=== PATIENT | male | born 1960 | race Asian ===

== ENCOUNTER 2018-08-30 20:07 | Inpatient (IN) | payer MEDICARE, OTHER ==
[~2018-08-30] VITALS: Ht 182.9 cm; Wt 49.0 kg
[2018-08-30 20:20] VITALS: BP 140/90
--- NOTE | 2018-08-30 20:20 | NUR ---
ED Nurse Note: John zion from [facility] c/o fever however at time of arrival patient does have a rectal temp of 98.9, Patient is disoriented and confused at time of arrival, patient is a polish speaking male whjo is accompanied by his , his states that he does have a history of hypertension and has had 2 strokes. states that the patient's last known well time was on 08/17/18 to which she states that the patient was able to ambulate himself to the bathroom and make speech. at time of arrival patient is incoherent and is constantly making noises. 18 gauge IV started on patients right AC, blood drawn and sent to lab.
[2018-08-30] MEDS ORDERED: PLAVIX75 MG ORAL (20:22)
[2018-08-30] MEDS ORDERED: DIVALPROEX SOD125 M1 PO (20:22)
[2018-08-30] MEDS ORDERED: LIPITOR80 MG ORAL (20:22)
[2018-08-30] MEDS ORDERED: POLYETHYLENE GL17 GM ORAL (20:22)
[2018-08-30] MEDS ORDERED: GERITUSSIN (20:22)
--- NOTE | 2018-08-30 20:41 | Emergency Room Report ---
History of Present Illness General Chief Complaint: Fever Source: Family Member, EMS Present Illness HPI This is a 58-year-old male with a history of a CVA and was admitted to a long-term on August 15. The patient offers no meaningful history and the family member at bedside is somewhat of a poor historian. According to her, the patient was admitted for a CVA. The patient got progressively worse over the last several weeks. And is having episodes of agitation with her speech. The patient is not eating or drinking. The patient does not ambulate any more. According to the family member, the patient was able to talk and walk prior to August 17. The patient is coming from a nursing facility. Allergies: Coded Allergies: No Known Allergies (Unverified , 08/30/18) Patient History Past Medical History: [place], CVA/TIA Past Surgical History: unable to obtain Pertinent Family History: unable to obtain Nursing Documentation-PMH Hx Hypertension: Yes Hx Gastrointestinal Problems: Yes - acid reflux, dyslipidemia, hemorrhoids Hx Neurological Problems: Yes - AMS Hx Cerebrovascular Accident: Yes - encephalopathy Hx Seizures: Yes Review of Systems All Other Systems: limited Physical Exam Vital Signs Date Time Temp Pulse Resp B/P (MAP) Pulse Ox O2 Delivery O2 Flow Rate FiO2 08/30/18 20:14 98.1 88 16 140/90 98 General Appearance: normal inspection ENT: normal ENT inspection, normal pharynx Neck: supple Respiratory: normal inspection, lungs clear Cardiovascular #1: normal inspection, regular rate, rhythm Musculoskeletal: normal inspection Neurologic: other - unable to exam Medical Decision Making Diagnostic Impression: Primary Impression: Altered mental state Additional Impression: Dehydration ER Course Patient presents enemy complexity or wrists. Patient was extremely agitated was given Ativan. He had a brief episode of hypotension medicine resolves on IV hydration. The patient has been afebrile. Chest x-ray was reviewed which showed no acute disease process. CT showed a subacute CVA on the right temporal lobe. Repeat neurological examination is unchanged and limited. The patient be admitted to the telemetry unit. Lactic acid level was slightly elevated. Unknown cause. The patient is afebrile. No leukocytosis. No significant or obvious source of infection. Laboratory Tests Test 08/30/18 20:45 08/30/18 21:30 08/30/18 22:15 White Blood Count 10.0 K/UL (4.8-10.8) Red Blood Count 4.72 M/UL (4.70-6.10) Hemoglobin 14.6 G/DL (14.2-18.0) Hematocrit 43.0 % (42.0-52.0) Mean Corpuscular Volume 91 FL (80-99) Mean Corpuscular Hemoglobin 30.8 PG (27.0-31.0) Mean Corpuscular Hemoglobin Concent 33.9 G/DL (32.0-36.0) Red Cell Distribution Width 12.1 % (11.6-14.8) Platelet Count 285 K/UL (150-450) Mean Platelet Volume 5.7 FL (6.5-10.1) L Neutrophils (%) (Auto) 71.3 % (45.0-75.0) Lymphocytes (%) (Auto) 17.9 % (20.0-45.0) L Monocytes (%) (Auto) 8.3 % (1.0-10.0) Eosinophils (%) (Auto) 0.8 % (0.0-3.0) Basophils (%) (Auto) 1.6 % (0.0-2.0) Sodium Level 144 MMOL/L (136-145) Potassium Level 4.4 MMOL/L (3.5-5.1) Chloride Level 106 MMOL/L (98-107) Carbon Dioxide Level 29 MMOL/L (21-32) Anion Gap 9 mmol/L (5-15) Blood Urea Nitrogen 23 mg/dL (7-18) H Creatinine 1.1 MG/DL (0.55-1.30) Estimate Glomerular Filtration Rate > 60 mL/min (>60) Glucose Level 110 MG/DL (74-106) H Lactic Acid Level 3.10 mmol/L (0.4-2.0) H Pending Calcium Level 9.8 MG/DL (8.5-10.1) Total Bilirubin 0.6 MG/DL (0.2-1.0) Aspartate Amino Transferase (AST) 40 U/L (15-37) H Alanine Aminotransferase (ALT) 44 U/L (12-78) Alkaline Phosphatase 79 U/L (46-116) Ammonia 19 umol/L (11-32) Troponin I 0.012 ng/mL (0.000-0.056) Total Protein 8.3 G/DL (6.4-8.2) H Albumin 3.8 G/DL (3.4-5.0) Globulin 4.5 g/dL Albumin/Globulin Ratio 0.8 (1.0-2.7) L Urine Color Yellow Urine Appearance Clear Urine pH 7 (4.5-8.0) Urine Specific [place] 1.015 (1.005-1.035) Urine Protein 3+ (NEGATIVE) H Urine Glucose (UA) Negative (NEGATIVE) Urine Ketones Negative (NEGATIVE) Urine Blood 2+ (NEGATIVE) H Urine Nitrite Negative (NEGATIVE) Urine Bilirubin Negative (NEGATIVE) Urine Urobilinogen 1 MG/DL (0.0-1.0) H Urine Leukocyte Esterase 1+ (NEGATIVE) H Urine RBC 5-10 /HPF (0 - 0) H Urine WBC 2-4 /HPF (0 - 0) Urine Squamous Epithelial Cells None /LPF (NONE/OCC) Urine Amorphous Sediment Few /LPF (NONE) H Urine Bacteria Moderate /HPF (NONE) H Urine Yeast Few /HPF (NONE) H EKG Diagnostic Results EKG Time: 21:20 Rate: normal Rhythm: NSR ST Segments: other - RBBB Last Vital Signs Date Time Temp Pulse Resp B/P (MAP) Pulse Ox O2 Delivery O2 Flow Rate FiO2 08/30/18 20:14 98.1 88 16 140/90 98 UNA REED Aug 30, 2018 20:41
[2018-08-30] MEDS ORDERED: LORazepam Inj 2mg/ml 1ml IM ONE (20:45)
[2018-08-30 21:02] LABS: BASOPHILS % (AUTO) 1.6 % (0.0-2.0); EOSINOPHILS % (AUTO) 0.8 % (0.0-3.0); HEMOGLOBIN 14.6 G/DL (14.2-18.0); LYMPHOCYTES % (AUTO) 17.9 % (20.0-45.0); MEAN CORPUSCULAR VOLUME 91 FL (80-99); MONOCYTES % (AUTO) 8.3 % (1.0-10.0); NEUTROPHILS % (AUTO) 71.3 % (45.0-75.0); PLATELET COUNT 285 K/UL (150-450); RED BLOOD COUNT 4.72 M/UL (4.70-6.10); RED CELL DISTRIBUTION WIDTH 12.1 % (11.6-14.8)
[2018-08-30] MEDS ORDERED: LORazepam Inj 2mg/ml 1ml IV ONE (21:15)
[2018-08-30 21:23] LABS: ANION GAP 9 mmol/L (5-15); BLOOD UREA NITROGEN 23 mg/dL (7-18); CALCIUM 9.8 MG/DL (8.5-10.1); CARBON DIOXIDE 29 MMOL/L (21-32); CHLORIDE 106 MMOL/L (98-107); CREATININE 1.1 MG/DL (0.55-1.30); POTASSIUM 4.4 MMOL/L (3.5-5.1); SODIUM 144 MMOL/L (136-145)
[2018-08-30 21:24] LABS: AMMONIA 19 umol/L (11-32)
[2018-08-30 21:28] LABS: ALANINE AMINOTRANSFERASE 44 U/L (12-78); ALBUMIN 3.8 G/DL (3.4-5.0); ALBUMIN/GLOBULIN RATIO 0.8 (1.0-2.7); ALKALINE PHOSPHATASE 79 U/L (46-116); ASPARTATE AMINO TRANSFERASE 40 U/L (15-37); BILIRUBIN,TOTAL 0.6 MG/DL (0.2-1.0)
[2018-08-30 21:46] LABS: APPEARANCE,URINE CLEAR; BILIRUBIN, URINE NEGATIVE (NEGATIVE); GLUCOSE, URINE (UA) NEGATIVE (NEGATIVE); KETONES,URINE NEGATIVE (NEGATIVE); LEUKOCYTE ESTERASE ,URINE 1+ (NEGATIVE); NITRITE,URINE NEGATIVE (NEGATIVE); PH,URINE 7 (4.5-8.0); PROTEIN,URINE 3+ (NEGATIVE); UROBILINOGEN,URINE 1 MG/DL (0.0-1.0)
[2018-08-30 21:50] LABS: COLOR,URINE YELLOW
[2018-08-30 22:00] VITALS: BP 74/46
--- NOTE | 2018-08-30 22:00 | NUR ---
ED Nurse Note: Patient's blood pressure went down to 74/62, Dr. Sahu notified and aware, started second line on pateints left forearm 18 gauge.
--- NOTE | 2018-08-30 22:15 | NUR ---
ED Nurse Note: after receiving IV bolus fluids, patient's blood pressure currently table in the 110s
[2018-08-30] MEDS ORDERED: Acetaminophen 650 MG SUPP RECTAL PRN (22:45)
--- NOTE | 2018-08-30 23:07 | General Progress Note ---
Assessment/Plan Assessment/Plan: [facility] An independent Hospitalist group, where every patient is our [facility] Internal Medicine and Hospitalist Overnight Note Please contact us at Please text me on Voalte from 8a-6p regarding any patient questions From 6p-8a please call [phone] Case discussed with ED Physician. Chart, labs, imaging, vitals and other flowsheets reviewed. Patient presents with ams, found to have waylon and uti and subacute stroke Plan overnight will be admit to med surg with IV abx and IVF consults to be called in AM Full admission orders completed. Full and complete H+P to follow Time of note may not reflect time of encounter. Signed: Ingris Pool DO [facility] Pager: [phone] 08/30/2018 Subjective Allergies: Coded Allergies: No Known Allergies (Unverified , 08/30/18) Objective Last 24 Hour Vital Signs Date Time Temp Pulse Resp B/P (MAP) Pulse Ox O2 Delivery O2 Flow Rate FiO2 08/30/18 20:20 98.1 85 16 140/90 98 08/30/18 20:20 88 16 08/30/18 20:14 98.1 88 16 140/90 98 Laboratory Tests 08/30/18 20:45: White Blood Count 10.0, Red Blood Count 4.72, Hemoglobin 14.6, Hematocrit 43.0, Mean Corpuscular Volume 91, Mean Corpuscular Hemoglobin 30.8, Mean Corpuscular Hemoglobin Concent 33.9, Red Cell Distribution Width 12.1, Platelet Count 285, Mean Platelet Volume 5.7L, Neutrophils (%) (Auto) 71.3, Lymphocytes (%) (Auto) 17.9L, Monocytes (%) (Auto) 8.3, Eosinophils (%) (Auto) 0.8, Basophils (%) (Auto ) 1.6, Sodium Level 144, Potassium Level 4.4, Chloride Level 106, Carbon Dioxide Level 29, Anion Gap 9, Blood Urea Nitrogen 23H, Creatinine 1.1, Estimat Glomerular Filtration Rate > 60, Glucose Level 110H, Lactic Acid Level 3.10H, Calcium Level 9.8, Total Bilirubin 0.6, Aspartate Amino Transf (AST/SGOT) 40H, Alanine Aminotransferase (ALT/SGPT) 44, Alkaline Phosphatase 79, Ammonia 19, Troponin I 0.012, Total Protein 8.3H, Albumin 3.8, Globulin 4.5, Albumin/ Globulin Ratio 0.8L 08/30/18 21:30: Urine Color Yellow, Urine Appearance Clear, Urine pH 7, Urine Specific [place] 1.015, Urine Protein 3+H, Urine Glucose (UA) Negative, Urine Ketones Negative, Urine Blood 2+H, Urine Nitrite Negative, Urine Bilirubin Negative, Urine Urobilinogen 1H, Urine Leukocyte Esterase 1+H, Urine RBC 5-10H, Urine WBC 2-4, Urine Squamous Epithelial Cells None, Urine Amorphous Sediment FewH, Urine Bacteria ModerateH, Urine Yeast FewH 08/30/18 22:15: Lactic Acid Level 1.40 Height (Feet): 6 Weight (Pounds): 130 Ingris Pool DO Aug 30, 2018 23:07
[2018-08-30] MEDS ORDERED: Miralax 17gm pkt ORAL PRN (23:15)
--- NOTE | 2018-08-30 23:58 | NUR ---
ED Nurse Note: Mendel [phone] (speak no Angolan), brother Hugh [phone] (Speak Angolan)
[2018-08-31 00:03] VITALS: BP 104/67
[2018-08-31] MEDS ORDERED: POLYETHYLENE GL17 GM ORAL (00:22)
[2018-08-31] MEDS ORDERED: BISACODYL5 MG ORAL (00:22)
[2018-08-31] MEDS ORDERED: PLAVIX75 MG ORAL (00:22)
[2018-08-31] MEDS ORDERED: DEPAKOTE250 MG PO (00:22)
--- NOTE | 2018-08-31 00:30 | NUR ---
TRANSFER TO FLOOR: Patient transferred to Telemetry as ordered Report given to DEANNE Yan
[2018-08-31 01:00] VITALS: BP 108/63
--- NOTE | 2018-08-31 01:00 | NUR ---
NURSE NOTES: Received report from Raine Carlson, ED RN. Pt came via [facility] w/o incident. Pt is sedated in ED by having ativan for agitation while taking CT. Francisco cath is applied, patent and draining. Urine bag is off the floor. Belonging list checked and telemetry monitor was applied. SR w/ BBB, 60 bpm. in the monitor. There is transfer to Tele order in the paper of [facility] order form by ED Dr, done in pt's chart. Will follow plans of care. Addendum: 08/31/18 at 0457 by NEHA DAMIAN RN Admitted to tele first d/t [facility] order paper by ED Doctor indicated tele admin. Transferred to med-surg according to PCP. CN made aware from the first admission process.
--- NOTE | 2018-08-31 04:50 | NUR ---
NURSE NOTES: Report taken from Fredi Yan. Patient came to the floor via hospital bed. Patient is asleep, non-responsive to RN touch or voice. VS stable: T) 97.6 HR) 51 BP) 97/63 O2) 100%. No skin issues present with patient. patient has a burleson in c/d/i and patent draining yellow urine, emptied 1300cc upon arrival to floor. Belongings list signed by family. Bilateral IV sites c/d/i and patent. Patient will be going for carotid duplex in the am due to history of CVA. Gave 2L bolus in the ER due to low BP. Continue to monitor, call light within reach, bed in lowest position.
--- NOTE | 2018-08-31 04:51 | NUR ---
TRANSFER TO FLOOR: Patient transferred to 3E, Rm 314-1, per Dr. Pool. Tele monitor #24 was off and returned to 2E station. Report given to Kristen Euceda RN. Belongings given to Pt. and RN checked the list. Family and or S/O informed of transfer.
--- NOTE | 2018-08-31 07:49 | NUR ---
HAND-OFF: Report given to DEANNE Porter. Yaw called MD office to get further orders for the day, awaiting call back, endorsed to day nurse. Patient is awake and agitated during rounds. VS stable.
[2018-08-31 08:00] VITALS: BP 154/97
--- NOTE | 2018-08-31 08:16 | NUR ---
NURSE NOTES: AWAKE/ NOISY AND RESTLESS. TRYING TO FULL OUT F/C AND GETTING OUT OF BED. TRANSFERRED TO RM 310.2 CLOSED TO NURSES STATION. CONTINUE TO MONITOR PT. DR HAYS CALLED . LEFT MESSAGE TO RETURN CALL.
[2018-08-31] MEDS ORDERED: LORazepam Inj 2mg/ml 1ml IV PRN ×3 (08:30→10:00)
[2018-08-31] MEDS ORDERED: LORazepam 1mg tab ORAL PRN (08:30)
[2018-08-31] MEDS: cefTRIAXone 1 GM in NS 55 ML IVPB SCH (09:00)
[2018-08-31] MEDS ORDERED: Aspirin EC 81mg tab ORAL SCH (09:00)
[2018-08-31] MEDS ORDERED: cefTRIAXone 1 GM in NS 55 ML IVPB SCH (09:00)
[2018-08-31] MEDS: Aspirin EC 81mg tab ORAL SCH (09:30)
--- NOTE | 2018-08-31 10:58 | Diagnostic Imaging Report ---
Indications: Altered mental status, history of seizures Technique: Spiral acquisitions obtained through the brain. Angled axial and coronal 5 x 5 mm slices were reconstructed. Total dose length product 3765 mGycm. CTDI vol(s) 70 x 4 mGy. Dose reduction achieved using automated exposure control Comparison: None. Findings: There is marked image degradation due to motion artifact There is age-related enlargement of the ventricles and extra-axial CSF spaces. There is periventricular deep white matter low-attenuation, consistent with chronic ischemic change. Prominent cisterna magna noted. There is low-attenuation within the right temporal tip, consistent with a subacute or old infarct. No acute intercranial hemorrhage nor edema otherwise. No mass effect nor midline shift. Intact calvarium. Visualized orbits and sinuses are unremarkable. Impression: Limited exam due to image degradation from motion artifact Subacute or old right temporal tip infarct. No acute associated hemorrhage Other chronic and age-related changes, as described This agrees with the preliminary interpretation provided overnight by Dr. Ace The CT scanner at [facility] is accredited by the [employer] and the scans are performed using protocols designed to limit radiation exposure to as low as reasonably achievable to attain images of sufficient resolution adequate for diagnostic evaluation.
--- NOTE | 2018-08-31 11:03 | History and Physical ---
History of Present Illness General Date patient seen: Aug 31, 2018 Time patient seen: 07:25 Reason for Hospitalization: Fever Present Illness HPI 58 year old man with history of recent CVA with subsequent aphasia who [facility] with increasing confusion, agitation and poor oral intake. is at the beside but does not speak Filipino. I spoke with the patient's brother Hugh by telephone who confirmed the above information, patient has had worsening mentation over the past 2-3 weeks since being admitted to the nursing facility. Patient did have an episode of slurred speech around that time. In ED he was found to be hypotensive, dehydration and possible UTI. Patient continues to be agitated and required wrist restraints to prevent interruption of therapy. Social History: No current alcohol or tobacco Family History: Unable to obtain due to patient's encephalopathy Allergies: Coded Allergies: No Known Allergies (Unverified , 08/30/18) Medication History Scheduled Atorvastatin (Lipitor), 80 MG ORAL BEDTIME, (Reported) Bisacodyl* (Dulcolax*), 20 MG ORAL ONCE, (Reported) Clopidogrel Bisulfate* (Plavix*), 75 MG ORAL DAILY, (Reported) Clopidogrel Bisulfate* (Plavix*), 75 MG ORAL DAILY, (Reported) Divalproex Sodium* (Depakote*), 250 MG PO Q12HR, (Reported) Scheduled PRN Polyethylene Glycol 3350* (Polyethylene Glycol 3350*), 17 GM ORAL BEDTIME PRN for Constipation, (Reported) Polyethylene Glycol 3350* (Polyethylene Glycol 3350*), 17 GM ORAL BEDTIME PRN for Constipation, (Reported) Miscellaneous Medications Divalproex Sodium (Divalproex Sodium), 125 MG PO, (Reported) [geritussin], (Reported) Patient History Healthcare decision maker Resuscitation status Full Code Advanced Directive on File Review of Systems ROS Narrative Unable to obtain ROS due to encephalopathy Physical Exam General Appearance: alert, combative HEENT: normocephalic Neck: supple, normal inspection Respiratory/Chest: lungs clear, normal breath sounds, no respiratory distress Cardiovascular/Chest: normal rate, regular rhythm, no JVD Abdomen: non tender, soft Extremities: normal inspection, no calf tenderness Neurologic: other - Uncooperative Last 24 Hour Vital Signs Date Time Temp Pulse Resp B/P (MAP) Pulse Ox O2 Delivery O2 Flow Rate FiO2 08/31/18 09:53 Room Air 08/31/18 05:21 Room Air 08/31/18 01:46 Room Air 08/31/18 01:00 96.8 60 18 108/63 (78) 98 08/31/18 01:00 60 08/31/18 00:46 98.1 76 18 104/67 100 Room Air 08/31/18 00:03 64 18 104/67 100 Room Air 08/30/18 22:00 67 18 74/46 99 Room Air 08/30/18 20:20 98.1 85 16 140/90 98 08/30/18 20:20 88 16 08/30/18 20:14 98.1 88 16 140/90 98 Intake and Output 08/30/18 08/31/18 19:00 07:00 Intake Total 0 ml Output Total 1500 ml Balance -1500 ml Intake Oral 0 ml Output Urine Total 1500 ml Laboratory Tests Test 08/30/18 20:45 08/30/18 21:30 08/30/18 22:15 White Blood Count 10.0 K/UL (4.8-10.8) Red Blood Count 4.72 M/UL (4.70-6.10) Hemoglobin 14.6 G/DL (14.2-18.0) Hematocrit 43.0 % (42.0-52.0) Mean Corpuscular Volume 91 FL (80-99) Mean Corpuscular Hemoglobin 30.8 PG (27.0-31.0) Mean Corpuscular Hemoglobin Concent 33.9 G/DL (32.0-36.0) Red Cell Distribution Width 12.1 % (11.6-14.8) Platelet Count 285 K/UL (150-450) Mean Platelet Volume 5.7 FL (6.5-10.1) L Neutrophils (%) (Auto) 71.3 % (45.0-75.0) Lymphocytes (%) (Auto) 17.9 % (20.0-45.0) L Monocytes (%) (Auto) 8.3 % (1.0-10.0) Eosinophils (%) (Auto) 0.8 % (0.0-3.0) Basophils (%) (Auto) 1.6 % (0.0-2.0) Sodium Level 144 MMOL/L (136-145) Potassium Level 4.4 MMOL/L (3.5-5.1) Chloride Level 106 MMOL/L (98-107) Carbon Dioxide Level 29 MMOL/L (21-32) Anion Gap 9 mmol/L (5-15) Blood Urea Nitrogen 23 mg/dL (7-18) H Creatinine 1.1 MG/DL (0.55-1.30) Estimat Glomerular Filtration Rate > 60 mL/min (>60) Glucose Level 110 MG/DL (74-106) H Lactic Acid Level 3.10 mmol/L (0.4-2.0) H 1.40 mmol/L (0.66-2.22) Calcium Level 9.8 MG/DL (8.5-10.1) Total Bilirubin 0.6 MG/DL (0.2-1.0) Aspartate Amino Transf (AST/SGOT) 40 U/L (15-37) H Alanine Aminotransferase (ALT/SGPT) 44 U/L (12-78) Alkaline Phosphatase 79 U/L (46-116) Ammonia 19 umol/L (11-32) Troponin I 0.012 ng/mL (0.000-0.056) Total Protein 8.3 G/DL (6.4-8.2) H Albumin 3.8 G/DL (3.4-5.0) Globulin 4.5 g/dL Albumin/Globulin Ratio 0.8 (1.0-2.7) L Urine Color Yellow Urine Appearance Clear Urine pH 7 (4.5-8.0) Urine Specific [place] 1.015 (1.005-1.035) Urine Protein 3+ (NEGATIVE) H Urine Glucose (UA) Negative (NEGATIVE) Urine Ketones Negative (NEGATIVE) Urine Blood 2+ (NEGATIVE) H Urine Nitrite Negative (NEGATIVE) Urine Bilirubin Negative (NEGATIVE) Urine Urobilinogen 1 MG/DL (0.0-1.0) H Urine Leukocyte Esterase 1+ (NEGATIVE) H Urine RBC 5-10 /HPF (0 - 0) H Urine WBC 2-4 /HPF (0 - 0) Urine Squamous Epithelial Cells None /LPF (NONE/OCC) Urine Amorphous Sediment Few /LPF (NONE) H Urine Bacteria Moderate /HPF (NONE) H Urine Yeast Few /HPF (NONE) H Height (Feet): 6 Height (Inches): 0.00 Weight (Pounds): 130 Medications Current Medications Medications (Trade) Dose Ordered Sig/Jaxon Route PRN Reason Start Time Stop Time Status Last Admin Dose Admin Aspirin (Ecotrin) 81 mg DAILY ORAL 08/31/18 09:00 09/30/18 08:59 08/31/18 09:30 Atorvastatin Calcium (Lipitor) 80 mg BEDTIME ORAL 08/31/18 21:00 09/30/18 20:59 Ceftriaxone Sodium 1 gm/ Sodium Chloride 55 ml @ 110 mls/hr DAILY IVPB 08/31/18 09:00 09/07/18 08:59 08/31/18 09:00 Clopidogrel Bisulfate (Plavix) 75 mg DAILY ORAL 09/01/18 09:00 10/01/18 08:59 Divalproex Sodium (Depakote) 250 mg Q12HR ORAL 08/31/18 21:00 09/30/18 20:59 Lorazepam (Ativan 2mg/ml 1ml) 0.5 mg Q4H PRN IV For Anxiety 08/31/18 10:00 09/07/18 08:44 Polyethylene Glycol (Miralax) 17 gm BEDTIME PRN ORAL Constipation 08/31/18 21:00 09/29/18 23:14 Sodium Chloride 1,000 ml @ 100 mls/hr Q10H IV 08/31/18 08:30 09/30/18 08:29 08/31/18 08:52 Assessment/Plan Assessment/Plan: #Acute metabolic encephalopathy, possibly from UTI, dehydration or recurrent CVA #History of recent CVA, CT done in ED shows subacute to chronic right thalamic stroke -admit to medical service -supportive care -Fall,Aspiration,Seizure precautions -Neurochecks -continue Plavix and Lipitor -IV hydration -Ceftriaxone -Follow up cultures -Neurology and Psychiatry consulted Full Code VTE PPx Heparin SC I spent 70 minutes on this patient's case, and 35 minutes was dedicated to counseling and/or care coordination. Bright Her MD Aug 31, 2018 11:03
--- NOTE | 2018-08-31 11:24 | Diagnostic Imaging Report ---
Indication: Shortness of breath Technique: One view of the chest Comparison: none Findings: Lungs and pleural spaces are clear. Heart size is normal Impression: No acute process
--- NOTE | 2018-08-31 11:26 | NUR ---
RD ASSESSMENT & RECOMMENDATIONS SEE CARE ACTIVITY FOR COMPLETE ASSESSMENT DAILY ESTIMATED NEEDS: Needs based on cardiac, wasting, underweight 52kg 30-35 kcals/kg 7925-6009 total kcals 1-1.5 g protein/kg 52-78 g total protein 25-30 mL/kg 6075-3230 total fluid mLs NUTRITION DIAGNOSIS: Increased kcal and protein needs r/t underweight status and wasting as evidenced by pt is est 74% of [place] Body Weight, w/ generalized mild to moderate wasting. CURRENT DIET: NPO PO DIET RECOMMENDATIONS: REGULAR DIET (texture per GEM TECHNICIAN) ADDITIONAL RECOMMENDATIONS: 1) GEM TECHNICIAN eval for appropriate texture (h/o CVA) 2) Obtain calibrated bed scale wts 3) Add Ensure 1 bottle BID in b/w meals w/ diet order 4) Weekly weights
--- NOTE | 2018-08-31 11:44 | Initial Psychiatric Evaluation ---
Psychiatry Consultation Psychiatry Consultation Chief Complaint: Fever History of Present Illness: 58 year old man with history of CVA with aphasia who comes from the intermediate with increasing confusion, agitation and poor oral intake. the pts was in room and we called the brother. the pt hx was gathered. the pt was severely agitated and yelling. the pt was in restraints and was trying to come out of the bed. the pt has severe cognitive impairment. Allergies: Coded Allergies: No Known Allergies (Unverified , 08/30/18) Past Psychiatric History: none Medication History Scheduled Atorvastatin (Lipitor), 80 MG ORAL BEDTIME, (Reported) Bisacodyl* (Dulcolax*), 20 MG ORAL ONCE, (Reported) Clopidogrel Bisulfate* (Plavix*), 75 MG ORAL DAILY, (Reported) Clopidogrel Bisulfate* (Plavix*), 75 MG ORAL DAILY, (Reported) Divalproex Sodium* (Depakote*), 250 MG PO Q12HR, (Reported) Scheduled PRN Polyethylene Glycol 3350* (Polyethylene Glycol 3350*), 17 GM ORAL BEDTIME PRN for Constipation, (Reported) Polyethylene Glycol 3350* (Polyethylene Glycol 3350*), 17 GM ORAL BEDTIME PRN for Constipation, (Reported) Miscellaneous Medications Divalproex Sodium (Divalproex Sodium), 125 MG PO, (Reported) [geritussin], (Reported) Patient History Limited by: medical condition History Provided By: Family Member, PMD Objective Data Height (Feet): 6 Height (Inches): 0.00 Weight (Pounds): 130 Appearance: disheveled Behavior Mannerisms: poor eye contact Affect: labile Mood: irritable, anxious, agitated Speech: aphasic Thought Process: illogical, confusion Assessment/Plan Problem List: (1) Acute encephalopathy ICD Codes: G93.40 - Encephalopathy, unspecified SNOMED: 36269413, [id number] (2) Cognitive impairment ICD Codes: R41.89 - Other symptoms and signs involving cognitive functions and awareness SNOMED: 482357202 Status: unchanged Assessment/Plan: cont restraints increase depakote seroquel standing seroquel prn Damian Graham MD Aug 31, 2018 11:44
[2018-08-31 12:00] VITALS: BP 131/95
--- NOTE | 2018-08-31 13:53 | Consultation ---
History of Present Illness General Chief Complaint: Fever Present Illness Allergies: Coded Allergies: No Known Allergies (Unverified , 08/30/18) Medication History Scheduled Atorvastatin (Lipitor), 80 MG ORAL BEDTIME, (Reported) Bisacodyl* (Dulcolax*), 20 MG ORAL ONCE, (Reported) Clopidogrel Bisulfate* (Plavix*), 75 MG ORAL DAILY, (Reported) Clopidogrel Bisulfate* (Plavix*), 75 MG ORAL DAILY, (Reported) Divalproex Sodium* (Depakote*), 250 MG PO Q12HR, (Reported) Scheduled PRN Polyethylene Glycol 3350* (Polyethylene Glycol 3350*), 17 GM ORAL BEDTIME PRN for Constipation, (Reported) Polyethylene Glycol 3350* (Polyethylene Glycol 3350*), 17 GM ORAL BEDTIME PRN for Constipation, (Reported) Miscellaneous Medications Divalproex Sodium (Divalproex Sodium), 125 MG PO, (Reported) [geritussin], (Reported) Patient History Healthcare decision maker Resuscitation status Full Code Advanced Directive on File Physical Exam Last 24 Hour Vital Signs Date Time Temp Pulse Resp B/P (MAP) Pulse Ox O2 Delivery O2 Flow Rate FiO2 08/31/18 12:00 97.0 98 17 131/95 (107) 91 08/31/18 09:53 Room Air 08/31/18 05:21 Room Air 08/31/18 01:46 Room Air 08/31/18 01:00 96.8 60 18 108/63 (78) 98 08/31/18 01:00 60 08/31/18 00:46 98.1 76 18 104/67 100 Room Air 08/31/18 00:03 64 18 104/67 100 Room Air 08/30/18 22:00 67 18 74/46 99 Room Air 08/30/18 20:20 98.1 85 16 140/90 98 08/30/18 20:20 88 16 08/30/18 20:14 98.1 88 16 140/90 98 Intake and Output 08/30/18 08/31/18 19:00 07:00 Intake Total 0 ml Output Total 1500 ml Balance -1500 ml Intake Oral 0 ml Output Urine Total 1500 ml Laboratory Tests Test 08/30/18 20:45 08/30/18 21:30 08/30/18 22:15 White Blood Count 10.0 K/UL (4.8-10.8) Red Blood Count 4.72 M/UL (4.70-6.10) Hemoglobin 14.6 G/DL (14.2-18.0) Hematocrit 43.0 % (42.0-52.0) Mean Corpuscular Volume 91 FL (80-99) Mean Corpuscular Hemoglobin 30.8 PG (27.0-31.0) Mean Corpuscular Hemoglobin Concent 33.9 G/DL (32.0-36.0) Red Cell Distribution Width 12.1 % (11.6-14.8) Platelet Count 285 K/UL (150-450) Mean Platelet Volume 5.7 FL (6.5-10.1) L Neutrophils (%) (Auto) 71.3 % (45.0-75.0) Lymphocytes (%) (Auto) 17.9 % (20.0-45.0) L Monocytes (%) (Auto) 8.3 % (1.0-10.0) Eosinophils (%) (Auto) 0.8 % (0.0-3.0) Basophils (%) (Auto) 1.6 % (0.0-2.0) Sodium Level 144 MMOL/L (136-145) Potassium Level 4.4 MMOL/L (3.5-5.1) Chloride Level 106 MMOL/L (98-107) Carbon Dioxide Level 29 MMOL/L (21-32) Anion Gap 9 mmol/L (5-15) Blood Urea Nitrogen 23 mg/dL (7-18) H Creatinine 1.1 MG/DL (0.55-1.30) Estimat Glomerular Filtration Rate > 60 mL/min (>60) Glucose Level 110 MG/DL (74-106) H Lactic Acid Level 3.10 mmol/L (0.4-2.0) H 1.40 mmol/L (0.66-2.22) Calcium Level 9.8 MG/DL (8.5-10.1) Total Bilirubin 0.6 MG/DL (0.2-1.0) Aspartate Amino Transf (AST/SGOT) 40 U/L (15-37) H Alanine Aminotransferase (ALT/SGPT) 44 U/L (12-78) Alkaline Phosphatase 79 U/L (46-116) Ammonia 19 umol/L (11-32) Troponin I 0.012 ng/mL (0.000-0.056) Total Protein 8.3 G/DL (6.4-8.2) H Albumin 3.8 G/DL (3.4-5.0) Globulin 4.5 g/dL Albumin/Globulin Ratio 0.8 (1.0-2.7) L Urine Color Yellow Urine Appearance Clear Urine pH 7 (4.5-8.0) Urine Specific [place] 1.015 (1.005-1.035) Urine Protein 3+ (NEGATIVE) H Urine Glucose (UA) Negative (NEGATIVE) Urine Ketones Negative (NEGATIVE) Urine Blood 2+ (NEGATIVE) H Urine Nitrite Negative (NEGATIVE) Urine Bilirubin Negative (NEGATIVE) Urine Urobilinogen 1 MG/DL (0.0-1.0) H Urine Leukocyte Esterase 1+ (NEGATIVE) H Urine RBC 5-10 /HPF (0 - 0) H Urine WBC 2-4 /HPF (0 - 0) Urine Squamous Epithelial Cells None /LPF (NONE/OCC) Urine Amorphous Sediment Few /LPF (NONE) H Urine Bacteria Moderate /HPF (NONE) H Urine Yeast Few /HPF (NONE) H Height (Feet): 6 Height (Inches): 0.00 Weight (Pounds): 130 Medications Current Medications Medications (Trade) Dose Ordered Sig/Jaxon Route PRN Reason Start Time Stop Time Status Last Admin Dose Admin Aspirin (Ecotrin) 81 mg DAILY ORAL 08/31/18 09:00 09/30/18 08:59 08/31/18 09:30 Atorvastatin Calcium (Lipitor) 80 mg BEDTIME ORAL 08/31/18 21:00 09/30/18 20:59 Ceftriaxone Sodium 1 gm/ Sodium Chloride 55 ml @ 110 mls/hr DAILY IVPB 08/31/18 09:00 09/07/18 08:59 08/31/18 09:00 Clopidogrel Bisulfate (Plavix) 75 mg DAILY ORAL 09/01/18 09:00 10/01/18 08:59 Divalproex Sodium (Depakote) 750 mg BEDTIME ORAL 08/31/18 21:00 09/30/18 20:59 Polyethylene Glycol (Miralax) 17 gm BEDTIME PRN ORAL Constipation 08/31/18 21:00 09/29/18 23:14 Quetiapine Fumarate (SEROquel) 25 mg TID ORAL 08/31/18 13:00 09/30/18 12:59 08/31/18 12:42 Quetiapine Fumarate (SEROquel) 50 mg QIDPRN PRN ORAL agitation 08/31/18 12:00 09/30/18 11:59 Sodium Chloride 1,000 ml @ 100 mls/hr Q10H IV 08/31/18 08:30 09/30/18 08:29 08/31/18 08:52 Assessment/Plan Assessment/Plan: Hematology Consultation Date patient seen: Aug 31, 2018 Time patient seen: 07:25 Reason for Hospitalization: Fever RFC: Failure to thrive and hyperproteinemia REQ MD: Bright Her ID 58 year old man with history of recent CVA with subsequent aphasia who comes from the long term with increasing confusion, agitation and poor oral intake. is at the beside but does not speak Welsh. I spoke with the patient's brother Hugh by telephone who confirmed the above information, patient has had worsening mentation over the past 2-3 weeks since being admitted to the nursing facility. Patient did have an episode of slurred speech around that time. In ED he was found to be hypotensive, dehydration and possible UTI. Patient continues to be agitated and required wrist restraints to prevent interruption of therapy. Started on abx and heme was consulted, psych Social History: No current alcohol or tobacco Family History: Unable to obtain due to patient's encephalopathy Allergies: No Known Allergies (Unverified , 08/30/18) Meds Atorvastatin (Lipitor), 80 MG ORAL BEDTIME, (Reported) Bisacodyl* (Dulcolax*), 20 MG ORAL ONCE, (Reported) Clopidogrel Bisulfate* (Plavix*), 75 MG ORAL DAILY, (Reported) Clopidogrel Bisulfate* (Plavix*), 75 MG ORAL DAILY, (Reported) Divalproex Sodium* (Depakote*), 250 MG PO Q12HR, (Reported) Scheduled PRN Polyethylene Glycol 3350* (Polyethylene Glycol 3350*), 17 GM ORAL BEDTIME PRN for Constipation, (Reported) Polyethylene Glycol 3350* (Polyethylene Glycol 3350*), 17 GM ORAL BEDTIME PRN for Constipation, (Reported) Miscellaneous Medications Divalproex Sodium (Divalproex Sodium), 125 MG PO, (Reported) [geritussin], (Reported) Healthcare decision maker Resuscitation status Full Code Advanced Directive on File ROS ROS Narrative Unable to obtain ROS due to encephalopathy PE General Appearance: alert, combative HEENT: normocephalic Neck: supple, normal inspection Respiratory/Chest: lungs clear, normal breath sounds Cardiovascular/Chest: normal rate, regular rhythm, no JVD Abdomen: non tender, soft Extremities: normal inspection, no calf tenderness Neurologic: other - Uncooperative Last 24 Hour Vital Signs Date Time Temp Pulse Resp B/P (MAP) Pulse Ox O2 Delivery O2 Flow Rate FiO2 08/31/18 09:53 Room Air 08/31/18 05:21 Room Air 08/31/18 01:46 Room Air 08/31/18 01:00 96.8 60 18 108/63 (78) 98 08/31/18 01:00 60 08/31/18 00:46 98.1 76 18 104/67 100 Room Air 08/31/18 00:03 64 18 104/67 100 Room Air 08/30/18 22:00 67 18 74/46 99 Room Air 08/30/18 20:20 98.1 85 16 140/90 98 08/30/18 20:20 88 16 08/30/18 20:14 98.1 88 16 140/90 98 Intake and Output 08/30/18 08/31/18 19:00 07:00 Intake Total 0 ml Output Total 1500 ml Balance -1500 ml Intake Oral 0 ml Output Urine Total 1500 ml Laboratory Tests Test 08/30/18 20:45 08/30/18 21:30 08/30/18 22:15 White Blood Count 10.0 K/UL (4.8-10.8) Red Blood Count 4.72 M/UL (4.70-6.10) Hemoglobin 14.6 G/DL (14.2-18.0) Hematocrit 43.0 % (42.0-52.0) Mean Corpuscular Volume 91 FL (80-99) Mean Corpuscular Hemoglobin 30.8 PG (27.0-31.0) Mean Corpuscular Hemoglobin Concent 33.9 G/DL (32.0-36.0) Red Cell Distribution Width 12.1 % (11.6-14.8) Platelet Count 285 K/UL (150-450) Mean Platelet Volume 5.7 FL (6.5-10.1) L Neutrophils (%) (Auto) 71.3 % (45.0-75.0) Lymphocytes (%) (Auto) 17.9 % (20.0-45.0) L Monocytes (%) (Auto) 8.3 % (1.0-10.0) Eosinophils (%) (Auto) 0.8 % (0.0-3.0) Basophils (%) (Auto) 1.6 % (0.0-2.0) Sodium Level 144 MMOL/L (136-145) Potassium Level 4.4 MMOL/L (3.5-5.1) Chloride Level 106 MMOL/L (98-107) Carbon Dioxide Level 29 MMOL/L (21-32) Anion Gap 9 mmol/L (5-15) Blood Urea Nitrogen 23 mg/dL (7-18) H Creatinine 1.1 MG/DL (0.55-1.30) Estimat Glomerular Filtration Rate > 60 mL/min (>60) Glucose Level 110 MG/DL (74-106) H Lactic Acid Level 3.10 mmol/L (0.4-2.0) H 1.40 mmol/L (0.66-2.22) Calcium Level 9.8 MG/DL (8.5-10.1) Total Bilirubin 0.6 MG/DL (0.2-1.0) Aspartate Amino Transf (AST/SGOT) 40 U/L (15-37) H Alanine Aminotransferase (ALT/SGPT) 44 U/L (12-78) Alkaline Phosphatase 79 U/L (46-116) Ammonia 19 umol/L (11-32) Troponin I 0.012 ng/mL (0.000-0.056) Total Protein 8.3 G/DL (6.4-8.2) H Albumin 3.8 G/DL (3.4-5.0) Globulin 4.5 g/dL Albumin/Globulin Ratio 0.8 (1.0-2.7) L Urine Color Yellow Urine Appearance Clear Urine pH 7 (4.5-8.0) Urine Specific [place] 1.015 (1.005-1.035) Urine Protein 3+ (NEGATIVE) H Urine Glucose (UA) Negative (NEGATIVE) Urine Ketones Negative (NEGATIVE) Urine Blood 2+ (NEGATIVE) H Urine Nitrite Negative (NEGATIVE) Urine Bilirubin Negative (NEGATIVE) Urine Urobilinogen 1 MG/DL (0.0-1.0) H Urine Leukocyte Esterase 1+ (NEGATIVE) H Urine RBC 5-10 /HPF (0 - 0) H Urine WBC 2-4 /HPF (0 - 0) Urine Squamous Epithelial Cells None /LPF (NONE/OCC) Urine Amorphous Sediment Few /LPF (NONE) H Urine Bacteria Moderate /HPF (NONE) H Urine Yeast Few /HPF (NONE) H Height (Feet): 6 Height (Inches): 0.00 Weight (Pounds): 130 Medications Current Medications Medications (Trade) Dose Ordered Sig/Jaxon Route PRN Reason Start Time Stop Time Status Last Admin Dose Admin Aspirin (Ecotrin) 81 mg DAILY ORAL 08/31/18 09:00 09/30/18 08:59 08/31/18 09:30 Atorvastatin Calcium (Lipitor) 80 mg BEDTIME ORAL 08/31/18 21:00 09/30/18 20:59 Ceftriaxone Sodium 1 gm/ Sodium Chloride 55 ml @ 110 mls/hr DAILY IVPB 08/31/18 09:00 09/07/18 08:59 08/31/18 09:00 Clopidogrel Bisulfate (Plavix) 75 mg DAILY ORAL 09/01/18 09:00 10/01/18 08:59 Divalproex Sodium (Depakote) 250 mg Q12HR ORAL 08/31/18 21:00 09/30/18 20:59 Lorazepam (Ativan 2mg/ml 1ml) 0.5 mg Q4H PRN IV For Anxiety 08/31/18 10:00 09/07/18 08:44 Polyethylene Glycol (Miralax) 17 gm BEDTIME PRN ORAL Constipation 08/31/18 21:00 09/29/18 23:14 Sodium Chloride 1,000 ml @ 100 mls/hr Q10H IV 08/31/18 08:30 09/30/18 08:29 08/31/18 08:52 Assessment/Plan: # Failure to thrive - decreased bmi and low protein --> have ordered for cea level --> will also obtain q3d caloric counts --> have ordered for cea --> may consider mirtazapine as appetite stimulant Gi consult on a prn basis, as needed for endosc # Hyperproteinemia with decreased albumin -- this is a dissociation that is abnormal --> obtain SPEP (serum protein electrophoresis) and UPEP (urine protein electrophoresis) --> if above results in a m-spike or abnormally enhanced protein, will need to send off immunofixation serum/urine --> in the case of a m-spike or abnormally enhanced protein, will obtain a bone marrow biopsy # Acute metabolic encephalopathy, possibly from UTI, dehydration or recurrent CVA --> neuro and psych prn eval # History of recent CVA, CT done in ED shows subacute to chronic right thalamic stroke --> upportive care --> per neuro --> Fall,Aspiration,Seizure precautions --> is on abx for what appears to be uti The timing of this note does not necessarily reflect the time of the patient was seen. Greatly appreciate consultation! Aman Collier MD Aug 31, 2018 13:53
--- NOTE | 2018-08-31 14:25 | Consultation ---
History of Present Illness General Chief Complaint: AMS Referring physician: Dr. Concepcion Reason for Consultation: AMS Present Illness HPI Contreras Mensah is a 58 year old man with history of recent CVA and subsequent aphasia who comes from the intermediate with increasing confusion, agitation and poor oral intake. As per report, patient has had worsening mentation over the past 2-3 weeks since being admitted to the nursing facility. Patient did have an episode of slurred speech around that time. In ED he was found to be hypotensive, dehydration and possible UTI. He continues to be agitated and required wrist restraints to prevent interruption of therapy. Allergies: Coded Allergies: No Known Allergies (Unverified , 08/30/18) Medication History Scheduled Atorvastatin (Lipitor), 80 MG ORAL BEDTIME, (Reported) Bisacodyl* (Dulcolax*), 20 MG ORAL ONCE, (Reported) Clopidogrel Bisulfate* (Plavix*), 75 MG ORAL DAILY, (Reported) Clopidogrel Bisulfate* (Plavix*), 75 MG ORAL DAILY, (Reported) Divalproex Sodium* (Depakote*), 250 MG PO Q12HR, (Reported) Scheduled PRN Polyethylene Glycol 3350* (Polyethylene Glycol 3350*), 17 GM ORAL BEDTIME PRN for Constipation, (Reported) Polyethylene Glycol 3350* (Polyethylene Glycol 3350*), 17 GM ORAL BEDTIME PRN for Constipation, (Reported) Miscellaneous Medications Divalproex Sodium (Divalproex Sodium), 125 MG PO, (Reported) [geritussin], (Reported) Patient History Limited by: medical condition History Provided By: Medical Record Healthcare decision maker Resuscitation status Full Code Advanced Directive on File Past Medical/Surgical History Past Medical/Surgical History: (1) Stroke (2) Cognitive impairment Review of Systems All Other Systems: negative except mentioned in HPI ROS Narrative Unable to obtain from patient. Physical Exam General Appearance: WD/WN, alert, moderate distress, agitated, thin Lines, tubes and drains: peripheral HEENT: normocephalic, atraumatic, anicteric, mucous membranes moist, PERRL, EOMI, pharynx normal, supple, no JVD Neck: non-tender, normal alignment, supple, normal inspection Extremities: normal inspection, no calf tenderness, normal capillary refill, non-pitting, no edema, no cyanosis Skin Exam: normal pigmentation, warm/dry Neurologic: advertising coordinator II-XII grossly normal, alert, aphasia - Patient has no intelligible speech and is unable to follow commands. He appears agitated and is currently restrained x 4. Last 24 Hour Vital Signs Date Time Temp Pulse Resp B/P (MAP) Pulse Ox O2 Delivery O2 Flow Rate FiO2 08/31/18 12:00 97.0 98 17 131/95 (107) 91 08/31/18 09:53 Room Air 08/31/18 05:21 Room Air 08/31/18 01:46 Room Air 08/31/18 01:00 96.8 60 18 108/63 (78) 98 08/31/18 01:00 60 08/31/18 00:46 98.1 76 18 104/67 100 Room Air 08/31/18 00:03 64 18 104/67 100 Room Air 08/30/18 22:00 67 18 74/46 99 Room Air 08/30/18 20:20 98.1 85 16 140/90 98 08/30/18 20:20 88 16 08/30/18 20:14 98.1 88 16 140/90 98 Intake and Output 08/30/18 08/31/18 19:00 07:00 Intake Total 0 ml Output Total 1500 ml Balance -1500 ml Intake Oral 0 ml Output Urine Total 1500 ml Laboratory Tests Test 08/30/18 20:45 08/30/18 21:30 08/30/18 22:15 White Blood Count 10.0 K/UL (4.8-10.8) Red Blood Count 4.72 M/UL (4.70-6.10) Hemoglobin 14.6 G/DL (14.2-18.0) Hematocrit 43.0 % (42.0-52.0) Mean Corpuscular Volume 91 FL (80-99) Mean Corpuscular Hemoglobin 30.8 PG (27.0-31.0) Mean Corpuscular Hemoglobin Concent 33.9 G/DL (32.0-36.0) Red Cell Distribution Width 12.1 % (11.6-14.8) Platelet Count 285 K/UL (150-450) Mean Platelet Volume 5.7 FL (6.5-10.1) L Neutrophils (%) (Auto) 71.3 % (45.0-75.0) Lymphocytes (%) (Auto) 17.9 % (20.0-45.0) L Monocytes (%) (Auto) 8.3 % (1.0-10.0) Eosinophils (%) (Auto) 0.8 % (0.0-3.0) Basophils (%) (Auto) 1.6 % (0.0-2.0) Sodium Level 144 MMOL/L (136-145) Potassium Level 4.4 MMOL/L (3.5-5.1) Chloride Level 106 MMOL/L (98-107) Carbon Dioxide Level 29 MMOL/L (21-32) Anion Gap 9 mmol/L (5-15) Blood Urea Nitrogen 23 mg/dL (7-18) H Creatinine 1.1 MG/DL (0.55-1.30) Estimat Glomerular Filtration Rate > 60 mL/min (>60) Glucose Level 110 MG/DL (74-106) H Lactic Acid Level 3.10 mmol/L (0.4-2.0) H 1.40 mmol/L (0.66-2.22) Calcium Level 9.8 MG/DL (8.5-10.1) Total Bilirubin 0.6 MG/DL (0.2-1.0) Aspartate Amino Transf (AST/SGOT) 40 U/L (15-37) H Alanine Aminotransferase (ALT/SGPT) 44 U/L (12-78) Alkaline Phosphatase 79 U/L (46-116) Ammonia 19 umol/L (11-32) Troponin I 0.012 ng/mL (0.000-0.056) Total Protein 8.3 G/DL (6.4-8.2) H Albumin 3.8 G/DL (3.4-5.0) Globulin 4.5 g/dL Albumin/Globulin Ratio 0.8 (1.0-2.7) L Urine Color Yellow Urine Appearance Clear Urine pH 7 (4.5-8.0) Urine Specific [place] 1.015 (1.005-1.035) Urine Protein 3+ (NEGATIVE) H Urine Glucose (UA) Negative (NEGATIVE) Urine Ketones Negative (NEGATIVE) Urine Blood 2+ (NEGATIVE) H Urine Nitrite Negative (NEGATIVE) Urine Bilirubin Negative (NEGATIVE) Urine Urobilinogen 1 MG/DL (0.0-1.0) H Urine Leukocyte Esterase 1+ (NEGATIVE) H Urine RBC 5-10 /HPF (0 - 0) H Urine WBC 2-4 /HPF (0 - 0) Urine Squamous Epithelial Cells None /LPF (NONE/OCC) Urine Amorphous Sediment Few /LPF (NONE) H Urine Bacteria Moderate /HPF (NONE) H Urine Yeast Few /HPF (NONE) H Height (Feet): 6 Height (Inches): 0.00 Weight (Pounds): 130 Medications Current Medications Medications (Trade) Dose Ordered Sig/Jaxon Route PRN Reason Start Time Stop Time Status Last Admin Dose Admin Aspirin (Ecotrin) 81 mg DAILY ORAL 08/31/18 09:00 09/30/18 08:59 08/31/18 09:30 Atorvastatin Calcium (Lipitor) 80 mg BEDTIME ORAL 08/31/18 21:00 09/30/18 20:59 Ceftriaxone Sodium 1 gm/ Sodium Chloride 55 ml @ 110 mls/hr DAILY IVPB 08/31/18 09:00 09/07/18 08:59 08/31/18 09:00 Clopidogrel Bisulfate (Plavix) 75 mg DAILY ORAL 09/01/18 09:00 10/01/18 08:59 Divalproex Sodium (Depakote) 750 mg BEDTIME ORAL 08/31/18 21:00 09/30/18 20:59 Polyethylene Glycol (Miralax) 17 gm BEDTIME PRN ORAL Constipation 08/31/18 21:00 09/29/18 23:14 Quetiapine Fumarate (SEROquel) 25 mg TID ORAL 08/31/18 13:00 09/30/18 12:59 08/31/18 12:42 Quetiapine Fumarate (SEROquel) 50 mg QIDPRN PRN ORAL agitation 08/31/18 12:00 09/30/18 11:59 Sodium Chloride 1,000 ml @ 100 mls/hr Q10H IV 08/31/18 08:30 09/30/18 08:29 08/31/18 08:52 Assessment/Plan Problem List: (1) Altered mental state ICD Codes: R41.82 - Altered mental status, unspecified SNOMED: 735997222 Qualifiers: Qualified Codes: R41.82 - Altered mental status, unspecified (2) UTI (urinary tract infection) ICD Codes: N39.0 - Urinary tract infection, site not specified SNOMED: 51283241 (3) Cognitive impairment ICD Codes: R41.89 - Other symptoms and signs involving cognitive functions and awareness SNOMED: 183802576 (4) Acute encephalopathy ICD Codes: G93.40 - Encephalopathy, unspecified SNOMED: 62061917, 209233559 (5) Stroke ICD Codes: I63.9 - Cerebral infarction, unspecified SNOMED: 301898795 Status: stable Assessment/Plan: Q4 Hour Neuro Obs EEG Routine MRI Brain w/ sedation Abx as per ID Maintain sleep hygiene for patient to prevent delirium Na 135-145 Maintain normothermia IVH ASA 81mg Continue Atorvastatin 80mg September trial Seroquel 25mg QD for AMS/ agitation. Jennifer Gama N.P. Aug 31, 2018 14:25
--- NOTE | 2018-08-31 14:36 | NUR ---
SWALLOW/SPEECH THERAPY NOTE: REFERRED BY DR TRINH (PRIMARY DR HAYS) FOR A SWALLOW EVALUATION, SEE FULL REPORT IN ST CARE ACTIVITY SECTION. BROTHER INTERPRETED OVER THE TELEPHONE. DYSPHAGIA RISK FACTORS FOR THIS 58 Y.O. CANTONESE-SPEAKING MALE: ACUTE FEVER, AMS (INCREASED AGITATION WITH PACING AND YELLING OUT), DEHYDRATION, POOR INTAKE (LAST 2-3 WEEKS) AND SLURRED SPEECH IN ER PER HIS BROTHER, DELIA AND (WHO DOES NOT SPEAK NAMIBIAN). LUNGS ARE CLEAR NOW. PER RECENT CT HEAD SCAN 08/30/18: SUBACUTE OR OLD RIGHT TEMPORAL TIP INFARCT AND OTHER CHRONIC AND AGE-RELATED CHANGES. PER DR. TRINH, THE PATIENT HAS A SUBACUTE TO CHRONIC RIGHT THALAMIC STROKE. H/O DYSPHAGIA (REPORTEDLY RESOLVED POST R MCA CVA TWO TIMES IN 2011 STROKE AND MOST RECENT L MCA CVA AND DELIRIUM WITH ? APHASIA 05/29/[address] [facility]). 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 LEASING REPRESENTATIVE AT [facility] ON A REGULAR TEXTURE DIET AND THIN LIQUIDS W/O OVERT ASPIRATION. FAMILY IS NOT RECEPTIVE TO TUBE FEEDINGS SINCE THEY FEEL PATIENT WILL GET MORE AGITATED AND PULL IT OUT (PT APPARENTLY PULLED OUT HIS SMALL BORE NGT AT ANOTHER FACILITY AFTER HE HAD THE FIRST AND SUBSEQUENT STROKE). PATIENT IS NOW NPO EXCEPT MEDS AND ICE CHIPS. PER HIS , THE PATIENT LAST ATE YESTERDAY AT 5 PM. HE COUGHED ON MILK AND HE APPEARED TO TOLERATE A FEW BITES OF HIS SANDWICH. AT THIS TIME, THE PATIENT IS NOT ALERT ENOUGH FOR PO TRIALS NOR MOD BARIUM SWALLOW STUDY. ALTHOUGH HE WAS YELLING OUT CONSISTENTLY 1/2 HOUR AGO, HE IS NOT ALERT. PER RN, HE HAD ATIVAN IN THE MORNING SINCE HE WAS VERY AGITATED. HE HAS 4 POINT WRIST RESTRAINTS SO HE WILL NOT PULL OUT HIS IV LINES. INITIAL IMPRESSIONS: RISK FOR DYSPHAGIA (PERSISTENT OR WORSENED) WITH S/S OF ASPIRATION WITH AT LEAST THIN LIQUIDS REPORTED YESTERDAY WITH MILK. HIGH RISK FOR SILENT ASPIRATION GIVEN RECENT SUBACUTE CVA AND H/O CVAS NOT ALERT ENOUGH FOR PO INTAKE AT THIS TIME. RECOMMENDATIONS COMPLETED MODIFIED BARIUM SWALLOW STUDY WHEN ALERT (PLEASE TRY NOT TO SEDATE PATIENT SO HE CAN BE ALERT FOR STUDY). NO PO FOR NOW, CONTINUE WITH ORAL CARE. EDUCATED/TRAINED STAFF IN POSTED ORAL CARE. DYSPHAGIA MANAGEMENT/TX AND COG-COM EVAL/TX WHEN ABLE. D/W DR TRINH (AGREED WITH PLAN) AND RN ([place]) ABOVE INFORMATION
--- NOTE | 2018-08-31 15:38 | NUR ---
CASE MANAGEMENT:REVIEW 58 YR OLD MALE BIBA FROM [facility] CC; FEVER SI: AMS. DEHYDRATION 98.0 88 16 140/90 98% ON RA bun+23 lactic acid+3.10 IS: 1L NS BOLUS IV ATIVAN ATIVAN IM CT HEAD BLOOD CX : TO MED/SURG 3 EAST INTERQUAL CRITERIA MET
[2018-08-31 16:00] VITALS: BP 99/64
[2018-08-31] MEDS ORDERED: LORazepam Inj 2mg/ml 1ml IV SCH (19:00)
--- NOTE | 2018-08-31 19:38 | NUR ---
HAND-OFF: Report given to Elena RON RN.
--- NOTE | 2018-08-31 19:39 | NUR ---
NURSE NOTES: PT ASLEEP. IN NO DISTRESS.
--- NOTE | 2018-08-31 19:45 | NUR ---
NURSE NOTES: Received report from DEANNE Porter and rounds made. Received pt lying in bed, asleep, arousable by tactile stimuli, awake, confused, trying to get out of bed, moaning, restless in bed. Bilateral soft wrist restraints in-place for safety, pt pulling on burleson catheter. Skin intact, cool to touch, no redness noted. No distress noted. Bed in lowest position and locked, side rails up x 2 and padded, bed alarm on, call light within reach. Will continue to monitor.
[2018-08-31 20:00] VITALS: BP 114/71
[2018-08-31] MEDS ORDERED: Miralax 17gm pkt ORAL PRN (21:00)
[2018-08-31] MEDS ORDERED: Atorvastatin 80mg tab ORAL SCH ×2 (21:00)
[2018-08-31] MEDS ORDERED: Acetaminophen 650 MG SUPP RECTAL PRN ×2 (22:45)
[2018-09-01] VITALS (7 sets, daily range): BP systolic 80–150; BP diastolic 60–98
--- NOTE | 2018-09-01 07:00 | NUR ---
NURSE NOTES: Pt pulled on burleson catheter, bloody output, re-position bilateral wrist restraints so pt can not reach burleson and IV. Will endorse to next nurse.
--- NOTE | 2018-09-01 07:37 | NUR ---
NURSE NOTES: Received report from Ryder ALICEA. Patient is awake, moaning, not oriented, unable to verbalize needs. In bilateral soft wrist restraints, CMS assessed intact. Burleson catheter draining bright red blood, per reports patient pulled on burleson over night resulting in bleeding. Called the office of Dr. Concepcion and left message with MD informing that patient pulled on burleson catheter and there is now bright red blood in tubing and drainage bag, also left message for restraint renewal. Per report, patient still trying to pull out burleson. Side rails upx3 and padded, fall and seizure precautions maintained, patient in room by nursing stations for frequent rounding and evaluation. Charge nurse aware of current disposition and aware patient tried to pull burleson. Will continue to monitor and wait callback from .
--- NOTE | 2018-09-01 07:51 | NUR ---
HAND-OFF: Report given to DEANNE Patel. Pt in stable condition.
--- NOTE | 2018-09-01 08:05 | NUR ---
NURSE NOTES: Received callback from Dr. Concepcion. ordered to remove burleson and gave renewal order for bilateral soft wrist restraints. Orders entered, will carry out.
--- NOTE | 2018-09-01 08:15 | NUR ---
NURSE NOTES: Francisco catheter removed per MD order. Noted blood and clots coming from urethra. Patient cleaned and elizabeth care provided. Will continue to monitor.
--- NOTE | 2018-09-01 08:40 | NUR ---
NURSE NOTES: Called Dr. Concepcion and informed MD patient is bleeding out from urethra and that BP was low. Blood pressure reassessed at 133/92, patient is very agitated. Awaiting bed for transfer.
[2018-09-01] MEDS: Aspirin EC 81mg tab ORAL SCH ×2 (09:00→10:00)
[2018-09-01 09:19] LABS: BASOPHILS % (AUTO) 1.1 % (0.0-2.0); EOSINOPHILS % (AUTO) 0.3 % (0.0-3.0); HEMATOCRIT 37.4 % (42.0-52.0); HEMOGLOBIN 12.5 G/DL (14.2-18.0); LYMPHOCYTES % (AUTO) 15.2 % (20.0-45.0); MEAN CORPUSCULAR VOLUME 94 FL (80-99); NEUTROPHILS % (AUTO) 75.4 % (45.0-75.0); PLATELET COUNT 279 K/UL (150-450); RED CELL DISTRIBUTION WIDTH 12.3 % (11.6-14.8); WHITE BLOOD COUNT 9.9 K/UL (4.8-10.8)
--- NOTE | 2018-09-01 09:20 | NUR ---
NURSE NOTES: Patient transferred to telemetry bed 211 bed 2 per MD order. Report given to Vance ALICEA. Family informed of transfer by Vance ALICEA.
--- NOTE | 2018-09-01 09:30 | NUR ---
NURSE NOTES: Pt brought down from 3E due to having tried to pull out his burleson catheter and gross hematuria. Pt is now in bilateral wrist restraints. Pt is awake/alert and oriented x 0 with incoherent mumbling, constantly fighting against the restraints. Pt also dislodged is IV access. Penis appears atraumatic with slight oozing of blood but covered in blood clots. Pt cleaned and new gown/sheets/chux provided. Vital signs stable with SR @ 96 on monitor. IV access re-established 20 ga in left upper arm, wrapped to prevent dislodgement. Pt given Haldol per eMAR to quiet agitation. Bed left in low position, side rails up x 3, exit alarm set and call light left near pt's hand.
--- NOTE | 2018-09-01 10:43 | NUR ---
SWALLOW/SPEECH THERAPY NOTE: SWALLOW STATUS: SUBJECTIVE: MORE ALERT AND MOANING AND RESTLESS. OBJECTIVE/ASSESSMENT: ASSESS TO SEE IF PATIENT READY FOR MODIFIED BARIUM SWALLOW STUDY. PATIENT IS ALERT BUT DEMONSTRATING BRUXISM (BITING MOVEMENTS) AND MOANING CONTINUOUSLY. NOT VERBALIZING NOR FOLLOWING ORAL COMMANDS TO MOVE TONGUE OR LIPS EVEN WITH VISUAL CUES. PT ALSO RESTLESS AND MAY HAVE PAIN SINCE HE PULLED OUT HIS KENYON CATHETER AND HAS SOME BLEEDING. REQUIRED OROPHARYNGEAL SUCTIONING OF MODERATE AMOUNTS OF SALIVA AND PHLEGM (YELLOWISH) FROM THE BACK OF HIS THROAT AND BOTH SIDES OF HIS MOUTH. INITIALLY, PATIENT WOULD NOT ALLOW ORAL SUCTION AND WOULD KEEP HIS MOUTH CLOSED (HAS FULL DENTITION). EVENTUALLY, OUTSOLE CUTTER MACHINE ABLE TO REMOVE SECRETIONS. IMPRESSIONS: SEVERE DYSPHAGIA FOR OROPHARYNGEAL (OP) SECRETIONS. HIGH RISK FOR SILENT ASPIRATION EVEN ON OP SECRETIONS. PER BROTHER, THE PATIENT HAD NEW ONSET SLURRED SPEECH AND DROOLING AT SNF PRIOR TO ADMIT. PATIENT ALSO HAD COUGHING ON THIN LIQUIDS IN ER BUT APPEARED TO TOLERATE BITES OF SANDWICH. OVER THE TELEPHONE, EDUCATED BROTHER, DELIA, ON HIGH RISK FOR SILENT ASPIRATION ON ORAL SECRETIONS AND LIKELY FOOD/LIQUIDS AT THIS TIME. HE WILL SPEAK TO TODAY ABOUT PLACING NGT AND NO PO INTAKE. RECOMMENDATIONS: KEEP NPO INCLUDES NO ICE CHIPS NOR CRUSHED MEDS INITIATE NONORAL FEEDINGS (SMALL BORE NGT) AND CONTINUE WITH ORAL SUCTION AND CARE IF PATIENT IS RECEPTIVE. TRY TO HAVE ASSIST AND SPEAK TO HIM IN CANTONESE. SPOKE WITH BROTHER, DELIA, WHO SPEAKS LITHUANIAN ( ONLY SPEAKS CANTONESE) ABOUT THE NEED FOR NGT (AND NO PO INTAKE) FOR NOW UNTIL HE IS READY FOR A MODIFIED BARIUM SWALLOW STUDY NEXT WEEK. HE SAID THAT HE WOULD TRY TO CONVINCE MR GROSS'S OF THE NEED FOR THE NGT. PLAN: F/UP WITH MOD BARIUM SWALLOW STUDY WHEN READY ON TUESDAY OR LATER. SPOKE WITH DIETITIAN, LOLA, TO RECOMMEND TUBE FEEDINGS AND SHE WILL COMPLETE TODAY. DISCUSSED ABOVE WITH DR TRINH WHO AGREES WITH RECOMMENDATIONS. DISCUSSED ABOVE WITH PATIENT'S BROTHER AND RN (STEVO) Addendum: 09/01/18 at 1050 by MIRACLE CANNON MAY NEED DEEP NASAL SUCTIONING HE IS BITING DOWN OR REFUSING ORAL SUCTION.
--- NOTE | 2018-09-01 11:09 | General Progress Note ---
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 Subjective Date patient seen: Sep 01, 2018 Time patient seen: 11:00 ROS Limited/Unobtainable: Yes Allergies: Coded Allergies: No Known Allergies (Unverified , 08/30/18) Subjective Medicine follow up for acute encephalopathy, agitation. Patient was pulling at Francisco catheter this morning with subsequent hematuria. Francisco cath removed with per persistent penile bleeding which has been controlled. No just passing clots intermittently. Objective Last 24 Hour Vital Signs Date Time Temp Pulse Resp B/P (MAP) Pulse Ox O2 Delivery O2 Flow Rate FiO2 09/01/18 09:00 Room Air 09/01/18 08:39 133/92 (106) 09/01/18 08:00 98.4 96 20 80/60 (67) 99 09/01/18 04:00 97.8 89 20 150/91 (110) 98 09/01/18 00:00 97.5 59 20 97/62 (74) 98 08/31/18 21:00 Room Air 08/31/18 20:00 97.5 59 20 114/71 (85) 98 08/31/18 16:00 97.0 64 17 99/64 (76) 98 08/31/18 12:00 97.0 98 17 131/95 (107) 91 Intake and Output 08/31/18 09/01/18 19:00 07:00 Intake Total 955 ml 1250 ml Output Total 250 ml 750 ml Balance 705 ml 500 ml Intake Oral 50 ml IV Total 955 ml 1200 ml Output Urine Total 250 ml 750 ml Laboratory Tests 08/31/18 14:15: Reticulocyte Count 1.3, Total Protein (PEP) [Pending], Albumin (PEP) [Pending], Globulin (PEP) [Pending], Albumin/Globulin Ratio [Pending], Ceczy-[id number] [ Pending], Uyimv-8-Kqdyrtxho [Pending], Beta Globulins [Pending], Beta Gamma Globulin [Pending], PEP Abnormal Protein Bands [Pending], Protein Electrophoresis Interpret [Pending], Carcinoembryonic Antigen 8.5H 09/01/18 09:00: White Blood Count 9.9, Red Blood Count 4.00L, Hemoglobin 12.5L, Hematocrit 37.4L , Mean Corpuscular Volume 94, Mean Corpuscular Hemoglobin 31.3H, Mean Corpuscular Hemoglobin Concent 33.4, Red Cell Distribution Width 12.3, Platelet Count 279, Mean Platelet Volume 5.9L, Neutrophils (%) (Auto) 75.4H, Lymphocytes (%) (Auto) 15.2L, Monocytes (%) (Auto) 8.0, Eosinophils (%) (Auto) 0.3, Basophils (%) (Auto) 1.1 Height (Feet): 6 Height (Inches): 0.00 Weight (Pounds): 130 General Appearance: confused, agitated Neck: normal alignment, normal inspection Cardiovascular: normal peripheral pulses, normal rate Respiratory/Chest: lungs clear, no accessory muscle use Abdomen: normal bowel sounds, soft Bright Her MD Sep 01, 2018 11:09
[2018-09-01] MEDS: cefTRIAXone 1 GM in NS 55 ML IVPB SCH (11:34)
[2018-09-01] MEDS: Haloperidol 5mg/ml Inj IM PRN (12:15)
--- NOTE | 2018-09-01 13:12 | NUR ---
CASE MANAGEMENT:REVIEW 09/01/18 SI: ACUTE METABOLIC ENCEPHALOPATHY. DYSPHAGIA PASSING CLOTS AND HYPOTENSIVE 98.4 96 20 80/60 99% ON RA H/H-12.5/37.4 IS: 1L NS BOLUS X1 IV ROCEPHIN Q24 DEPAKOTE PO QHS ASA PO QD PLAVIX PO QD IVF@100/HR : TRANSFER FROM MED/SURG TO TELEMETRY DCP: FROM [facility] BUT DOES NOT WANT TO RETURN PLAN: EEG
--- NOTE | 2018-09-01 14:51 | General Progress Note ---
Assessment/Plan Status: unchanged Assessment/Plan: Assessment/Plan: # Failure to thrive - decreased bmi and low protein --> will also obtain q3d caloric counts --> cea is elevated and workup as per below --> may consider mirtazapine as appetite stimulant --> Gi consult on a prn basis, as needed for endosc # Hyperproteinemia with decreased albumin -- this is a dissociation that is abnormal --> obtain SPEP (serum protein electrophoresis) and UPEP (urine protein electrophoresis) --> if above results in a m-spike or abnormally enhanced protein, will need to send off immunofixation serum/urine --> in the case of a m-spike or abnormally enhanced protein, will obtain a bone marrow biopsy # Elevated tumor markers as cea is elelvated --> may consider gi evaluation in this setting --> will order for ca 19.9 --> at some point may need CT c/a/p okay as outpatient # Acute metabolic encephalopathy, possibly from UTI, dehydration or recurrent CVA --> neuro and psych prn eval # History of recent CVA, CT done in ED shows subacute to chronic right thalamic stroke --> upportive care --> per neuro --> Fall,Aspiration,Seizure precautions --> is on abx for what appears to be uti The timing of this note does not necessarily reflect the time of the patient was seen. Greatly appreciate consultation! Subjective Constitutional: Denies: no symptoms, chills, diaphoresis, fever, malaise, weakness, other HEENT: Denies: no symptoms, eye pain, blurred vision, tearing, double vision, ear pain, ear discharge, nose pain, nose congestion, throat pain, throat swelling, mouth pain, mouth swelling, other Cardiovascular: Denies: no symptoms, chest pain, edema, irregular heart rate, lightheadedness, palpitations, syncope, other Respiratory: Denies: no symptoms, cough, orthopnea, shortness of breath, SOB with excertion, SOB at rest, sputum, stridor, wheezing, other Gastrointestinal/Abdominal: Denies: no symptoms, abdomen distended, abdominal pain, black stools, tarry stools, blood in stool, constipated, diarrhea, difficulty swallowing, nausea, poor appetite, poor fluid intake, rectal bleeding , vomiting, other Genitourinary: Denies: no symptoms, burning, discharge, frequency, flank pain, hematuria, incontinence, pain, urgency, other Neurologic/Psychiatric: Denies: no symptoms, anxiety, depressed, emotional problems, headache, numbness, paresthesia, pre-existing deficit, seizure, tingling, tremors, weakness, other Endocrine: Denies: no symptoms, excessive sweating, flushing, intolerance to cold, intolerance to heat, increased hunger, increased thirst, increased urine, unexplained weight gain, unexplained weight loss, other Allergies: Coded Allergies: No Known Allergies (Unverified , 08/30/18) Subjective 09/01: close followup with psych, remains agitated, some hematuria with burleson noted Objective Last 24 Hour Vital Signs Date Time Temp Pulse Resp B/P (MAP) Pulse Ox O2 Delivery O2 Flow Rate FiO2 09/01/18 09:00 Room Air 09/01/18 08:39 133/92 (106) 09/01/18 08:00 98.4 96 20 80/60 (67) 99 09/01/18 04:00 97.8 89 20 150/91 (110) 98 09/01/18 00:00 97.5 59 20 97/62 (74) 98 08/31/18 21:00 Room Air 08/31/18 20:00 97.5 59 20 114/71 (85) 98 08/31/18 16:00 97.0 64 17 99/64 (76) 98 Intake and Output 08/31/18 09/01/18 19:00 07:00 Intake Total 955 ml 1250 ml Output Total 250 ml 750 ml Balance 705 ml 500 ml Intake Oral 50 ml IV Total 955 ml 1200 ml Output Urine Total 250 ml 750 ml Laboratory Tests 09/01/18 09:00: White Blood Count 9.9, Red Blood Count 4.00L, Hemoglobin 12.5L, Hematocrit 37.4L , Mean Corpuscular Volume 94, Mean Corpuscular Hemoglobin 31.3H, Mean Corpuscular Hemoglobin Concent 33.4, Red Cell Distribution Width 12.3, Platelet Count 279, Mean Platelet Volume 5.9L, Neutrophils (%) (Auto) 75.4H, Lymphocytes (%) (Auto) 15.2L, Monocytes (%) (Auto) 8.0, Eosinophils (%) (Auto) 0.3, Basophils (%) (Auto) 1.1 Height (Feet): 6 Height (Inches): 0.00 Weight (Pounds): 130 Objective General Appearance: alert, combative HEENT: normocephalic Neck: supple, normal inspection Respiratory/Chest: lungs clear, normal breath sounds Cardiovascular/Chest: normal rate, regular rhythm, no JVD Abdomen: non tender, soft Extremities: normal inspection, no calf tenderness, + restraints Neurologic: other - Uncooperative : Nolan+ Aman Collier MD Sep 01, 2018 14:51
--- NOTE | 2018-09-01 15:10 | NUR ---
RD ASSESSMENT & RECOMMENDATIONS SEE CARE ACTIVITY FOR COMPLETE ASSESSMENT DAILY ESTIMATED NEEDS: Needs based on cardiac, wasting, underweight 52kg 30-35 kcals/kg 6772-6335 total kcals 1-1.5 g protein/kg 52-78 g total protein 25-30 mL/kg 5007-5654 total fluid mLs NUTRITION DIAGNOSIS: * Increased kcal and protein needs r/t underweight status and wasting as evidenced by pt is est 74% of [place] Body Weight, w/ generalized mild to moderate wasting. * Swallowing difficulty R/T dysphagia, CVA as eivdenced by INSOLE AND OUTSOLE SPLITTER recommends NPO, NGT feeding at this time. CURRENT DIET: NPO PO DIET RECOMMENDATIONS: When safe for PO -> REGULAR DIET (texture per INSOLE AND OUTSOLE SPLITTER) ENTERAL NUTRITION RECOMMENDATIONS: Jevity 1.2 @ 60ml/hr x 24 hrs to provide 1440ml, 1728kcal, 80g prot, 1162ml free water * W/ GI access, initiate Jevity 1.2 SLOWLY @ 20ml/hr x 6 hrs * Advance 10ml q 4-6 hrs as tolerated to goal rate. 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
--- NOTE | 2018-09-01 15:30 | NUR ---
NURSE NOTES: Dr Stone at bedside to reinsert a burleson catheter. Dr Stone also reduced the apparently phimotic foreskin. Burleson was irrigated with sterile saline showing clear return. There no longer seems to be the mag hematuria. Burleson anchor applied to left thigh.
--- NOTE | 2018-09-01 19:25 | NUR ---
NURSE NOTES: Received patient from DEANNE Kline. Will continue plan of care.
[2018-09-01] MEDS: Atorvastatin 80mg tab ORAL SCH (20:00)
--- NOTE | 2018-09-01 20:00 | NUR ---
NURSE NOTES: Spoke to patient's . Refused NGT until another swallow eval is done (possibly Tuesday) stating that it would agitate patient more and patient will continuously try to pull NGT out.
[2018-09-01] MEDS ORDERED: Miralax 17gm pkt ORAL PRN (21:00)
--- NOTE | 2018-09-01 21:48 | Psych Consult Progress Note ---
Psychiatry Progress Note Psychiatry Progress Note Medications Current Medications Medications (Trade) Dose Ordered Sig/Jaxon Route PRN Reason Start Time Stop Time Status Last Admin Dose Admin Aspirin (Ecotrin) 81 mg DAILY ORAL 09/01/18 10:00 10/01/18 09:59 Atorvastatin Calcium (Lipitor) 80 mg BEDTIME ORAL 09/01/18 21:00 09/30/18 20:59 Ceftriaxone Sodium 1 gm/ Sodium Chloride 55 ml @ 110 mls/hr DAILY IVPB 09/01/18 10:00 09/08/18 09:59 09/01/18 11:34 Clopidogrel Bisulfate (Plavix) 75 mg DAILY ORAL 09/01/18 10:00 10/01/18 09:59 Divalproex Sodium (Depakote) 750 mg BEDTIME ORAL 09/01/18 21:00 09/30/18 20:59 Haloperidol Lactate (Haldol) 5 mg Q6H PRN IM Agitation 09/01/18 11:15 10/01/18 11:14 09/01/18 12:15 Polyethylene Glycol (Miralax) 17 gm BEDTIME PRN ORAL Constipation 09/01/18 21:00 09/29/18 23:14 Quetiapine Fumarate (SEROquel) 25 mg TID ORAL 09/01/18 10:00 10/01/18 09:59 Quetiapine Fumarate (SEROquel) 50 mg QIDPRN PRN ORAL agitation 09/01/18 12:00 09/30/18 11:59 Sodium Chloride 1,000 ml @ 100 mls/hr Q10H IV 09/01/18 09:48 10/01/18 09:47 09/01/18 19:50 Neurological/Psychiatric: Reports: anxiety, depressed, emotional problems Allergies: Coded Allergies: No Known Allergies (Unverified , 08/30/18) Objective Data Height (Feet): 6 Height (Inches): 0.00 Weight (Pounds): 130 Appearance: disheveled Behavior Mannerisms: poor eye contact Mental Status Exam - Affect: constricted Mental Status Exam - Mood: anxious, agitated Speech: dysarthric Mental Status Exam - Thought P: tangential, confusion Mental Status Exam - Suicidal: not present Assessment/Plan Problem List: (1) Acute encephalopathy ICD Codes: G93.40 - Encephalopathy, unspecified SNOMED: [id number], [id number] (2) Cognitive impairment ICD Codes: R41.89 - Other symptoms and signs involving cognitive functions and awareness SNOMED: 020998219 Status: unchanged Assessment/Plan: cont restraints increase depakote seroquel standing seroquel prn Damian Kim MD Sep 01, 2018 21:48
--- NOTE | 2018-09-01 22:01 | Cardiology Report ---
APPROVED REPORT EKG Measurement Heart [id number] Sinus rhythm with occasional premature ventricular complexes Right bundle branch block Abnormal ECG
[2018-09-02] VITALS: BP 130/72
--- NOTE | 2018-09-02 01:45 | Consultation ---
DATE OF CONSULTATION: 09/01/2018 UROLOGY CONSULTATION ATTENDING/CONSULTING PHYSICIAN: . CHIEF COMPLAINT/HISTORY OF PRESENT ILLNESS: I was asked by to evaluate this 58-year-old gentleman regarding history of gross hematuria, urethral trauma, and urinary retention in the setting of traumatic catheter pulled out. Briefly, the patient has a history of previous stroke. Afterwards, he has been aphasic. He is transferred here from his nursing facility with increasing confusion, agitation, and altered mental status. A Francisco catheter was in place, but apparently the patient was able to reach and rip it out. Afterwards, he developed gross hematuria/urethral bleeding and urinary retention. As such, I was asked to evaluate the patient. The patient does not appear to have a history of urologic issues or problems. At baseline, he cannot provide much information. His spouse is at bedside, but speaks only Cantonese. PAST MEDICAL HISTORY: 1. CVA. 2. Altered mental status during this hospitalization. 3. Encephalopathy/altered mental status. PAST SURGICAL HISTORY: Unknown. MEDICATIONS: Please see the chart for current medications and administration details. ALLERGIES: No known drug allergies. SOCIAL HISTORY: Unobtainable. FAMILY HISTORY: Unobtainable. REVIEW OF SYSTEMS: A 14-system review of systems cannot be done as the patient cannot cooperate with questioning. PHYSICAL EXAM: GENERAL: The patient is an older gentleman, awake, and somewhat alert, not oriented, no obvious distress. HEENT: NC/AT. NECK: Supple. Oropharynx clear. CHEST: Within normal limits. ABDOMEN: Soft, flat, nontender, and nondistended. EXTREMITIES: Warm and well perfused. No cyanosis, clubbing, or edema. BACK: No CVA tenderness to percussion. NEUROLOGIC: Notable for altered mental status and aphasia. The patient cannot really cooperate with the remainder of the exam. GENITOURINARY: Reveals an uncircumcised male phallus with paraphimosis. There is a bloody output from the urethral meatus consistent with urethral trauma. There is no evidence of penile fracture or hematoma. There are bilateral descended testes and cord structures. No masses or tenderness to palpation. LABORATORY DATA: White blood cell count 9.9, hematocrit 37.4, and platelets 279,000. Sodium 144, potassium 4.4, chloride 106, bicarbonate 29, BUN 23, creatinine 1.1, and glucose 110. Calcium 9.8. LFTs within normal limits except AST of 40. Urinalysis specific gravity 1.015, pH 7.0, dip test notable for 3+ protein, 2+ blood, 1+ leukocyte esterase. Microanalysis with 5 to 10 reds and 2 to 4 white blood cells per high-power field and moderate bacteria seen. Urine and blood cultures negative and final. DIAGNOSTIC IMAGING: Head CT scan with subacute or old right temporal tip artifact, no acute associated hemorrhage, and other chronic and age related changes. ASSESSMENT AND PLAN: In summary, the patient is a 58-year-old gentleman with a history of a stroke resulting in aphasia. He presents to the hospital work with worsening encephalopathy/altered mental status. His confusion has led him to rip out his Francisco catheter. Physical exam reveals paraphimosis and blood from the urethral meatus. Laboratory data is essentially unremarkable. There is no relevant diagnostic imaging. Today at the bedside, with some difficulty, I was able to replace the patient's catheter. It was placed into the bladder and hand irrigated. It irrigated easily indicating good position within the bladder. There was no significant back bleeding or clots from the urethra. The catheter was inflated and left to gravity drainage. The patient's paraphimosis was also reduced with manual traction. The catheter should be secured in a way that it does not allow the patient to grab it or pull it any more. Additionally, his restraint should be adequate given his altered mental status. The paraphimosis has been reduced and requires no further treatment. Thank you for allowing me to participate in the care of this unfortunate gentleman. Please do not hesitate to contact me with any questions that you may further have regarding his care. I will see him with you as needed. Frederick Stone M.D. DR: WADE JOB#: [id number] CC:
[2018-09-02 04:00] VITALS: BP 144/65
--- NOTE | 2018-09-02 07:57 | NUR ---
NURSE NOTES: Received report from Meli/RN, Patient is awake, No distress/SOB noted at this time. Bed in low position, Call light within reach. Will continue plan of care.
--- NOTE | 2018-09-02 07:57 | NUR ---
HAND-OFF: Report given to DEANNE Ledesma.
[2018-09-02 08:00] VITALS: BP 140/60
[2018-09-02 08:14] LABS: EOSINOPHILS % (AUTO) 0.3 % (0.0-3.0); HEMATOCRIT 29.6 % (42.0-52.0); LYMPHOCYTES % (AUTO) 16.1 % (20.0-45.0); MEAN CORPUSCULAR VOLUME 92 FL (80-99); MONOCYTES % (AUTO) 7.3 % (1.0-10.0); NEUTROPHILS % (AUTO) 75.2 % (45.0-75.0); PLATELET COUNT 245 K/UL (150-450); RED BLOOD COUNT 3.23 M/UL (4.70-6.10); WHITE BLOOD COUNT 7.9 K/UL (4.8-10.8)
[2018-09-02 08:35] LABS: ANION GAP 10 mmol/L (5-15); BLOOD UREA NITROGEN 22 mg/dL (7-18); CALCIUM 8.2 MG/DL (8.5-10.1); CARBON DIOXIDE 26 MMOL/L (21-32); CHLORIDE 110 MMOL/L (98-107); CREATININE 0.9 MG/DL (0.55-1.30); POTASSIUM 3.7 MMOL/L (3.5-5.1); SODIUM 146 MMOL/L (136-145)
[2018-09-02] MEDS ORDERED: D5NS 1000ml IV ONE (08:48)
[2018-09-02] MEDS: cefTRIAXone 1 GM in NS 55 ML IVPB SCH (08:57)
[2018-09-02] MEDS: Aspirin EC 81mg tab ORAL SCH (09:00)
[2018-09-02 12:00] VITALS: BP 123/74
--- NOTE | 2018-09-02 15:04 | NUR ---
NURSE NOTES: Medications was not given because the speech therapist recommended restrict NPO including ice chips and meds. Dr. Concepcion is aware of it.
--- NOTE | 2018-09-02 15:40 | NUR ---
NURSE NOTES: Report given to Remy/RN, is at bed side. Endorsed plan of care.
[2018-09-02 16:00] VITALS: BP 151/80
--- NOTE | 2018-09-02 17:05 | General Progress Note ---
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 Subjective Date patient seen: Sep 02, 2018 Time patient seen: 07:35 ROS Limited/Unobtainable: Yes Allergies: Coded Allergies: No Known Allergies (Unverified , 08/30/18) Subjective Medicine follow up for acute encephalopathy, agitation.Remains confused and agitated and in wrist restraints. Muse with clear urine Objective Last 24 Hour Vital Signs Date Time Temp Pulse Resp B/P (MAP) Pulse Ox O2 Delivery O2 Flow Rate FiO2 09/02/18 16:00 102 09/02/18 12:00 99.7 110 17 123/74 (90) 98 09/02/18 12:00 101 09/02/18 09:00 Room Air 09/02/18 08:00 98.3 101 20 140/60 (86) 93 09/02/18 08:00 103 09/02/18 04:15 91 09/02/18 04:00 97.7 96 18 144/65 (91) 98 09/02/18 00:00 97.9 115 20 130/72 (91) 98 09/01/18 23:45 113 09/01/18 21:00 Room Air 09/01/18 20:00 97.4 112 19 141/98 (112) 98 09/01/18 20:00 104 09/01/18 19:35 104 Intake and Output 09/01/18 09/02/18 19:00 07:00 Intake Total 300 ml 993.52 ml Output Total 300 ml 750 ml Balance 0 ml 243.52 ml IV Total 300 ml 993.52 ml Output Urine Total 300 ml 750 ml Laboratory Tests 09/02/18 07:35: White Blood Count 7.9, Red Blood Count 3.23L, Hemoglobin 10.0L, Hematocrit 29.6L , Mean Corpuscular Volume 92, Mean Corpuscular Hemoglobin 30.9, Mean Corpuscular Hemoglobin Concent 33.7, Red Cell Distribution Width 12.0, Platelet Count 245, Mean Platelet Volume 5.9L, Neutrophils (%) (Auto) 75.2H, Lymphocytes (%) (Auto) 16.1L, Monocytes (%) (Auto) 7.3, Eosinophils (%) (Auto) 0.3, Basophils (%) (Auto) 1.0, Sodium Level 146H, Potassium Level 3.7, Chloride Level 110H, Carbon Dioxide Level 26, Anion Gap 10, Blood Urea Nitrogen 22H, Creatinine 0.9, Estimat Glomerular Filtration Rate > 60, Glucose Level 113H, Calcium Level 8.2L Height (Feet): 6 Height (Inches): 0.00 Weight (Pounds): 130 General Appearance: alert, agitated Cardiovascular: normal rate, regular rhythm Respiratory/Chest: lungs clear, normal breath sounds, no accessory muscle use Abdomen: non tender, soft Neurologic: disoriented rBight Her MD Sep 02, 2018 17:05
--- NOTE | 2018-09-02 18:32 | NUR ---
NURSE NOTES: Pt received tylenol for temp of 100.5, Md August was made aware of decreasing Hgb and Hct levels
--- NOTE | 2018-09-02 19:31 | NUR ---
NURSE NOTES: Received report from DEANNE Alberto. Patient is awake lying semi-samano's; restless. No signs of acute distress noted at this time. Daughter at bedside. AOx1; unable to verbalize needs. Checked IV site, lines, and IV rate; patent and running. No erythema, bleeding, or infiltration noted. Francisco catheter draining well to gravity. Bed at lowest position, brakes on, siderails up x3. Siderails padded following seizure precautions. Suction at bedside. Call light within reach. Will continue to monitor.
--- NOTE | 2018-09-02 19:44 | NUR ---
NURSE NOTES: Called Dr. Neumann regarding patient being NPO, but only has Depakote 750 mg PO enteric coated tablets for seizures. Awaiting callback for a possible IV antiseizure medication order.
[2018-09-02 20:00] VITALS: BP 135/77
--- NOTE | 2018-09-02 20:39 | NUR ---
NURSE NOTES: Received new order from Dr. Neumann, covering MD for Dr. Mancini, for Valproate 250 mg IV q8hr. Noted and carried out.
[2018-09-02] MEDS: Atorvastatin 80mg tab ORAL SCH (20:40)
--- NOTE | 2018-09-02 21:01 | Electroencephalogram ---
ELECTROENCEPHALOGRAM REPORT REQUESTING PHYSICIAN: Dr. Andry Mancini. HISTORY: This EEG was performed on a 58-year-old gentleman with a history of an alteration in mental state. The purpose of this EEG was to evaluate the patient for the degree and type of cerebral dysfunction. TECHNICAL NOTE: This EEG was performed on [employer] Unit with electrodes placed on the scalp according to the International 10-20 system. [id number] and [id number] montages were used. The EEG was technically satisfactory and was performed in the awake and drowsy states. OBSERVATIONS: In the best awake state, background activity consisted of 5-6 Hz theta activity with some intermixed 8- 8.5 Hz alpha frequencies. Drowsiness was characterized by slowing of the background in the 4-5 Hz theta range and in addition anteriorly predominant polymorphic delta activity. No definite epileptiform discharges were seen. IMPRESSION: This is an abnormal EEG characterized by: 1. Slowing of the background predominantly in the 5-6 Hz theta range with some intermixed alpha frequencies in the awake state. 2. The presence of anteriorly predominant polymorphic delta activity seen during drowsiness. COMMENT: This study is consistent with an encephalopathy of a moderate degree. Clinical correlation is recommended. Delfin Norman M.D., M.S.P.H. DR: JEB JOB#: [id number] [email or web address]
--- NOTE | 2018-09-02 22:13 | Psych Consult Progress Note ---
Psychiatry Progress Note Psychiatry Progress Note Medications Current Medications Medications (Trade) Dose Ordered Sig/Jaxon Route PRN Reason Start Time Stop Time Status Last Admin Dose Admin Acetaminophen (Tylenol) 650 mg Q4H PRN ORAL Mild Pain/Temp > 100.5 09/02/18 17:15 10/02/18 17:14 09/02/18 17:46 Aspirin (Ecotrin) 81 mg DAILY ORAL 09/01/18 10:00 10/01/18 09:59 Atorvastatin Calcium (Lipitor) 80 mg BEDTIME ORAL 09/01/18 21:00 09/30/18 20:59 Ceftriaxone Sodium 1 gm/ Sodium Chloride 55 ml @ 110 mls/hr DAILY IVPB 09/01/18 10:00 09/08/18 09:59 09/02/18 08:57 Clopidogrel Bisulfate (Plavix) 75 mg DAILY ORAL 09/01/18 10:00 10/01/18 09:59 Haloperidol Lactate (Haldol) 5 mg Q6H PRN IM Agitation 09/01/18 11:15 10/01/18 11:14 09/01/18 12:15 Polyethylene Glycol (Miralax) 17 gm BEDTIME PRN ORAL Constipation 09/01/18 21:00 09/29/18 23:14 Quetiapine Fumarate (SEROquel) 25 mg TID ORAL 09/01/18 10:00 10/01/18 09:59 09/02/18 17:46 Quetiapine Fumarate (SEROquel) 50 mg QIDPRN PRN ORAL agitation 09/01/18 12:00 09/30/18 11:59 Sodium Chloride 1,000 ml @ 100 mls/hr Q10H IV 09/01/18 09:48 10/01/18 09:47 09/02/18 16:23 Valproate Sodium 250 mg/Dextrose 57.5 ml @ 57.5 mls/hr Q8HR IVPB 09/02/18 22:00 10/02/18 21:59 Neurological/Psychiatric: Reports: anxiety, depressed, emotional problems Allergies: Coded Allergies: No Known Allergies (Unverified , 08/30/18) Objective Data Height (Feet): 6 Height (Inches): 0.00 Weight (Pounds): 130 General Appearance: alert, confused, agitated Appearance: disheveled Behavior Mannerisms: poor eye contact Mental Status Exam - Affect: constricted Mental Status Exam - Mood: agitated Speech: dysarthric Mental Status Exam - Thought P: tangential, confusion Mental Status Exam - Suicidal: not present Assessment/Plan Problem List: (1) Acute encephalopathy ICD Codes: G93.40 - Encephalopathy, unspecified SNOMED: 61495574, [id number] (2) Cognitive impairment ICD Codes: R41.89 - Other symptoms and signs involving cognitive functions and awareness SNOMED: 079655008 Status: unchanged Assessment/Plan: cont restraints increase depakote seroquel standing seroquel prn Damian Kim MD Sep 02, 2018 22:13
[2018-09-02] MEDS: Valproate Sodium INJ 250 MG in D5W 55 ML IVPB SCH (22:21)
--- NOTE | 2018-09-02 22:50 | Neurology Progress Note ---
Interim History Interim History ROS Limited/Unobtainable: Yes Complaints: AMS Events: THIS VISIT WAS PERFORMED ON SEPTEMBER 01, 2018 Review of Systems All Systems: reviewed and negative except above Objective Physical Exam Last Vital Signs Date Time Temp Pulse Resp B/P (MAP) Pulse Ox O2 Delivery O2 Flow Rate FiO2 09/02/18 18:16 98.1 09/02/18 16:00 107 18 151/80 (103) 99 09/02/18 09:00 Room Air Laboratory Tests Test 09/02/18 07:35 White Blood Count 7.9 K/UL (4.8-10.8) Red Blood Count 3.23 M/UL (4.70-6.10) L Hemoglobin 10.0 G/DL (14.2-18.0) L Hematocrit 29.6 % (42.0-52.0) L Mean Corpuscular Volume 92 FL (80-99) Mean Corpuscular Hemoglobin 30.9 PG (27.0-31.0) Mean Corpuscular Hemoglobin Concent 33.7 G/DL (32.0-36.0) Red Cell Distribution Width 12.0 % (11.6-14.8) Platelet Count 245 K/UL (150-450) Mean Platelet Volume 5.9 FL (6.5-10.1) L Neutrophils (%) (Auto) 75.2 % (45.0-75.0) H Lymphocytes (%) (Auto) 16.1 % (20.0-45.0) L Monocytes (%) (Auto) 7.3 % (1.0-10.0) Eosinophils (%) (Auto) 0.3 % (0.0-3.0) Basophils (%) (Auto) 1.0 % (0.0-2.0) Sodium Level 146 MMOL/L (136-145) H Potassium Level 3.7 MMOL/L (3.5-5.1) Chloride Level 110 MMOL/L (98-107) H Carbon Dioxide Level 26 MMOL/L (21-32) Anion Gap 10 mmol/L (5-15) Blood Urea Nitrogen 22 mg/dL (7-18) H Creatinine 0.9 MG/DL (0.55-1.30) Estimat Glomerular Filtration Rate > 60 mL/min (>60) Glucose Level 113 MG/DL (74-106) H Calcium Level 8.2 MG/DL (8.5-10.1) L Head: normocophalic Neck: no rigidity EENT: benign Neurologic Exam Mental Status: awake, other - Patient remains agitated upon waking. His primary language is Cantonese but as per his daughter he is not speaking any intelligible words at this time. Cranial Nerve II: fundus normal Cranial Nerves III, IV, : PERRLA, EOMI Cranial Nerve VII: no facial asymmetry Cranial Nerve XI: SCM symmetric Cranial Nerve XII: tongue midline Motor System: other - No apparent focal weakness on exam but unable to formally test as patient is not following commands. Impression/Recommendations Problems: (1) Altered mental state Assessment & Plan: Acute Encephalopathy, unclear cause at this time. (2) Cognitive impairment (3) Acute encephalopathy Assessment & Plan: EEG ordered - MRI Brain w/o contrast ordered WITH SEDATION Awaiting completion Q4 Neuro obs May trial Seroquel 25mg QD for agitation,. Na 135-145 Maintain normothermia Track / trend LFTs,BUN/Cr, Ammonia (4) Stroke Assessment & Plan: MRI Brain w/o contrast pending - Written with sedation and AWAITING COMPLETION Status: stable, not improved, unchanged Recommendations Continue Q4 hr neuro obs IV Hydration recommended Na 135-145 Follow LFTs/ Cr/BUN/ CBC Check TSH Obtain inpatient EEG Jennifer Gama N.P. Sep 02, 2018 22:50
--- NOTE | 2018-09-02 22:51 | Neurology Progress Note ---
Interim History Interim History ROS Limited/Unobtainable: Yes Complaints: EEG completed Events: Patient has become febrile Review of Systems All Systems: reviewed and negative except above Objective Physical Exam Last Vital Signs Date Time Temp Pulse Resp B/P (MAP) Pulse Ox O2 Delivery O2 Flow Rate FiO2 09/02/18 18:16 98.1 09/02/18 16:00 107 18 151/80 (103) 99 09/02/18 09:00 Room Air Laboratory Tests Test 09/02/18 07:35 White Blood Count 7.9 K/UL (4.8-10.8) Red Blood Count 3.23 M/UL (4.70-6.10) L Hemoglobin 10.0 G/DL (14.2-18.0) L Hematocrit 29.6 % (42.0-52.0) L Mean Corpuscular Volume 92 FL (80-99) Mean Corpuscular Hemoglobin 30.9 PG (27.0-31.0) Mean Corpuscular Hemoglobin Concent 33.7 G/DL (32.0-36.0) Red Cell Distribution Width 12.0 % (11.6-14.8) Platelet Count 245 K/UL (150-450) Mean Platelet Volume 5.9 FL (6.5-10.1) L Neutrophils (%) (Auto) 75.2 % (45.0-75.0) H Lymphocytes (%) (Auto) 16.1 % (20.0-45.0) L Monocytes (%) (Auto) 7.3 % (1.0-10.0) Eosinophils (%) (Auto) 0.3 % (0.0-3.0) Basophils (%) (Auto) 1.0 % (0.0-2.0) Sodium Level 146 MMOL/L (136-145) H Potassium Level 3.7 MMOL/L (3.5-5.1) Chloride Level 110 MMOL/L (98-107) H Carbon Dioxide Level 26 MMOL/L (21-32) Anion Gap 10 mmol/L (5-15) Blood Urea Nitrogen 22 mg/dL (7-18) H Creatinine 0.9 MG/DL (0.55-1.30) Estimat Glomerular Filtration Rate > 60 mL/min (>60) Glucose Level 113 MG/DL (74-106) H Calcium Level 8.2 MG/DL (8.5-10.1) L Neurologic Exam Objective Patient continues to remain non focal on exam. He is agitated when awoken, LUNA x 4 but not following commands. His primary language is Cantonese and as per his daughter's report - He is not saying any intelligible words- denies paraphrasic errors - patient is just making sounds. He intermittently tracks with his eyes. No observed / mag seizure activity noted. Impression/Recommendations Problems: (1) Altered mental state Assessment & Plan: MRI Brain written with SEDATION- STILL PENDING COMPLETION (2) Cognitive impairment (3) Acute encephalopathy Assessment & Plan: Unclear cause at this time. Febrile with leukocytosis today. EEG was abnormal but without mag epileptiform activity. LP RECOMMENDED Continue Q 4 hour Neuro obs Na 135-145 IV Hydration Consider NG tube feeding Trial Seroquel 25mg QD for agitation Empiric Abx and then as per ID Maintain normothermia at all times with Tylenol or cooling blanket. Try to maintain sleep hygiene for patient with dark quiet room at night. SBP<140 Status: not improved, unchanged Jennifer Gama N.P. Sep 02, 2018 22:51
[2018-09-03] VITALS: BP 132/67
--- NOTE | 2018-09-03 03:29 | NUR ---
NURSE NOTES: Patient is asleep lying semi-samano's; resting comfortably. No signs of acute distress or pain noted at this time. Francisco catheter draining yellow urine to gravity.
[2018-09-03 04:00] VITALS: BP 120/60
[2018-09-03] MEDS: Valproate Sodium INJ 250 MG in D5W 55 ML IVPB SCH ×3 (06:18→21:21)
[2018-09-03 07:14] LABS: BASOPHILS % (AUTO) 0.8 % (0.0-2.0); EOSINOPHILS % (AUTO) 0.4 % (0.0-3.0); HEMATOCRIT 25.8 % (42.0-52.0); HEMOGLOBIN 8.9 G/DL (14.2-18.0); LYMPHOCYTES % (AUTO) 11.8 % (20.0-45.0); MEAN CORPUSCULAR VOLUME 92 FL (80-99); PLATELET COUNT 212 K/UL (150-450); RED CELL DISTRIBUTION WIDTH 12.3 % (11.6-14.8); WHITE BLOOD COUNT 11.9 K/UL (4.8-10.8)
--- NOTE | 2018-09-03 07:24 | NUR ---
HAND-OFF: Report given to DEANNE Alberto. Patient is awake restless and attempting to remove device. Restraints in place as ordered. Francisco catheter draining yellow urine to gravity. In stable condition otherwise.
[2018-09-03 07:27] LABS: ANION GAP 9 mmol/L (5-15); BLOOD UREA NITROGEN 21 mg/dL (7-18); CALCIUM 8.1 MG/DL (8.5-10.1); CARBON DIOXIDE 27 MMOL/L (21-32); CHLORIDE 112 MMOL/L (98-107); CREATININE 0.9 MG/DL (0.55-1.30); POTASSIUM 3.6 MMOL/L (3.5-5.1); SODIUM 147 MMOL/L (136-145)
[2018-09-03] MEDS: cefTRIAXone 1 GM in NS 55 ML IVPB SCH ×2 (07:27→09:18)
--- NOTE | 2018-09-03 07:46 | NUR ---
NURSE NOTES: Pt in bed in restraints, bed alarm on, bed in low position, call light at bedside, pt close to nursing station, pt very confused Ox1 only to name but doesnt respond in either his language of cantonese or Italian, IV patent and running fluids, pt is having difficulties swallowing, will ask family/ if NG tube placement is possible to nutritional value, Md notified regarding trending down HGB and HCT. no s/s of distress or sob noted.
[2018-09-03 08:00] VITALS: BP 123/61
[2018-09-03] MEDS: Aspirin EC 81mg tab ORAL SCH (09:00)
--- NOTE | 2018-09-03 09:51 | Diagnostic Imaging Report ---
EXAM: XR Chest, 1 View CLINICAL HISTORY: INFECT TECHNIQUE: Frontal view of the chest. COMPARISON: Chest x-ray dated 08/30/18 FINDINGS: Lungs: Unremarkable. The lungs appear clear. No focal consolidation. Pleural space: Unremarkable. The costophrenic angles are sharp. No visible pneumothorax. Heart: Unremarkable. No cardiomegaly. Mediastinum: Unremarkable. Bones/joints: Unremarkable. Tubes, lines and devices: Telemetry leads overlie the thorax. IMPRESSION: No acute findings.
--- NOTE | 2018-09-03 10:11 | General Progress Note ---
Assessment/Plan Status: stable Assessment/Plan: Assessment/Plan: # Failure to thrive - decreased bmi and low protein --> will also obtain q3d caloric counts --> cea is elevated and workup as per below, consider gi eval --> mirtazapine as appetite stimulant has been ordered --> Gi consult on a prn basis, as needed for endosc # Hyperproteinemia with decreased albumin -- this is a dissociation that is abnormal --> obtain SPEP (serum protein electrophoresis) and UPEP (urine protein electrophoresis) --> if above results in a m-spike or abnormally enhanced protein, will need to send off immunofixation serum/urine --> in the case of a m-spike or abnormally enhanced protein, will obtain a bone marrow biopsy # Elevated tumor markers as cea is elelvated --> may consider gi evaluation in this setting --> ca 19.9 is 1, ca 15.3 is 12.3 --> at some point may need CT c/a/p okay as outpatient # Acute metabolic encephalopathy, possibly from UTI, dehydration or recurrent CVA --> neuro and psych prn eval # History of recent CVA, CT done in ED shows subacute to chronic right thalamic stroke --> supportive care --> per neuro --> Fall,Aspiration,Seizure precautions --> is on abx for what appears to be uti The timing of this note does not necessarily reflect the time of the patient was seen. Greatly appreciate consultation! Subjective Constitutional: Denies: no symptoms, chills, diaphoresis, fever, malaise, weakness, other HEENT: Denies: no symptoms, eye pain, blurred vision, tearing, double vision, ear pain, ear discharge, nose pain, nose congestion, throat pain, throat swelling, mouth pain, mouth swelling, other Respiratory: Denies: no symptoms, cough, orthopnea, shortness of breath, SOB with excertion, SOB at rest, sputum, stridor, wheezing, other Neurologic/Psychiatric: Denies: no symptoms, anxiety, depressed, emotional problems, headache, numbness, paresthesia, pre-existing deficit, seizure, tingling, tremors, weakness, other Endocrine: Denies: no symptoms, excessive sweating, flushing, intolerance to cold, intolerance to heat, increased hunger, increased thirst, increased urine, unexplained weight gain, unexplained weight loss, other Allergies: Coded Allergies: No Known Allergies (Unverified , 08/30/18) Subjective 09/01: close followup with psych, remains agitated, some hematuria with burleson noted 09/03: with restraints, hgb remains low, no bleeding reported, in semi-fowlers position Objective Last 24 Hour Vital Signs Date Time Temp Pulse Resp B/P (MAP) Pulse Ox O2 Delivery O2 Flow Rate FiO2 09/03/18 08:08 Room Air 09/03/18 08:00 98.2 67 22 123/61 (81) 98 09/03/18 04:00 97.7 60 18 120/60 (80) 98 09/03/18 04:00 55 09/03/18 00:00 96.6 102 18 132/67 (88) 95 09/03/18 00:00 65 09/02/18 21:00 Room Air 09/02/18 20:00 106 09/02/18 20:00 97.5 104 26 135/77 (96) 96 09/02/18 18:16 98.1 09/02/18 16:00 100.5 107 18 151/80 (103) 99 09/02/18 16:00 102 09/02/18 12:00 99.7 110 17 123/74 (90) 98 09/02/18 12:00 101 Intake and Output 09/02/18 09/03/18 19:00 07:00 Intake Total 100 ml 1020.5 ml Output Total 575 ml Balance 100 ml 445.5 ml IV Total 100 ml 1020.5 ml Output Urine Total 575 ml Laboratory Tests 09/03/18 06:21: White Blood Count 11.9#H, Red Blood Count 2.80L, Hemoglobin 8.9L, Hematocrit 25.8L, Mean Corpuscular Volume 92, Mean Corpuscular Hemoglobin 31.9H, Mean Corpuscular Hemoglobin Concent 34.6, Red Cell Distribution Width 12.3, Platelet Count 212, Mean Platelet Volume 5.8L, Neutrophils (%) (Auto) 81.0H, Lymphocytes (%) (Auto) 11.8L, Monocytes (%) (Auto) 6.0, Eosinophils (%) (Auto) 0.4, Basophils (%) (Auto) 0.8, Sodium Level 147H, Potassium Level 3.6, Chloride Level 112H, Carbon Dioxide Level 27, Anion Gap 9, Blood Urea Nitrogen 21H, Creatinine 0.9, Estimat Glomerular Filtration Rate > 60, Glucose Level 103, Calcium Level 8.1L Height (Feet): 6 Height (Inches): 0.00 Weight (Pounds): 130 Objective General Appearance: alert, combative HEENT: normocephalic Neck: supple, normal inspection Respiratory/Chest: lungs clear, normal breath sounds Cardiovascular/Chest: normal rate, regular rhythm, no JVD Abdomen: non tender, soft Extremities: normal inspection, no calf tenderness, + restraints Neurologic: other - Uncooperative : Nolan+ Aman Collier MD Sep 03, 2018 10:11
--- NOTE | 2018-09-03 11:52 | General Progress Note ---
Assessment/Plan Status: stable Assessment/Plan: #Acute metabolic encephalopathy, persistent #History of recent CVA, CT done in ED shows subacute to chronic right thalamic stroke #Dysphagia, unable to take anything by mouth -supportive care -Fall,Aspiration,Seizure precautions -IM Haldol prn for agitation -Neurochecks -continue Lipitor -IV hydration -Ceftriaxone -Urine culture no growth -Neurology and Psychiatry following -MEDICAL OFFICE ASSISTANT INSTRUCTOR eval appreciated, continue NPO and oral care -NGT placement for nutrition and PO meds -Dietary consult for tube feeds #Acute blood loss anemia #Hematuria due to Francisco catheter induced urethral trauma, improved -monitor CBC -hold heparin -Continue Francisco -Urology eval appreciated -transfuse PRBC if Hb < 8 Full Code VTE PPx SCD I spent 70 minutes on this patient's case, and 35 minutes was dedicated to counseling and/or care coordination. Subjective Date patient seen: Sep 03, 2018 Time patient seen: 07:15 ROS Limited/Unobtainable: Yes Allergies: Coded Allergies: No Known Allergies (Unverified , 08/30/18) Subjective Medicine follow up for acute encephalopathy, agitation.Remains confused and agitated and in wrist restraints. Objective Last 24 Hour Vital Signs Date Time Temp Pulse Resp B/P (MAP) Pulse Ox O2 Delivery O2 Flow Rate FiO2 09/03/18 08:08 Room Air 09/03/18 08:00 98.2 67 22 123/61 (81) 98 09/03/18 07:50 52 09/03/18 04:00 97.7 60 18 120/60 (80) 98 09/03/18 04:00 55 09/03/18 00:00 96.6 102 18 132/67 (88) 95 09/03/18 00:00 65 09/02/18 21:00 Room Air 09/02/18 20:00 106 09/02/18 20:00 97.5 104 26 135/77 (96) 96 09/02/18 18:16 98.1 09/02/18 16:00 100.5 107 18 151/80 (103) 99 09/02/18 16:00 102 09/02/18 12:00 99.7 110 17 123/74 (90) 98 09/02/18 12:00 101 Intake and Output 09/02/18 09/03/18 19:00 07:00 Intake Total 100 ml 1020.5 ml Output Total 575 ml Balance 100 ml 445.5 ml IV Total 100 ml 1020.5 ml Output Urine Total 575 ml Laboratory Tests 09/03/18 06:21: White Blood Count 11.9#H, Red Blood Count 2.80L, Hemoglobin 8.9L, Hematocrit 25.8L, Mean Corpuscular Volume 92, Mean Corpuscular Hemoglobin 31.9H, Mean Corpuscular Hemoglobin Concent 34.6, Red Cell Distribution Width 12.3, Platelet Count 212, Mean Platelet Volume 5.8L, Neutrophils (%) (Auto) 81.0H, Lymphocytes (%) (Auto) 11.8L, Monocytes (%) (Auto) 6.0, Eosinophils (%) (Auto) 0.4, Basophils (%) (Auto) 0.8, Neutrophils % (Manual) [Pending], Lymphocytes % ( Manual) [Pending], Platelet Estimate [Pending], Platelet Morphology [Pending], Sodium Level 147H, Potassium Level 3.6, Chloride Level 112H, Carbon Dioxide Level 27, Anion Gap 9, Blood Urea Nitrogen 21H, Creatinine 0.9, Estimat Glomerular Filtration Rate > 60, Glucose Level 103, Calcium Level 8.1L 09/03/18 10:45: Reticulocyte Count [Pending], Sickle Cell Screen [Pending], Fibrinogen [Pending] , Iron Level [Pending], Unsaturated Iron Binding [Pending], Ferritin [Pending], Lactate Dehydrogenase [Pending], Total Protein (PEP) [Pending], Albumin (PEP) [ Pending], Globulin (PEP) [Pending], Albumin/Globulin Ratio [Pending], Alpha-1- Globulins [Pending], [id number] [Pending], Beta Globulins [Pending], Beta Gamma Globulin [Pending], PEP Abnormal Protein Bands [Pending], Protein Electrophoresis Interpret [Pending], Vitamin B12 Level [Pending], Folate [ Pending], Homocystine [Pending], Thyroid Stimulating Hormone (TSH) [Pending] Height (Feet): 6 Height (Inches): 0.00 Weight (Pounds): 130 General Appearance: alert, agitated Cardiovascular: normal peripheral pulses, normal rate Respiratory/Chest: lungs clear, normal breath sounds, no accessory muscle use Abdomen: non tender, soft Bright Her MD Sep 03, 2018 11:52
[2018-09-03 12:00] VITALS: BP 122/57
[2018-09-03 12:31] LABS: FERRITIN 201 NG/ML (8-388); LACTATE DEHYDROGENASE 273 U/L (81-234)
[2018-09-03 12:49] LABS: % IRON SATURATION 20 % (15-50); IRON 34 ug/dL (50-175); TOTAL IRON BINDING CAPACITY 167 ug/dL (250-450)
[2018-09-03] MEDS: Haloperidol 5mg/ml Inj IM PRN (15:47)
[2018-09-03 16:00] VITALS: BP 121/77
[2018-09-03] MEDS ORDERED: Tubing IV Secondary IV ONE (17:29)
--- NOTE | 2018-09-03 19:11 | NUR ---
NURSE NOTES: Spoke to Md Sotomayor about the penis bleed related to pt pulling burleson cath, Md aware and stated that the injury will stop to give it time. Md August made aware that no NG was placed due to pt was able to tolerate small teaspons of apple sauce at a time without aspirating. Chest Xray negative for today.
--- NOTE | 2018-09-03 19:14 | NUR ---
HAND-OFF: Report given to Kiersten Cummings.
--- NOTE | 2018-09-03 19:26 | NUR ---
NURSE NOTES: Received report from DEANNE Alberto. Patient is awake lying semi-samano's; restless and still attempting to get out of bed. No signs of acute distress noted at this time. Family at bedside. AOx1; unable to verbalize needs. Checked IV site, lines, and IV rate; patent and running. No erythema, bleeding, or infiltration noted. Francisco catheter draining well to gravity with penile tip noted to have some bleeding and clots. Dr. German already made aware. No new orders received. Bed at lowest position, brakes on, siderails up x3. Siderails padded following seizure precautions. Suction at bedside. Call light within reach. Will continue to monitor.
[2018-09-03 20:00] VITALS: BP 129/80
[2018-09-03] MEDS: Atorvastatin 80mg tab ORAL SCH (21:00)
[2018-09-03] MEDS ORDERED: Acyclovir 700 MG in NS 110 ML IV SCH ×2 (21:45→22:00)
[2018-09-03] MEDS ORDERED: Acyclovir 750 MG in NS 110 ML IV SCH (22:30)
--- NOTE | 2018-09-03 22:59 | NUR ---
HAND-OFF: Report given to DEANNE Olivier. Patient is awake lying semi-samano's; resting comfortably. Francisco catheter draining yellow urine to gravity. In stable condition.
--- NOTE | 2018-09-03 23:00 | NUR ---
NURSE NOTES: Received report from DEANNE Burch. Patient in bed awake showing no signs of acute distress. Respiration even and non labored on room air. No SOB noted. IV line patent and intact. Francisco cath. patent, intact and draining with no presence of hematuria. Seizure precaution observed. No episode of seizure noted. Safety precaution observed. Bed rails padded, Oxygen and suction at bedside. Call light within reach. Bed in lowest position. Bed alarm on and wheels locked. All needs attended and met will continue plan of care.
[2018-09-03] MEDS: Acyclovir 700 MG in NS 110 ML IV SCH (23:28)
--- NOTE | 2018-09-03 23:56 | Neurology Progress Note ---
Interim History Interim History ROS Limited/Unobtainable: Yes Complaints: AMS Events: Febrile, no improvement in MS Review of Systems All Systems: reviewed and negative except above Objective Physical Exam Last Vital Signs Date Time Temp Pulse Resp B/P (MAP) Pulse Ox O2 Delivery O2 Flow Rate FiO2 09/03/18 21:00 Room Air 09/03/18 20:00 98.5 89 20 129/80 (96) 99 Laboratory Tests Test 09/03/18 06:21 09/03/18 10:45 White Blood Count 11.9 K/UL (4.8-10.8) #H Red Blood Count 2.80 M/UL (4.70-6.10) L Hemoglobin 8.9 G/DL (14.2-18.0) L Hematocrit 25.8 % (42.0-52.0) L Mean Corpuscular Volume 92 FL (80-99) Mean Corpuscular Hemoglobin 31.9 PG (27.0-31.0) H Mean Corpuscular Hemoglobin Concent 34.6 G/DL (32.0-36.0) Red Cell Distribution Width 12.3 % (11.6-14.8) Platelet Count 212 K/UL (150-450) Mean Platelet Volume 5.8 FL (6.5-10.1) L Neutrophils (%) (Auto) 81.0 % (45.0-75.0) H Lymphocytes (%) (Auto) 11.8 % (20.0-45.0) L Monocytes (%) (Auto) 6.0 % (1.0-10.0) Eosinophils (%) (Auto) 0.4 % (0.0-3.0) Basophils (%) (Auto) 0.8 % (0.0-2.0) Differential Total Cells Counted 100 Neutrophils % (Manual) 83 % (45-75) H Lymphocytes % (Manual) 11 % (20-45) L Monocytes % (Manual) 5 % (1-10) Eosinophils % (Manual) 1 % (0-3) Basophils % (Manual) 0 % (0-2) Band Neutrophils 0 % (0-8) Platelet Estimate Adequate Platelet Morphology Normal Hypochromasia 1+ Sodium Level 147 MMOL/L (136-145) H Potassium Level 3.6 MMOL/L (3.5-5.1) Chloride Level 112 MMOL/L (98-107) H Carbon Dioxide Level 27 MMOL/L (21-32) Anion Gap 9 mmol/L (5-15) Blood Urea Nitrogen 21 mg/dL (7-18) H Creatinine 0.9 MG/DL (0.55-1.30) Estimat Glomerular Filtration Rate > 60 mL/min (>60) Glucose Level 103 MG/DL (74-106) Calcium Level 8.1 MG/DL (8.5-10.1) L Reticulocyte Count 1.3 % (0.0-2.0) Sickle Cell Screen Pending Fibrinogen 304 mg/dL (200-400) Iron Level 34 ug/dL (50-175) L Total Iron Binding Capacity 167 ug/dL (250-450) L Percent Iron Saturation 20 % (15-50) Unsaturated Iron Binding 133 ug/dL (112-346) Ferritin 201 NG/ML (8-388) Lactate Dehydrogenase 273 U/L (81-234) H Total Protein (PEP) Pending Albumin (PEP) Pending Globulin (PEP) Pending Albumin/Globulin Ratio Pending [id number] Pending Gsivh-7-[id number] Pending Beta Globulins Pending Beta Gamma Globulin Pending PEP Abnormal Protein Bands Pending Protein Electrophoresis Interpret Pending Vitamin B12 Level 1293 PG/ML (193-986) H Folate 19.5 NG/ML (8.6-58.9) Homocystine Pending Thyroid Stimulating Hormone (TSH) 0.653 uiU/mL (0.358-3.740) Head: normocophalic Neck: no rigidity EENT: benign Neurologic Exam Mental Status: awake, other - Patient remains agitated upon waking. His primary language is Cantonese but as per his daughter he is not speaking any intelligible words at this time. Cranial Nerve II: fundus normal Cranial Nerves III, IV, : PERRLA, EOMI Cranial Nerve VII: no facial asymmetry Cranial Nerve XI: SCM symmetric Cranial Nerve XII: tongue midline Motor System: other - No apparent focal weakness on exam but unable to formally test as patient is not following commands. Objective Patient continues to remain non focal on exam. He is agitated when awoken, LUNA x 4 but not following commands. His primary language is Cantonese and as per his daughter's report - He is not saying any intelligible words- denies paraphrasic errors - patient is just making sounds. He intermittently tracks with his eyes. No observed / mag seizure activity noted. Impression/Recommendations Problems: (1) Altered mental state Assessment & Plan: MRI Brain written with SEDATION- STILL PENDING COMPLETION (2) Cognitive impairment (3) Acute encephalopathy Assessment & Plan: Unclear cause at this time. Febrile with leukocytosis today. EEG was abnormal but without mag epileptiform activity. LP RECOMMENDED - Meningitis ddx Consider starting ppx Acyclovir 500mg Q8 as HSV Encephalitis ppx Continue Q 4 hour Neuro obs Na 135-145 IV Hydration Consider NG tube feeding Trial Seroquel 25mg QD for agitation Empiric Abx and then as per ID Maintain normothermia at all times with Tylenol or cooling blanket. Try to maintain sleep hygiene for patient with dark quiet room at night. SBP<140 Status: not improved, unchanged Recommendations Continue Q4 hr neuro obs IV Hydration recommended Na 135-145 Follow LFTs/ Cr/BUN/ CBC Check TSH Obtain inpatient EEG Jennifer Gama N.P. Sep 03, 2018 23:56
[2018-09-04] VITALS: BP 131/70
[2018-09-04 04:00] VITALS: BP 109/66
--- NOTE | 2018-09-04 04:42 | NUR ---
HAND-OFF: Report given to DEANNE Garrison.
--- NOTE | 2018-09-04 04:45 | NUR ---
NURSE NOTES: Pt report received from Soy ALICEA. Pt is alert and oriented times 1. Pt appears to be resting in bed comfortably in no distress. Pt cardiac monitor technician on, active and working, no cardiac distress noted. Pt is on Nasal canula running 2L saturating at 99%, no distress noted. Pt has a R upper arm 20G, able to flush no distress noted. All safety precautions are active such as bed is in lowest position, side rails are up times 3, call light is within easy reach, bed alarm is active, side rails are padded. Will continue plan of care.
[2018-09-04] MEDS: Valproate Sodium INJ 250 MG in D5W 55 ML IVPB SCH ×3 (05:39→21:56)
[2018-09-04] MEDS: Acyclovir 700 MG in NS 110 ML IV SCH ×2 (06:51→17:22)
--- NOTE | 2018-09-04 07:30 | NUR ---
HAND-OFF: Report given to Alexandria ALICEA, no distress noted.
[2018-09-04 08:00] VITALS: BP 132/91
--- NOTE | 2018-09-04 08:19 | NUR ---
NURSE NOTES received pt report from Bladimir ALICEA. Pt is on restrains and have been renewed. Pt awake but agitated. Pt on awake overnight monitor no signs of distress at this time. Bed locked and in lowest position. Call light within reach. Will continue plan of care.
[2018-09-04] MEDS: Aspirin EC 81mg tab ORAL SCH (09:00)
[2018-09-04] MEDS: cefTRIAXone 1 GM in NS 55 ML IVPB SCH (10:09)
--- NOTE | 2018-09-04 11:21 | NUR ---
RD ASSESSMENT & RECOMMENDATIONS SEE CARE ACTIVITY FOR COMPLETE ASSESSMENT DAILY ESTIMATED NEEDS: Needs based on cardiac, wasting, underweight 52kg 30-35 kcals/kg 9542-6920 total kcals 1-1.5 g protein/kg 52-78 g total protein 25-30 mL/kg 8904-3594 total fluid mLs NUTRITION DIAGNOSIS: * Increased kcal and protein needs r/t underweight status and wasting as evidenced by pt is est 74% of [place] Body Weight, w/ generalized mild to moderate wasting. * Swallowing difficulty R/T dysphagia, CVA as evidenced by MEDICAL WRITER recommends strict NPO at this time, pt w/ an order for NGT insertion. CURRENT DIET: NPO PO DIET RECOMMENDATIONS: When safe for PO -> REGULAR DIET (texture per MEDICAL WRITER) ENTERAL NUTRITION RECOMMENDATIONS: Jevity 1.2 @ 58ml/hr x 24 hrs to provide 1392ml, 1670kcal, 77g prot, 1123ml free water * W/ GI access, initiate Jevity 1.2 SLOWLY @ 18ml/hr x 6 hrs * Advance 10ml q 4-6 hrs as tolerated to goal rate. * HOB over 30 degrees/ water flush per MD ADDITIONAL RECOMMENDATIONS: * Obtain calibrated bed scale wts, weekly weights * Monitor lytes daily w/ TF, replete as needed -> PT IS AT HIGH RISK FOR REFEEDING SYNDROME * Monitor for ability for oral diet, need to adjust TF -VSS when pt ready per MEDICAL WRITER * Rec to change NS to D5 IVF -> hypernatremia
[2018-09-04 12:00] VITALS: BP 151/95
--- NOTE | 2018-09-04 12:10 | General Progress Note ---
Assessment/Plan Status: not improved, unchanged Assessment/Plan: #Acute metabolic encephalopathy, slight improvement #History of recent CVA, CT done in ED shows subacute to chronic right thalamic stroke #Dysphagia, was able to take apple sauce yesterday -supportive care -Fall,Aspiration,Seizure precautions -IM Haldol prn for agitation -Neurochecks -continue Lipitor -IV acyclovir per Neurology recs, will discuss obtaining LP -Urine culture no growth, can stop ceftriaxone -Neurology and Psychiatry following -COURT ADMINISTRATOR following #Acute blood loss anemia #Hematuria due to Francisco catheter induced urethral trauma, improved -CBC pending -hold heparin -Continue Francisco -Urology eval appreciated -transfuse PRBC if Hb < 8 Full Code VTE PPx SCD I spent 70 minutes on this patient's case, and 35 minutes was dedicated to counseling and/or care coordination. Subjective Date patient seen: Sep 04, 2018 Time patient seen: 07:15 ROS Limited/Unobtainable: Yes Allergies: Coded Allergies: No Known Allergies (Unverified , 08/30/18) Subjective Medicine follow up for acute encephalopathy, agitation.Mentation slightly better yesterday, was able to take apple sauce. NGT placement deferred. Objective Last 24 Hour Vital Signs Date Time Temp Pulse Resp B/P (MAP) Pulse Ox O2 Delivery O2 Flow Rate FiO2 09/04/18 08:00 105 09/04/18 08:00 97.9 112 20 132/91 (105) 99 09/04/18 04:00 98.0 59 20 109/66 (80) 100 09/04/18 04:00 51 09/04/18 00:00 94 09/04/18 00:00 97.5 85 20 131/70 (90) 100 09/03/18 21:00 Room Air 09/03/18 20:00 98.5 89 20 129/80 (96) 99 09/03/18 20:00 97 09/03/18 16:00 98.2 93 24 121/77 (92) 90 09/03/18 15:58 97 Intake and Output 09/03/18 09/04/18 19:00 07:00 Intake Total 100 ml 380.0 ml Output Total 500 ml Balance -400 ml 380.0 ml IV Total 100 ml 380.0 ml Output Urine Total 500 ml # Voids 2 Height (Feet): 6 Height (Inches): 0.00 Weight (Pounds): 130 General Appearance: alert, agitated, combative Cardiovascular: normal peripheral pulses, normal rate Respiratory/Chest: lungs clear, no respiratory distress Abdomen: non tender, soft Bright Her MD Sep 04, 2018 12:10
--- NOTE | 2018-09-04 12:13 | NUR ---
SWALLOW/SPEECH THERAPY NOTE: SWALLOW STATUS: SUBJECTIVE: PATIENT ALERT BUT NOT SPEAKING. OBJECTIVE/ASSESSMENT: REFUSING THE NGT AND WANTS PATIENT TO EAT/DRINK BY MOUTH FOR QUALITY OF LIFE EVEN THOUGH SOAKER SODA WORKER TOLD HER THE PATIENT WAS AT HIGH RISK FOR SILENT ASPIRATION AND INADEQUATE INTAKE. PER HIS , SHE GAVE HIM JELLO 4-5 TIMES AND PIECES OF APPLE YESTERDAY. PT IS MOSTLY NPO FOR MRI OF BRAIN NOW. SHE GAVE HIM PO TRIAL OF TSP APPLESAUCE WHICH TOOK HIM 7 SECONDS TO TRIGGER A SWALLOW AND HE HAD MILD RESIDUE FRONT OF MOUTH THAT WAS SUCTIONED OUT. AT BEDSIDE, HE HAS A LOT OF THICK YELLOW PHLEGM IN THE SUCTION CANNISTER. HE SOUNDED SLIGHTLY WET BUT REFUSES ORAL SUCTION (BITES DOWN). D/W RN DEEP NASAL SUCTION SHOULD BE COMPLETED IF TOLERATED AND INDICATED. EDUCATED/TRAINED AND NEW RN REGARDING ORAL CARE AND ASP PREC WITH ORAL SECRETIONS. PLAN: CONTINUE NPO FOR NOW AND CHECK TOMORROW. NOT READY FOR MOD BARIUM SWALLOW STUDY (AND SCHEDULE CONFLICT DUE TO MRI TODAY). CONT WITH ORAL CARE IF HE ALLOWS IT (CONFUSED AND KEEPS MOUTH CLOSED). D/W HIS BROTHER,DELIA, WHO AGREES WITH NO PO AND TO INSERT NGT; HOWEVER, HIS IS MAKING HIS DECISION AT THIS TIME. D/W RN KRISTEN AND LEFT MESSAGE WITH .
[2018-09-04 12:35] LABS: BASOPHILS % (AUTO) 0.3 % (0.0-2.0); EOSINOPHILS % (AUTO) 0.4 % (0.0-3.0); HEMATOCRIT 29.4 % (42.0-52.0); HEMOGLOBIN 9.9 G/DL (14.2-18.0); LYMPHOCYTES % (AUTO) 10.5 % (20.0-45.0); MEAN CORPUSCULAR VOLUME 92 FL (80-99); MONOCYTES % (AUTO) 6.1 % (1.0-10.0); NEUTROPHILS % (AUTO) 82.7 % (45.0-75.0); PLATELET COUNT 270 K/UL (150-450); RED CELL DISTRIBUTION WIDTH 11.8 % (11.6-14.8); WHITE BLOOD COUNT 11.8 K/UL (4.8-10.8)
[2018-09-04 12:42] LABS: ANION GAP 9 mmol/L (5-15); BLOOD UREA NITROGEN 13 mg/dL (7-18); CALCIUM 8.6 MG/DL (8.5-10.1); CARBON DIOXIDE 31 MMOL/L (21-32); CHLORIDE 114 MMOL/L (98-107); CREATININE 1.1 MG/DL (0.55-1.30); POTASSIUM 3.5 MMOL/L (3.5-5.1); SODIUM 153 MMOL/L (136-145)
--- NOTE | 2018-09-04 13:35 | General Progress Note ---
Assessment/Plan Status: not improved, unchanged Assessment/Plan: Assessment/Plan: # Failure to thrive - decreased bmi and low protein --> will also obtain q3d caloric counts --> cea is elevated and workup as per below, consider gi eval --> mirtazapine as appetite stimulant has been ordered --> Gi consult on a prn basis, as needed for endosc # Hyperproteinemia with decreased albumin -- this is a dissociation that is abnormal --> upep and spep are negative for a m-spike, it does not exist --> if above results in a m-spike or abnormally enhanced protein, will need to send off immunofixation serum/urine --> in the case of a m-spike or abnormally enhanced protein, will obtain a bone marrow biopsy # Elevated tumor markers as cea is elelvated --> may consider gi evaluation in this setting --> ca 19.9 is 1, ca 15.3 is 12.3 --> at some point may need CT c/a/p okay as outpatient # Acute metabolic encephalopathy, possibly from UTI, dehydration or recurrent CVA --> neuro and psych prn eval --> abx prn # History of recent CVA, CT done in ED shows subacute to chronic right thalamic stroke --> supportive care --> per neuro --> Fall,Aspiration,Seizure precautions --> is on abx for what appears to be uti The timing of this note does not necessarily reflect the time of the patient was seen. Greatly appreciate consultation! Subjective Constitutional: Denies: no symptoms, chills, diaphoresis, fever, malaise, weakness, other HEENT: Denies: no symptoms, eye pain, blurred vision, tearing, double vision, ear pain, ear discharge, nose pain, nose congestion, throat pain, throat swelling, mouth pain, mouth swelling, other Cardiovascular: Denies: no symptoms, chest pain, edema, irregular heart rate, lightheadedness, palpitations, syncope, other Respiratory: Denies: no symptoms, cough, orthopnea, shortness of breath, SOB with excertion, SOB at rest, sputum, stridor, wheezing, other Neurologic/Psychiatric: Denies: no symptoms, anxiety, depressed, emotional problems, headache, numbness, paresthesia, pre-existing deficit, seizure, tingling, tremors, weakness, other Endocrine: Denies: no symptoms, excessive sweating, flushing, intolerance to cold, intolerance to heat, increased hunger, increased thirst, increased urine, unexplained weight gain, unexplained weight loss, other Hematologic/Lymphatic: Denies: no symptoms, anemia, easy bleeding, easy bruising, other Allergies: Coded Allergies: No Known Allergies (Unverified , 08/30/18) Subjective 09/01: close followup with psych, remains agitated, some hematuria with burleson noted 09/03: with restraints, hgb remains low, no bleeding reported, in semi-fowlers position 09/04: has been refusing ng tube placement, concern remains for silent aspiration, seen by speech Objective Last 24 Hour Vital Signs Date Time Temp Pulse Resp B/P (MAP) Pulse Ox O2 Delivery O2 Flow Rate FiO2 09/04/18 08:00 105 09/04/18 08:00 97.9 112 20 132/91 (105) 99 09/04/18 04:00 98.0 59 20 109/66 (80) 100 09/04/18 04:00 51 09/04/18 00:00 94 09/04/18 00:00 97.5 85 20 131/70 (90) 100 09/03/18 21:00 Room Air 09/03/18 20:00 98.5 89 20 129/80 (96) 99 09/03/18 20:00 97 09/03/18 16:00 98.2 93 24 121/77 (92) 90 09/03/18 15:58 97 Intake and Output 09/03/18 09/04/18 19:00 07:00 Intake Total 100 ml 380.0 ml Output Total 500 ml Balance -400 ml 380.0 ml IV Total 100 ml 380.0 ml Output Urine Total 500 ml # Voids 2 Laboratory Tests 09/04/18 12:25: White Blood Count 11.8H, Red Blood Count 3.20L, Hemoglobin 9.9L, Hematocrit 29.4L, Mean Corpuscular Volume 92, Mean Corpuscular Hemoglobin 31.1H, Mean Corpuscular Hemoglobin Concent 33.8, Red Cell Distribution Width 11.8, Platelet Count 270, Mean Platelet Volume 4.9L, Neutrophils (%) (Auto) 82.7H, Lymphocytes (%) (Auto) 10.5L, Monocytes (%) (Auto) 6.1, Eosinophils (%) (Auto) 0.4, Basophils (%) (Auto) 0.3, Sodium Level 153H, Potassium Level 3.5, Chloride Level 114H, Carbon Dioxide Level 31, Anion Gap 9, Blood Urea Nitrogen 13, Creatinine 1.1, Estimat Glomerular Filtration Rate > 60, Glucose Level 122H, Calcium Level 8.6 09/04/18 13:00: Prothrombin Time 10.5, Prothromb Time International Ratio 1.0, Activated Partial Thromboplast Time 23, CSF Herpes Simplex II DNA (PCR) [Pending], Herpes Simplex Virus I DNA (PCR) [Pending] Height (Feet): 6 Height (Inches): 0.00 Weight (Pounds): 130 Objective General Appearance: alert, combative HEENT: normocephalic Neck: supple, normal inspection Respiratory/Chest: lungs clear, normal breath sounds Cardiovascular/Chest: normal rate, regular rhythm, no JVD Abdomen: non tender, soft Extremities: normal inspection, no calf tenderness, + restraints Neurologic: other - Uncooperative : Nolan+ Aman Collier MD Sep 04, 2018 13:35
--- NOTE | 2018-09-04 13:51 | NUR ---
NURSE NOTES: pt 1400 medication Valproate PB being prepared at pharmacy at this time.
--- NOTE | 2018-09-04 15:22 | NUR ---
MRI BRAIN COMPLETED.
[2018-09-04 16:00] VITALS: BP 89/54
--- NOTE | 2018-09-04 16:26 | Diagnostic Imaging Report ---
Indication: Reason For Exam: CVA Technique: sagittal T1 FLAIR PROPELLER, axial T1 FLAIR PROPELLER, axial and coronal T2 FLAIR PROPELLER, axial T2 FS PROPELLER, axial T2* GRE, axial diffusion weighted images. ADC and exponential ADC maps generated Comparison: Reference made to head CT dated 08/30/2018 Findings: There is low T1 and high T2 signal within the right anterior superior frontal lobe, corresponding to findings reported on recent CT scan. Similar findings are also noted in the left temporal lobe, with only questionable corresponding CT abnormality. However, there is no diffusion abnormality demonstrated. No diffusion abnormality noted elsewhere.. No acute hemorrhage or edema. No mass effect nor midline shift. There is age-related enlargement of the ventricles and extra axial CSF spaces and a prominent cisterna magna. There is a small right maxillary sinus polyp versus mucous retention cyst noted. The visualized orbits are unremarkable. The vascular flow voids are preserved. There is minimal periventricular high T2 signal consistent with chronic microvascular ischemic changes Impression: Decreased T1 and increased T2 signal in the right anterior superior temporal lobe, corresponding to abnormality described on prior CT scan. Most likely an old infarct. No diffusion restriction to suggest acute Note similar less extensive findings in the left temporal lobe, much less apparent on recent CT scan probably due to motion artifact. This could also represent an old infarct. Alternatively, bilaterality of findings could indicate these represent encephalomalacia due to prior trauma. Absence of evidence of old blood products makes this less likely, however. Other chronic and age-related changes, as described Negative for acute intracranial bleed, mass effect, or infarct
--- NOTE | 2018-09-04 16:29 | NUR ---
NURSE NOTES: pt is back from MRI. Pt is sleeping in bed and was very congested. prototype technician was called and they did nasal suctioning. Pt is not coughing and congestion is gone. Will monitor pt. is at bedside. Blood pressure is also low 89/54. Reassed B/P diastolic now 104.
--- NOTE | 2018-09-04 16:44 | NUR ---
pt. is developing skin bruising on left arm from pulling on wrist restrains. is aware of that and was massaging pt. arm.
--- NOTE | 2018-09-04 18:52 | Physician Query ---
--------- THIS DOCUMENT IS A PERMANENT PART OF THE MEDICAL RECORD --------- PLEASE COMPLETE DOCUMENT BEFORE SIGNING Dear Dr. Mccarthy Date: Gauge And Weigh Machine Adjuster/CDS Name: _Darlene Gauge And Weigh Machine Adjuster/CDS Phone No.: Exercise your independent professional judgment when responding to the query. Questions asked do not imply a particular answer is desired or expected. We greatly appreciate your clarification on this issue. CLINICAL DOCUMENTATION STATES: 58 year old man with history of recent CVA with subsequent aphasia who comes from the group home with increasing confusion, agitation and poor oral intake. #Acute metabolic encephalopathy, possibly from UTI, dehydration or recurrent CVA(H&P) CLINICAL FINDINGS SHOW: Na() 144,147,151 Please respond to the following question: Is there a diagnosis specific to these symptoms or values? If so please state below. [ ]Hypernatremia [ ] clinically insignificant labs [ ] unable to determine [ ] other PHYSICIAN RESPONSE: Condition Present on Admission: [] Yes [] No []Clinically Undeterminable Please also document in your Progress Notes and/or Discharge Summary and indicate if the condition was present on admission.
--- NOTE | 2018-09-04 18:59 | Psych Consult Progress Note ---
Psychiatry Progress Note Psychiatry Progress Note Subjective the pt cont to be agitated and confused now npo the pts in the room Medications Current Medications Medications (Trade) Dose Ordered Sig/Jaxon Route PRN Reason Start Time Stop Time Status Last Admin Dose Admin Acetaminophen (Tylenol) 650 mg Q4H PRN ORAL Mild Pain/Temp > 100.5 09/02/18 17:15 10/02/18 17:14 09/02/18 17:46 Acyclovir 700 mg/ Sodium Chloride 110 ml @ 110 mls/hr Q8H IV 09/03/18 23:00 10/03/18 22:59 09/04/18 17:22 Aspirin (Ecotrin) 81 mg DAILY ORAL 09/01/18 10:00 10/01/18 09:59 Atorvastatin Calcium (Lipitor) 80 mg BEDTIME ORAL 09/01/18 21:00 09/30/18 20:59 Clopidogrel Bisulfate (Plavix) 75 mg DAILY ORAL 09/01/18 10:00 10/01/18 09:59 Haloperidol Lactate (Haldol) 5 mg Q6H PRN IM Agitation 09/01/18 11:15 10/01/18 11:14 09/03/18 15:47 Mirtazapine (Remeron) 7.5 mg BEDTIME ORAL 09/03/18 21:00 10/03/18 20:59 Polyethylene Glycol (Miralax) 17 gm BEDTIME PRN ORAL Constipation 09/01/18 21:00 09/29/18 23:14 Quetiapine Fumarate (SEROquel) 25 mg TID ORAL 09/01/18 10:00 10/01/18 09:59 09/03/18 09:18 Quetiapine Fumarate (SEROquel) 50 mg QIDPRN PRN ORAL agitation 09/01/18 12:00 09/30/18 11:59 Sodium Chloride 1,000 ml @ 100 mls/hr Q10H IV 09/01/18 09:48 10/01/18 09:47 09/04/18 07:48 Valproate Sodium 250 mg/Dextrose 57.5 ml @ 57.5 mls/hr Q8HR IVPB 09/02/18 22:00 10/02/18 21:59 09/04/18 15:56 Neurological/Psychiatric: Reports: anxiety, depressed, emotional problems, weakness Allergies: Coded Allergies: No Known Allergies (Unverified , 08/30/18) Objective Data Height (Feet): 6 Height (Inches): 0.00 Weight (Pounds): 130 General Appearance: alert, confused, moderate distress, agitated Appearance: disheveled Behavior Mannerisms: good eye contact Mental Status Exam - Affect: constricted Mental Status Exam - Mood: anxious, agitated Mental Status Exam - Thought P: illogical Mental Status Exam - Suicidal: not present Assessment/Plan Problem List: (1) Acute encephalopathy ICD Codes: G93.40 - Encephalopathy, unspecified SNOMED: 87705377, 989956055 (2) Cognitive impairment ICD Codes: R41.89 - Other symptoms and signs involving cognitive functions and awareness SNOMED: 553912206 Status: not improved, unchanged Assessment/Plan: cont restraints increase depakote seroquel standing seroquel prn Damian Kim MD Sep 04, 2018 18:59
--- NOTE | 2018-09-04 19:09 | Psych Consult Progress Note ---
Psychiatry Progress Note Psychiatry Progress Note Subjective 03/05/19 the pt is the same agitated Medications Current Medications Medications (Trade) Dose Ordered Sig/Jaxon Route PRN Reason Start Time Stop Time Status Last Admin Dose Admin Acetaminophen (Tylenol) 650 mg Q4H PRN ORAL Mild Pain/Temp > 100.5 09/02/18 17:15 10/02/18 17:14 09/02/18 17:46 Acyclovir 700 mg/ Sodium Chloride 110 ml @ 110 mls/hr Q8H IV 09/03/18 23:00 10/03/18 22:59 09/04/18 17:22 Aspirin (Ecotrin) 81 mg DAILY ORAL 09/01/18 10:00 10/01/18 09:59 Atorvastatin Calcium (Lipitor) 80 mg BEDTIME ORAL 09/01/18 21:00 09/30/18 20:59 Clopidogrel Bisulfate (Plavix) 75 mg DAILY ORAL 09/01/18 10:00 10/01/18 09:59 Haloperidol Lactate (Haldol) 5 mg Q6H PRN IM Agitation 09/01/18 11:15 10/01/18 11:14 09/03/18 15:47 Mirtazapine (Remeron) 7.5 mg BEDTIME ORAL 09/03/18 21:00 10/03/18 20:59 Polyethylene Glycol (Miralax) 17 gm BEDTIME PRN ORAL Constipation 09/01/18 21:00 09/29/18 23:14 Quetiapine Fumarate (SEROquel) 25 mg TID ORAL 09/01/18 10:00 10/01/18 09:59 09/03/18 09:18 Quetiapine Fumarate (SEROquel) 50 mg QIDPRN PRN ORAL agitation 09/01/18 12:00 09/30/18 11:59 Sodium Chloride 1,000 ml @ 100 mls/hr Q10H IV 09/01/18 09:48 10/01/18 09:47 09/04/18 07:48 Valproate Sodium 250 mg/Dextrose 57.5 ml @ 57.5 mls/hr Q8HR IVPB 09/02/18 22:00 10/02/18 21:59 09/04/18 15:56 Neurological/Psychiatric: Reports: anxiety, emotional problems, weakness Allergies: Coded Allergies: No Known Allergies (Unverified , 08/30/18) Objective Data Height (Feet): 6 Height (Inches): 0.00 Weight (Pounds): 130 General Appearance: alert, confused, agitated Appearance: disheveled Behavior Mannerisms: good eye contact Mental Status Exam - Affect: constricted Mental Status Exam - Mood: agitated Mental Status Exam - Thought P: illogical, tangential, confusion Mental Status Exam - Suicidal: not present Assessment/Plan Problem List: (1) Acute encephalopathy ICD Codes: G93.40 - Encephalopathy, unspecified SNOMED: 96543857, 471204308 (2) Cognitive impairment ICD Codes: R41.89 - Other symptoms and signs involving cognitive functions and awareness SNOMED: 287155909 Status: not improved, unchanged Assessment/Plan: cont restraints increase depakote seroquel standing seroquel prn Damian Kim MD Sep 04, 2018 19:09
--- NOTE | 2018-09-04 19:20 | NUR ---
NURSE NOTES: Received report from Supriya Dalton RN. Pt is resting in the bed w/o distress in 2L NC. is at the bedside. Skin redness and bruise noted on LFA and L. Wrist d/t pt's pulling of soft wrist restrain,Family was informed. Endorsed that kept feeding pt soft food often although the is aware of NPO order, and despite it redirection of staff. HOB elevated 30 degree, side rails are padded, and suction is ready. Pt's awaiting to be transferred to NC but d/t low SBP 80's, and PCP is aware of it. Francisco is applied, draining and patent. Call light and side table are w/in reach. Bed in the lowest, bed alarm on, and breaks are engaged. Will follow plans of care.
[2018-09-04 20:00] VITALS: BP 131/80
[2018-09-04] MEDS: Atorvastatin 80mg tab ORAL SCH (21:00)
--- NOTE | 2018-09-04 21:02 | NUR ---
HAND-OFF: Report given to Farrah ALICEA, pt has brucing on left FA due to the continuous pulling and rubbing from restrains.
--- NOTE | 2018-09-04 21:23 | Neurology Progress Note ---
Interim History Interim History ROS Limited/Unobtainable: Yes Complaints: AMS Events: Febrile, no improvement in MS Interim History Acyclovir started, Ceftrixone started and D/C'ed today. Objective Physical Exam Last Vital Signs Date Time Temp Pulse Resp B/P (MAP) Pulse Ox O2 Delivery O2 Flow Rate FiO2 09/04/18 16:00 97.1 104 20 89/54 (66) 96 09/04/18 09:00 Nasal Cannula 2.0 Laboratory Tests Test 09/04/18 12:25 09/04/18 13:00 White Blood Count 11.8 K/UL (4.8-10.8) H Red Blood Count 3.20 M/UL (4.70-6.10) L Hemoglobin 9.9 G/DL (14.2-18.0) L Hematocrit 29.4 % (42.0-52.0) L Mean Corpuscular Volume 92 FL (80-99) Mean Corpuscular Hemoglobin 31.1 PG (27.0-31.0) H Mean Corpuscular Hemoglobin Concent 33.8 G/DL (32.0-36.0) Red Cell Distribution Width 11.8 % (11.6-14.8) Platelet Count 270 K/UL (150-450) Mean Platelet Volume 4.9 FL (6.5-10.1) L Neutrophils (%) (Auto) 82.7 % (45.0-75.0) H Lymphocytes (%) (Auto) 10.5 % (20.0-45.0) L Monocytes (%) (Auto) 6.1 % (1.0-10.0) Eosinophils (%) (Auto) 0.4 % (0.0-3.0) Basophils (%) (Auto) 0.3 % (0.0-2.0) Sodium Level 153 MMOL/L (136-145) H Potassium Level 3.5 MMOL/L (3.5-5.1) Chloride Level 114 MMOL/L (98-107) H Carbon Dioxide Level 31 MMOL/L (21-32) Anion Gap 9 mmol/L (5-15) Blood Urea Nitrogen 13 mg/dL (7-18) Creatinine 1.1 MG/DL (0.55-1.30) Estimat Glomerular Filtration Rate > 60 mL/min (>60) Glucose Level 122 MG/DL (74-106) H Calcium Level 8.6 MG/DL (8.5-10.1) Prothrombin Time 10.5 SEC (9.30-11.50) Prothromb Time International Ratio 1.0 (0.9-1.1) Activated Partial Thromboplast Time 23 SEC (23-33) CSF Herpes Simplex II DNA (PCR) Pending Herpes Simplex Virus I DNA (PCR) Pending Head: normocophalic Neck: no rigidity EENT: benign Neurologic Exam Mental Status: awake, other - Patient remains agitated upon waking. His primary language is Cantonese but as per his daughter he is not speaking any intelligible words at this time. Cranial Nerve II: fundus normal Cranial Nerves III, IV, : PERRLA, EOMI Cranial Nerve VII: no facial asymmetry Cranial Nerve XI: SCM symmetric Cranial Nerve XII: tongue midline Motor System: other - No apparent focal weakness on exam but unable to formally test as patient is not following commands. Objective Patient continues to remain non focal on exam. He is agitated when awoken, LUNA x 4 but not following commands. His primary language is Cantonese and as per his daughter's report - He is not saying any intelligible words- denies paraphrasic errors - patient is just making sounds. He intermittently tracks with his eyes. No observed / mag seizure activity noted. Impression/Recommendations Problems: (1) Altered mental state (2) Cognitive impairment (3) Acute encephalopathy Assessment & Plan: Unclear cause at this time. Febrile with leukocytosis today. EEG was abnormal but without mag epileptiform activity. LP RECOMMENDED - Meningitis ddx Consider starting ppx Acyclovir 500mg Q8 as HSV Encephalitis ppx Continue Q 4 hour Neuro obs Na 135-145 IV Hydration Consider NG tube feeding Trial Seroquel 25mg QD for agitation Empiric Abx and then as per ID Maintain normothermia at all times with Tylenol or cooling blanket. Try to maintain sleep hygiene for patient with dark quiet room at night. SBP<140 Status: not improved, unchanged Recommendations Continue Q4 hr neuro obs IV Hydration recommended Free water recommend NG or NS IV for hypernatremia Na 135-145 Follow LFTs/ Cr/BUN/ CBC LP ordered and awaiting completion Continue broad spectrum antibiotic coverage for possible meningitis / and acyclovir for HSV encephalitis Maintain normothermia Maintain normoglycemia Ensure patient is fed enterally Jennifer Gama N.P. Sep 04, 2018 21:23
--- NOTE | 2018-09-04 21:40 | NUR ---
NURSE NOTES: Called and left message to Dr. Mancini's answering ser. at to changed PO med order to another route d/t NPO status. Awaiting call back. Addendum: 09/04/18 at 2239 by NEHA DAMIAN RN Dr. Angeles called back and ordered to hold PO med of Lipitor, Remeron, ASA, Plavix, Seroquel, and Miralax for now. Will carry out the orders.
[2018-09-05] VITALS: BP 117/64
--- NOTE | 2018-09-05 00:25 | NUR ---
NURSE NOTES: Pt was cleaned and repositioned. SR in the monitor. Will continue to monitor.
[2018-09-05] MEDS: Acyclovir 700 MG in NS 110 ML IV SCH ×3 (01:09→16:23)
[2018-09-05 04:00] VITALS: BP 156/94
[2018-09-05] MEDS: Valproate Sodium INJ 250 MG in D5W 55 ML IVPB SCH ×4 (06:12→22:24)
[2018-09-05 07:19] LABS: BASOPHILS % (AUTO) 0.7 % (0.0-2.0); EOSINOPHILS % (AUTO) 1.3 % (0.0-3.0); HEMATOCRIT 29.1 % (42.0-52.0); HEMOGLOBIN 9.9 G/DL (14.2-18.0); LYMPHOCYTES % (AUTO) 14.3 % (20.0-45.0); MEAN CORPUSCULAR VOLUME 93 FL (80-99); MONOCYTES % (AUTO) 5.3 % (1.0-10.0); NEUTROPHILS % (AUTO) 78.5 % (45.0-75.0); PLATELET COUNT 286 K/UL (150-450); RED BLOOD COUNT 3.13 M/UL (4.70-6.10); RED CELL DISTRIBUTION WIDTH 12.3 % (11.6-14.8); WHITE BLOOD COUNT 9.1 K/UL (4.8-10.8)
[2018-09-05 07:22] LABS: ANION GAP 9 mmol/L (5-15); BLOOD UREA NITROGEN 18 mg/dL (7-18); CALCIUM 8.9 MG/DL (8.5-10.1); CARBON DIOXIDE 29 MMOL/L (21-32); CHLORIDE 115 MMOL/L (98-107); CREATININE 1.1 MG/DL (0.55-1.30); POTASSIUM 3.3 MMOL/L (3.5-5.1); SODIUM 153 MMOL/L (136-145)
--- NOTE | 2018-09-05 07:30 | NUR ---
HAND-OFF: Report given to Supriya Stahl RN.
--- NOTE | 2018-09-05 07:40 | NUR ---
NURSE NOTES: Received report from Farrah ALICEA. Pt in bed awake and confused. Bed in lowest position and locked. Noted bilateral wrist soft restraint. Pt confused and tried to remove IV line form his arm. IV line leaking but no infiltration noted in Left upper arm 20G. Will change the line. Noted F/C also leaking Will contact the doctor to change. On 2LPM via NC and o2 sat with 98%. IV ORDERED WITH NS 100ML/HR. Noted. Pyiggy bag of IV Acyclovir 700mg found at the patients' bedside. Informed Farrah ALICEA to administer the med. No c/o pian. No signs of distress noted.
[2018-09-05 08:00] VITALS: BP 142/77
[2018-09-05] MEDS: Aspirin EC 81mg tab ORAL SCH (09:00)
--- NOTE | 2018-09-05 09:30 | NUR ---
NURSE NOTES: nba Reese called to get the consent for Spinal tap. He refused to give a verbal consent. Will follow up with pt's for consent.
--- NOTE | 2018-09-05 10:20 | NUR ---
NURSE NOTES: Obtained consent for spinal tap form pt's from Dr. Jung. Dr. jung came and explained the procedure to pt's and pt's brother on the phone.
--- NOTE | 2018-09-05 11:34 | NUR ---
NURSE NOTES: Dr. Stone notified about burleson catheter leakage. He will come and check the pt today.
[2018-09-05 12:00] VITALS: BP 158/90
--- NOTE | 2018-09-05 12:00 | NUR ---
NURSE NOTES: Dr. Jain came and checked pt's catheter and docter states that there is nothing wrong in the catheter. If It's leaking and there is urine in the drainage line that means burleson cath working properly but it's leaking because bladder has spasm. Oxybutynin ordered and informed doctor pt is on NPO and he is not tolerated with any meds by mouth. May d/c the oxybutynin if pt is not toerated with PO med but there is no any other forms of IV med available.
--- NOTE | 2018-09-05 12:12 | NUR ---
CASE MANAGEMENT:REVIEW 09/05/18 SI: ACUTE ENCEPHALOPATHY COGNITIVE IMPAIRMENT 98.0 108 16 156/94 100% ON RA H/H-9.9/29.1 NA+153 K-3.3 IS: IVF@50/HR IV ACYCLOVIR Q8HRS IV VALPROATE Q8HRS : TELEMETRY STATUS DCP: FROM [facility] PLAN: LP TO R/O MENINGITIS/HSV ENCEPHALITIS
--- NOTE | 2018-09-05 12:20 | General Progress Note ---
Progress Note Progress Note No events. Some urge leak from bladder spasm. AFVSS Urine- clear, Francisco draining well PE- abd soft, NT, ND - Francisco in place, no bleeding/ hematoma/ fracture Ext WWP A/P- Urethral trauma/ bleeding after Fracnisco pull Appears to have resolved Some urge leak 2/2 bladder spasm, Francisco draining well. Oxybutynin for same if can take oral meds. Frederick Stone M.D. Sep 05, 2018 12:20
[2018-09-05] MEDS: Haloperidol 5mg/ml Inj IM PRN (13:12)
[2018-09-05] MEDS ORDERED: Lidocaine 1% Plain 30 ml INJ SCH (13:15)
[2018-09-05] MEDS ORDERED: LORazepam Inj 2mg/ml 1ml IV SCH (13:15)
[2018-09-05] MEDS: Oxybutynin 5mg tab ORAL SCH ×2 (14:00→22:00)
--- NOTE | 2018-09-05 14:05 | Neurology Progress Note ---
Interim History Interim History ROS Limited/Unobtainable: Yes Complaints: AMS Events: Unchanged exam, LP completed today Review of Systems All Systems: reviewed and negative except above Objective Physical Exam Last Vital Signs Date Time Temp Pulse Resp B/P (MAP) Pulse Ox O2 Delivery O2 Flow Rate FiO2 09/05/18 12:00 98.9 108 20 158/90 (112) 98 09/05/18 09:00 Nasal Cannula 2.0 Laboratory Tests Test 09/05/18 06:27 White Blood Count 9.1 K/UL (4.8-10.8) Red Blood Count 3.13 M/UL (4.70-6.10) L Hemoglobin 9.9 G/DL (14.2-18.0) L Hematocrit 29.1 % (42.0-52.0) L Mean Corpuscular Volume 93 FL (80-99) Mean Corpuscular Hemoglobin 31.5 PG (27.0-31.0) H Mean Corpuscular Hemoglobin Concent 33.9 G/DL (32.0-36.0) Red Cell Distribution Width 12.3 % (11.6-14.8) Platelet Count 286 K/UL (150-450) Mean Platelet Volume 6.1 FL (6.5-10.1) L Neutrophils (%) (Auto) 78.5 % (45.0-75.0) H Lymphocytes (%) (Auto) 14.3 % (20.0-45.0) L Monocytes (%) (Auto) 5.3 % (1.0-10.0) Eosinophils (%) (Auto) 1.3 % (0.0-3.0) Basophils (%) (Auto) 0.7 % (0.0-2.0) Sodium Level 153 MMOL/L (136-145) H Potassium Level 3.3 MMOL/L (3.5-5.1) L Chloride Level 115 MMOL/L (98-107) H Carbon Dioxide Level 29 MMOL/L (21-32) Anion Gap 9 mmol/L (5-15) Blood Urea Nitrogen 18 mg/dL (7-18) Creatinine 1.1 MG/DL (0.55-1.30) Estimat Glomerular Filtration Rate > 60 mL/min (>60) Glucose Level 119 MG/DL (74-106) H Calcium Level 8.9 MG/DL (8.5-10.1) Head: normocophalic Neck: no rigidity EENT: benign Neurologic Exam Mental Status: awake, other - Patient remains agitated upon waking. His primary language is Cantonese but as per his daughter he is not speaking any intelligible words at this time. Cranial Nerve II: fundus normal Cranial Nerves III, IV, : PERRLA, EOMI Cranial Nerve VII: no facial asymmetry Cranial Nerve XI: SCM symmetric Cranial Nerve XII: tongue midline Motor System: other - No apparent focal weakness on exam but unable to formally test as patient is not following commands. Objective Patient continues to remain non focal on exam. He is agitated when awoken, LUNA x 4 but not following commands. His primary language is Cantonese and as per his / brother's report - He is not saying any intelligible words- denies paraphrasic errors - patient is just making sounds. He intermittently tracks with his eyes. No observed / mag seizure activity noted. Impression/Recommendations Problems: (1) Altered mental state Assessment & Plan: MRI Brain written with SEDATION- STILL PENDING COMPLETION (2) Cognitive impairment (3) Acute encephalopathy Assessment & Plan: Unclear cause at this time. Febrile with leukocytosis today. EEG was abnormal but without mag epileptiform activity. LP RECOMMENDED - Meningitis ddx Consider starting ppx Acyclovir 500mg Q8 as HSV Encephalitis ppx Continue Q 4 hour Neuro obs Na 135-145 IV Hydration Consider NG tube feeding Trial Seroquel 25mg QD for agitation Empiric Abx and then as per ID Maintain normothermia at all times with Tylenol or cooling blanket. Try to maintain sleep hygiene for patient with dark quiet room at night. SBP<140 Status: not improved, unchanged Recommendations Follow LP results closely Continue Q4 hour neuro obs Enteral feeding recommended Free water for hypernatremia Prophylaxis with Acyclovir Maintain normothermia Maintain normoglycemia with ISS Jennifer Gama N.P. Sep 05, 2018 14:04
--- NOTE | 2018-09-05 14:08 | General Progress Note ---
Assessment/Plan Status: not improved, unchanged Assessment/Plan: #Acute metabolic encephalopathy, slight improvement #History of recent CVA, CT done in ED shows subacute to chronic right thalamic stroke #Dysphagia, was able to take apple sauce yesterday -supportive care -Fall,Aspiration,Seizure precautions -IM Haldol prn for agitation -Neurochecks -continue Lipitor -IV acyclovir per Neurology recs -LP today -Urine culture no growth, can stop ceftriaxone -Neurology and Psychiatry following -[employer] following #Acute blood loss anemia #Hematuria due to Francisco catheter induced urethral trauma, improved -H&H stable -hold heparin -Continue Francisco -Urology eval appreciated -transfuse PRBC if Hb < 8 Full Code VTE PPx SCD I spent 70 minutes on this patient's case, and 35 minutes was dedicated to counseling and/or care coordination. Subjective Date patient seen: Sep 05, 2018 Time patient seen: 12:25 ROS Limited/Unobtainable: Yes Allergies: Coded Allergies: No Known Allergies (Unverified , 08/30/18) Subjective Medicine follow up for acute encephalopathy, agitation.Mentation slightly better yesterday. Spoke with and brother. Plan for LP today. Objective Last 24 Hour Vital Signs Date Time Temp Pulse Resp B/P (MAP) Pulse Ox O2 Delivery O2 Flow Rate FiO2 09/05/18 12:00 98.9 108 20 158/90 (112) 98 09/05/18 09:00 Nasal Cannula 2.0 09/05/18 08:00 98.0 101 16 142/77 (98) 100 09/05/18 04:18 108 09/05/18 04:00 98.5 107 16 156/94 (114) 100 09/05/18 00:00 97.8 55 16 117/64 (81) 100 09/04/18 23:59 54 09/04/18 21:00 Nasal Cannula 2.0 09/04/18 20:00 98.3 101 18 131/80 (97) 93 09/04/18 20:00 111 09/04/18 19:29 111 09/04/18 16:00 97.1 104 20 89/54 (66) 96 09/04/18 16:00 60 Intake and Output 09/04/18 09/05/18 19:00 07:00 Output Total 1400 ml Balance -1400 ml Output Urine Total 1400 ml # Voids 2 Laboratory Tests 09/05/18 06:27: White Blood Count 9.1, Red Blood Count 3.13L, Hemoglobin 9.9L, Hematocrit 29.1L , Mean Corpuscular Volume 93, Mean Corpuscular Hemoglobin 31.5H, Mean Corpuscular Hemoglobin Concent 33.9, Red Cell Distribution Width 12.3, Platelet Count 286, Mean Platelet Volume 6.1L, Neutrophils (%) (Auto) 78.5H, Lymphocytes (%) (Auto) 14.3L, Monocytes (%) (Auto) 5.3, Eosinophils (%) (Auto) 1.3, Basophils (%) (Auto) 0.7, Sodium Level 153H, Potassium Level 3.3L, Chloride Level 115H, Carbon Dioxide Level 29, Anion Gap 9, Blood Urea Nitrogen 18, Creatinine 1.1, Estimat Glomerular Filtration Rate > 60, Glucose Level 119H, Calcium Level 8.9 Height (Feet): 6 Height (Inches): 0.00 Weight (Pounds): 130 General Appearance: alert, confused Neck: normal alignment, supple Cardiovascular: normal rate, regular rhythm Respiratory/Chest: lungs clear, normal breath sounds, no respiratory distress Abdomen: non tender, soft Neurologic: alert, disoriented Bright Her MD Sep 05, 2018 14:08
[2018-09-05] MEDS ORDERED: NS 275ml ONE (14:48)
--- NOTE | 2018-09-05 15:07 | NUR ---
NURSE NOTES: Pt returned from radiology department after spinal tap done.
--- NOTE | 2018-09-05 15:18 | Diagnostic Imaging Report ---
Indication: altered mental status Findings: After the indications, procedure, risks, complications, and alternatives of the procedure were explained, written informed consent was obtained. The lower back was prepped and draped in standard sterile fashion.1% lidocaine was used to anesthetize the skin. Using fluoroscopic guidance, 22-gauge spinal needle was advanced into the spinal canal at the level of L4. 11 cc of clear CSF was removed. Opening pressure was normal, somewhat low at about 9 cm water. There were no complications. Patient tolerated the procedure well. [] Impression: Successful lumbar puncture.
[2018-09-05 16:00] VITALS: BP 95/52
--- NOTE | 2018-09-05 17:27 | General Progress Note ---
Assessment/Plan Status: not improved, unchanged Assessment/Plan: Assessment/Plan: # Failure to thrive - decreased bmi and low protein, does have evidence of prior infarct, poor PS --> will also obtain q3d caloric counts --> cea is elevated and workup as per below, consider gi eval --> mirtazapine as appetite stimulant has been ordered --> Gi consult on a prn basis, as needed for endosc # Hyperproteinemia with decreased albumin -- this is a dissociation that is abnormal --> upep and spep are negative for a m-spike, it does not exist --> if above results in a m-spike or abnormally enhanced protein, will need to send off immunofixation serum/urine --> in the case of a m-spike or abnormally enhanced protein, will obtain a bone marrow biopsy # Elevated tumor markers as cea is elevated --> may consider gi evaluation in this setting --> ca 19.9 is 1, ca 15.3 is 12.3 --> at some point may need CT c/a/p okay as outpatient # Acute metabolic encephalopathy, possibly from UTI, dehydration or recurrent CVA --> neuro and psych prn eval --> MRI brain reviewed, lp 09/05 --> abx prn # History of recent CVA, CT done in ED shows subacute to chronic right thalamic stroke --> supportive care --> per neuro --> is on abx for what appears to be uti The timing of this note does not necessarily reflect the time of the patient was seen. Greatly appreciate consultation! Subjective Constitutional: Denies: no symptoms, chills, diaphoresis, fever, malaise, weakness, other Respiratory: Denies: no symptoms, cough, orthopnea, shortness of breath, SOB with excertion, SOB at rest, sputum, stridor, wheezing, other Neurologic/Psychiatric: Denies: no symptoms, anxiety, depressed, emotional problems, headache, numbness, paresthesia, pre-existing deficit, seizure, tingling, tremors, weakness, other Endocrine: Denies: no symptoms, excessive sweating, flushing, intolerance to cold, intolerance to heat, increased hunger, increased thirst, increased urine, unexplained weight gain, unexplained weight loss, other Hematologic/Lymphatic: Denies: no symptoms, anemia, easy bleeding, easy bruising, other Allergies: Coded Allergies: No Known Allergies (Unverified , 08/30/18) Subjective 09/01: close followup with psych, remains agitated, some hematuria with burleson noted 09/03: with restraints, hgb remains low, no bleeding reported, in semi-fowlers position 09/04: has been refusing ng tube placement, concern remains for silent aspiration, seen by speech 430: urethreal bleeding noted after burleson was pulled, lp pending Objective Last 24 Hour Vital Signs Date Time Temp Pulse Resp B/P (MAP) Pulse Ox O2 Delivery O2 Flow Rate FiO2 09/05/18 16:00 99.0 62 20 95/52 (66) 100 09/05/18 12:00 98.9 108 20 158/90 (112) 98 09/05/18 09:00 Nasal Cannula 2.0 09/05/18 08:00 98.0 101 16 142/77 (98) 100 09/05/18 04:18 108 09/05/18 04:00 98.5 107 16 156/94 (114) 100 09/05/18 00:00 97.8 55 16 117/64 (81) 100 09/04/18 23:59 54 09/04/18 21:00 Nasal Cannula 2.0 09/04/18 20:00 98.3 101 18 131/80 (97) 93 09/04/18 20:00 111 09/04/18 19:29 111 Intake and Output 09/04/18 09/05/18 19:00 07:00 Output Total 1400 ml Balance -1400 ml Output Urine Total 1400 ml # Voids 2 Laboratory Tests 09/05/18 06:27: White Blood Count 9.1, Red Blood Count 3.13L, Hemoglobin 9.9L, Hematocrit 29.1L , Mean Corpuscular Volume 93, Mean Corpuscular Hemoglobin 31.5H, Mean Corpuscular Hemoglobin Concent 33.9, Red Cell Distribution Width 12.3, Platelet Count 286, Mean Platelet Volume 6.1L, Neutrophils (%) (Auto) 78.5H, Lymphocytes (%) (Auto) 14.3L, Monocytes (%) (Auto) 5.3, Eosinophils (%) (Auto) 1.3, Basophils (%) (Auto) 0.7, Sodium Level 153H, Potassium Level 3.3L, Chloride Level 115H, Carbon Dioxide Level 29, Anion Gap 9, Blood Urea Nitrogen 18, Creatinine 1.1, Estimat Glomerular Filtration Rate > 60, Glucose Level 119H, Calcium Level 8.9 Height (Feet): 6 Height (Inches): 0.00 Weight (Pounds): 130 Objective General Appearance: alert, combative HEENT: normocephalic Neck: supple, normal inspection Respiratory/Chest: lungs clear, normal breath sounds Cardiovascular/Chest: normal rate, regular rhythm, no JVD Abdomen: non tender, soft Extremities: normal inspection, no calf tenderness, + restraints Neurologic: other - Uncooperative : Nolan+ Aman Collier MD Sep 05, 2018 17:27
--- NOTE | 2018-09-05 18:40 | NUR ---
NURSE NOTES: Dr. August paged to notify about no BM since 08/30/2018 but no reply. will endorse to night nurse
[2018-09-05 20:00] VITALS: BP 97/57
--- NOTE | 2018-09-05 20:11 | NUR ---
HAND-OFF: Report given to Tacos rn.Pt remains stable.
--- NOTE | 2018-09-05 20:15 | NUR ---
NURSE NOTES: Received report from Supriya Stahl RN. Patient in bed awake and is responsive to tactile stimuli. No tracing observed. No S/S of acute pain or discomfort at this time. Kept clean, dry, and comfortable in bed. IV line intact and patent with prescribed fluids running as ordered. Placed on continuous cardiac monitoring per protocol. FC present, intact and patent. Patient with bilateral soft wrist restraints for observed episodes of pulling out tubes. Safety precaution in place; siderails X3 up, call light within reach, bed in lowest position, brakes and alarm on at all times. Needs and wants anticipated and attended. Will continue plan of care and monitor for any changes noted -Placed on NPO status per MD Carlene.
[2018-09-05] MEDS: Atorvastatin 80mg tab ORAL SCH (21:00)
--- NOTE | 2018-09-05 21:00 | NUR ---
NURSE NOTES: PO 2100 meds held d/t pt's inability to swallow pills (whole or crushed).
--- NOTE | 2018-09-05 22:17 | Psych Consult Progress Note ---
Psychiatry Progress Note Psychiatry Progress Note Medications Current Medications Medications (Trade) Dose Ordered Sig/Jaxon Route PRN Reason Start Time Stop Time Status Last Admin Dose Admin Acetaminophen (Tylenol) 650 mg Q4H PRN ORAL Mild Pain/Temp > 100.5 09/02/18 17:15 10/02/18 17:14 09/02/18 17:46 Acyclovir 700 mg/ Sodium Chloride 110 ml @ 110 mls/hr Q8H IV 09/03/18 23:00 10/03/18 22:59 09/05/18 16:23 Aspirin (Ecotrin) 81 mg DAILY ORAL 09/01/18 10:00 10/01/18 09:59 Atorvastatin Calcium (Lipitor) 80 mg BEDTIME ORAL 09/01/18 21:00 09/30/18 20:59 Clopidogrel Bisulfate (Plavix) 75 mg DAILY ORAL 09/01/18 10:00 10/01/18 09:59 Dextrose 1,000 ml @ 50 mls/hr Q20H IV 09/05/18 11:00 10/05/18 10:59 09/05/18 10:52 Haloperidol Lactate (Haldol) 5 mg Q6H PRN IM Agitation 09/01/18 11:15 10/01/18 11:14 09/05/18 13:12 Mirtazapine (Remeron) 7.5 mg BEDTIME ORAL 09/03/18 21:00 10/03/18 20:59 Oxybutynin Chloride (Ditropan) 5 mg Q8HR ORAL 09/05/18 14:00 10/05/18 13:59 Polyethylene Glycol (Miralax) 17 gm BEDTIME PRN ORAL Constipation 09/01/18 21:00 09/29/18 23:14 Quetiapine Fumarate (SEROquel) 25 mg TID ORAL 09/01/18 10:00 10/01/18 09:59 09/03/18 09:18 Quetiapine Fumarate (SEROquel) 50 mg QIDPRN PRN ORAL agitation 09/01/18 12:00 09/30/18 11:59 Valproate Sodium 250 mg/Dextrose 57.5 ml @ 57.5 mls/hr Q8HR IVPB 09/02/18 22:00 10/02/18 21:59 09/05/18 16:25 Neurological/Psychiatric: Reports: anxiety, emotional problems Allergies: Coded Allergies: No Known Allergies (Unverified , 08/30/18) Objective Data Height (Feet): 6 Height (Inches): 0.00 Weight (Pounds): 130 General Appearance: alert, confused, agitated, thin Appearance: disheveled Behavior Mannerisms: good eye contact Mental Status Exam - Affect: blunted Mental Status Exam - Mood: anxious, agitated Speech: dysarthric Mental Status Exam - Thought P: tangential, confusion, disorganized Mental Status Exam - Thought C: delusions (specify) Perceptual Disturbances: hallucinations Mental Status Exam - Suicidal: not present Assessment/Plan Problem List: (1) Acute encephalopathy ICD Codes: G93.40 - Encephalopathy, unspecified SNOMED: 93111762, [id number] (2) Cognitive impairment ICD Codes: R41.89 - Other symptoms and signs involving cognitive functions and awareness SNOMED: 108292526 Status: not improved, unchanged Assessment/Plan: cont restraints increase depakote seroquel standing seroquel prn Damian Kim MD Sep 05, 2018 22:17
[2018-09-06] VITALS: BP 138/83
[2018-09-06] MEDS: Acyclovir 700 MG in NS 110 ML IV SCH ×4 (00:10→23:07)
--- NOTE | 2018-09-06 03:23 | NUR ---
NURSE NOTES: Patient in bed asleep with no S/S of distress at this time. Will continue to monitor
[2018-09-06 04:00] VITALS: BP 113/76
[2018-09-06] MEDS: Valproate Sodium INJ 250 MG in D5W 55 ML IVPB SCH ×3 (05:31→21:23)
[2018-09-06] MEDS: Oxybutynin 5mg tab ORAL SCH ×2 (05:31→14:00)
--- NOTE | 2018-09-06 05:34 | NUR ---
NURSE NOTES: PO 0600 meds held d/t pt's inability to swallow pills (whole or crushed).
--- NOTE | 2018-09-06 06:21 | NUR ---
NURSE NOTES: Called and left message to MD coconut jelly roller regarding patients inability to swallow PO meds (fabian Pain mgt). and patients K levels (3.3). Awaiting Call back.
--- NOTE | 2018-09-06 07:29 | NUR ---
HAND-OFF: Report given to Bebe iJménez RN. Patient in stable condition. Endorsed plan of care.
--- NOTE | 2018-09-06 07:36 | NUR ---
NURSE NOTES: received patient report from darryn michel. patient is on bed awake. not in acute distress. no reports of arrythmias from last night. bed is low and locked for safety, seizure px. will follow plan of care.
[2018-09-06 08:00] VITALS: BP 112/83
[2018-09-06] MEDS: Aspirin EC 81mg tab ORAL SCH (08:58)
--- NOTE | 2018-09-06 11:33 | NUR ---
SWALLOW/SPEECH THERAPY NOTE: SWALLOW STATUS: PATIENT STILL NOT CONSISTENTLY ALERT FOR ADEQUATE/SAFE/EFFICIENT PO INTAKE. HAS A HIGH SILENT ASPIRATION RISK. NOW AGREEABLE TO SMALL BORE NGT UNTIL PT CONSISTENTLY ALERT FOR PO INTAKE MEALS 3 X PER DAY AND MOD BARIUM SWALLOW STUDY TO FURTHER ASSESS SWALLOW, DETERMINE SILENT ASP RISK, AND ATTEMPT TRIAL TX TECHNIQUES. PLAN: NGT AND ORAL CARE FOR NOW AND ORDERED BY DR TRINH WILL FOLLOW UP WITH MOD BARIUM SWALLOW STUDY (MBSS) IP OR OP IF DC MAY NEED TO CONSIDER GI CONSULT IF STILL NOT CONSISTENTLY ALERT FOR PO AND MBSS. D/W RN WHO CALLED DR Rajan
[2018-09-06 12:00] VITALS: BP 148/86
--- NOTE | 2018-09-06 12:47 | General Progress Note ---
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 OPERATOR recommends NGT -supportive care -Fall,Aspiration,Seizure precautions -IM Haldol prn for agitation -Neurochecks -continue Lipitor -IV acyclovir per Neurology recs -LP done, await CSF HSV PCR -Urine culture no growth, ceftriaxone stopped -Neurology and Psychiatry following -PLASMA PROCESSING CENTRIFUGE OPERATOR following, NGT recommended #Acute blood loss anemia #Hematuria due to Francisco catheter induced urethral trauma, improved -H&H stable -resume -Continue Francisco, possible voiding trial if ok with Urology -transfuse PRBC if Hb < 8 Full Code VTE PPx SCD I spent 70 minutes on this patient's case, and 35 minutes was dedicated to counseling and/or care coordination. Subjective Date patient seen: September 06, 2018 Time patient seen: 12:35 ROS Limited/Unobtainable: Yes Allergies: Coded Allergies: No Known Allergies (Unverified , 08/30/18) Subjective Medicine follow up for acute encephalopathy, agitation. Underwent LP yesterday. Having trouble taking pills today. Objective Last 24 Hour Vital Signs Date Time Temp Pulse Resp B/P (MAP) Pulse Ox O2 Delivery O2 Flow Rate FiO2 09/06/18 09:00 Nasal Cannula 2.0 09/06/18 08:00 114 09/06/18 08:00 98.3 67 20 112/83 (93) 100 09/06/18 04:00 98.8 120 20 113/76 (88) 97 09/06/18 04:00 121 09/06/18 00:00 68 09/06/18 00:00 97.9 110 20 138/83 (101) 98 09/05/18 21:00 Nasal Cannula 2.0 09/05/18 20:00 66 09/05/18 20:00 98.0 68 16 97/57 (70) 100 09/05/18 16:00 59 09/05/18 16:00 99.0 62 20 95/52 (66) 100 Intake and Output 09/05/18 09/06/18 18:59 06:59 Intake Total 1037.5 ml Output Total 450 ml Balance 587.5 ml IV Total 1037.5 ml Output Urine Total 450 ml # Voids 10 Height (Feet): 6 Height (Inches): 0.00 Weight (Pounds): 103 General Appearance: alert, confused Neck: normal alignment, supple, normal inspection Cardiovascular: normal rate Respiratory/Chest: lungs clear, no respiratory distress Abdomen: non tender, soft Bright Her MD September 06, 2018 12:47
--- NOTE | 2018-09-06 13:12 | NUR ---
RADIOLOGY DEPT., ABDOMEN X-RAY FOR NGT PLMT COMPLETED.-P.DYE
--- NOTE | 2018-09-06 13:12 | Diagnostic Imaging Report ---
Indication: Post nasogastric tube placement Technique: Supine view of the abdomen Comparison: none Findings: There is a nasogastric tube, tip which projects at the level of the gastric fundus, proximal port at or above the gastroesophageal junction. Gas-filled bowel loops are noted. Impression: Proximal port of nasogastric tube above the gastroesophageal junction, so advancement is recommended. Findings discussed by phone with patient's nurse at the time of interpretation
--- NOTE | 2018-09-06 13:56 | NUR ---
RADIOLOGY DEPT., SECOND NGT PLMT. COMPLETED.-P.DYE
--- NOTE | 2018-09-06 14:49 | Diagnostic Imaging Report ---
Indication: Post nasogastric tube repositioning Technique: Supine view of the upper abdomen Comparison: One hour earlier Findings: . Advancement of nasogastric tube, tip now projected level gastric fundus body junction, proximal sidehole just beyond the expected level of the gastroesophageal junction prominent gas-filled transverse colon again noted Impression: Improved and now satisfactory position of nasogastric tube
--- NOTE | 2018-09-06 14:56 | General Progress Note ---
Assessment/Plan Status: not improved, unchanged Assessment/Plan: Assessment/Plan: # Failure to thrive - decreased bmi and low protein, does have evidence of prior infarct, poor PS --> will also obtain q3d caloric counts --> cea is elevated and workup as per below, consider gi eval --> mirtazapine as appetite stimulant has been ordered --> Gi consult on a prn basis, as needed for endosc # Hyperproteinemia with decreased albumin -- this is a dissociation that is abnormal --> upep and spep are negative for a m-spike, it does not exist --> if above results in a m-spike or abnormally enhanced protein, will need to send off immunofixation serum/urine --> in the case of a m-spike or abnormally enhanced protein, will obtain a bone marrow biopsy # Elevated tumor markers as cea is elevated --> may consider gi evaluation in this setting --> ca 19.9 is 1, ca 15.3 is 12.3 --> at some point may need CT c/a/p okay as outpatient # Acute metabolic encephalopathy, possibly from UTI, dehydration or recurrent CVA --> neuro and psych prn eval --> MRI brain reviewed, lp 09/05 --> abx prn # History of recent CVA, CT done in ED shows subacute to chronic right thalamic stroke --> supportive care --> per neuro --> is on abx for what appears to be uti The timing of this note does not necessarily reflect the time of the patient was seen. Greatly appreciate consultation! Subjective HEENT: Denies: no symptoms, eye pain, blurred vision, tearing, double vision, ear pain, ear discharge, nose pain, nose congestion, throat pain, throat swelling, mouth pain, mouth swelling, other Cardiovascular: Denies: no symptoms, chest pain, edema, irregular heart rate, lightheadedness, palpitations, syncope, other Respiratory: Denies: no symptoms, cough, orthopnea, shortness of breath, SOB with excertion, SOB at rest, sputum, stridor, wheezing, other Genitourinary: Denies: no symptoms, burning, discharge, frequency, flank pain, hematuria, incontinence, pain, urgency, other Neurologic/Psychiatric: Denies: no symptoms, anxiety, depressed, emotional problems, headache, numbness, paresthesia, pre-existing deficit, seizure, tingling, tremors, weakness, other Endocrine: Denies: no symptoms, excessive sweating, flushing, intolerance to cold, intolerance to heat, increased hunger, increased thirst, increased urine, unexplained weight gain, unexplained weight loss, other Hematologic/Lymphatic: Denies: no symptoms, anemia, easy bleeding, easy bruising, other Allergies: Coded Allergies: No Known Allergies (Unverified , 08/30/18) Subjective 09/01: close followup with psych, remains agitated, some hematuria with burleson noted 09/03: with restraints, hgb remains low, no bleeding reported, in semi-fowlers position 09/04: has been refusing ng tube placement, concern remains for silent aspiration, seen by speech 09/05: urethreal bleeding noted after burleson was pulled, lp pending 09/06: no events to report, no f/c. mental status improved Objective Last 24 Hour Vital Signs Date Time Temp Pulse Resp B/P (MAP) Pulse Ox O2 Delivery O2 Flow Rate FiO2 09/06/18 12:00 99.1 108 20 148/86 (106) 97 09/06/18 09:00 Nasal Cannula 2.0 09/06/18 08:00 114 09/06/18 08:00 98.3 67 20 112/83 (93) 100 09/06/18 04:00 98.8 120 20 113/76 (88) 97 09/06/18 04:00 121 09/06/18 00:00 68 09/06/18 00:00 97.9 110 20 138/83 (101) 98 09/05/18 21:00 Nasal Cannula 2.0 09/05/18 20:00 66 09/05/18 20:00 98.0 68 16 97/57 (70) 100 09/05/18 16:00 59 09/05/18 16:00 99.0 62 20 95/52 (66) 100 Intake and Output 09/05/18 09/06/18 18:59 06:59 Intake Total 1037.5 ml Output Total 450 ml Balance 587.5 ml IV Total 1037.5 ml Output Urine Total 450 ml # Voids 10 Height (Feet): 6 Height (Inches): 0.00 Weight (Pounds): 103 Objective General Appearance: alert, combative HEENT: normocephalic Neck: supple, normal inspection Respiratory/Chest: lungs clear, normal breath sounds Cardiovascular/Chest: normal rate, regular rhythm, no JVD Abdomen: non tender, soft Extremities: normal inspection, no calf tenderness, + restraints Neurologic: other - Uncooperative : Nolan+ Aman Collier MD September 06, 2018 14:56
[2018-09-06 16:00] VITALS: BP 98/67
--- NOTE | 2018-09-06 19:18 | NUR ---
HAND-OFF: Report given to darryn rn.
--- NOTE | 2018-09-06 19:20 | NUR ---
NURSE NOTES: Received report from Bebe Jiménez RN. Patient in bed awake and is responsive to tactile stimuli. No tracing observed. No S/S of acute pain or discomfort at this time. Kept clean, dry, and comfortable in bed. IV line intact and patent with prescribed fluids running as ordered. Placed on continuous cardiac monitoring per protocol. FC DCd and is monitoring output for S/S of retention. NGT placement confirmed, NGT intact and patent. Patient with bilateral soft wrist restraints for observed episodes of pulling out tubes. Safety precaution in place; siderails X3 up, call light within reach, bed in lowest position, brakes and alarm on at all times. Needs and wants anticipated and attended. Will continue plan of care and monitor for any changes noted
[2018-09-06] MEDS ORDERED: Miralax 17gm pkt NG PRN (19:45)
[2018-09-06 20:00] VITALS: BP 95/56
[2018-09-06] MEDS: Atorvastatin 80mg tab NG SCH (21:22)
[2018-09-06] MEDS: Oxybutynin 5mg tab NG SCH (21:23)
[2018-09-06] MEDS: Acetaminophen 650mg/20.3ml NG PRN (21:24)
--- NOTE | 2018-09-06 21:52 | Neurology Progress Note ---
Interim History Interim History ROS Limited/Unobtainable: Yes Complaints: AMS Events: Unchanged exam, LP UNREMARKABLE Objective Physical Exam Last Vital Signs Date Time Temp Pulse Resp B/P (MAP) Pulse Ox O2 Delivery O2 Flow Rate FiO2 09/06/18 16:00 111 09/06/18 16:00 97.6 20 98/67 (77) 97 09/06/18 11:30 Nasal Cannula 2.0 Head: normocophalic Neck: no rigidity EENT: benign Neurologic Exam Mental Status: awake, other - Patient remains agitated upon waking. His primary language is Cantonese but as per his daughter he is not speaking any intelligible words at this time. Cranial Nerve II: fundus normal Cranial Nerves III, IV, : PERRLA, EOMI Cranial Nerve VII: no facial asymmetry Cranial Nerve XI: SCM symmetric Cranial Nerve XII: tongue midline Motor System: other - No apparent focal weakness on exam but unable to formally test as patient is not following commands. Objective Patient continues to remain non focal on exam. He is agitated when awoken, LUNA x 4 but not following commands. His primary language is Cantonese and as per his / brother's report - He is not saying any intelligible words- denies paraphrasic errors - patient is just making sounds. He intermittently tracks with his eyes. No observed / mag seizure activity noted. Impression/Recommendations Problems: (1) Altered mental state (2) Cognitive impairment (3) Acute encephalopathy Assessment & Plan: Unclear cause at this time. Febrile with leukocytosis today. EEG was abnormal but without mag epileptiform activity. LP RECOMMENDED - Meningitis ddx Consider starting ppx Acyclovir 500mg Q8 as HSV Encephalitis ppx Continue Q 4 hour Neuro obs Na 135-145 IV Hydration Consider NG tube feeding Trial Seroquel 25mg QD for agitation Empiric Abx and then as per ID Maintain normothermia at all times with Tylenol or cooling blanket. Try to maintain sleep hygiene for patient with dark quiet room at night. SBP<140 Status: not improved, unchanged Recommendations LP unremarkable HSV negative Continue broad spectrum Abs but can D/C Acyclovir Continue Q4 hour neuro obs Enteral feeding recommended Maintain normoglycemia with ISS REPEAT EEG Jennifer Gama N.P. September 06, 2018 21:52
--- NOTE | 2018-09-06 22:10 | Psych Consult Progress Note ---
Psychiatry Progress Note Psychiatry Progress Note Subjective the pt is staring not agitated Medications Current Medications Medications (Trade) Dose Ordered Sig/Jaxon Route PRN Reason Start Time Stop Time Status Last Admin Dose Admin Acetaminophen (Tylenol) 650 mg Q4H PRN NG Mild Pain/Temp > 100.5 09/06/18 20:00 10/06/18 19:59 09/06/18 21:24 Acyclovir 700 mg/ Sodium Chloride 110 ml @ 110 mls/hr Q8H IV 09/03/18 23:00 10/03/18 22:59 09/06/18 16:09 Aspirin (ASA) 81 mg DAILY NG 09/07/18 09:00 10/07/18 08:59 Atorvastatin Calcium (Lipitor) 80 mg BEDTIME NG 09/06/18 21:00 09/30/18 20:59 09/06/18 21:22 Clopidogrel Bisulfate (Plavix) 75 mg DAILY NG 09/07/18 09:00 10/01/18 09:59 Dextrose 1,000 ml @ 50 mls/hr Q20H IV 09/05/18 11:00 10/05/18 10:59 09/06/18 09:22 Haloperidol Lactate (Haldol) 5 mg Q6H PRN IM Agitation 09/01/18 11:15 10/01/18 11:14 09/05/18 13:12 Mirtazapine (Remeron) 7.5 mg BEDTIME NG 09/06/18 21:00 10/03/18 20:59 09/06/18 21:22 Oxybutynin Chloride (Ditropan) 5 mg Q8HR NG 09/06/18 22:00 10/05/18 13:59 09/06/18 21:23 Polyethylene Glycol (Miralax) 17 gm HSPRN PRN NG Constipation 09/06/18 19:45 10/06/18 19:44 Quetiapine Fumarate (SEROquel) 25 mg TID NG 09/07/18 09:00 10/01/18 09:59 Quetiapine Fumarate (SEROquel) 50 mg QIDPRN PRN NG agitation 09/06/18 19:45 09/30/18 11:59 Valproate Sodium 250 mg/Dextrose 57.5 ml @ 57.5 mls/hr Q8HR IVPB 09/02/18 22:00 10/02/18 21:59 09/06/18 21:23 Allergies: Coded Allergies: No Known Allergies (Unverified , 08/30/18) Objective Data Height (Feet): 6 Height (Inches): 0.00 Weight (Pounds): 103 General Appearance: no apparent distress, alert, confused, thin Appearance: disheveled Behavior Mannerisms: poor eye contact Mental Status Exam - Affect: blunted Speech: aphasic Mental Status Exam - Suicidal: not present Assessment/Plan Problem List: (1) Acute encephalopathy ICD Codes: G93.40 - Encephalopathy, unspecified SNOMED: 31253691, [id number] (2) Cognitive impairment ICD Codes: R41.89 - Other symptoms and signs involving cognitive functions and awareness SNOMED: 912831004 Status: not improved, unchanged Assessment/Plan: cont restraints increase depakote seroquel standing seroquel prn Damian Kim MD September 06, 2018 22:10
[2018-09-07] VITALS: BP 99/54
--- NOTE | 2018-09-07 02:00 | NUR ---
NURSE NOTES: NGTF increased to 30/hr. Goal of 58 not met at this time. Tolerating well with no A/R. Will continue to monitor
--- NOTE | 2018-09-07 03:00 | NUR ---
NURSE NOTES: Patient in bed with no S/S of distress at this time. Will continue monitor for any changes noted.
[2018-09-07 04:00] VITALS: BP 109/64
[2018-09-07] MEDS: Oxybutynin 5mg tab NG SCH ×3 (05:51→22:28)
[2018-09-07] MEDS: Valproate Sodium INJ 250 MG in D5W 55 ML IVPB SCH ×3 (05:51→22:27)
[2018-09-07] MEDS: Acetaminophen 650mg/20.3ml NG PRN (05:52)
[2018-09-07] MEDS: Acyclovir 700 MG in NS 110 ML IV SCH (06:48)
[2018-09-07 07:01] LABS: BASOPHILS % (AUTO) 0.6 % (0.0-2.0); EOSINOPHILS % (AUTO) 3.6 % (0.0-3.0); HEMOGLOBIN 9.3 G/DL (14.2-18.0); MEAN CORPUSCULAR VOLUME 94 FL (80-99); MONOCYTES % (AUTO) 6.8 % (1.0-10.0); PLATELET COUNT 269 K/UL (150-450); RED BLOOD COUNT 2.98 M/UL (4.70-6.10); WHITE BLOOD COUNT 10.2 K/UL (4.8-10.8)
--- NOTE | 2018-09-07 07:15 | NUR ---
NURSE NOTES:RECEIVED PT WITH HOB ELEVATED 45 DEGREE ,SEEMS CONFUSED AND AGITATED.PT WITH BILAT SOFT WRIST RESTRAINTS FOR PT SAFETY AND TO PREVENT FROM PULLING MEDICAL DEVICES.PT WITH NGT PATENT INTACT,NO RESIDUAL TOLERATING WELL JEVITY 1.2 @ 40cc/hrs.FULL BODY ASSESSMENT DONE AND REPOSITIONED THE PT Q 2HRS TO PREVENT SKIN BREAK DOWN.WILL CONT TO MONITOR.
[2018-09-07 07:42] LABS: ANION GAP 10 mmol/L (5-15); BLOOD UREA NITROGEN 33 mg/dL (7-18); CALCIUM 8.9 MG/DL (8.5-10.1); CARBON DIOXIDE 28 MMOL/L (21-32); CHLORIDE 115 MMOL/L (98-107); CREATININE 3.6 MG/DL (0.55-1.30); POTASSIUM 2.9 MMOL/L (3.5-5.1); SODIUM 153 MMOL/L (136-145)
--- NOTE | 2018-09-07 07:54 | NUR ---
HAND-OFF: Report given to Obed Deluca RN. patient in stable condition, endorsed plan of care.
[2018-09-07 08:00] VITALS: BP 126/89
--- NOTE | 2018-09-07 09:40 | NUR ---
WEEKLY SWALLOW/SPEECH THERAPY SUMMARY: PATIENT SEEN FOR DYSPHAGIA PRIMARILY. SUBJECTIVE: ALERT BUT STARING OFF TO THE LEFT AND LEANS TO THE RIGHT. MAKING MOANING SOUNDS BUT NOT ABLE TO IMITATE NOR PRODUCE WORDS. PER RN, NEEDS MEDS TO REDUCED AGITATION AND THEN HE GETS SLEEPY. OBJECTIVE/ASSESSMENT REASSESS SWALLOW SKILLS - STILL NOT ABLE TO TOLERATE NOR SPIT OUT ORAL SECRETIONS (SALIVA/THICK PHLEGM) WHICH ORDER FILLER REMOVED FROM BOTH SULCI AND BACK OF THROAT (MILD AMOUNTS). PER HIS , SHE WAS WITH RN AND THEY WERE ABLE TO SUCTION MODERATE AMOUNTS OF ORAL SECRETIONS PRIOR TO TODAY. DEEP NASAL SUCTION REQUIRED IN LEFT NOSTRIL (NGT 12 FR IN RIGHT NOSTRIL) AND THERE IS SOME BLEEDING. THIS IS REQUIRED SINCE PT SOMETIMES BITES DOWN ON THE [place] ORAL SUCTION TUBE. REINSTRUCTED IN ORAL SUCTION AND CARE (BRUSHING TEETH AND USING ANTIBACTERIAL SOLUTION 4 TIMES A DAY). WORKED WITH BROTHER TO TRANSLATE AND ORDER FILLER UPDATED BROTHER AND ALLOWING GI TO DISCUSS RISKS AND BENEFITS OF PEG SINCE MIN COGNITIVE AND SWALLOWING PROGRESS TO DATE. NOT READY FOR PO TRIALS NOR MOD BARIUM SWALLOW STUDY. GOALS MET FOR NEW STAFF (YOVANA ALICEA) AND FAMILY EDUCATED/TRAINED IN ORAL CARE AND SUCTION. GOALS NOT MET FOR INTAKE (STILL NPO, NEED NGT AND POSSIBLY PEG FEEDINGS) PLAN: CONTINUE WITH NGT FEEDINGS AND ORAL CARE/SUCTION. MONITOR FOR MOD BARIUM SWALLOW STUDY READINESS INPATIENT OR OUTPT WHEN HE IS READY (DO NOT HOLD UP D/C FOR THIS STUDY) CONTINUE WITH STGS IN SWALLOW EVAL. REPORT AT THIS TIME. GI CONSULT TO D/W DELIA (BROTHER) AND (IN [place]) BENEFITS AND RISKS OF THIS ALTERNATIVE. D/W DR TRINH WHO AGREES. DISCUSSED ABOVE WITH DEANNE YEN AND FAMILY
[2018-09-07] MEDS: Aspirin Baby 81mg NG SCH (10:18)
--- NOTE | 2018-09-07 11:15 | GI Initial Consult Note ---
History of Present Illness General Date patient seen: September 07, 2018 Time patient seen: 11:11 Reason for Hospitalization: Fever Referring physician: Dr. Concepcion Reason for Consultation: PEG evaluation Present Illness HPI This is a 58-year-old male with a history of a CVA and was admitted to a skilled nursing on August 15. The patient offers no meaningful history and the family member at bedside is somewhat of a poor historian. According to her, the patient was admitted for a CVA. The patient got progressively worse over the last several weeks. And is having episodes of agitation with her speech. The patient is not eating or drinking. The patient does not ambulate any more. According to the family member, the patient was able to talk and walk prior to August 17. The patient is coming from a nursing facility. GI consulted for PEG evaluation. ROS limited, patient seen with severe agitation, nonverbal at baseline. ST evaluation noted, unable to perform video swallow study due to the patient's inability to cooperate. The patient currently has NG tube feedings at this time. I spoke with the family and they have agreed to having a G-tube placed. Home Meds Reported Medications Bisacodyl* (DULCOLAX*) 5 Mg Tablet.dr, 20 MG ORAL ONCE, #4 TAB 0 Refills 08/31/18 Polyethylene Glycol 3350* (POLYETHYLENE GLYCOL 3350*) 17 Gm Powd.pack, 17 GM ORAL BEDTIME PRN for Constipation, PACKET 08/31/18 Divalproex Sodium* (DEPAKOTE*) 250 Mg Tablet.dr, 250 MG PO Q12HR, TAB 08/31/18 Clopidogrel Bisulfate* (PLAVIX*) 75 Mg Tablet, 75 MG ORAL DAILY, TAB 08/31/18 Atorvastatin (Lipitor) 80 Mg Tablet, 80 MG ORAL BEDTIME, #30 TAB 0 Refills 08/30/18 Polyethylene Glycol 3350* (POLYETHYLENE GLYCOL 3350*) 17 Gm Powd.pack, 17 GM ORAL BEDTIME PRN for Constipation, PACKET 08/30/18 [geritussin] No Conflict Check 08/30/18 Divalproex Sodium (DIVALPROEX SODIUM) 125 Mg Tablet.dr, 125 MG PO, TAB 08/30/18 Clopidogrel Bisulfate* (PLAVIX*) 75 Mg Tablet, 75 MG ORAL DAILY, TAB 08/30/18 Med list reviewed/reconciled: Yes Allergies: Coded Allergies: No Known Allergies (Unverified , 08/30/18) Patient History PMH Narrative Past Medical History: NM, CVA/TIA Past Surgical History: unable to obtain Pertinent Family History: unable to obtain Nursing Documentation-PMH Hx Hypertension: Yes Hx Gastrointestinal Problems: Yes - acid reflux, dyslipidemia, hemorrhoids Hx Neurological Problems: Yes - AMS Hx Cerebrovascular Accident: Yes - encephalopathy Hx Seizures: Yes Social History: Denies: smoking, alcohol use, drug use, other Review of Systems All Other Systems: limited Physical Exam Vital Signs Date Time Temp Pulse Resp B/P (MAP) Pulse Ox O2 Delivery O2 Flow Rate FiO2 09/03/18 07:50 52 09/03/18 08:00 98.2 22 123/61 (81) 98 09/03/18 08:08 Room Air 09/04/18 09:00 2.0 Sp02 EP Interpretation: reviewed, normal Labs Laboratory Tests Test 09/07/18 06:04 White Blood Count 10.2 K/UL (4.8-10.8) Red Blood Count 2.98 M/UL (4.70-6.10) L Hemoglobin 9.3 G/DL (14.2-18.0) L Hematocrit 28.0 % (42.0-52.0) L Mean Corpuscular Volume 94 FL (80-99) Mean Corpuscular Hemoglobin 31.2 PG (27.0-31.0) H Mean Corpuscular Hemoglobin Concent 33.3 G/DL (32.0-36.0) Red Cell Distribution Width 13.0 % (11.6-14.8) Platelet Count 269 K/UL (150-450) Mean Platelet Volume 6.0 FL (6.5-10.1) L Neutrophils (%) (Auto) 74.0 % (45.0-75.0) Lymphocytes (%) (Auto) 15.0 % (20.0-45.0) L Monocytes (%) (Auto) 6.8 % (1.0-10.0) Eosinophils (%) (Auto) 3.6 % (0.0-3.0) H Basophils (%) (Auto) 0.6 % (0.0-2.0) Sodium Level 153 MMOL/L (136-145) H Potassium Level 2.9 MMOL/L (3.5-5.1) L Chloride Level 115 MMOL/L (98-107) H Carbon Dioxide Level 28 MMOL/L (21-32) Anion Gap 10 mmol/L (5-15) Blood Urea Nitrogen 33 mg/dL (7-18) H Creatinine 3.6 MG/DL (0.55-1.30) H Estimat Glomerular Filtration Rate 17.4 mL/min (>60) Glucose Level 147 MG/DL (74-106) H Calcium Level 8.9 MG/DL (8.5-10.1) General Appearance: well appearing, no apparent distress, alert Head: normocephalic EENT: PERRL/EOMI, normal ENT inspection Neck: supple Respiratory: normal breath sounds, no respiratory distress Cardiovascular: normal rate Gastrointestinal: normal inspection, non tender, soft, normal bowel sounds, non -distended Rectal: deferred Genitourinary: deferred Musculoskeletal: normal inspection, back normal Neurologic: normal inspection, alert, oriented x3, responsive Psychiatric: normal inspection, judgement/insight normal, memory normal Skin: normal inspection, normal color, no rash, warm/dry, palpation normal, well hydrated Lymphatic: normal inspection, no adenopathy Current Medications Current Medications Medications (Trade) Dose Ordered Sig/Jaxon Route PRN Reason Start Time Stop Time Status Last Admin Dose Admin Acetaminophen (Tylenol) 650 mg Q4H PRN NG Mild Pain/Temp > 100.5 09/06/18 20:00 10/06/18 19:59 09/07/18 05:52 Acyclovir 700 mg/ Sodium Chloride 110 ml @ 110 mls/hr Q8H IV 09/03/18 23:00 10/03/18 22:59 09/07/18 06:48 Aspirin (ASA) 81 mg DAILY NG 09/07/18 09:00 10/07/18 08:59 09/07/18 10:18 Atorvastatin Calcium (Lipitor) 80 mg BEDTIME NG 09/06/18 21:00 09/30/18 20:59 09/06/18 21:22 Clopidogrel Bisulfate (Plavix) 75 mg DAILY NG 09/07/18 09:00 10/01/18 09:59 09/07/18 10:18 Dextrose 1,000 ml @ 50 mls/hr Q20H IV 09/05/18 11:00 10/05/18 10:59 09/07/18 04:24 Haloperidol Lactate (Haldol) 5 mg Q6H PRN IM Agitation 09/01/18 11:15 10/01/18 11:14 09/05/18 13:12 Mirtazapine (Remeron) 7.5 mg BEDTIME NG 09/06/18 21:00 10/03/18 20:59 09/06/18 21:22 Oxybutynin Chloride (Ditropan) 5 mg Q8HR NG 09/06/18 22:00 10/05/18 13:59 09/07/18 05:51 Polyethylene Glycol (Miralax) 17 gm HSPRN PRN NG Constipation 09/06/18 19:45 10/06/18 19:44 Quetiapine Fumarate (SEROquel) 25 mg TID NG 09/07/18 09:00 10/01/18 09:59 09/07/18 10:18 Quetiapine Fumarate (SEROquel) 50 mg QIDPRN PRN NG agitation 09/06/18 19:45 09/30/18 11:59 Valproate Sodium 250 mg/Dextrose 57.5 ml @ 57.5 mls/hr Q8HR IVPB 09/02/18 22:00 10/02/18 21:59 09/07/18 05:51 GI: Plan Problems: (1) Encounter for PEG (percutaneous endoscopic gastrostomy) (2) Severe malnutrition (3) Dehydration (4) Stroke (5) Altered mental state Plan PEG for tomorrow NG tube feedings, n.p.o. at midnight Discontinue Plavix Monitor H&H, as needed transfusions PPI We will follow with additional recommendations postprocedure Discussed with Dr. Olivarez. Thank you for this patient referral, we will follow. The patient was seen and examined at bedside and all new and available data was reviewed in the patients chart. I agree with the above findings, impression and plan. (Patient seen earlier today. Signature stamp does not reflect patient encounter time.). - MD Aleah Leroy,[facility] September 07, 2018 11:14
--- NOTE | 2018-09-07 11:32 | NUR ---
RD ASSESSMENT & RECOMMENDATIONS SEE CARE ACTIVITY FOR COMPLETE ASSESSMENT DAILY ESTIMATED NEEDS: Needs based on cardiac, wasting, underweight 52kg 30-35 kcals/kg 4214-8051 total kcals 1-1.5 g protein/kg 52-78 g total protein 25-30 mL/kg 2139-2846 total fluid mLs NUTRITION DIAGNOSIS: * Increased kcal and protein needs r/t underweight status and wasting as evidenced by pt is est 74% of [place] Body Weight, w/ generalized mild to moderate wasting. * Swallowing difficulty R/T dysphagia, CVA as evidenced by DONOR FLOOR TECHNICIAN recommends strict NPO, now s/p NGT insertion, on NGT feeding, pending PEG placement. CURRENT TF:Jevity 1.2 @ 58ml/hr x 24 hrs ENTERAL NUTRITION RECOMMENDATIONS: Jevity 1.2 @ 58ml/hr x 24 hrs to provide 1392ml, 1670kcal, 77g prot, 1123ml free water * Advance 10ml q 4-6 hrs as tolerated to goal rate. * HOB over 30 degrees/ water flush per MD S/p PEG placement, initiate TF slowly @ 18ml/hr x 6 hrs, advance 10ml q 4-6 hrs as tolerated to goal rate. ADDITIONAL RECOMMENDATIONS: * Obtain calibrated bed scale wts, weekly weights * Monitor lytes daily w/ TF, replete as needed (K low) -> PT IS AT HIGH RISK FOR REFEEDING SYNDROME -> check phos and mag levels * Monitor renal fxn- increased from wnl to 3.6 * Monitor BGs closely, need for carb controlled TF formula * Rec increased water flushes vs D5 IVF for BG control
[2018-09-07 12:00] VITALS: BP 92/52
--- NOTE | 2018-09-07 12:41 | General Progress Note ---
Assessment/Plan Status: not improved, unchanged Assessment/Plan: #Acute metabolic encephalopathy #History of recent CVA, CT done in ED shows subacute to chronic right thalamic stroke #Dysphagia, s/p NGT -supportive care -Fall,Aspiration,Seizure precautions -IM Haldol prn for agitation -Neurochecks -continue Lipitor -Stop acyclovir -LP done, CSF HSV PCR negative -Urine culture no growth, ceftriaxone stopped -Neurology and Psychiatry following -TALENT SOURCER following, GI consutled for PEG #Acute blood loss anemia #Hematuria due to Francisco catheter induced urethral trauma, improved -H&H stable -resume -Continue Francisco, possible voiding trial if ok with Urology -transfuse PRBC if Hb < 8 #Hypernatremia due to lack of water intake #Hypokalemia -continue free water through NGT -replace IV and oral KCl -repeat BMP Full Code VTE PPx SCD Subjective Date patient seen: September 07, 2018 Time patient seen: 12:20 ROS Limited/Unobtainable: Yes Allergies: Coded Allergies: No Known Allergies (Unverified , 08/30/18) Subjective Medicine follow up for acute encephalopathy, agitation. Underwent LP yesterday. Having trouble taking pills today. Objective Last 24 Hour Vital Signs Date Time Temp Pulse Resp B/P (MAP) Pulse Ox O2 Delivery O2 Flow Rate FiO2 09/07/18 12:00 98.5 81 17 92/52 (65) 99 09/07/18 09:00 Nasal Cannula 2.0 09/07/18 08:00 94 09/07/18 08:00 98.0 105 17 126/89 (101) 99 09/07/18 04:00 98.6 103 18 109/64 (79) 98 09/07/18 04:00 76 09/07/18 00:00 110 09/07/18 00:00 98.9 76 18 99/54 (69) 97 09/06/18 21:00 Nasal Cannula 2.0 09/06/18 20:00 76 09/06/18 20:00 97.0 74 18 95/56 (69) 99 09/06/18 16:00 111 09/06/18 16:00 97.6 91 20 98/67 (77) 97 Intake and Output 09/06/18 09/07/18 18:59 06:59 Intake Total 927.5 ml 100 ml Output Total 1700 ml 1000 ml Balance -772.5 ml -900 ml Intake Oral 50 ml Free Water 40 ml 10 ml IV Total 827.5 ml Tube Feeding 60 ml 40 ml Output Urine Total 1700 ml 1000 ml # Voids 10 Laboratory Tests 09/07/18 06:04: White Blood Count 10.2, Red Blood Count 2.98L, Hemoglobin 9.3L, Hematocrit 28.0L , Mean Corpuscular Volume 94, Mean Corpuscular Hemoglobin 31.2H, Mean Corpuscular Hemoglobin Concent 33.3, Red Cell Distribution Width 13.0, Platelet Count 269, Mean Platelet Volume 6.0L, Neutrophils (%) (Auto) 74.0, Lymphocytes ( %) (Auto) 15.0L, Monocytes (%) (Auto) 6.8, Eosinophils (%) (Auto) 3.6H, Basophils (%) (Auto) 0.6, Sodium Level 153H, Potassium Level 2.9L, Chloride Level 115H, Carbon Dioxide Level 28, Anion Gap 10, Blood Urea Nitrogen 33H, Creatinine 3.6H, Estimat Glomerular Filtration Rate 17.4, Glucose Level 147H, Calcium Level 8.9 Height (Feet): 6 Height (Inches): 0.00 Weight (Pounds): 103 Bright Her MD September 07, 2018 12:41
--- NOTE | 2018-09-07 13:00 | NUR ---
NURSE NOTES:DR TRINH CAME TO SEE THE PT AND MADE AWARE AND NOTIFIED REGARDING K+ 2.9.M.D ORDER TO GIVE KCL 40MEQ VIA NGT AND KCL 20MEQ IVPB .ALL NEW ORDERS NOTED AND CARRIED OUT.WILL CONT TO MONITOR.
--- NOTE | 2018-09-07 13:32 | General Progress Note ---
Assessment/Plan Status: not improved, unchanged Assessment/Plan: Assessment/Plan: # Failure to thrive - decreased bmi and low protein, does have evidence of prior infarct, poor PS --> will also obtain q3d caloric counts --> cea is elevated and workup as per below, consider gi eval --> mirtazapine as appetite stimulant has been ordered --> Gi consult on a prn basis, as needed for endoscopy # Hyperproteinemia with decreased albumin -- this is a dissociation that is abnormal --> upep and spep are negative for a m-spike, it does not exist --> if above results in a m-spike or abnormally enhanced protein, will need to send off immunofixation serum/urine --> in the case of a m-spike or abnormally enhanced protein, will obtain a bone marrow biopsy # Elevated tumor markers as cea is elevated --> may consider gi evaluation in this setting --> ca 19.9 is 1, ca 15.3 is 12.3 --> at some point may need CT c/a/p okay as outpatient # Acute metabolic encephalopathy, possibly from UTI, dehydration or recurrent CVA --> neuro and psych prn eval --> MRI brain reviewed, lp 09/05 --> abx prn # History of recent CVA, CT done in ED shows subacute to chronic right thalamic stroke --> supportive care --> per neuro --> is on abx for what appears to be uti # Dysphagia is now ngt+ --> continue ngt ++ per gi The timing of this note does not necessarily reflect the time of the patient was seen. Greatly appreciate consultation! Subjective HEENT: Denies: no symptoms, eye pain, blurred vision, tearing, double vision, ear pain, ear discharge, nose pain, nose congestion, throat pain, throat swelling, mouth pain, mouth swelling, other Cardiovascular: Denies: no symptoms, chest pain, edema, irregular heart rate, lightheadedness, palpitations, syncope, other Respiratory: Denies: no symptoms, cough, orthopnea, shortness of breath, SOB with excertion, SOB at rest, sputum, stridor, wheezing, other Gastrointestinal/Abdominal: Denies: no symptoms, abdomen distended, abdominal pain, black stools, tarry stools, blood in stool, constipated, diarrhea, difficulty swallowing, nausea, poor appetite, poor fluid intake, rectal bleeding , vomiting, other Genitourinary: Denies: no symptoms, burning, discharge, frequency, flank pain, hematuria, incontinence, pain, urgency, other Neurologic/Psychiatric: Denies: no symptoms, anxiety, depressed, emotional problems, headache, numbness, paresthesia, pre-existing deficit, seizure, tingling, tremors, weakness, other Endocrine: Denies: no symptoms, excessive sweating, flushing, intolerance to cold, intolerance to heat, increased hunger, increased thirst, increased urine, unexplained weight gain, unexplained weight loss, other Hematologic/Lymphatic: Denies: no symptoms, anemia, easy bleeding, easy bruising, other Allergies: Coded Allergies: No Known Allergies (Unverified , 08/30/18) Subjective 09/01: close followup with psych, remains agitated, some hematuria with ubrleson noted 09/03: with restraints, hgb remains low, no bleeding reported, in semi-fowlers position 09/04: has been refusing ng tube placement, concern remains for silent aspiration, seen by speech 09/05: urethreal bleeding noted after burleson was pulled, lp pending 09/06: no events to report, no f/c. mental status improved 09/07: no fevers or chills, anemia panel reviewed, cr is higher this am Objective Last 24 Hour Vital Signs Date Time Temp Pulse Resp B/P (MAP) Pulse Ox O2 Delivery O2 Flow Rate FiO2 09/07/18 12:00 98.5 81 17 92/52 (65) 99 09/07/18 09:00 Nasal Cannula 2.0 09/07/18 08:00 94 09/07/18 08:00 98.0 105 17 126/89 (101) 99 09/07/18 04:00 98.6 103 18 109/64 (79) 98 09/07/18 04:00 76 09/07/18 00:00 110 09/07/18 00:00 98.9 76 18 99/54 (69) 97 09/06/18 21:00 Nasal Cannula 2.0 09/06/18 20:00 76 09/06/18 20:00 97.0 74 18 95/56 (69) 99 09/06/18 16:00 111 09/06/18 16:00 97.6 91 20 98/67 (77) 97 Intake and Output 09/06/18 09/07/18 19:00 07:00 Intake Total 947.5 ml 80 ml Output Total 1700 ml 1000 ml Balance -752.5 ml -920 ml Intake Oral 50 ml Free Water 40 ml 10 ml IV Total 827.5 ml Tube Feeding 80 ml 20 ml Output Urine Total 1700 ml 1000 ml # Voids 10 Laboratory Tests 09/07/18 06:04: White Blood Count 10.2, Red Blood Count 2.98L, Hemoglobin 9.3L, Hematocrit 28.0L , Mean Corpuscular Volume 94, Mean Corpuscular Hemoglobin 31.2H, Mean Corpuscular Hemoglobin Concent 33.3, Red Cell Distribution Width 13.0, Platelet Count 269, Mean Platelet Volume 6.0L, Neutrophils (%) (Auto) 74.0, Lymphocytes ( %) (Auto) 15.0L, Monocytes (%) (Auto) 6.8, Eosinophils (%) (Auto) 3.6H, Basophils (%) (Auto) 0.6, Sodium Level 153H, Potassium Level 2.9L, Chloride Level 115H, Carbon Dioxide Level 28, Anion Gap 10, Blood Urea Nitrogen 33H, Creatinine 3.6H, Estimat Glomerular Filtration Rate 17.4, Glucose Level 147H, Calcium Level 8.9 Height (Feet): 6 Height (Inches): 0.00 Weight (Pounds): 103 Objective General Appearance: alert, combative HEENT: normocephalic ++ ngt Neck: supple, normal inspection Respiratory/Chest: lungs clear, normal breath sounds Cardiovascular/Chest: normal rate, regular rhythm, no JVD Abdomen: non tender, soft Extremities: normal inspection, no calf tenderness, + restraints Neurologic: other - Uncooperative : Nolan+ Aman Collier MD September 07, 2018 13:32
--- NOTE | 2018-09-07 14:28 | Diagnostic Imaging Report ---
Indication: Cough Comparison: 09/03/2018 A single view chest radiograph was obtained. Findings: Lungs are clear. Heart size is borderline enlarged. NG tube is present in good position. The bones appear osteopenic. IMPRESSION: No acute disease. NG tube in good position
[2018-09-07 16:00] VITALS: BP 105/58
--- NOTE | 2018-09-07 16:00 | NUR ---
NURSE NOTES:PT CHINESS SPEAKING ONLY REFUSED TO SING CONSENT FOR EGD AND PEG PLACENT PT STATED TOMORROW.PT BROTHER ABLE TO TRANSLATE.OCTAVIO RN IN CHARGE AWARE AND NOTIFIED.REGARDING PT WILL SING GI PROCEDURE CONSENT UNTIL TOMORROW.WILL CONT TO MONITOR.
--- NOTE | 2018-09-07 17:39 | Neurology Progress Note ---
Interim History Interim History ROS Limited/Unobtainable: Yes Complaints: AMS Events: Unchanged exam Interim History HSV NEGATIVE Objective Physical Exam Last Vital Signs Date Time Temp Pulse Resp B/P (MAP) Pulse Ox O2 Delivery O2 Flow Rate FiO2 09/07/18 16:00 98.3 79 17 105/58 (74) 99 09/07/18 09:00 Nasal Cannula 2.0 Laboratory Tests Test 09/07/18 06:04 White Blood Count 10.2 K/UL (4.8-10.8) Red Blood Count 2.98 M/UL (4.70-6.10) L Hemoglobin 9.3 G/DL (14.2-18.0) L Hematocrit 28.0 % (42.0-52.0) L Mean Corpuscular Volume 94 FL (80-99) Mean Corpuscular Hemoglobin 31.2 PG (27.0-31.0) H Mean Corpuscular Hemoglobin Concent 33.3 G/DL (32.0-36.0) Red Cell Distribution Width 13.0 % (11.6-14.8) Platelet Count 269 K/UL (150-450) Mean Platelet Volume 6.0 FL (6.5-10.1) L Neutrophils (%) (Auto) 74.0 % (45.0-75.0) Lymphocytes (%) (Auto) 15.0 % (20.0-45.0) L Monocytes (%) (Auto) 6.8 % (1.0-10.0) Eosinophils (%) (Auto) 3.6 % (0.0-3.0) H Basophils (%) (Auto) 0.6 % (0.0-2.0) Sodium Level 153 MMOL/L (136-145) H Potassium Level 2.9 MMOL/L (3.5-5.1) L Chloride Level 115 MMOL/L (98-107) H Carbon Dioxide Level 28 MMOL/L (21-32) Anion Gap 10 mmol/L (5-15) Blood Urea Nitrogen 33 mg/dL (7-18) H Creatinine 3.6 MG/DL (0.55-1.30) H Estimat Glomerular Filtration Rate 17.4 mL/min (>60) Glucose Level 147 MG/DL (74-106) H Calcium Level 8.9 MG/DL (8.5-10.1) Head: normocophalic Neck: no rigidity EENT: benign Neurologic Exam Mental Status: awake, other - Patient remains agitated upon waking. His primary language is Cantonese but as per his daughter he is not speaking any intelligible words at this time. Cranial Nerve II: fundus normal Cranial Nerves III, IV, : PERRLA, EOMI Cranial Nerve VII: no facial asymmetry Cranial Nerve XI: SCM symmetric Cranial Nerve XII: tongue midline Motor System: other - No apparent focal weakness on exam but unable to formally test as patient is not following commands. Objective Patient continues to remain non focal on exam. He is agitated when awoken, LUNA x 4 but not following commands. His primary language is Cantonese and as per his / brother's report - He is not saying any intelligible words- denies paraphrasic errors - patient is just making sounds. He intermittently tracks with his eyes. No observed / mag seizure activity noted. Impression/Recommendations Problems: (1) Altered mental state (2) Cognitive impairment (3) Acute encephalopathy Assessment & Plan: Unclear cause at this time. Febrile with leukocytosis today. EEG was abnormal but without mag epileptiform activity. LP RECOMMENDED - Meningitis ddx Consider starting ppx Acyclovir 500mg Q8 as HSV Encephalitis ppx Continue Q 4 hour Neuro obs Na 135-145 IV Hydration Consider NG tube feeding Trial Seroquel 25mg QD for agitation Empiric Abx and then as per ID Maintain normothermia at all times with Tylenol or cooling blanket. Try to maintain sleep hygiene for patient with dark quiet room at night. SBP<140 Status: not improved, unchanged Recommendations LP unremarkable HSV negative Continue broad spectrum Abs but can D/C Acyclovir Continue Q4 hour neuro obs Enteral feeding recommended Maintain normoglycemia with ISS REPEAT EEG Jennifer Gama N.P. September 07, 2018 17:39
--- NOTE | 2018-09-07 19:58 | NUR ---
NURSE NOTES: Received pt from DEANNE Herndon. Pt asleep. Bed in lowest position. Call light within reach. BUE Restraints on. NG running at 4occ/hr. IV site intact and running IV fluids. Will continue to monitor.
[2018-09-07 20:00] VITALS: BP 92/53
[2018-09-07] MEDS: Atorvastatin 80mg tab NG SCH (22:27)
--- NOTE | 2018-09-07 22:30 | Psych Consult Progress Note ---
Psychiatry Progress Note Psychiatry Progress Note Subjective the pt cont be agitated and not responsive the pt is disorganized the pt has cognitive impairment. Medications Current Medications Medications (Trade) Dose Ordered Sig/Jaxon Route PRN Reason Start Time Stop Time Status Last Admin Dose Admin Acetaminophen (Tylenol) 650 mg Q4H PRN NG Mild Pain/Temp > 100.5 09/06/18 20:00 10/06/18 19:59 09/07/18 05:52 Aspirin (ASA) 81 mg DAILY NG 09/07/18 09:00 10/07/18 08:59 09/07/18 10:18 Atorvastatin Calcium (Lipitor) 80 mg BEDTIME NG 09/06/18 21:00 09/30/18 20:59 09/06/18 21:22 Cefoxitin Sodium 1 gm/Dextrose 55 ml @ 110 mls/hr ONCE ONCE IV 09/08/18 08:00 09/08/18 08:29 Clopidogrel Bisulfate (Plavix) 75 mg DAILY NG 09/07/18 09:00 10/01/18 09:59 09/07/18 10:18 Dextrose 1,000 ml @ 50 mls/hr Q20H IV 09/05/18 11:00 10/05/18 10:59 09/07/18 04:24 Haloperidol Lactate (Haldol) 5 mg Q6H PRN IM Agitation 09/01/18 11:15 10/01/18 11:14 09/05/18 13:12 Mirtazapine (Remeron) 7.5 mg BEDTIME NG 09/06/18 21:00 10/03/18 20:59 09/06/18 21:22 Oxybutynin Chloride (Ditropan) 5 mg Q8HR NG 09/06/18 22:00 10/05/18 13:59 09/07/18 13:43 Polyethylene Glycol (Miralax) 17 gm HSPRN PRN NG Constipation 09/06/18 19:45 10/06/18 19:44 Quetiapine Fumarate (SEROquel) 25 mg TID NG 09/07/18 09:00 10/01/18 09:59 09/07/18 10:18 Quetiapine Fumarate (SEROquel) 50 mg QIDPRN PRN NG agitation 09/06/18 19:45 09/30/18 11:59 Valproate Sodium 250 mg/Dextrose 57.5 ml @ 57.5 mls/hr Q8HR IVPB 09/02/18 22:00 10/02/18 21:59 09/07/18 15:24 Neurological/Psychiatric: Reports: anxiety, depressed, emotional problems Allergies: Coded Allergies: No Known Allergies (Unverified , 08/30/18) Objective Data Height (Feet): 6 Height (Inches): 0.00 Weight (Pounds): 103 General Appearance: WD/WN, alert, confused, moderate distress, agitated Appearance: disheveled Behavior Mannerisms: poor eye contact Mental Status Exam - Affect: constricted Mental Status Exam - Mood: agitated Mental Status Exam - Thought P: tangential, confusion, disorganized Mental Status Exam - Suicidal: not present Assessment/Plan Problem List: (1) Acute encephalopathy ICD Codes: G93.40 - Encephalopathy, unspecified SNOMED: 17040975, 287800127 (2) Cognitive impairment ICD Codes: R41.89 - Other symptoms and signs involving cognitive functions and awareness SNOMED: 465251961 Status: not improved, unchanged Assessment/Plan: cont restraints depakote seroquel standing seroquel prn Damian Kim MD September 07, 2018 22:30
[2018-09-08] VITALS (10 sets, daily range): BP systolic 94–145; BP diastolic 60–85
[2018-09-08 04:39] LABS: BASOPHILS % (AUTO) 0.5 % (0.0-2.0); EOSINOPHILS % (AUTO) 4.2 % (0.0-3.0); HEMATOCRIT 26.4 % (42.0-52.0); HEMOGLOBIN 8.9 G/DL (14.2-18.0); LYMPHOCYTES % (AUTO) 10.9 % (20.0-45.0); MEAN CORPUSCULAR VOLUME 92 FL (80-99); MONOCYTES % (AUTO) 6.3 % (1.0-10.0); NEUTROPHILS % (AUTO) 78.1 % (45.0-75.0); PLATELET COUNT 248 K/UL (150-450); RED BLOOD COUNT 2.86 M/UL (4.70-6.10); RED CELL DISTRIBUTION WIDTH 12.8 % (11.6-14.8); WHITE BLOOD COUNT 12.5 K/UL (4.8-10.8)
[2018-09-08 04:48] LABS: ANION GAP 7 mmol/L (5-15); BLOOD UREA NITROGEN 41 mg/dL (7-18); CALCIUM 8.7 MG/DL (8.5-10.1); CARBON DIOXIDE 30 MMOL/L (21-32); CHLORIDE 116 MMOL/L (98-107); POTASSIUM 3.7 MMOL/L (3.5-5.1); SODIUM 153 MMOL/L (136-145)
[2018-09-08 04:58] LABS: PHOSPHORUS 4.3 MG/DL (2.5-4.9)
[2018-09-08] MEDS: Oxybutynin 5mg tab NG SCH ×3 (06:00→22:03)
[2018-09-08] MEDS: Valproate Sodium INJ 250 MG in D5W 55 ML IVPB SCH ×3 (06:00→22:04)
--- NOTE | 2018-09-08 07:52 | NUR ---
HAND-OFF: Report given to DEANNE Ibrahim. pt stable.
[2018-09-08] MEDS ORDERED: cefOXitin Sod 1 GM in D5W 55 ML IV ONE (08:00)
--- NOTE | 2018-09-08 08:30 | NUR ---
received report from Alize ALICEA. Pt in bed agitated and trying to get out of bed and has restrains. Pt on residential monitor SR at this time. Bed locked and in lowest position. Call light next to pt and family member at bedside. Will continue to monitor.
--- NOTE | 2018-09-08 09:22 | Anethesia Preoperative Eval ---
Anesthesia Pre-op PMH/ROS General Date of Evaluation: September 08, 2018 Time of Evaluation: 09:19 Anesthesiologist: Yariel ASA Score: ASA 3 Mallampati Score Class I : Soft palate, uvula, fauces, pillars visible Class II: Soft palate, uvula, fauces visible Class III: Soft palate, base of uvula visible Class IV: Only hard plate visible Mallampati Classification: Class III Surgeon: Sher Diagnosis: dehydration Surgical Procedure: PEG placement Anesthesia History: none Family History: no anesthesia problems Allergies: Coded Allergies: No Known Allergies (Unverified , 08/30/18) Medications: see eMAR Patient NPO?: Yes NPO Date: September 07, 2018 NPO Time: 22:00 Past Medical History Cardiovascular: Reports: HTN Pulmonary: Denies: asthma, COPD, JALIL, other Gastrointestinal/Genitourinary: Reports: GERD, other - UTI, hemorroids, severe malnutrition Neurologic/Psychiatric: Reports: CVA - encephalopathy , other - seizures, AMS, HEENT: Denies: cataract (L), cataract (R), glaucoma, KETCHIKAN (L), KETCHIKAN (R), other Hematology/Immune: Reports: anemia Anesthesia Pre-op Phys. Exam Physician Exam Last Vital Signs Date Time Temp Pulse Resp B/P (MAP) Pulse Ox O2 Delivery O2 Flow Rate FiO2 09/08/18 04:00 98.4 107 20 145/85 (105) 97 09/07/18 21:00 Nasal Cannula 2.0 Constitutional: NAD Neurologic: CN 2-12 intact Cardiovascular: RRR Respiratory: CTA Gastrointestinal: S/NT/ND Airway Exam Mallampati Score: Class III MO: limited Neck: limited ROM: limited Teeth: other - eroded Dentures: no upper, no lower Anesthesia Pre-op A/P Labs Hematology Test 09/08/18 04:29 White Blood Count 12.5 K/UL (4.8-10.8) H Red Blood Count 2.86 M/UL (4.70-6.10) L Hemoglobin 8.9 G/DL (14.2-18.0) L Hematocrit 26.4 % (42.0-52.0) L Mean Corpuscular Volume 92 FL (80-99) Mean Corpuscular Hemoglobin 31.2 PG (27.0-31.0) H Mean Corpuscular Hemoglobin Concent 33.8 G/DL (32.0-36.0) Red Cell Distribution Width 12.8 % (11.6-14.8) Platelet Count 248 K/UL (150-450) Mean Platelet Volume 5.5 FL (6.5-10.1) L Neutrophils (%) (Auto) 78.1 % (45.0-75.0) H Lymphocytes (%) (Auto) 10.9 % (20.0-45.0) L Monocytes (%) (Auto) 6.3 % (1.0-10.0) Eosinophils (%) (Auto) 4.2 % (0.0-3.0) H Basophils (%) (Auto) 0.5 % (0.0-2.0) Coagulation Test 09/08/18 04:29 Prothrombin Time 10.2 SEC (9.30-11.50) Prothromb Time International Ratio 1.0 (0.9-1.1) Activated Partial Thromboplast Time 23 SEC (23-33) Chemistry Test 09/08/18 04:29 Sodium Level 153 MMOL/L (136-145) H Potassium Level 3.7 MMOL/L (3.5-5.1) Chloride Level 116 MMOL/L (98-107) H Carbon Dioxide Level 30 MMOL/L (21-32) Anion Gap 7 mmol/L (5-15) Blood Urea Nitrogen 41 mg/dL (7-18) H Creatinine 3.0 MG/DL (0.55-1.30) H Estimat Glomerular Filtration Rate 21.5 mL/min (>60) Glucose Level 126 MG/DL (74-106) H Calcium Level 8.7 MG/DL (8.5-10.1) Phosphorus Level 4.3 MG/DL (2.5-4.9) Magnesium Level 2.8 MG/DL (1.8-2.4) H Studies Pre-op Studies: EKG - NSR 81 bpm with bbb Risk Assessment & Plan Assessment: pt agitated at times, responses to name and sounds but unable to follow commands Plan: MAC Status Change Before Surgery: Joanne Quintero CRNA September 08, 2018 09:22
--- NOTE | 2018-09-08 09:23 | Immediate Post-Op Evaluation ---
Immediate Post-Op Evalulation Immediate Post-Op Evalulation Procedure: PEG placement Date of Evaluation: September 08, 2018 Time of Evaluation: 11:25 IV Fluids: NS 450 ml Blood Products: 0 Estimated Blood Loss: 0 Urinary Output: 0 Blood Pressure Systolic: 96 Blood Pressure Diastolic: 60 Pulse Rate: 62 Respiratory Rate: 20 O2 Sat by Pulse Oximetry: 100 Temperature (Fahrenheit): 97.9 Pain Score (1-10): 0 Nausea: No Vomiting: No Complications none Patient Status: awake, reacts, patent Hydration Status: adequate Given Within 1 Hr of Incision: No - none per surgeon Joanne Saldivar CRNA September 08, 2018 09:23
[2018-09-08] MEDS ORDERED: fentaNYL 100 mcg/2 mL IV PRN (09:30)
[2018-09-08] MEDS: Aspirin Baby 81mg NG SCH (09:33)
[2018-09-08] MEDS ORDERED: Lidocaine 1% MPF 10mg/ml 5ml ONE (10:00)
[2018-09-08] MEDS ORDERED: Propofol 200mg/20ml IV ONE (10:00)
--- NOTE | 2018-09-08 10:34 | Pre-Procedure Note/Attestation ---
Pre-Procedure Note/Attestation Complete Prior to Procedure Planned Procedure: not applicable Procedure Narrative: EGD/PEG Indications for Procedure Pre-Operative Diagnosis: dysphagia Attestation I attest that I discussed the nature of the procedure; its benefits; risks and complications; and alternatives (and the risks and benefits of such alternatives ), prior to the procedure, with the patient (or the patient's legal customer relations representative). I attest that, if there was a reasonable possibility of needing a blood transfusion, the patient (or the patient's legal customer relations representative) was given the [facility] standardized written summary, pursuant to the Landen Yonis Blood Safety Act ([place] Health and Safety Code # 1645, as amended). I attest that I re-evaluated the patient just prior to the surgery and that there has been no change in the patient's H&P, except as documented below: Luis Alberto Olivarez MD September 08, 2018 10:34
--- NOTE | 2018-09-08 10:34 | General Progress Note ---
Assessment/Plan Problem List: (1) Encounter for PEG (percutaneous endoscopic gastrostomy) ICD Codes: Z43.1 - Encounter for attention to gastrostomy SNOMED: 486010238, 093723568 (2) Severe malnutrition ICD Codes: E43 - Unspecified severe protein-calorie malnutrition SNOMED: 90895888 (3) Altered mental state ICD Codes: R41.82 - Altered mental status, unspecified SNOMED: 512498302 Qualifiers: Qualified Codes: R41.82 - Altered mental status, unspecified (4) UTI (urinary tract infection) ICD Codes: N39.0 - Urinary tract infection, site not specified SNOMED: 52762698 (5) Stroke ICD Codes: I63.9 - Cerebral infarction, unspecified SNOMED: 770338420 Status: not improved, unchanged Assessment/Plan: plan for peg placement for today Subjective ROS Limited/Unobtainable: No Allergies: Coded Allergies: No Known Allergies (Unverified , 08/30/18) Objective Last 24 Hour Vital Signs Date Time Temp Pulse Resp B/P (MAP) Pulse Ox O2 Delivery O2 Flow Rate FiO2 09/08/18 04:00 98.4 107 20 145/85 (105) 97 09/08/18 04:00 94 09/08/18 00:00 104 09/07/18 21:00 Nasal Cannula 2.0 09/07/18 20:00 56 09/07/18 20:00 97.5 57 20 92/53 (66) 100 09/07/18 16:00 98.3 79 17 105/58 (74) 99 09/07/18 16:00 62 09/07/18 12:00 83 09/07/18 12:00 98.5 81 17 92/52 (65) 99 Intake and Output 09/07/18 09/08/18 19:00 07:00 Intake Total 1140 ml 145 ml Output Total 2 ml 2 ml Balance 1138 ml 143 ml Free Water 200 ml 100 ml IV Total 500 ml Tube Feeding 440 ml 45 ml Output Urine Total 2 ml 2 ml # Voids 3 Laboratory Tests 09/08/18 04:29: White Blood Count 12.5H, Red Blood Count 2.86L, Hemoglobin 8.9L, Hematocrit 26.4L, Mean Corpuscular Volume 92, Mean Corpuscular Hemoglobin 31.2H, Mean Corpuscular Hemoglobin Concent 33.8, Red Cell Distribution Width 12.8, Platelet Count 248, Mean Platelet Volume 5.5L, Neutrophils (%) (Auto) 78.1H, Lymphocytes (%) (Auto) 10.9L, Monocytes (%) (Auto) 6.3, Eosinophils (%) (Auto) 4.2H, Basophils (%) (Auto) 0.5, Prothrombin Time 10.2, Prothromb Time International Ratio 1.0, Activated Partial Thromboplast Time 23, Sodium Level 153H, Potassium Level 3.7, Chloride Level 116H, Carbon Dioxide Level 30, Anion Gap 7, Blood Urea Nitrogen 41H, Creatinine 3.0H, Estimat Glomerular Filtration Rate 21.5, Glucose Level 126H, Calcium Level 8.7, Phosphorus Level 4.3, Magnesium Level 2.8H Height (Feet): 6 Height (Inches): 0.00 Weight (Pounds): 103 General Appearance: lethargic EENT: normal ENT inspection Neck: supple Cardiovascular: normal rate Respiratory/Chest: decreased breath sounds Abdomen: normal bowel sounds, non tender, soft Extremities: non-tender Luis Alberto Olivarez MD September 08, 2018 10:34
[2018-09-08] MEDS ORDERED: NS 500ML IVPB ONE (10:40)
--- NOTE | 2018-09-08 11:13 | Endoscopy Procedure Note ---
Endoscopy Procedure Note General Indication for Procedure: dysphagia Procedures Performed: EGD, PEG Operative Findings/Diagnosis: same Specimen: none Pt Tolerated Procedure Well: Yes Estimated Blood Loss: none Anesthesia Anesthesiologist: alex Anesthesia: MAC Inserted Devices Implant(s) used?: No GI Core Measures 50 yrs or older w/o bx or poly: Not Applicable 10yrs. F/U not recommended: Not Applicable Luis Alberto Olivarez MD September 08, 2018 11:13
--- NOTE | 2018-09-08 12:06 | NUR ---
NURSE NOTES: received pt from recovery room. Dee ALICEA reported that pt had a peg placement no complication and that there is an order for feeding. Pt is sleeping restrains are on. Surgical site is intact no bleeding noted.
--- NOTE | 2018-09-08 13:45 | 48 Hour Post Anesthesia Eval ---
Post Anesthesia Evaluation Procedure: PEG placement Date of Evaluation: September 08, 2018 Time of Evaluation: 13:45 Blood Pressure Systolic: 101 0: 61 Pulse Rate: 60 Respiratory Rate: 20 Temperature (Fahrenheit): 97.9 O2 Sat by Pulse Oximetry: 100 Airway: patent Nausea: No Vomiting: No Hydration Status: adequate Mental Status/LOC: patient returned to baseline Follow-up care needed: patient intructions given Joanne Saldivar CRNA September 08, 2018 13:45
--- NOTE | 2018-09-08 14:11 | NUR ---
SWALLOW STATUS: SUBJECTIVE: ALERT AND MOANING. AGITATED AND ANXIOUS. OBJECTIVE/ASSESSMENT: PT HAD PEG PLACED TODAY. EDUCATED/TRAINED AND HIS BROTHER IN NEED FOR DEEP NASAL SUCTION IN RIGHT NARES (NOT LEFT WHICH IS BLEEDING) SINCE PT IS CLOSING HIS MOUTH AND WON'T ALLOW FOR ORAL SUCTION. VOICE IS WET AND HE IS UNABLE TO COUGH UP AND SPIT OUT ORAL SECRETIONS. DISCUSSED NEED TO KEEP HOB ELEVATED TO ABOVE 30 DEGREES TO AVOID REFLUX OF TUBE FEEDINGS. PAGE DESIGNER AWARE THAT FAMILY WANTS PT TO GO TO A DIFFERENT SNF UPON D/C. PER PAGE DESIGNER, SHAUNNA, DR. TRINH WILL TELL FAMILY THE SNF HE RECOMMENDS. TOLD DELIA, HIS BROTHER THAT PT SHOULD NOT HAVE PO TRIALS AT BEDSIDE AT [facility]. WHEN HE IS DEEMED READY FOR PO (BY SPEECH/SWALLOW THERAPIST AT [facility]), HE SHOULD HAVE A MODIFIED BARIUM SWALLOW STUDY AT A [facility] [place] [facility]ER [place] TH[place] OUTPATIENTS - ONLY INPATIENTS WHEN PT IS IN THE HOSPITAL). PT IS STILL NOT READY FOR A MOD BARIUM SWALLOW STUDY HE CANNOT EVEN CLEAR HIS OWN ORAL SECRETIONS. MEDS TO KEEP HIM CALM ALSO AFFECT HIS ALERTNESS. GOALS NOT MET FOR INTAKE BUT GOALS MET FOR STAFF EDUCATED/TRAINED IN ORAL CARE AND POSTED ASP PREC FOR SECRETIONS. PLAN: CONTINUE WITH PLAN ON SWALLOW EVAL REPORT. MOD BARIUM SWALLOW STUDY TUESDAY OR WHEN READY OR OP IF NOT READY AND D/C. DO NOT HOLD UP D/C FOR THIS STUDY. D/W DEANNE LANGLEY (KRISTEN), AND DR TRINH. Addendum: 09/08/18 at 1414 by MIRACLE PECK SUPERVISOR WINTER WILL NEED F/UP WITH SWALLOW/SPEECH THERAPIST AT [facility] FOR DYSPHAGIA MANAGEMENT AND TX. WILL ALSO NEED A FULL COM-COG EVAL/TX HE IS MOSTLY NONVERBAL AND ONLY VOCALIZES ON VOWEL /A/.
--- NOTE | 2018-09-08 15:17 | General Progress Note ---
Assessment/Plan Status: not improved, unchanged Assessment/Plan: #Acute metabolic encephalopathy, improving #History of recent CVA, CT done in ED shows subacute to chronic right thalamic stroke #Dysphagia, s/p NGT -supportive care -Fall,Aspiration,Seizure precautions -IM Haldol prn for agitation -Neurochecks -continue Lipitor -Stop acyclovir -LP done, CSF HSV PCR negative -Urine culture no growth, ceftriaxone stopped -Neurology and Psychiatry following -RUSSET REPAIRER following S/p PEG by GI today, can start tube feeds and water flushes when ok with GI #Acute blood loss anemia #Hematuria due to Francisco catheter induced urethral trauma, improved -H&H stable -resume -Francisco out -transfuse PRBC if Hb < 8 #ZENON #Hypernatremia due to lack of water intake #Hypokalemia -continue free water -replace electrolytes prn -monitor BMP daily -avoid nephrotoxic agents -Nephrology consulted, Dr. Edward Full Code VTE PPx SCD Subjective Date patient seen: September 08, 2018 Time patient seen: 13:20 ROS Limited/Unobtainable: Yes Allergies: Coded Allergies: No Known Allergies (Unverified , 08/30/18) Subjective Medicine follow up for acute encephalopathy, agitation. Underwent PEG placement today. Objective Last 24 Hour Vital Signs Date Time Temp Pulse Resp B/P (MAP) Pulse Ox O2 Delivery O2 Flow Rate FiO2 09/08/18 13:45 60 20 100 09/08/18 13:44 62 20 100 09/08/18 11:50 97.9 60 20 101/61 100 Nasal Cannula 2.0 09/08/18 11:40 61 19 100/62 100 Nasal Cannula 2.0 09/08/18 11:30 60 18 95/60 100 Nasal Cannula 2.0 09/08/18 11:25 61 19 94/62 100 Nasal Cannula 2.0 09/08/18 11:20 97.9 62 20 96/60 100 Nasal Cannula 2.0 09/08/18 04:00 98.4 107 20 145/85 (105) 97 09/08/18 04:00 94 09/08/18 00:00 104 09/07/18 21:00 Nasal Cannula 2.0 09/07/18 20:00 56 09/07/18 20:00 97.5 57 20 92/53 (66) 100 09/07/18 16:00 98.3 79 17 105/58 (74) 99 09/07/18 16:00 62 Intake and Output 09/07/18 09/08/18 19:00 07:00 Intake Total 1140 ml 145 ml Output Total 2 ml 2 ml Balance 1138 ml 143 ml Free Water 200 ml 100 ml IV Total 500 ml Tube Feeding 440 ml 45 ml Output Urine Total 2 ml 2 ml # Voids 3 Laboratory Tests 09/08/18 04:29: White Blood Count 12.5H, Red Blood Count 2.86L, Hemoglobin 8.9L, Hematocrit 26.4L, Mean Corpuscular Volume 92, Mean Corpuscular Hemoglobin 31.2H, Mean Corpuscular Hemoglobin Concent 33.8, Red Cell Distribution Width 12.8, Platelet Count 248, Mean Platelet Volume 5.5L, Neutrophils (%) (Auto) 78.1H, Lymphocytes (%) (Auto) 10.9L, Monocytes (%) (Auto) 6.3, Eosinophils (%) (Auto) 4.2H, Basophils (%) (Auto) 0.5, Prothrombin Time 10.2, Prothromb Time International Ratio 1.0, Activated Partial Thromboplast Time 23, Sodium Level 153H, Potassium Level 3.7, Chloride Level 116H, Carbon Dioxide Level 30, Anion Gap 7, Blood Urea Nitrogen 41H, Creatinine 3.0H, Estimat Glomerular Filtration Rate 21.5, Glucose Level 126H, Calcium Level 8.7, Phosphorus Level 4.3, Magnesium Level 2.8H Height (Feet): 6 Height (Inches): 0.00 Weight (Pounds): 103 General Appearance: no apparent distress, alert Neck: normal alignment, supple Cardiovascular: normal rate, regular rhythm Respiratory/Chest: lungs clear, normal breath sounds, no respiratory distress Abdomen: non tender, soft, no mass Bright Her MD September 08, 2018 15:17
--- NOTE | 2018-09-08 15:39 | General Progress Note ---
Assessment/Plan Status: not improved, unchanged Assessment/Plan: Assessment/Plan: # Failure to thrive - decreased bmi and low protein, does have evidence of prior infarct, poor PS --> will also obtain q3d caloric counts --> cea is elevated and workup as per below, consider gi eval --> mirtazapine as appetite stimulant has been ordered --> Gi consult on a prn basis, as needed for endoscopy # Hyperproteinemia with decreased albumin -- this is a dissociation that is abnormal --> upep and spep are negative for a m-spike, it does not exist --> if above results in a m-spike or abnormally enhanced protein, will need to send off immunofixation serum/urine --> in the case of a m-spike or abnormally enhanced protein, will obtain a bone marrow biopsy # Elevated tumor markers as cea is elevated --> may consider gi evaluation in this setting --> ca 19.9 is 1, ca 15.3 is 12.3 --> at some point may need CT c/a/p okay as outpatient # Acute metabolic encephalopathy, possibly from UTI, dehydration or recurrent CVA --> neuro and psych prn eval --> MRI brain reviewed, lp 09/05 --> abx prn # History of recent CVA, CT done in ED shows subacute to chronic right thalamic stroke --> supportive care --> per neuro --> is on abx for what appears to be uti # Dysphagia is now ngt+ --> continue ngt ++ per gi --> peg for 09/08 # ZENON with cr from normal to 3 --> renal was consulted The timing of this note does not necessarily reflect the time of the patient was seen. Greatly appreciate consultation! Subjective Constitutional: Denies: no symptoms, chills, diaphoresis, fever, malaise, weakness, other HEENT: Denies: no symptoms, eye pain, blurred vision, tearing, double vision, ear pain, ear discharge, nose pain, nose congestion, throat pain, throat swelling, mouth pain, mouth swelling, other Cardiovascular: Denies: no symptoms, chest pain, edema, irregular heart rate, lightheadedness, palpitations, syncope, other Respiratory: Denies: no symptoms, cough, orthopnea, shortness of breath, SOB with excertion, SOB at rest, sputum, stridor, wheezing, other Gastrointestinal/Abdominal: Denies: no symptoms, abdomen distended, abdominal pain, black stools, tarry stools, blood in stool, constipated, diarrhea, difficulty swallowing, nausea, poor appetite, poor fluid intake, rectal bleeding , vomiting, other Neurologic/Psychiatric: Denies: no symptoms, anxiety, depressed, emotional problems, headache, numbness, paresthesia, pre-existing deficit, seizure, tingling, tremors, weakness, other Endocrine: Denies: no symptoms, excessive sweating, flushing, intolerance to cold, intolerance to heat, increased hunger, increased thirst, increased urine, unexplained weight gain, unexplained weight loss, other Hematologic/Lymphatic: Denies: no symptoms, anemia, easy bleeding, easy bruising, other Allergies: Coded Allergies: No Known Allergies (Unverified , 08/30/18) Subjective 09/01: close followup with psych, remains agitated, some hematuria with burleson noted 09/03: with restraints, hgb remains low, no bleeding reported, in semi-fowlers position 09/04: has been refusing ng tube placement, concern remains for silent aspiration, seen by speech 09/05: urethreal bleeding noted after burleson was pulled, lp pending 09/06: no events to report, no f/c. mental status improved 09/07: no fevers or chills, anemia panel reviewed, cr is higher this am 09/08: no events, potentially to get peg placed, cr does remain elevated, renal consulted Objective Last 24 Hour Vital Signs Date Time Temp Pulse Resp B/P (MAP) Pulse Ox O2 Delivery O2 Flow Rate FiO2 09/08/18 13:45 60 20 100 09/08/18 13:44 62 20 100 09/08/18 11:50 97.9 60 20 101/61 100 Nasal Cannula 2.0 09/08/18 11:40 61 19 100/62 100 Nasal Cannula 2.0 09/08/18 11:30 60 18 95/60 100 Nasal Cannula 2.0 09/08/18 11:25 61 19 94/62 100 Nasal Cannula 2.0 09/08/18 11:20 97.9 62 20 96/60 100 Nasal Cannula 2.0 09/08/18 04:00 98.4 107 20 145/85 (105) 97 09/08/18 04:00 94 5/3/19 00:00 104 09/07/18 21:00 Nasal Cannula 2.0 09/07/18 20:00 56 09/07/18 20:00 97.5 57 20 92/53 (66) 100 09/07/18 16:00 98.3 79 17 105/58 (74) 99 09/07/18 16:00 62 Intake and Output 09/07/18 09/08/18 19:00 07:00 Intake Total 1140 ml 145 ml Output Total 2 ml 2 ml Balance 1138 ml 143 ml Free Water 200 ml 100 ml IV Total 500 ml Tube Feeding 440 ml 45 ml Output Urine Total 2 ml 2 ml # Voids 3 Laboratory Tests 09/08/18 04:29: White Blood Count 12.5H, Red Blood Count 2.86L, Hemoglobin 8.9L, Hematocrit 26.4L, Mean Corpuscular Volume 92, Mean Corpuscular Hemoglobin 31.2H, Mean Corpuscular Hemoglobin Concent 33.8, Red Cell Distribution Width 12.8, Platelet Count 248, Mean Platelet Volume 5.5L, Neutrophils (%) (Auto) 78.1H, Lymphocytes (%) (Auto) 10.9L, Monocytes (%) (Auto) 6.3, Eosinophils (%) (Auto) 4.2H, Basophils (%) (Auto) 0.5, Prothrombin Time 10.2, Prothromb Time International Ratio 1.0, Activated Partial Thromboplast Time 23, Sodium Level 153H, Potassium Level 3.7, Chloride Level 116H, Carbon Dioxide Level 30, Anion Gap 7, Blood Urea Nitrogen 41H, Creatinine 3.0H, Estimat Glomerular Filtration Rate 21.5, Glucose Level 126H, Calcium Level 8.7, Phosphorus Level 4.3, Magnesium Level 2.8H Height (Feet): 6 Height (Inches): 0.00 Weight (Pounds): 103 Objective General Appearance: alert, combative HEENT: normocephalic ++ ngt Neck: supple, normal inspection Respiratory/Chest: lungs clear, normal breath sounds Cardiovascular/Chest: normal rate, regular rhythm, no JVD Abdomen: non tender, soft Extremities: normal inspection, no calf tenderness, + restraints Neurologic: other - Uncooperative : Nolan+ Aman Collier MD September 08, 2018 15:39
--- NOTE | 2018-09-08 16:03 | NUR ---
CASE MANAGEMENT:REVIEW 09/08/18 SI: ACUTE ENCEPHALOPATHY S/P PEG PLACEMENT TODAY 97.9 6O 20 101/61 100% ON 2L/NC WBC+12.5 H/H-8.9/26.4 NA+153 BUN+41 CR+3.0 IS: IV CEFOXITIN X1 PLAVIX NG QD ASA NG QD IV VALPROATE Q8HRS IVF@50/HR : TELEMETRY STATUS DCP: FROM [facility] PLAN: FAMILY DOES NOT WANT PATIENT TO RETURN TO [facility]
--- NOTE | 2018-09-08 16:08 | NUR ---
DISCHARGE PLANNING FAMILY DOES NOT WANT PATIENT TO RETURN TO [facility] THEY ARE REQUESTING AN ALTERNATIVE SNF UPON DISCHARGE
[2018-09-08] MEDS ORDERED: Midazolam 2mg/2ml Inj ONE (16:28)
--- NOTE | 2018-09-08 16:31 | Consultation ---
History of Present Illness General Date patient seen: September 08, 2018 Chief Complaint: Fever Referring physician: Dr. Concepcion Reason for Consultation: Acute kidney injury Present Illness HPI 58 year old man with history of recent CVA with subsequent aphasia who comes from the residential with increasing confusion, agitation and poor oral intake. is at the beside but does not speak Icelandic. I spoke with the patient's brother Hugh by telephone who confirmed the above information, patient has had worsening mentation over the past 2-3 weeks since being admitted to the nursing facility. Patient did have an episode of slurred speech around that time. In ED he was found to be hypotensive, dehydration and possible UTI On pesentation Cr noted to be in normal range. 2 day ago Cr noted to be acutely increased to 3.6-> 3.0 today Allergies: Coded Allergies: No Known Allergies (Unverified , 08/30/18) Medication History Scheduled Atorvastatin (Lipitor), 80 MG ORAL BEDTIME, (Reported) Bisacodyl* (Dulcolax*), 20 MG ORAL ONCE, (Reported) Clopidogrel Bisulfate* (Plavix*), 75 MG ORAL DAILY, (Reported) Clopidogrel Bisulfate* (Plavix*), 75 MG ORAL DAILY, (Reported) Divalproex Sodium* (Depakote*), 250 MG PO Q12HR, (Reported) Scheduled PRN Polyethylene Glycol 3350* (Polyethylene Glycol 3350*), 17 GM ORAL BEDTIME PRN for Constipation, (Reported) Polyethylene Glycol 3350* (Polyethylene Glycol 3350*), 17 GM ORAL BEDTIME PRN for Constipation, (Reported) Miscellaneous Medications Divalproex Sodium (Divalproex Sodium), 125 MG PO, (Reported) [geritussin], (Reported) Patient History Healthcare decision maker Resuscitation status Full Code Advanced Directive on File Past Medical/Surgical History Past Medical/Surgical History: (1) Dehydration (2) Acute encephalopathy (3) Cognitive impairment (4) Stroke (5) UTI (urinary tract infection) (6) Altered mental state (7) Severe malnutrition (8) Encounter for PEG (percutaneous endoscopic gastrostomy) Review of Systems All Other Systems: negative except mentioned in HPI Physical Exam Last 24 Hour Vital Signs Date Time Temp Pulse Resp B/P (MAP) Pulse Ox O2 Delivery O2 Flow Rate FiO2 09/08/18 13:45 60 20 100 09/08/18 13:44 62 20 100 09/08/18 11:50 97.9 60 20 101/61 100 Nasal Cannula 2.0 09/08/18 11:40 61 19 100/62 100 Nasal Cannula 2.0 09/08/18 11:30 60 18 95/60 100 Nasal Cannula 2.0 09/08/18 11:25 61 19 94/62 100 Nasal Cannula 2.0 09/08/18 11:20 97.9 62 20 96/60 100 Nasal Cannula 2.0 09/08/18 04:00 98.4 107 20 145/85 (105) 97 09/08/18 04:00 94 09/08/18 00:00 104 09/07/18 21:00 Nasal Cannula 2.0 09/07/18 20:00 56 09/07/18 20:00 97.5 57 20 92/53 (66) 100 Intake and Output 09/07/18 09/08/18 19:00 07:00 Intake Total 1140 ml 145 ml Output Total 2 ml 2 ml Balance 1138 ml 143 ml Free Water 200 ml 100 ml IV Total 500 ml Tube Feeding 440 ml 45 ml Output Urine Total 2 ml 2 ml # Voids 3 Laboratory Tests Test 09/08/18 04:29 White Blood Count 12.5 K/UL (4.8-10.8) H Red Blood Count 2.86 M/UL (4.70-6.10) L Hemoglobin 8.9 G/DL (14.2-18.0) L Hematocrit 26.4 % (42.0-52.0) L Mean Corpuscular Volume 92 FL (80-99) Mean Corpuscular Hemoglobin 31.2 PG (27.0-31.0) H Mean Corpuscular Hemoglobin Concent 33.8 G/DL (32.0-36.0) Red Cell Distribution Width 12.8 % (11.6-14.8) Platelet Count 248 K/UL (150-450) Mean Platelet Volume 5.5 FL (6.5-10.1) L Neutrophils (%) (Auto) 78.1 % (45.0-75.0) H Lymphocytes (%) (Auto) 10.9 % (20.0-45.0) L Monocytes (%) (Auto) 6.3 % (1.0-10.0) Eosinophils (%) (Auto) 4.2 % (0.0-3.0) H Basophils (%) (Auto) 0.5 % (0.0-2.0) Prothrombin Time 10.2 SEC (9.30-11.50) Prothromb Time International Ratio 1.0 (0.9-1.1) Activated Partial Thromboplast Time 23 SEC (23-33) Sodium Level 153 MMOL/L (136-145) H Potassium Level 3.7 MMOL/L (3.5-5.1) Chloride Level 116 MMOL/L (98-107) H Carbon Dioxide Level 30 MMOL/L (21-32) Anion Gap 7 mmol/L (5-15) Blood Urea Nitrogen 41 mg/dL (7-18) H Creatinine 3.0 MG/DL (0.55-1.30) H Estimat Glomerular Filtration Rate 21.5 mL/min (>60) Glucose Level 126 MG/DL (74-106) H Calcium Level 8.7 MG/DL (8.5-10.1) Phosphorus Level 4.3 MG/DL (2.5-4.9) Magnesium Level 2.8 MG/DL (1.8-2.4) H Height (Feet): 6 Height (Inches): 0.00 Weight (Pounds): 103 Medications Current Medications Medications (Trade) Dose Ordered Sig/Jaxon Route PRN Reason Start Time Stop Time Status Last Admin Dose Admin Acetaminophen (Tylenol) 650 mg Q4H PRN NG Mild Pain/Temp > 100.5 09/06/18 20:00 10/06/18 19:59 09/07/18 05:52 Aspirin (ASA) 81 mg DAILY NG 09/07/18 09:00 10/07/18 08:59 09/08/18 09:33 Atorvastatin Calcium (Lipitor) 80 mg BEDTIME NG 09/06/18 21:00 09/30/18 20:59 09/07/18 22:27 Clopidogrel Bisulfate (Plavix) 75 mg DAILY NG 09/07/18 09:00 10/01/18 09:59 09/08/18 09:33 Dextrose 1,000 ml @ 50 mls/hr Q20H IV 09/05/18 11:00 10/05/18 10:59 09/07/18 04:24 Haloperidol Lactate (Haldol) 5 mg Q6H PRN IM Agitation 09/01/18 11:15 10/01/18 11:14 09/05/18 13:12 Mirtazapine (Remeron) 7.5 mg BEDTIME NG 09/06/18 21:00 10/03/18 20:59 09/07/18 22:28 Oxybutynin Chloride (Ditropan) 5 mg Q8HR NG 09/06/18 22:00 10/05/18 13:59 09/08/18 14:31 Polyethylene Glycol (Miralax) 17 gm HSPRN PRN NG Constipation 09/06/18 19:45 10/06/18 19:44 Quetiapine Fumarate (SEROquel) 25 mg TID NG 09/07/18 09:00 10/01/18 09:59 09/08/18 14:30 Quetiapine Fumarate (SEROquel) 50 mg QIDPRN PRN NG agitation 09/06/18 19:45 09/30/18 11:59 Valproate Sodium 250 mg/Dextrose 57.5 ml @ 57.5 mls/hr Q8HR IVPB 09/02/18 22:00 10/02/18 21:59 09/08/18 14:30 Objective Narrative General Appearance: no apparent distress, alert Neck: normal alignment, supple Cardiovascular: normal rate, regular rhythm Respiratory/Chest: lungs clear, normal breath sounds, no respiratory distress Abdomen: non tender, soft, no mass Assessment/Plan Problem List: (1) Severe malnutrition ICD Codes: E43 - Unspecified severe protein-calorie malnutrition SNOMED: 32305565 (2) Altered mental state ICD Codes: R41.82 - Altered mental status, unspecified SNOMED: 686575969 Qualifiers: Qualified Codes: R41.82 - Altered mental status, unspecified (3) Stroke ICD Codes: I63.9 - Cerebral infarction, unspecified SNOMED: 530139523 (4) UTI (urinary tract infection) ICD Codes: N39.0 - Urinary tract infection, site not specified SNOMED: 85409778 (5) Acute encephalopathy ICD Codes: G93.40 - Encephalopathy, unspecified SNOMED: 76044841, 782845227 (6) Cognitive impairment ICD Codes: R41.89 - Other symptoms and signs involving cognitive functions and awareness SNOMED: 717002854 (7) Dehydration ICD Codes: E86.0 - Dehydration SNOMED: 90570449 Assessment/Plan: #acute kidney injury- likely pre-renal in setting of sepsis and dehydration. R/ O ATN #hypernatremia- with 1.8L water deficit #dehydration - UA - urine chemistries - renal US - 1L D5W now - IVF- D5 1/2 NS at 75cc/hr - monitor sodium and cr closely - target MAP > 65 - monitor UOP - avoid nephrotoxins - strict I&Os - tubefeeds per GI - replete electrolytes prn Martinez Edward M.D. September 08, 2018 16:31
--- NOTE | 2018-09-08 17:30 | Procedure Note ---
DATE OF PROCEDURE: 09/08/2018 SURGEON: Luis Alberto Olivarez M.D. PROCEDURE: Upper endoscopy with PEG placement. ANESTHESIA: Per Yariel JAVED. INSTRUMENT: Olympus adult flexible upper endoscope. INDICATION: Dysphagia. REASON FOR PROCEDURE: The procedure, risks, benefits, and possible consequences, including hemorrhage, aspiration, perforation and infection, and alternative treatments, were explained to the patient/legal guardian by Dr. Luis Alberto Olivarez and the patient/legal guardian understood and accepted these risks DESCRIPTION OF PROCEDURE: After informed consent was obtained and the patient was adequately sedated, Olympus upper endoscope was advanced from the mouth to the second portion of duodenum and retroflexion was performed in the stomach. Then, under endoscopic guidance under sterile condition, a 20-Amharic pull type of G-tube was successfully placed in the epigastric area. The distance from the tip of the tube to skin was about 2.5 cm in size. The patient tolerated the procedure very well without any complications. SUMMARY OF FINDINGS: Status post successful PEG placement. RECOMMENDATIONS: 1. Abdominal binder. 2. Elevate the head of the bed at all times. 3. G-tube flush. 4. G-tube care. 5. Start tube feeding later today. I want to thank, Dr. Mancini, for this kind referral. Luis Alberto Olivarez M.D. DR: TOMER JOB#: [id number] CC: Andry Mancini M.D.; Fax#: [phone]
--- NOTE | 2018-09-08 18:11 | Neurology Progress Note ---
Interim History Interim History ROS Limited/Unobtainable: Yes Complaints: AMS Events: Unchanged exam Interim History PEG in- feeds running / Mildly febrile Review of Systems All Systems: reviewed and negative except above Objective Physical Exam Last Vital Signs Date Time Temp Pulse Resp B/P (MAP) Pulse Ox O2 Delivery O2 Flow Rate FiO2 09/08/18 16:00 95 09/08/18 16:00 97.9 18 113/65 (81) 100 09/08/18 11:50 Nasal Cannula 2.0 Laboratory Tests Test 09/08/18 04:29 White Blood Count 12.5 K/UL (4.8-10.8) H Red Blood Count 2.86 M/UL (4.70-6.10) L Hemoglobin 8.9 G/DL (14.2-18.0) L Hematocrit 26.4 % (42.0-52.0) L Mean Corpuscular Volume 92 FL (80-99) Mean Corpuscular Hemoglobin 31.2 PG (27.0-31.0) H Mean Corpuscular Hemoglobin Concent 33.8 G/DL (32.0-36.0) Red Cell Distribution Width 12.8 % (11.6-14.8) Platelet Count 248 K/UL (150-450) Mean Platelet Volume 5.5 FL (6.5-10.1) L Neutrophils (%) (Auto) 78.1 % (45.0-75.0) H Lymphocytes (%) (Auto) 10.9 % (20.0-45.0) L Monocytes (%) (Auto) 6.3 % (1.0-10.0) Eosinophils (%) (Auto) 4.2 % (0.0-3.0) H Basophils (%) (Auto) 0.5 % (0.0-2.0) Prothrombin Time 10.2 SEC (9.30-11.50) Prothromb Time International Ratio 1.0 (0.9-1.1) Activated Partial Thromboplast Time 23 SEC (23-33) Sodium Level 153 MMOL/L (136-145) H Potassium Level 3.7 MMOL/L (3.5-5.1) Chloride Level 116 MMOL/L (98-107) H Carbon Dioxide Level 30 MMOL/L (21-32) Anion Gap 7 mmol/L (5-15) Blood Urea Nitrogen 41 mg/dL (7-18) H Creatinine 3.0 MG/DL (0.55-1.30) H Estimat Glomerular Filtration Rate 21.5 mL/min (>60) Glucose Level 126 MG/DL (74-106) H Calcium Level 8.7 MG/DL (8.5-10.1) Phosphorus Level 4.3 MG/DL (2.5-4.9) Magnesium Level 2.8 MG/DL (1.8-2.4) H Head: normocophalic Neck: no rigidity EENT: benign Neurologic Exam Mental Status: awake, other - Patient remains agitated upon waking. His primary language is Cantonese but as per his daughter he is not speaking any intelligible words at this time. Language: other - Only making sounds- no words - aphasia remains persistent- both receptive/ expressive Cranial Nerve II: fundus normal, no papilledema Cranial Nerves III, IV, : PERRLA, EOMI Cranial Nerve VII: no facial asymmetry Cranial Nerve XI: SCM symmetric Cranial Nerve XII: tongue midline Motor System: other - No apparent focal weakness on exam but unable to formally test as patient is not following commands. Objective Patient continues to remain non focal on exam. He is agitated when awoken, LUNA x 4 but not following commands. His primary language is Cantonese and as per his / brother's report - He is not saying any intelligible words- denies paraphrasic errors - patient is just making sounds. He intermittently tracks with his eyes. No observed / mag seizure activity noted. Impression/Recommendations Problems: (1) Altered mental state (2) Cognitive impairment (3) Acute encephalopathy Assessment & Plan: Unclear cause at this time. Febrile with leukocytosis today. EEG was abnormal but without mag epileptiform activity. LP RECOMMENDED - Meningitis ddx Consider starting ppx Acyclovir 500mg Q8 as HSV Encephalitis ppx Continue Q 4 hour Neuro obs Na 135-145 IV Hydration Consider NG tube feeding Trial Seroquel 25mg QD for agitation Empiric Abx and then as per ID Maintain normothermia at all times with Tylenol or cooling blanket. Try to maintain sleep hygiene for patient with dark quiet room at night. SBP<140 Status: not improved, unchanged Recommendations LP unremarkable HSV negative Iv Abs as per PMD Continue Q4 hour neuro obs Continue Enteral feeding Maintain normoglycemia with ISS REPEAT EEG Continue to interact with patient, frequently reorienting him Attempt OOB in chair. PT/OT evals Maintain normothermia Jennifer Gama N.P. September 08, 2018 18:11
--- NOTE | 2018-09-08 19:15 | NUR ---
NURSE NOTES: Dr. Edward came in and order 1 L of D5W but did not give the rate and to follow it up with D5 1/2 Ns @ 75ml/hr. Doctor said he will put order in but I was unable to see orders. However, there is an already existing order for the same fluid with the rate of 50ml/hr. Fluids were given at that rate based on the old order. Tried to confirmed both verbal orders but I was unable to confirm order when I called [phone] and ask to speak or have Dr. Edward paged they said he is no longer with the medical group. I decided to leave a message for doc. Mancini instead to try to clear orders. 7;24 DR. Trejo covering for Dr. Rosa called back and she said she will give message to Dr. Edward who is the Manager Employee Relations she said.
--- NOTE | 2018-09-08 19:40 | NUR ---
NURSE NOTES: Received pt from DEANNE Ibrahim. Pt awake, confused, and squirmish. Bed in lowest position. Call light within reach. Will continue to monitor.
--- NOTE | 2018-09-08 19:45 | NUR ---
NURSE NOTES: Dr. Matute called back to confirm orders 1L d5w bolus once it finishes, proceed to give d5 1/2ns @ 75ml/hr
--- NOTE | 2018-09-08 20:35 | NUR ---
HAND-OFF: Report given to Alize ALICEA.
[2018-09-08] MEDS: Atorvastatin 80mg tab NG SCH (22:03)
--- NOTE | 2018-09-08 23:32 | Psych Consult Progress Note ---
Psychiatry Progress Note Psychiatry Progress Note Medications Current Medications Medications (Trade) Dose Ordered Sig/Jaxon Route PRN Reason Start Time Stop Time Status Last Admin Dose Admin Acetaminophen (Tylenol) 650 mg Q4H PRN NG Mild Pain/Temp > 100.5 09/06/18 20:00 10/06/18 19:59 09/07/18 05:52 Aspirin (ASA) 81 mg DAILY NG 09/07/18 09:00 10/07/18 08:59 09/08/18 09:33 Atorvastatin Calcium (Lipitor) 80 mg BEDTIME NG 09/06/18 21:00 09/30/18 20:59 09/08/18 22:03 Clopidogrel Bisulfate (Plavix) 75 mg DAILY NG 09/07/18 09:00 10/01/18 09:59 09/08/18 09:33 Dextrose/Sodium Chloride 1,000 ml @ 75 mls/hr [id number] IV 09/08/18 19:46 10/08/18 19:45 Haloperidol Lactate (Haldol) 5 mg Q6H PRN IM Agitation 09/01/18 11:15 10/01/18 11:14 09/05/18 13:12 Mirtazapine (Remeron) 7.5 mg BEDTIME NG 09/06/18 21:00 10/03/18 20:59 09/08/18 22:03 Oxybutynin Chloride (Ditropan) 5 mg Q8HR NG 09/06/18 22:00 10/05/18 13:59 09/08/18 22:03 Polyethylene Glycol (Miralax) 17 gm HSPRN PRN NG Constipation 09/06/18 19:45 10/06/18 19:44 Quetiapine Fumarate (SEROquel) 25 mg TID NG 09/07/18 09:00 10/01/18 09:59 09/08/18 18:41 Quetiapine Fumarate (SEROquel) 50 mg QIDPRN PRN NG agitation 09/06/18 19:45 09/30/18 11:59 Valproate Sodium 250 mg/Dextrose 57.5 ml @ 57.5 mls/hr Q8HR IVPB 09/02/18 22:00 10/02/18 21:59 09/08/18 22:04 Neurological/Psychiatric: Reports: anxiety, depressed, emotional problems Allergies: Coded Allergies: No Known Allergies (Unverified , 08/30/18) Objective Data Height (Feet): 6 Height (Inches): 0.00 Weight (Pounds): 103 General Appearance: alert, confused, agitated Behavior Mannerisms: poor eye contact Mental Status Exam - Affect: blunted Mental Status Exam - Mood: anxious, agitated Speech: dysarthric Mental Status Exam - Thought P: tangential, confusion, disorganized Mental Status Exam - Thought C: delusions (specify) Mental Status Exam - Suicidal: not present Assessment/Plan Problem List: (1) Acute encephalopathy ICD Codes: G93.40 - Encephalopathy, unspecified SNOMED: 10241311, 345842183 (2) Cognitive impairment ICD Codes: R41.89 - Other symptoms and signs involving cognitive functions and awareness SNOMED: 441262984 Status: not improved, unchanged Assessment/Plan: cont restraints depakote seroquel standing seroquel prn Damian Kim MD September 08, 2018 23:32
[2018-09-08] MEDS: D5 1/2NS 1,000 ML IV SCH (23:52)
[2018-09-09] VITALS: BP 118/75
[2018-09-09] MEDS: Haloperidol 5mg/ml Inj IM PRN (02:01)
[2018-09-09 04:00] VITALS: BP 139/70
[2018-09-09] MEDS: Valproate Sodium INJ 250 MG in D5W 55 ML IVPB SCH ×3 (05:39→20:56)
[2018-09-09] MEDS: Oxybutynin 5mg tab NG SCH ×3 (05:40→20:56)
[2018-09-09 07:13] LABS: APPEARANCE,URINE CLEAR; BILIRUBIN, URINE NEGATIVE (NEGATIVE); COLOR,URINE PALE YELLOW; GLUCOSE, URINE (UA) NEGATIVE (NEGATIVE); KETONES,URINE NEGATIVE (NEGATIVE); LEUKOCYTE ESTERASE ,URINE 1+ (NEGATIVE); NITRITE,URINE NEGATIVE (NEGATIVE); PH,URINE 7 (4.5-8.0); PROTEIN,URINE 1+ (NEGATIVE); UROBILINOGEN,URINE NORMAL MG/DL (0.0-1.0)
--- NOTE | 2018-09-09 07:40 | NUR ---
NURSE NOTES: Received bedside report from Alize ALICEA. Pt. in bed, awake, confused and agitated. No sign of distress. No grimacing noted. IV at right upper arm #20g. in placed patent/intact running D5 1/2 NS at 75cc/hr. GT in placed patent/intact running Osmolite 1.2 cont. at 58cc/hr. HOB elevated at all times. On soft bilateral wrist restrains due to safety. Bed in low position, locked. Call light within reach. Will cont. to monitor.
[2018-09-09 07:44] LABS: BASOPHILS % (AUTO) 0.5 % (0.0-2.0); EOSINOPHILS % (AUTO) 3.2 % (0.0-3.0); HEMATOCRIT 25.4 % (42.0-52.0); HEMOGLOBIN 8.5 G/DL (14.2-18.0); LYMPHOCYTES % (AUTO) 8.5 % (20.0-45.0); MEAN CORPUSCULAR VOLUME 93 FL (80-99); MONOCYTES % (AUTO) 4.7 % (1.0-10.0); NEUTROPHILS % (AUTO) 83.1 % (45.0-75.0); PLATELET COUNT 220 K/UL (150-450); RED BLOOD COUNT 2.73 M/UL (4.70-6.10); RED CELL DISTRIBUTION WIDTH 12.3 % (11.6-14.8)
[2018-09-09 08:00] VITALS: BP 140/98
[2018-09-09] MEDS: Aspirin Baby 81mg NG SCH (08:01)
[2018-09-09] MEDS: D5 1/2NS 1,000 ML IV SCH ×2 (08:02→20:57)
[2018-09-09 08:12] LABS: ANION GAP 9 mmol/L (5-15); BLOOD UREA NITROGEN 31 mg/dL (7-18); CALCIUM 8.5 MG/DL (8.5-10.1); CARBON DIOXIDE 28 MMOL/L (21-32); CHLORIDE 117 MMOL/L (98-107); CREATININE 2.1 MG/DL (0.55-1.30); POTASSIUM 3.2 MMOL/L (3.5-5.1); SODIUM 154 MMOL/L (136-145)
--- NOTE | 2018-09-09 09:09 | General Progress Note ---
Assessment/Plan Problem List: (1) Encounter for PEG (percutaneous endoscopic gastrostomy) ICD Codes: Z43.1 - Encounter for attention to gastrostomy SNOMED: 424643651, 295222843 (2) Severe malnutrition ICD Codes: E43 - Unspecified severe protein-calorie malnutrition SNOMED: 25703711 (3) Altered mental state ICD Codes: R41.82 - Altered mental status, unspecified SNOMED: 222351508 Qualifiers: Qualified Codes: R41.82 - Altered mental status, unspecified (4) UTI (urinary tract infection) ICD Codes: N39.0 - Urinary tract infection, site not specified SNOMED: 60410315 (5) Stroke ICD Codes: I63.9 - Cerebral infarction, unspecified SNOMED: 913052862 Status: not improved, unchanged Assessment/Plan: s/p GT placement GTF monitor for residuals GT flush Subjective ROS Limited/Unobtainable: No Allergies: Coded Allergies: No Known Allergies (Unverified , 08/30/18) Objective Last 24 Hour Vital Signs Date Time Temp Pulse Resp B/P (MAP) Pulse Ox O2 Delivery O2 Flow Rate FiO2 09/09/18 08:00 98.8 79 20 140/98 (112) 100 09/09/18 04:00 56 09/09/18 04:00 98.2 56 20 139/70 (93) 98 09/09/18 00:00 99.0 65 20 118/75 (89) 98 09/09/18 00:00 82 09/08/18 21:00 Nasal Cannula 2.0 09/08/18 20:12 99 Nasal Cannula 2.0 28 09/08/18 20:12 Nasal Cannula 2.0 28 09/08/18 20:00 100.9 85 20 132/81 (98) 98 09/08/18 16:00 95 09/08/18 16:00 97.9 67 18 113/65 (81) 100 09/08/18 13:45 60 20 100 09/08/18 13:44 62 20 100 09/08/18 12:42 58 09/08/18 12:00 98.1 72 18 127/71 (89) 94 09/08/18 11:50 97.9 60 20 101/61 100 Nasal Cannula 2.0 09/08/18 11:40 61 19 100/62 100 Nasal Cannula 2.0 09/08/18 11:30 60 18 95/60 100 Nasal Cannula 2.0 09/08/18 11:25 61 19 94/62 100 Nasal Cannula 2.0 09/08/18 11:20 97.9 62 20 96/60 100 Nasal Cannula 2.0 Intake and Output 09/08/18 09/09/18 18:59 06:59 Intake Total 450 ml Balance 450 ml IV Total 450 ml # Voids 5 Laboratory Tests 09/09/18 06:30: White Blood Count 11.0H, Red Blood Count 2.73L, Hemoglobin 8.5L, Hematocrit 25.4L, Mean Corpuscular Volume 93, Mean Corpuscular Hemoglobin 31.0, Mean Corpuscular Hemoglobin Concent 33.3, Red Cell Distribution Width 12.3, Platelet Count 220, Mean Platelet Volume 6.0L, Neutrophils (%) (Auto) 83.1H, Lymphocytes (%) (Auto) 8.5L, Monocytes (%) (Auto) 4.7, Eosinophils (%) (Auto) 3.2H, Basophils (%) (Auto) 0.5, Sodium Level 154H, Potassium Level 3.2L, Chloride Level 117H, Carbon Dioxide Level 28, Anion Gap 9, Blood Urea Nitrogen 31H, Creatinine 2.1H, Estimat Glomerular Filtration Rate 32.4, Glucose Level 166H, Calcium Level 8.5 09/09/18 06:40: Urine Color Pale yellow, Urine Appearance Clear, Urine pH 7, Urine Specific [place] 1.005, Urine Protein 1+H, Urine Glucose (UA) Negative, Urine Ketones Negative, Urine Blood 5+H, Urine Nitrite Negative, Urine Bilirubin Negative, Urine Urobilinogen Normal, Urine Leukocyte Esterase 1+H, Urine RBC 10-15H, Urine WBC 0-2, Urine Squamous Epithelial Cells Occasional, Urine Bacteria Occasional, Urine Random Sodium 62, Urine Potassium Timed 16 Height (Feet): 6 Height (Inches): 0.00 Weight (Pounds): 103 General Appearance: lethargic EENT: normal ENT inspection Neck: supple Cardiovascular: normal rate Respiratory/Chest: decreased breath sounds Abdomen: normal bowel sounds, non tender, soft Extremities: non-tender Luis Alberto Olivarez MD September 09, 2018 09:09
[2018-09-09 12:00] VITALS: BP 107/62
--- NOTE | 2018-09-09 13:56 | General Progress Note ---
Assessment/Plan Status: not improved, unchanged Assessment/Plan: #Acute metabolic encephalopathy, improving #History of recent CVA, CT done in ED shows subacute to chronic right thalamic stroke #Dysphagia, s/p PEG -supportive care -Fall,Aspiration,Seizure precautions -IM Haldol prn for agitation -Neurochecks -continue Lipitor -Stop acyclovir -LP done, CSF HSV PCR negative -Urine culture no growth, ceftriaxone stopped -Neurology and Psychiatry following -[employer]PER[employer] following S/p PEG by GI POD#1, can start tube feeds and water flushes when ok with GI #Acute blood loss anemia #Hematuria due to Francisco catheter induced urethral trauma, improved -H&H stable -resume -Francisco out -transfuse PRBC if Hb < 8 #ZENON #Hypernatremia due to lack of water intake #Hypokalemia -continue free water -replace electrolytes prn -monitor BMP daily -avoid nephrotoxic agents -Nephrology following, Dr. Edward Full Code VTE PPx SCD Subjective Date patient seen: September 09, 2018 Time patient seen: 13:54 ROS Limited/Unobtainable: Yes Allergies: Coded Allergies: No Known Allergies (Unverified , 08/30/18) Subjective Pt still very lethargic, at bedside, family friend on cell phone interpreting. No acute overnight events, no new complaints. Objective Last 24 Hour Vital Signs Date Time Temp Pulse Resp B/P (MAP) Pulse Ox O2 Delivery O2 Flow Rate FiO2 09/09/18 12:01 59 09/09/18 09:00 Nasal Cannula 2.0 09/09/18 08:00 98.8 79 20 140/98 (112) 100 09/09/18 07:58 86 09/09/18 04:00 56 09/09/18 04:00 98.2 56 20 139/70 (93) 98 09/09/18 00:00 99.0 65 20 118/75 (89) 98 09/09/18 00:00 82 09/08/18 21:00 Nasal Cannula 2.0 09/08/18 20:12 99 Nasal Cannula 2.0 28 09/08/18 20:12 Nasal Cannula 2.0 28 09/08/18 20:00 100.9 85 20 132/81 (98) 98 09/08/18 16:00 95 09/08/18 16:00 97.9 67 18 113/65 (81) 100 Intake and Output 09/08/18 09/09/18 19:00 07:00 Intake Total 450 ml Balance 450 ml IV Total 450 ml # Voids 5 Laboratory Tests 09/09/18 06:30: White Blood Count 11.0H, Red Blood Count 2.73L, Hemoglobin 8.5L, Hematocrit 25.4L, Mean Corpuscular Volume 93, Mean Corpuscular Hemoglobin 31.0, Mean Corpuscular Hemoglobin Concent 33.3, Red Cell Distribution Width 12.3, Platelet Count 220, Mean Platelet Volume 6.0L, Neutrophils (%) (Auto) 83.1H, Lymphocytes (%) (Auto) 8.5L, Monocytes (%) (Auto) 4.7, Eosinophils (%) (Auto) 3.2H, Basophils (%) (Auto) 0.5, Sodium Level 154H, Potassium Level 3.2L, Chloride Level 117H, Carbon Dioxide Level 28, Anion Gap 9, Blood Urea Nitrogen 31H, Creatinine 2.1H, Estimat Glomerular Filtration Rate 32.4, Glucose Level 166H, Calcium Level 8.5 09/09/18 06:40: Urine Color Pale yellow, Urine Appearance Clear, Urine pH 7, Urine Specific [place] 1.005, Urine Protein 1+H, Urine Glucose (UA) Negative, Urine Ketones Negative, Urine Blood 5+H, Urine Nitrite Negative, Urine Bilirubin Negative, Urine Urobilinogen Normal, Urine Leukocyte Esterase 1+H, Urine RBC 10-15H, Urine WBC 0-2, Urine Squamous Epithelial Cells Occasional, Urine Bacteria Occasional, Urine Random Sodium 62, Urine Potassium Timed 16 Height (Feet): 6 Height (Inches): 0.00 Weight (Pounds): 103 Objective General: lethargic, ill appearing, older than stated age Head: normocephalic, without obvious abnormality, atraumatic Eyes: unable to assess Throat: lips, mucosa, and tongue normal. MMM Neck: supple, symmetrical, trachea midline, and no JVD Lungs: clear to auscultation bilaterally Heart: regular rate and rhythm, S1, S2 normal, no murmur, click, rub or gallop Abdomen: soft, non-tender, non-distended, bowel sounds normal; no masses or organomegaly Extremities: extremities normal, atraumatic, no cyanosis or edema Pulses: 2+ and symmetric Skin: skin color, texture, turgor normal; no rashes or lesions Andry Mancini MD September 09, 2018 13:56
[2018-09-09 16:00] VITALS: BP 133/74
[2018-09-09] MEDS ORDERED: D5 1/2NS 1000ml IV ONE (16:20)
--- NOTE | 2018-09-09 19:33 | NUR ---
HAND-OFF: Report given to Alize ALICEA. Pt. remain stable.
[2018-09-09 20:00] VITALS: BP 147/73
[2018-09-09] MEDS: Atorvastatin 80mg tab NG SCH (20:56)
--- NOTE | 2018-09-09 21:30 | NUR ---
NURSE NOTES: Received pt from DEANNE Castaneda. Pt awake and agitated. and brother at bedside. Bed in lowest position. Call light within reach. G-tube intact but feeding turned off. IV site intact and running fluids. Will administer seroquel and will continue to monitor.
--- NOTE | 2018-09-09 23:37 | Psych Consult Progress Note ---
Psychiatry Progress Note Psychiatry Progress Note Medications Current Medications Medications (Trade) Dose Ordered Sig/Jaxon Route PRN Reason Start Time Stop Time Status Last Admin Dose Admin Acetaminophen (Tylenol) 650 mg Q4H PRN NG Mild Pain/Temp > 100.5 09/06/18 20:00 10/06/18 19:59 09/07/18 05:52 Aspirin (ASA) 81 mg DAILY NG 09/07/18 09:00 10/07/18 08:59 09/09/18 08:01 Atorvastatin Calcium (Lipitor) 80 mg BEDTIME NG 09/06/18 21:00 09/30/18 20:59 09/09/18 20:56 Clopidogrel Bisulfate (Plavix) 75 mg DAILY NG 09/07/18 09:00 10/01/18 09:59 09/09/18 08:01 Dextrose/Sodium Chloride 1,000 ml @ 75 mls/hr [id number] IV 09/08/18 19:46 10/08/18 19:45 09/09/18 08:02 Mirtazapine (Remeron) 7.5 mg BEDTIME NG 09/06/18 21:00 10/03/18 20:59 09/09/18 20:56 Oxybutynin Chloride (Ditropan) 5 mg Q8HR NG 09/06/18 22:00 10/05/18 13:59 09/09/18 20:56 Polyethylene Glycol (Miralax) 17 gm HSPRN PRN NG Constipation 09/06/18 19:45 10/06/18 19:44 Quetiapine Fumarate (SEROquel) 25 mg TID NG 09/07/18 09:00 10/01/18 09:59 09/09/18 18:13 Quetiapine Fumarate (SEROquel) 50 mg QIDPRN PRN NG agitation 09/06/18 19:45 09/30/18 11:59 Valproate Sodium 250 mg/Dextrose 57.5 ml @ 57.5 mls/hr Q8HR IVPB 09/02/18 22:00 10/02/18 21:59 09/09/18 20:56 Neurological/Psychiatric: Reports: anxiety, depressed, emotional problems Allergies: Coded Allergies: No Known Allergies (Unverified , 08/30/18) Objective Data Height (Feet): 6 Height (Inches): 0.00 Weight (Pounds): 103 General Appearance: no apparent distress, alert, confused, agitated Appearance: no abnormalities noted Behavior Mannerisms: poor eye contact Mental Status Exam - Affect: constricted Mental Status Exam - Mood: anxious, agitated Mental Status Exam - Thought P: disorganized Mental Status Exam - Suicidal: not present Assessment/Plan Problem List: (1) Acute encephalopathy ICD Codes: G93.40 - Encephalopathy, unspecified SNOMED: 73621255, 637488977 (2) Cognitive impairment ICD Codes: R41.89 - Other symptoms and signs involving cognitive functions and awareness SNOMED: 353936896 Status: not improved, unchanged Assessment/Plan: cont restraints depakote seroquel standing seroquel Damian Mauricio MD September 09, 2018 23:37
[2018-09-10] VITALS: BP 120/63
[2018-09-10 04:00] VITALS: BP 123/61
[2018-09-10] MEDS: Oxybutynin 5mg tab NG SCH ×3 (05:07→21:25)
[2018-09-10] MEDS: Valproate Sodium INJ 250 MG in D5W 55 ML IVPB SCH ×3 (06:01→21:25)
--- NOTE | 2018-09-10 07:49 | NUR ---
HAND-OFF: Report given to DEANNE Younger. Pt stable.
--- NOTE | 2018-09-10 07:49 | NUR ---
NURSE NOTES: Received pt from DEANNE Velasco in stable condition with no cardiopulmonary distress noted. Pt is asleep in bed on 2L O2 via NC. GT noted beneath abdominal binder running Osmolite 1.2 at 58cc/hr. Condom cath noted draining yellow urine. Pt has a 20g ZOILA IV saline locked and L AC 22g IV. Skin alterations noted. Pt has bilat soft wrist restraints. Bilat radial pulses present and skin intact. No bm noted in anamaria pad. Bed is in lowest position with side rails up x 2 and padded per seizure precaution. Bed alarm on. Call light within reach. Will continue to monitor pt.
[2018-09-10 08:00] VITALS: BP 119/57
[2018-09-10] MEDS: Aspirin Baby 81mg NG SCH (08:10)
--- NOTE | 2018-09-10 09:35 | General Progress Note ---
Assessment/Plan Problem List: (1) Encounter for PEG (percutaneous endoscopic gastrostomy) ICD Codes: Z43.1 - Encounter for attention to gastrostomy SNOMED: 593841075, 215365981 (2) Severe malnutrition ICD Codes: E43 - Unspecified severe protein-calorie malnutrition SNOMED: 41270987 (3) Altered mental state ICD Codes: R41.82 - Altered mental status, unspecified SNOMED: 983974817 Qualifiers: Qualified Codes: R41.82 - Altered mental status, unspecified (4) UTI (urinary tract infection) ICD Codes: N39.0 - Urinary tract infection, site not specified SNOMED: 18173235 (5) Stroke ICD Codes: I63.9 - Cerebral infarction, unspecified SNOMED: 635518205 Status: not improved, unchanged Assessment/Plan: s/p GT placement GTF monitor for residuals GT flush bowel regimen Subjective ROS Limited/Unobtainable: No Allergies: Coded Allergies: No Known Allergies (Unverified , 08/30/18) Objective Last 24 Hour Vital Signs Date Time Temp Pulse Resp B/P (MAP) Pulse Ox O2 Delivery O2 Flow Rate FiO2 09/10/18 04:00 98.8 70 19 123/61 (81) 95 09/10/18 04:00 68 09/10/18 00:00 98.1 81 17 120/63 (82) 96 09/10/18 00:00 76 09/09/18 21:00 Nasal Cannula 2.0 09/09/18 20:00 98.5 102 19 147/73 (97) 95 09/09/18 20:00 78 09/09/18 20:00 Nasal Cannula 2.0 28 09/09/18 20:00 95 Nasal Cannula 2.0 28 09/09/18 16:00 99.5 84 20 133/74 (93) 97 09/09/18 15:35 68 09/09/18 12:01 59 09/09/18 12:00 99.1 62 20 107/62 (77) 99 Intake and Output 09/09/18 09/10/18 19:00 07:00 Output Total 900 ml 700 ml Balance -900 ml -700 ml Output Urine Total 900 ml 700 ml # Voids 2 Height (Feet): 6 Height (Inches): 0.00 Weight (Pounds): 103 General Appearance: lethargic EENT: normal ENT inspection Neck: supple Cardiovascular: normal rate Respiratory/Chest: decreased breath sounds Abdomen: normal bowel sounds, non tender, soft Extremities: non-tender Luis Alberto Olivarez MD September 10, 2018 09:35
--- NOTE | 2018-09-10 10:03 | NUR ---
NURSE NOTES: Left message for Dr Mancini with [facility] about pt's potassium and Hgb level yesterday in addition to no lab orders for today. Awaiting call back.
--- NOTE | 2018-09-10 11:15 | NUR ---
NURSE NOTES: Received call back form Dr Mancini. Instructed to put in order for BMP only at this time. Will carry out order and follow up with Dr. Mancini.
[2018-09-10 12:00] VITALS: BP 111/50
[2018-09-10 12:20] LABS: ANION GAP 6 mmol/L (5-15); BLOOD UREA NITROGEN 33 mg/dL (7-18); CALCIUM 8.1 MG/DL (8.5-10.1); CARBON DIOXIDE 30 MMOL/L (21-32); CHLORIDE 121 MMOL/L (98-107); CREATININE 1.8 MG/DL (0.55-1.30); POTASSIUM 3.3 MMOL/L (3.5-5.1); SODIUM 157 MMOL/L (136-145)
[2018-09-10] MEDS: D5 1/2NS 1,000 ML IV SCH (12:39)
[2018-09-10] MEDS: Lactulose 10gm/15ml UDC ORAL SCH ×2 (12:39→18:14)
--- NOTE | 2018-09-10 12:49 | NUR ---
NURSE NOTES: Left a message with [facility] for Dr. Mancini regardings today's BMP lab results (Na, K, and Glucose levels) as well as request to review running IV fluids (D5 1/2 NS) and need for order to cover low K level. Awaiting call back.
--- NOTE | 2018-09-10 14:38 | General Progress Note ---
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 Edward Full Code VTE PPx SCD Subjective Date patient seen: September 10, 2018 Time patient seen: 14:34 ROS Limited/Unobtainable: No Allergies: Coded Allergies: No Known Allergies (Unverified , 08/30/18) Subjective Pt still very lethargic, at bedside,worried about area of swelling in R neck. No acute overnight events, no new complaints. Rn concerned about tube feeds, electrolyte abnormalities Objective Last 24 Hour Vital Signs Date Time Temp Pulse Resp B/P (MAP) Pulse Ox O2 Delivery O2 Flow Rate FiO2 09/10/18 12:40 96 Nasal Cannula 2.0 28 09/10/18 12:40 Nasal Cannula 2.0 28 09/10/18 09:00 Nasal Cannula 2.0 09/10/18 08:00 98.1 59 18 119/57 (77) 100 09/10/18 04:00 98.8 70 19 123/61 (81) 95 09/10/18 04:00 68 09/10/18 00:00 98.1 81 17 120/63 (82) 96 09/10/18 00:00 76 09/09/18 21:00 Nasal Cannula 2.0 09/09/18 20:00 98.5 102 19 147/73 (97) 95 09/09/18 20:00 78 09/09/18 20:00 Nasal Cannula 2.0 28 09/09/18 20:00 95 Nasal Cannula 2.0 28 09/09/18 16:00 99.5 84 20 133/74 (93) 97 09/09/18 15:35 68 Intake and Output 09/09/18 09/10/18 19:00 07:00 Output Total 900 ml 700 ml Balance -900 ml -700 ml Output Urine Total 900 ml 700 ml # Voids 2 Laboratory Tests 09/10/18 11:45: Sodium Level 157H, Potassium Level 3.3L, Chloride Level 121H, Carbon Dioxide Level 30, Anion Gap 6, Blood Urea Nitrogen 33H, Creatinine 1.8H, Estimat Glomerular Filtration Rate 38.7, Glucose Level 190H, Calcium Level 8.1L Height (Feet): 6 Height (Inches): 0.00 Weight (Pounds): 103 Objective General: lethargic, ill appearing, older than stated age Head: normocephalic, without obvious abnormality, atraumatic Eyes: unable to assess Throat: lips, mucosa, and tongue normal. MMM Neck: supple, symmetrical, trachea midline, and no JVD Lungs: clear to auscultation bilaterally Heart: regular rate and rhythm, S1, S2 normal, no murmur, click, rub or gallop Abdomen: soft, non-tender, non-distended, bowel sounds normal; no masses or organomegaly Extremities: extremities normal, atraumatic, no cyanosis or edema Pulses: 2+ and symmetric Skin: skin color, texture, turgor normal; no rashes or lesions Andry Mancini MD September 10, 2018 14:38
--- NOTE | 2018-09-10 15:39 | General Progress Note ---
Assessment/Plan Status: not improved, unchanged Assessment/Plan: Assessment/Plan: # Failure to thrive - decreased bmi and low protein, does have evidence of prior infarct, poor PS --> will also obtain q3d caloric counts --> cea is elevated and workup as per below, consider gi eval --> mirtazapine as appetite stimulant has been ordered --> Gi consult on a prn basis, as needed for endoscopy # Hyperproteinemia with decreased albumin -- this is a dissociation that is abnormal --> upep and spep are negative for a m-spike, it does not exist --> if above results in a m-spike or abnormally enhanced protein, will need to send off immunofixation serum/urine --> in the case of a m-spike or abnormally enhanced protein, will obtain a bone marrow biopsy # Elevated tumor markers as cea is elevated --> may consider gi evaluation in this setting --> ca 19.9 is 1, ca 15.3 is 12.3 --> at some point may need CT c/a/p okay as outpatient # Acute metabolic encephalopathy, possibly from UTI, dehydration or recurrent CVA --> neuro and psych prn eval --> MRI brain reviewed, lp 09/05 --> abx prn # History of recent CVA, CT done in ED shows subacute to chronic right thalamic stroke --> supportive care --> per neuro --> is on abx for what appears to be uti # Dysphagia is now ngt+ --> continue ngt ++ per gi --> peg for 09/08 # ZENON with cr from normal to 3 --> renal was consulted The timing of this note does not necessarily reflect the time of the patient was seen. Greatly appreciate consultation! Subjective Constitutional: Denies: no symptoms, chills, diaphoresis, fever, malaise, weakness, other HEENT: Denies: no symptoms, eye pain, blurred vision, tearing, double vision, ear pain, ear discharge, nose pain, nose congestion, throat pain, throat swelling, mouth pain, mouth swelling, other Cardiovascular: Denies: no symptoms, chest pain, edema, irregular heart rate, lightheadedness, palpitations, syncope, other Respiratory: Denies: no symptoms, cough, orthopnea, shortness of breath, SOB with excertion, SOB at rest, sputum, stridor, wheezing, other Genitourinary: Denies: no symptoms, burning, discharge, frequency, flank pain, hematuria, incontinence, pain, urgency, other Neurologic/Psychiatric: Denies: no symptoms, anxiety, depressed, emotional problems, headache, numbness, paresthesia, pre-existing deficit, seizure, tingling, tremors, weakness, other Endocrine: Denies: no symptoms, excessive sweating, flushing, intolerance to cold, intolerance to heat, increased hunger, increased thirst, increased urine, unexplained weight gain, unexplained weight loss, other Allergies: Coded Allergies: No Known Allergies (Unverified , 08/30/18) Subjective 09/01: close followup with psych, remains agitated, some hematuria with burleson noted 09/03: with restraints, hgb remains low, no bleeding reported, in semi-fowlers position 09/04: has been refusing ng tube placement, concern remains for silent aspiration, seen by speech 09/05: urethreal bleeding noted after burleson was pulled, lp pending 09/06: no events to report, no f/c. mental status improved 09/07: no fevers or chills, anemia panel reviewed, cr is higher this am 09/08: no events, potentially to get peg placed, cr does remain elevated, renal consulted 09/10: s/p gtube placement, no events otherwise, cbc has been reviewed, hematuria is better Objective Last 24 Hour Vital Signs Date Time Temp Pulse Resp B/P (MAP) Pulse Ox O2 Delivery O2 Flow Rate FiO2 09/10/18 12:40 96 Nasal Cannula 2.0 28 09/10/18 12:40 Nasal Cannula 2.0 28 09/10/18 12:00 98.2 62 26 111/50 (70) 100 09/10/18 12:00 64 09/10/18 09:00 Nasal Cannula 2.0 09/10/18 08:00 57 09/10/18 08:00 98.1 59 18 119/57 (77) 100 09/10/18 04:00 98.8 70 19 123/61 (81) 95 09/10/18 04:00 68 09/10/18 00:00 98.1 81 17 120/63 (82) 96 09/10/18 00:00 76 09/09/18 21:00 Nasal Cannula 2.0 09/09/18 20:00 98.5 102 19 147/73 (97) 95 09/09/18 20:00 78 09/09/18 20:00 Nasal Cannula 2.0 28 09/09/18 20:00 95 Nasal Cannula 2.0 28 09/09/18 16:00 99.5 84 20 133/74 (93) 97 Intake and Output 09/09/18 09/10/18 19:00 07:00 Output Total 900 ml 700 ml Balance -900 ml -700 ml Output Urine Total 900 ml 700 ml # Voids 2 Laboratory Tests 09/10/18 11:45: Sodium Level 157H, Potassium Level 3.3L, Chloride Level 121H, Carbon Dioxide Level 30, Anion Gap 6, Blood Urea Nitrogen 33H, Creatinine 1.8H, Estimat Glomerular Filtration Rate 38.7, Glucose Level 190H, Calcium Level 8.1L Height (Feet): 6 Height (Inches): 0.00 Weight (Pounds): 103 Objective General Appearance: alert, combative HEENT: normocephalic ++ ngt Neck: supple, normal inspection Respiratory/Chest: lungs clear, normal breath sounds Cardiovascular/Chest: normal rate, regular rhythm, no JVD Abdomen: non tender, soft Extremities: normal inspection, no calf tenderness, + restraints Neurologic: other - Uncooperative : Nolan+ Aman Collier MD September 10, 2018 15:39
[2018-09-10 16:00] VITALS: BP 100/55
--- NOTE | 2018-09-10 16:30 | NUR ---
Pt became very agitated and continued to resist and pull on restraints. Noted shear and friction caused by the force exerted on elbows and sacrum as patient was fighting to get out of bed. optifoam was rolled off due to pt movements and currently re-applied over elbow and sacrum. Continuing to monitor pt.
[2018-09-10] MEDS: Docusate 100mg cap ORAL SCH (18:14)
--- NOTE | 2018-09-10 19:30 | NUR ---
HAND-OFF: Report given to Meli Dupree RN. Pt in stable condition. Skin issues endorsed and WCP will be taken tonight.
--- NOTE | 2018-09-10 19:31 | NUR ---
NURSE NOTES: Received patient from DEANNE Hoang. Will continue plan of care.
[2018-09-10 20:00] VITALS: BP 108/65
[2018-09-10] MEDS ORDERED: Tubing IV Secondary IV ONE (21:15)
[2018-09-10] MEDS ORDERED: D5 1/2NS 1000ml IV ONE (21:15)
[2018-09-10] MEDS ORDERED: Sterile Water Irrig 1000ml IRRIG ONE (21:15)
[2018-09-10] MEDS: Atorvastatin 80mg tab NG SCH (21:25)
[2018-09-10] MEDS: Miralax 17gm pkt ORAL SCH (21:25)
--- NOTE | 2018-09-10 22:28 | Psych Consult Progress Note ---
Psychiatry Progress Note Psychiatry Progress Note Medications Current Medications Medications (Trade) Dose Ordered Sig/Jaxon Route PRN Reason Start Time Stop Time Status Last Admin Dose Admin Acetaminophen (Tylenol) 650 mg Q4H PRN NG Mild Pain/Temp > 100.5 09/06/18 20:00 10/06/18 19:59 09/07/18 05:52 Aspirin (ASA) 81 mg DAILY NG 09/07/18 09:00 10/07/18 08:59 09/10/18 08:10 Atorvastatin Calcium (Lipitor) 80 mg BEDTIME NG 09/06/18 21:00 09/30/18 20:59 09/10/18 21:25 Clopidogrel Bisulfate (Plavix) 75 mg DAILY NG 09/07/18 09:00 10/01/18 09:59 09/10/18 08:10 Dextrose 1,000 ml @ 100 mls/hr Q10H IV 09/10/18 14:00 10/10/18 13:59 09/10/18 14:43 Docusate Sodium (Colace) 100 mg TWICE A DAY ORAL 09/10/18 18:00 10/10/18 17:59 09/10/18 18:14 Lactulose (Cephulac) 10 gm THREE TIMES A DAY ORAL 09/10/18 13:00 10/10/18 12:59 09/10/18 18:14 Mirtazapine (Remeron) 7.5 mg BEDTIME NG 09/06/18 21:00 10/03/18 20:59 09/10/18 21:25 Oxybutynin Chloride (Ditropan) 5 mg Q8HR NG 09/06/18 22:00 10/05/18 13:59 09/10/18 21:25 Polyethylene Glycol (Miralax) 17 gm BEDTIME ORAL 09/10/18 21:00 10/10/18 20:59 09/10/18 21:25 Polyethylene Glycol (Miralax) 17 gm HSPRN PRN NG Constipation 09/06/18 19:45 10/06/18 19:44 Quetiapine Fumarate (SEROquel) 25 mg TID NG 09/07/18 09:00 10/01/18 09:59 09/10/18 18:14 Quetiapine Fumarate (SEROquel) 50 mg QIDPRN PRN NG agitation 09/06/18 19:45 09/30/18 11:59 09/10/18 16:07 Valproate Sodium 250 mg/Dextrose 57.5 ml @ 57.5 mls/hr Q8HR IVPB 09/02/18 22:00 10/02/18 21:59 09/10/18 21:25 Neurological/Psychiatric: Reports: anxiety, depressed, emotional problems Allergies: Coded Allergies: No Known Allergies (Unverified , 08/30/18) Objective Data Height (Feet): 6 Height (Inches): 0.00 Weight (Pounds): 103 General Appearance: alert, confused, agitated Appearance: disheveled Behavior Mannerisms: poor eye contact Mental Status Exam - Affect: constricted Mental Status Exam - Mood: anxious, agitated Speech: dysarthric Mental Status Exam - Thought P: tangential Mental Status Exam - Suicidal: not present Assessment/Plan Problem List: (1) Acute encephalopathy ICD Codes: G93.40 - Encephalopathy, unspecified SNOMED: 33429186, 313697125 (2) Cognitive impairment ICD Codes: R41.89 - Other symptoms and signs involving cognitive functions and awareness SNOMED: 384871015 Status: not improved, unchanged Assessment/Plan: cont restraints depakote seroquel standing seroquel prn Damian Kim MD September 10, 2018 22:28
[2018-09-11] VITALS: BP 105/67
[2018-09-11 04:00] VITALS: BP 139/87
[2018-09-11] MEDS: Oxybutynin 5mg tab NG SCH ×3 (05:14→22:48)
[2018-09-11] MEDS: Valproate Sodium INJ 250 MG in D5W 55 ML IVPB SCH ×3 (05:14→22:48)
--- NOTE | 2018-09-11 07:15 | NUR ---
HAND-OFF: Report given to DEANNE Ibrahim.
[2018-09-11 07:57] LABS: HEMATOCRIT 22.9 % (42.0-52.0); HEMOGLOBIN 7.8 G/DL (14.2-18.0); MEAN CORPUSCULAR VOLUME 91 FL (80-99); PLATELET COUNT 226 K/UL (150-450); RED BLOOD COUNT 2.51 M/UL (4.70-6.10); RED CELL DISTRIBUTION WIDTH 12.7 % (11.6-14.8); WHITE BLOOD COUNT 10.2 K/UL (4.8-10.8)
[2018-09-11 08:00] VITALS: BP 141/82
--- NOTE | 2018-09-11 08:31 | NUR ---
NURSE NOTES: Received pt report from Meli ALICEA. Pt is in bed very agitated with restrains on. 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 Bed in locked and in lowest position. Call light within reach. Will continue to monitor. Pt was given 50 mg of seroquil this morning for agitation.
--- NOTE | 2018-09-11 09:52 | GI Progress Note ---
Assessment/Plan Problems: (1) Encounter for PEG (percutaneous endoscopic gastrostomy) ICD Codes: Z43.1 - Encounter for attention to gastrostomy SNOMED: 301410512, 124744112 (2) Severe malnutrition ICD Codes: E43 - Unspecified severe protein-calorie malnutrition SNOMED: 06006812 (3) Altered mental state ICD Codes: R41.82 - Altered mental status, unspecified SNOMED: 922619650 Qualifiers: Qualified Codes: R41.82 - Altered mental status, unspecified (4) Stroke ICD Codes: I63.9 - Cerebral infarction, unspecified SNOMED: 046947296 (5) Dehydration ICD Codes: E86.0 - Dehydration SNOMED: 99973149 Status: doing well, stable Status Narrative Discussed the Dr. Olivarez Assessment/Plan s/p GT placement GTF monitor for residuals GT flush/GT site care daily and as needed bowel regimen ppi reglan prn for GI motility follow labs The patient was seen and examined at bedside and all new and available data was reviewed in the patients chart. I agree with the above findings, impression and plan. (Patient seen earlier today. Signature stamp does not reflect patient encounter time.). - Luis Alberto Olivarez MD Subjective Subjective Limited, patient nonverbal at baseline Objective Last 24 Hour Vital Signs Date Time Temp Pulse Resp B/P (MAP) Pulse Ox O2 Delivery O2 Flow Rate FiO2 09/11/18 04:50 98 Nasal Cannula 2.0 28 09/11/18 04:50 Nasal Cannula 2.0 28 09/11/18 04:00 98.5 84 20 139/87 (104) 100 09/11/18 03:40 89 09/11/18 00:00 98.9 74 16 105/67 (80) 100 09/10/18 23:35 60 09/10/18 21:00 Nasal Cannula 2.0 09/10/18 20:14 72 09/10/18 20:00 98.9 77 16 108/65 (79) 100 09/10/18 16:00 88 09/10/18 16:00 98.2 65 22 100/55 (70) 96 09/10/18 12:40 96 Nasal Cannula 2.0 28 09/10/18 12:40 Nasal Cannula 2.0 28 09/10/18 12:00 98.2 62 26 111/50 (70) 100 09/10/18 12:00 64 Intake and Output 09/10/18 09/11/18 19:00 07:00 Intake Total 7301 ml 2221.95 ml Output Total 1000 ml 1500 ml Balance 6301 ml 721.95 ml Free Water 350 ml 400 ml IV Total 6255 ml 1125.95 ml Tube Feeding 696 ml 696 ml Output Urine Total 1000 ml 1500 ml Laboratory Tests Test 09/10/18 11:45 09/11/18 07:20 Sodium Level 157 MMOL/L (136-145) H Potassium Level 3.3 MMOL/L (3.5-5.1) L Chloride Level 121 MMOL/L (98-107) H Carbon Dioxide Level 30 MMOL/L (21-32) Anion Gap 6 mmol/L (5-15) Blood Urea Nitrogen 33 mg/dL (7-18) H Creatinine 1.8 MG/DL (0.55-1.30) H Estimat Glomerular Filtration Rate 38.7 mL/min (>60) Glucose Level 190 MG/DL (74-106) H Calcium Level 8.1 MG/DL (8.5-10.1) L White Blood Count 10.2 K/UL (4.8-10.8) Red Blood Count 2.51 M/UL (4.70-6.10) L Hemoglobin 7.8 G/DL (14.2-18.0) L Hematocrit 22.9 % (42.0-52.0) L Mean Corpuscular Volume 91 FL (80-99) Mean Corpuscular Hemoglobin 31.0 PG (27.0-31.0) Mean Corpuscular Hemoglobin Concent 34.0 G/DL (32.0-36.0) Red Cell Distribution Width 12.7 % (11.6-14.8) Platelet Count 226 K/UL (150-450) Mean Platelet Volume 5.8 FL (6.5-10.1) L Neutrophils (%) (Auto) % (45.0-75.0) Lymphocytes (%) (Auto) % (20.0-45.0) Monocytes (%) (Auto) % (1.0-10.0) Eosinophils (%) (Auto) % (0.0-3.0) Basophils (%) (Auto) % (0.0-2.0) Differential Total Cells Counted 100 Neutrophils % (Manual) 82 % (45-75) H Lymphocytes % (Manual) 12 % (20-45) L Monocytes % (Manual) 3 % (1-10) Eosinophils % (Manual) 2 % (0-3) Basophils % (Manual) 1 % (0-2) Band Neutrophils 0 % (0-8) Platelet Estimate Adequate Platelet Morphology Normal Hypochromasia 3+ Anisocytosis 1+ Spherocytes 2+ Height (Feet): 6 Height (Inches): 0.00 Weight (Pounds): 103 General Appearance: WD/WN, no apparent distress, alert Cardiovascular: normal rate Respiratory/Chest: normal breath sounds, no respiratory distress Abdominal Exam: normal bowel sounds, non tender, soft, GT site - Clean dry and intact Extremities: normal range of motion, non-tender Juanis Bullard NP September 11, 2018 09:52
[2018-09-11] MEDS: Lactulose 10gm/15ml UDC ORAL SCH ×3 (10:08→18:52)
[2018-09-11] MEDS: Docusate 100mg cap ORAL SCH ×2 (10:08→18:51)
[2018-09-11] MEDS: Aspirin Baby 81mg NG SCH (10:08)
[2018-09-11 12:00] VITALS: BP 112/63
--- NOTE | 2018-09-11 12:31 | General Progress Note ---
Assessment/Plan Problem List: (1) Severe malnutrition ICD Codes: E43 - Unspecified severe protein-calorie malnutrition SNOMED: 99885295 (2) Altered mental state ICD Codes: R41.82 - Altered mental status, unspecified SNOMED: 295078616 Qualifiers: Qualified Codes: R41.82 - Altered mental status, unspecified (3) Stroke ICD Codes: I63.9 - Cerebral infarction, unspecified SNOMED: 178338948 (4) UTI (urinary tract infection) ICD Codes: N39.0 - Urinary tract infection, site not specified SNOMED: 80455357 (5) Acute encephalopathy ICD Codes: G93.40 - Encephalopathy, unspecified SNOMED: 65310931, 970442077 (6) Cognitive impairment ICD Codes: R41.89 - Other symptoms and signs involving cognitive functions and awareness SNOMED: 057743672 (7) Dehydration ICD Codes: E86.0 - Dehydration SNOMED: 43321751 Status: doing well, stable Assessment/Plan: #acute kidney injury- likely pre-renal in setting of sepsis and dehydration. R/ O ATN- improving with hydration #hypernatremia- with over 4L water deficit #Dehydration- on IVF -Sodium uptrended over the past 3 days Cr downtrended to 1.8 IVF switched to d5w- continue at 100cc/hr free water flushed were added 200cc q6hr labs pending today - monitor sodium and cr closely - target MAP > 65 - monitor UOP - avoid nephrotoxins - strict I&Os - tubefeeds per GI - continue free water flushed 200cc q6hr - replete electrolytes prn Subjective Date patient seen: September 11, 2018 Time patient seen: 12:27 ROS Limited/Unobtainable: Yes Allergies: Coded Allergies: No Known Allergies (Unverified , 08/30/18) Subjective Sodium uptrended over the past 3 days Cr downtrended to 1.8 IVF switched to d5w free water flushed were added 200cc q6hr BMP pending today Objective Last 24 Hour Vital Signs Date Time Temp Pulse Resp B/P (MAP) Pulse Ox O2 Delivery O2 Flow Rate FiO2 09/11/18 08:00 100.0 105 21 141/82 (101) 99 09/11/18 04:50 98 Nasal Cannula 2.0 28 09/11/18 04:50 Nasal Cannula 2.0 28 09/11/18 04:00 98.5 84 20 139/87 (104) 100 09/11/18 03:40 89 09/11/18 00:00 98.9 74 16 105/67 (80) 100 09/10/18 23:35 60 09/10/18 21:00 Nasal Cannula 2.0 09/10/18 20:14 72 09/10/18 20:00 98.9 77 16 108/65 (79) 100 09/10/18 16:00 88 09/10/18 16:00 98.2 65 22 100/55 (70) 96 09/10/18 12:40 96 Nasal Cannula 2.0 28 09/10/18 12:40 Nasal Cannula 2.0 28 Intake and Output 09/10/18 09/11/18 19:00 07:00 Intake Total 7301 ml 2221.95 ml Output Total 1000 ml 1500 ml Balance 6301 ml 721.95 ml Free Water 350 ml 400 ml IV Total 6255 ml 1125.95 ml Tube Feeding 696 ml 696 ml Output Urine Total 1000 ml 1500 ml Laboratory Tests 09/11/18 07:20: White Blood Count 10.2, Red Blood Count 2.51L, Hemoglobin 7.8L, Hematocrit 22.9L , Mean Corpuscular Volume 91, Mean Corpuscular Hemoglobin 31.0, Mean Corpuscular Hemoglobin Concent 34.0, Red Cell Distribution Width 12.7, Platelet Count 226, Mean Platelet Volume 5.8L, Neutrophils (%) (Auto) , Lymphocytes (%) ( Auto) , Monocytes (%) (Auto) , Eosinophils (%) (Auto) , Basophils (%) (Auto) , Differential Total Cells Counted 100, Neutrophils % (Manual) 82H, Lymphocytes % (Manual) 12L, Monocytes % (Manual) 3, Eosinophils % (Manual) 2, Basophils % ( Manual) 1, Band Neutrophils 0, Platelet Estimate Adequate, Platelet Morphology Normal, Hypochromasia 3+, Anisocytosis 1+, Spherocytes 2+ Height (Feet): 6 Height (Inches): 0.00 Weight (Pounds): 103 Martinez Edward M.D. September 11, 2018 12:31
[2018-09-11 12:35] LABS: ANION GAP 7 mmol/L (5-15); BLOOD UREA NITROGEN 29 mg/dL (7-18); CALCIUM 8.8 MG/DL (8.5-10.1); CARBON DIOXIDE 30 MMOL/L (21-32); CHLORIDE 120 MMOL/L (98-107); CREATININE 1.6 MG/DL (0.55-1.30); POTASSIUM 3.9 MMOL/L (3.5-5.1); SODIUM 157 MMOL/L (136-145)
--- NOTE | 2018-09-11 13:12 | General Progress Note ---
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 -S/p PEG, continue tube feeds #Acute blood loss anemia #Hematuria due to Francisco catheter induced urethral trauma, improved -H&H stable -resume -Francisco out -transfuse PRBC if Hb < 8 #ZENON, improved renal function #Hypernatremia due to lack of water intake #Hypokalemia -continue D5W -replace electrolytes prn -monitor BMP daily -avoid nephrotoxic agents -Nephrology following Full Code VTE PPx SCD Subjective Date patient seen: September 11, 2018 Time patient seen: 07:30 ROS Limited/Unobtainable: Yes Allergies: Coded Allergies: No Known Allergies (Unverified , 08/30/18) Subjective Medicine follow up for acute encephalopathy, agitation, ZENON, dysphagia. Underwent PEG placement this admission. Tolerating tube feeds Objective Last 24 Hour Vital Signs Date Time Temp Pulse Resp B/P (MAP) Pulse Ox O2 Delivery O2 Flow Rate FiO2 09/11/18 08:00 100.0 105 21 141/82 (101) 99 09/11/18 04:50 98 Nasal Cannula 2.0 28 09/11/18 04:50 Nasal Cannula 2.0 28 09/11/18 04:00 98.5 84 20 139/87 (104) 100 09/11/18 03:40 89 09/11/18 00:00 98.9 74 16 105/67 (80) 100 09/10/18 23:35 60 09/10/18 21:00 Nasal Cannula 2.0 09/10/18 20:14 72 09/10/18 20:00 98.9 77 16 108/65 (79) 100 09/10/18 16:00 88 09/10/18 16:00 98.2 65 22 100/55 (70) 96 Intake and Output 09/10/18 09/11/18 19:00 07:00 Intake Total 7301 ml 2221.95 ml Output Total 1000 ml 1500 ml Balance 6301 ml 721.95 ml Free Water 350 ml 400 ml IV Total 6255 ml 1125.95 ml Tube Feeding 696 ml 696 ml Output Urine Total 1000 ml 1500 ml Laboratory Tests 09/11/18 07:20: White Blood Count 10.2, Red Blood Count 2.51L, Hemoglobin 7.8L, Hematocrit 22.9L , Mean Corpuscular Volume 91, Mean Corpuscular Hemoglobin 31.0, Mean Corpuscular Hemoglobin Concent 34.0, Red Cell Distribution Width 12.7, Platelet Count 226, Mean Platelet Volume 5.8L, Neutrophils (%) (Auto) , Lymphocytes (%) ( Auto) , Monocytes (%) (Auto) , Eosinophils (%) (Auto) , Basophils (%) (Auto) , Differential Total Cells Counted 100, Neutrophils % (Manual) 82H, Lymphocytes % (Manual) 12L, Monocytes % (Manual) 3, Eosinophils % (Manual) 2, Basophils % ( Manual) 1, Band Neutrophils 0, Platelet Estimate Adequate, Platelet Morphology Normal, Hypochromasia 3+, Anisocytosis 1+, Spherocytes 2+ 09/11/18 07:30: Sodium Level 157H, Potassium Level 3.9, Chloride Level 120H, Carbon Dioxide Level 30, Anion Gap 7, Blood Urea Nitrogen 29H, Creatinine 1.6H, Estimat Glomerular Filtration Rate 44.3, Glucose Level 110H, Calcium Level 8.8 Height (Feet): 6 Height (Inches): 0.00 Weight (Pounds): 103 General Appearance: alert, confused, agitated, combative Objective Unable to examine due to agitation Bright Her MD September 11, 2018 13:12
--- NOTE | 2018-09-11 13:21 | NUR ---
CASE MANAGEMENT:REVIEW 09/11/18 SI: ACUTE ENCEPHALOPATHY S/P PEG PLACEMENT TODAY 100.0 105 21 141/82 99% ON 2L/NC H/H-7.8/22.9 NA+157 BUN+29 CR+1.6 IS: IVf@ 100/hr LACTULOSE PO TID PLAVIX NG QD ASA NG QD IV VALPROATE Q8HRS : TELEMETRY STATUS DCP: FROM [facility] PLAN: FAMILY DOES NOT WANT PATIENT TO RETURN TO [facility]
--- NOTE | 2018-09-11 13:49 | NUR ---
RD ASSESSMENT & RECOMMENDATIONS SEE CARE ACTIVITY FOR COMPLETE ASSESSMENT DAILY ESTIMATED NEEDS: Needs based on cardiac, wasting, underweight 52kg 30-35 kcals/kg 3374-7088 total kcals 1-1.5 g protein/kg 52-78 g total protein 25-30 mL/kg 5998-0719 total fluid mLs NUTRITION DIAGNOSIS: * Increased kcal and protein needs r/t underweight status and wasting as evidenced by pt is est 74% of [place] Body Weight, w/ generalized mild to moderate wasting. * Swallowing difficulty R/T dysphagia, CVA as evidenced by now s/p PEG placement. CURRENT TF: NOW NEPRO @40 ENTERAL NUTRITION RECOMMENDATIONS: REC TF CHANGE -> Jevity 1.2 @ 58ml/hr x 24 hrs to provide 1392ml, 1670kcal, 77g prot, 1123ml free water * Advance 10ml q 4-6 hrs as tolerated to goal rate. * HOB over 30 degrees/ water flush per MD W/ elev BG rec TF change to Glucerna 1.2, goal of 57ml/hr (to provide 1368ml, 1642 kcal, 82g pro, 1101ml free H2O and 79g less carbs per day). ------ ADDITIONAL RECOMMENDATIONS: * Obtain calibrated bed scale wts, weekly weights * Monitor lytes daily w/ TF, replete as needed (K low) -> PT IS AT HIGH RISK FOR REFEEDING SYNDROME -> check phos and mag levels * Monitor renal fxn * Monitor BGs closely, need for carb controlled TF formula * Rec increased water flushes vs D5 IVF for BG control
--- NOTE | 2018-09-11 15:48 | NUR ---
ST NOTE: SPEECH/LANGUAGE/SWALLOW STATUS: RE-ASSESSED AND CHECKED PT READINESS FOR PO TRIALS AND MODIFIED BARIUM SWALLOW STUDY. PT SEEN AT BEDSIDE, RECEIVED MEDICATION FOR AGITATION AND ANXIOUS. PT RECEIVED G-TUBE FEEDING. PER PT'S , PT WANTS TO EAT/DRINK BY MOUTH. UNABLE TO ASSESS CURRENTLY DUE TO PT IS RESTLESS. PT WAS UNABLE TO FOLLOW SIMPLE DIRECTIONS OR ATTEND TO TASK AT THIS TIME. PT ONLY USED VOWEL /AH/ TO TALK. DISCUSSED WITH PT'S AND BROTHER RE: PLAN OF CARE IN [facility]. DISCUSSED WITH RN AND THE STAFF.
[2018-09-11 16:00] VITALS: BP 118/72
--- NOTE | 2018-09-11 16:30 | NUR ---
NURSE NOTES: termite control technician will be in soon. MOBI[employer] REPA[employer]ER approved ativan 1mg for agitation for pt. L/M for Rao tech to double check if Ativan is not too strong and will not interfere with result of the test.
--- NOTE | 2018-09-11 16:46 | General Progress Note ---
Assessment/Plan Status: doing well, stable Assessment/Plan: Assessment/Plan: # Failure to thrive - decreased bmi and low protein, does have evidence of prior infarct, poor PS --> will also obtain q3d caloric counts --> cea is elevated and workup as per below, consider gi eval --> mirtazapine as appetite stimulant has been ordered --> Gi consult on a prn basis, as needed for endoscopy # Hyperproteinemia with decreased albumin -- this is a dissociation that is abnormal --> upep and spep are negative for a m-spike, it does not exist --> if above results in a m-spike or abnormally enhanced protein, will need to send off immunofixation serum/urine --> in the case of a m-spike or abnormally enhanced protein, will obtain a bone marrow biopsy # Elevated tumor markers as cea is elevated --> may consider gi evaluation in this setting --> ca 19.9 is 1, ca 15.3 is 12.3 --> at some point may need CT c/a/p okay as outpatient # Acute metabolic encephalopathy, possibly from UTI, dehydration or recurrent CVA --> neuro and psych prn eval --> MRI brain reviewed, lp 09/05 --> abx prn # History of recent CVA, CT done in ED shows subacute to chronic right thalamic stroke --> supportive care --> per neuro --> is on abx for what appears to be uti # Dysphagia is sp peg --> continue peg feeds # ZENON with cr from normal to 3 --> renal was consulted The timing of this note does not necessarily reflect the time of the patient was seen. Greatly appreciate consultation! Subjective Constitutional: Denies: no symptoms, chills, diaphoresis, fever, malaise, weakness, other HEENT: Denies: no symptoms, eye pain, blurred vision, tearing, double vision, ear pain, ear discharge, nose pain, nose congestion, throat pain, throat swelling, mouth pain, mouth swelling, other Cardiovascular: Denies: no symptoms, chest pain, edema, irregular heart rate, lightheadedness, palpitations, syncope, other Respiratory: Denies: no symptoms, cough, orthopnea, shortness of breath, SOB with excertion, SOB at rest, sputum, stridor, wheezing, other Genitourinary: Denies: no symptoms, burning, discharge, frequency, flank pain, hematuria, incontinence, pain, urgency, other Neurologic/Psychiatric: Denies: no symptoms, anxiety, depressed, emotional problems, headache, numbness, paresthesia, pre-existing deficit, seizure, tingling, tremors, weakness, other Endocrine: Denies: no symptoms, excessive sweating, flushing, intolerance to cold, intolerance to heat, increased hunger, increased thirst, increased urine, unexplained weight gain, unexplained weight loss, other Hematologic/Lymphatic: Denies: no symptoms, anemia, easy bleeding, easy bruising, other Allergies: Coded Allergies: No Known Allergies (Unverified , 08/30/18) Subjective 09/01: close followup with psych, remains agitated, some hematuria with burleson noted 09/03: with restraints, hgb remains low, no bleeding reported, in semi-fowlers position 09/04: has been refusing ng tube placement, concern remains for silent aspiration, seen by speech 09/05: urethreal bleeding noted after burleson was pulled, lp pending 09/06: no events to report, no f/c. mental status improved 09/07: no fevers or chills, anemia panel reviewed, cr is higher this am 09/08: no events, potentially to get peg placed, cr does remain elevated, renal consulted 09/10: s/p gtube placement, no events otherwise, cbc has been reviewed, hematuria is better 56: no events noted overnight, on peg tube feeds, agitated Objective Last 24 Hour Vital Signs Date Time Temp Pulse Resp B/P (MAP) Pulse Ox O2 Delivery O2 Flow Rate FiO2 09/11/18 08:00 100.0 105 21 141/82 (101) 99 09/11/18 04:50 98 Nasal Cannula 2.0 28 09/11/18 04:50 Nasal Cannula 2.0 28 09/11/18 04:00 98.5 84 20 139/87 (104) 100 09/11/18 03:40 89 09/11/18 00:00 98.9 74 16 105/67 (80) 100 09/10/18 23:35 60 09/10/18 21:00 Nasal Cannula 2.0 09/10/18 20:14 72 09/10/18 20:00 98.9 77 16 108/65 (79) 100 Intake and Output 09/10/18 09/11/18 19:00 07:00 Intake Total 7301 ml 2221.95 ml Output Total 1000 ml 1500 ml Balance 6301 ml 721.95 ml Free Water 350 ml 400 ml IV Total 6255 ml 1125.95 ml Tube Feeding 696 ml 696 ml Output Urine Total 1000 ml 1500 ml Laboratory Tests 09/11/18 07:20: White Blood Count 10.2, Red Blood Count 2.51L, Hemoglobin 7.8L, Hematocrit 22.9L , Mean Corpuscular Volume 91, Mean Corpuscular Hemoglobin 31.0, Mean Corpuscular Hemoglobin Concent 34.0, Red Cell Distribution Width 12.7, Platelet Count 226, Mean Platelet Volume 5.8L, Neutrophils (%) (Auto) , Lymphocytes (%) ( Auto) , Monocytes (%) (Auto) , Eosinophils (%) (Auto) , Basophils (%) (Auto) , Differential Total Cells Counted 100, Neutrophils % (Manual) 82H, Lymphocytes % (Manual) 12L, Monocytes % (Manual) 3, Eosinophils % (Manual) 2, Basophils % ( Manual) 1, Band Neutrophils 0, Platelet Estimate Adequate, Platelet Morphology Normal, Hypochromasia 3+, Anisocytosis 1+, Spherocytes 2+ 09/11/18 07:30: Sodium Level 157H, Potassium Level 3.9, Chloride Level 120H, Carbon Dioxide Level 30, Anion Gap 7, Blood Urea Nitrogen 29H, Creatinine 1.6H, Estimat Glomerular Filtration Rate 44.3, Glucose Level 110H, Calcium Level 8.8 Height (Feet): 6 Height (Inches): 0.00 Weight (Pounds): 103 Objective General Appearance: alert, combative HEENT: normocephalic ++ ngt Neck: supple, normal inspection Respiratory/Chest: lungs clear, normal breath sounds Cardiovascular/Chest: normal rate, regular rhythm, no JVD Abdomen: non tender, soft ++ peg Extremities: normal inspection, no calf tenderness, + restraints Neurologic: other - Uncooperative : Nolan+ Aman Collier MD September 11, 2018 16:46
[2018-09-11] MEDS ORDERED: LORazepam Inj 2mg/ml 1ml IV SCH (17:30)
[2018-09-11 20:00] VITALS: BP 116/73
--- NOTE | 2018-09-11 20:05 | NUR ---
HAND-OFF: Report given to Avis ALICEA. Pt BNP needs to be drawn still but hasn't yet. Avis will follow up on lab and results and will report it to Dr Douglas once results are back. Doctor requested to know results MANUEL.
--- NOTE | 2018-09-11 20:10 | NUR ---
NURSE NOTES: patient received. patient in no acute distress at this time. patient does not appear to be in any pain at this time. patient alert x1. patient resting at this time. patient on 02. wrist restrains on. patient gtube intact and feeding running. IV infiltrated. took out. will put in another one. bed in lowest position and locked. call light within reach. bed alarm on. will continue to monitor.
[2018-09-11] MEDS: Miralax 17gm pkt ORAL SCH (20:53)
[2018-09-11] MEDS: Atorvastatin 80mg tab NG SCH (20:53)
--- NOTE | 2018-09-11 21:41 | Neurology Progress Note ---
Interim History Interim History ROS Limited/Unobtainable: Yes Complaints: AMS Events: Unchanged exam- Hypernatremia- Review of Systems All Systems: reviewed and negative except above Objective Physical Exam Last Vital Signs Date Time Temp Pulse Resp B/P (MAP) Pulse Ox O2 Delivery O2 Flow Rate FiO2 09/11/18 16:00 98.1 73 20 118/72 (87) 95 09/11/18 09:00 Nasal Cannula 2.0 09/11/18 04:50 28 Laboratory Tests Test 09/11/18 07:20 09/11/18 07:30 White Blood Count 10.2 K/UL (4.8-10.8) Red Blood Count 2.51 M/UL (4.70-6.10) L Hemoglobin 7.8 G/DL (14.2-18.0) L Hematocrit 22.9 % (42.0-52.0) L Mean Corpuscular Volume 91 FL (80-99) Mean Corpuscular Hemoglobin 31.0 PG (27.0-31.0) Mean Corpuscular Hemoglobin Concent 34.0 G/DL (32.0-36.0) Red Cell Distribution Width 12.7 % (11.6-14.8) Platelet Count 226 K/UL (150-450) Mean Platelet Volume 5.8 FL (6.5-10.1) L Neutrophils (%) (Auto) % (45.0-75.0) Lymphocytes (%) (Auto) % (20.0-45.0) Monocytes (%) (Auto) % (1.0-10.0) Eosinophils (%) (Auto) % (0.0-3.0) Basophils (%) (Auto) % (0.0-2.0) Differential Total Cells Counted 100 Neutrophils % (Manual) 82 % (45-75) H Lymphocytes % (Manual) 12 % (20-45) L Monocytes % (Manual) 3 % (1-10) Eosinophils % (Manual) 2 % (0-3) Basophils % (Manual) 1 % (0-2) Band Neutrophils 0 % (0-8) Platelet Estimate Adequate Platelet Morphology Normal Hypochromasia 3+ Anisocytosis 1+ Spherocytes 2+ Sodium Level 157 MMOL/L (136-145) H Potassium Level 3.9 MMOL/L (3.5-5.1) Chloride Level 120 MMOL/L (98-107) H Carbon Dioxide Level 30 MMOL/L (21-32) Anion Gap 7 mmol/L (5-15) Blood Urea Nitrogen 29 mg/dL (7-18) H Creatinine 1.6 MG/DL (0.55-1.30) H Estimat Glomerular Filtration Rate 44.3 mL/min (>60) Glucose Level 110 MG/DL (74-106) H Calcium Level 8.8 MG/DL (8.5-10.1) Head: normocophalic Neck: no rigidity EENT: benign Neurologic Exam Mental Status: awake, other - Patient remains agitated upon waking. His primary language is Cantonese but as per his daughter he is not speaking any intelligible words at this time. Language: other - Only making sounds- no words - aphasia remains persistent- both receptive/ expressive Cranial Nerve II: fundus normal, no papilledema Cranial Nerves III, IV, : PERRLA, EOMI Cranial Nerve VII: no facial asymmetry Cranial Nerve XI: SCM symmetric Cranial Nerve XII: tongue midline Motor System: other - No apparent focal weakness on exam but unable to formally test as patient is not following commands. Objective Patient continues to remain non focal on exam. He is agitated when awoken, LUNA x 4 but not following commands. His primary language is Cantonese and as per his / brother's report - He is not saying any intelligible words- denies paraphrasic errors - patient is just making sounds. He intermittently tracks with his eyes. No observed / mag seizure activity noted. Impression/Recommendations Problems: (1) Altered mental state (2) Cognitive impairment (3) Acute encephalopathy Assessment & Plan: Unclear cause at this time. Febrile with leukocytosis today. EEG was abnormal but without mag epileptiform activity. LP RECOMMENDED - Meningitis ddx Consider starting ppx Acyclovir 500mg Q8 as HSV Encephalitis ppx Continue Q 4 hour Neuro obs Na 135-145 IV Hydration Consider NG tube feeding Trial Seroquel 25mg QD for agitation Empiric Abx and then as per ID Maintain normothermia at all times with Tylenol or cooling blanket. Try to maintain sleep hygiene for patient with dark quiet room at night. SBP<140 (4) Hypernatremia Assessment & Plan: Please start free water as per PEG (5) Severe malnutrition (6) Encounter for PEG (percutaneous endoscopic gastrostomy) Status: doing well, stable Recommendations LP unremarkable HSV negative Iv Abs as per PMD Continue Q4 hour neuro obs Continue Enteral feeding Maintain normoglycemia with ISS REPEAT EEG Continue to interact with patient, frequently reorienting him Attempt OOB in chair. PT/OT evals Maintain normothermia Jennifer Gama N.P. September 11, 2018 21:41
--- NOTE | 2018-09-11 23:15 | Progress Note ---
DATE: 09/11/2018 SUBJECTIVE: The patient continues to be yelling and screaming. He is agitated. He is in restraints. at the bedside. The patient is more agitated today and not able to be engaged. He is able to take medications orally and has been compliant. MENTAL STATUS EXAMINATION: The patient is alert, disoriented, and confused. Psychomotor agitation. Poor eye contact. Mood is agitated. Affect is flat. Thought process is disorganized. Thought content, no suicidal or homicidal ideations. Memory is impaired. ASSESSMENT: 1. Acute metabolic encephalopathy. 2. Cognitive impairment. PLAN: 1. Continue restraints. 2. Continue the Depakote. 3. Continue the Seroquel. 4. Continue p.r.n. Seroquel. 5. Discussed the case with his . Damian Graham M.D. DR: RONEY JOB#: [id number] CC:
[2018-09-12] VITALS: BP 123/80
[2018-09-12 04:00] VITALS: BP 127/77
[2018-09-12] MEDS: Valproate Sodium INJ 250 MG in D5W 55 ML IVPB SCH ×3 (06:13→21:53)
[2018-09-12] MEDS: Oxybutynin 5mg tab NG SCH ×3 (06:13→21:52)
--- NOTE | 2018-09-12 07:15 | NUR ---
HAND-OFF: Report given to marilu jeter.
[2018-09-12 07:41] LABS: BASOPHILS % (AUTO) 0.7 % (0.0-2.0); EOSINOPHILS % (AUTO) 3.7 % (0.0-3.0); HEMATOCRIT 27.1 % (42.0-52.0); HEMOGLOBIN 9.1 G/DL (14.2-18.0); LYMPHOCYTES % (AUTO) 8.7 % (20.0-45.0); MEAN CORPUSCULAR VOLUME 93 FL (80-99); MONOCYTES % (AUTO) 5.7 % (1.0-10.0); NEUTROPHILS % (AUTO) 81.2 % (45.0-75.0); PLATELET COUNT 255 K/UL (150-450); RED CELL DISTRIBUTION WIDTH 12.9 % (11.6-14.8); WHITE BLOOD COUNT 9.7 K/UL (4.8-10.8)
--- NOTE | 2018-09-12 07:46 | NUR ---
NURSE NOTES: Received report from Farrah ALICEA. Pt is awake and less agitated. Pt IV was replaced because he pulled it out twice. Pt on satellite project site monitor no signs of distress at this time. Bed locked and in lowest position. Call light with in reach. Addendum: 09/12/18 at 0749 by Alexandria Dalton RN Received report from Farrah ALICEA. Pt is awake and less agitated. pt is still on bilateral restrains and order has been renewed by ester ALICEA. Pt IV was replaced because he pulled it out twice. Pt on satellite project site monitor no signs of distress at this time. Bed locked and in lowest position. Call light with in reach
[2018-09-12 08:00] VITALS: BP 146/86
[2018-09-12 08:01] LABS: ANION GAP 6 mmol/L (5-15); BLOOD UREA NITROGEN 25 mg/dL (7-18); CARBON DIOXIDE 33 MMOL/L (21-32); CHLORIDE 117 MMOL/L (98-107); CREATININE 1.3 MG/DL (0.55-1.30); POTASSIUM 3.8 MMOL/L (3.5-5.1); SODIUM 156 MMOL/L (136-145)
--- NOTE | 2018-09-12 09:58 | GI Progress Note ---
Assessment/Plan Problems: (1) Encounter for PEG (percutaneous endoscopic gastrostomy) ICD Codes: Z43.1 - Encounter for attention to gastrostomy SNOMED: 921518780, 430853322 (2) Severe malnutrition ICD Codes: E43 - Unspecified severe protein-calorie malnutrition SNOMED: 15659181 (3) Altered mental state ICD Codes: R41.82 - Altered mental status, unspecified SNOMED: 797362654 Qualifiers: Qualified Codes: R41.82 - Altered mental status, unspecified (4) Stroke ICD Codes: I63.9 - Cerebral infarction, unspecified SNOMED: 800889429 (5) Dehydration ICD Codes: E86.0 - Dehydration SNOMED: 70359960 Status: stable Status Narrative Discussed with Dr. Olivarez Assessment/Plan s/p GT placement GTF monitor for residuals GT flush/GT site care daily and as needed bowel regimen ppi reglan prn for GI motility follow labs DC planning The patient was seen and examined at bedside and all new and available data was reviewed in the patients chart. I agree with the above findings, impression and plan. (Patient seen earlier today. Signature stamp does not reflect patient encounter time.). - Luis Alberto Olivarez MD Subjective Subjective Limited, patient nonverbal at baseline Objective Last 24 Hour Vital Signs Date Time Temp Pulse Resp B/P (MAP) Pulse Ox O2 Delivery O2 Flow Rate FiO2 09/12/18 08:00 97.4 61 20 146/86 (106) 100 09/12/18 04:00 63 09/12/18 04:00 97.2 66 20 127/77 (94) 95 20 09/12/18 00:00 72 09/12/18 00:00 98.0 72 20 123/80 (94) 100 20 09/11/18 21:00 Nasal Cannula 2.0 09/11/18 20:00 98.0 70 20 116/73 (87) 100 20 09/11/18 20:00 66 09/11/18 19:00 100 Nasal Cannula 2.0 28 09/11/18 19:00 Nasal Cannula 2.0 28 09/11/18 16:00 98.1 73 20 118/72 (87) 95 09/11/18 16:00 61 09/11/18 12:00 70 09/11/18 12:00 97.8 77 20 112/63 (79) 94 Intake and Output 09/11/18 09/12/18 19:00 07:00 Intake Total 232 ml Output Total 1000 ml Balance -1000 ml 232 ml Tube Feeding 232 ml Output Urine Total 1000 ml # Voids 3 # Bowel Movements 3 Laboratory Tests Test 09/12/18 06:00 09/12/18 06:50 Sodium Level 156 MMOL/L (136-145) H Potassium Level 3.8 MMOL/L (3.5-5.1) Chloride Level 117 MMOL/L (98-107) H Carbon Dioxide Level 33 MMOL/L (21-32) H Anion Gap 6 mmol/L (5-15) Blood Urea Nitrogen 25 mg/dL (7-18) H Creatinine 1.3 MG/DL (0.55-1.30) Estimat Glomerular Filtration Rate 56.3 mL/min (>60) Glucose Level 128 MG/DL (74-106) H Calcium Level 9.0 MG/DL (8.5-10.1) White Blood Count 9.7 K/UL (4.8-10.8) Red Blood Count 2.90 M/UL (4.70-6.10) L Hemoglobin 9.1 G/DL (14.2-18.0) L Hematocrit 27.1 % (42.0-52.0) L Mean Corpuscular Volume 93 FL (80-99) Mean Corpuscular Hemoglobin 31.3 PG (27.0-31.0) H Mean Corpuscular Hemoglobin Concent 33.5 G/DL (32.0-36.0) Red Cell Distribution Width 12.9 % (11.6-14.8) Platelet Count 255 K/UL (150-450) Mean Platelet Volume 7.1 FL (6.5-10.1) Neutrophils (%) (Auto) 81.2 % (45.0-75.0) H Lymphocytes (%) (Auto) 8.7 % (20.0-45.0) L Monocytes (%) (Auto) 5.7 % (1.0-10.0) Eosinophils (%) (Auto) 3.7 % (0.0-3.0) H Basophils (%) (Auto) 0.7 % (0.0-2.0) Height (Feet): 6 Height (Inches): 0.00 Weight (Pounds): 103 General Appearance: WD/WN, no apparent distress, alert Cardiovascular: normal rate Respiratory/Chest: normal breath sounds, no respiratory distress Abdominal Exam: normal bowel sounds, non tender, soft, GT site - Clean dry and intact Extremities: non-tender Juanis Bullard NP September 12, 2018 09:58
[2018-09-12] MEDS: Lactulose 10gm/15ml UDC ORAL SCH ×3 (10:03→18:47)
[2018-09-12] MEDS: Docusate 100mg cap ORAL SCH ×2 (10:04→18:47)
[2018-09-12] MEDS: Aspirin Baby 81mg NG SCH (10:04)
--- NOTE | 2018-09-12 10:17 | NUR ---
DISCHARGE PLANNING DISCHARGE PLANNING DISCUSSED WITH DR CAGE PATIENT HAS BEEN REFERRED TO: [facility] AWAIT RESPONSE
--- NOTE | 2018-09-12 11:22 | NUR ---
ST NOT: SWALLOW/SPEECH/LANGUAGE/COGNITIONS STATUS: PT SEEN AT BEDSIDE IN AM. PT ALERT, CONFUSED, PT WITH NC(2L). VOICE IS CLEAR. MINIMAL ORAL SUCTION WAS NEEDED. PT'S IS AT BEDSIDE. PT'S EXPRESSED THAT WOULD LIKE PT TO EAT/DRINK BY MOUTH. CHECKED READINESS FOR MODIFIED BARIUM SWALLOW STUDY. PER , PT COUGHED ON THIN LIQUIDS. GIVEN NECTAR THICK LIQUIDS VIA TSP X 2. MILDLY INCREASED ORAL TRANSIT TIME AND OROPHARYNGEAL TRANSIT TIME, FAIR LARYNGEAL ELEVATION, NO OVERT S/S OF ASPIRATION. DUE TO SCHEDULE CONFLICT, UNABLE TO COMPLETE MODIFIED BARIUM SWALLOW STUDY AT THIS TIME. WILL FOLLOW UP. EDUCATED PT'S RE: ORAL CARE. SPEECH/LANGUAGE/COGNITION STATUS: PER , PT WAS ABLE TO HEAR OR UNDERSTAND PRIOR THE STROKE. PT SLOWLY INCREASED MORE SOUNDS, A WORD-LIKE SOUND IN CANTONESE(EXAMINED BY CANTONESE-SPEAKING BRICKLAYER APPRENTICE). WILL COMPLETE SPEECH/LANGUAGE/COGNITION EVAL D/W PT'S AND RN AND THE STAFF.
[2018-09-12 12:00] VITALS: BP 110/69
--- NOTE | 2018-09-12 13:00 | General Progress Note ---
Assessment/Plan Status: stable Assessment/Plan: Assessment/Plan: # Failure to thrive - decreased bmi and low protein, does have evidence of prior infarct, poor PS --> will also obtain q3d caloric counts --> cea is elevated and workup as per below, consider gi eval --> mirtazapine as appetite stimulant has been ordered --> Gi consult on a prn basis, appreciate recs # Hyperproteinemia with decreased albumin -- this is a dissociation that is abnormal --> upep and spep are negative for a m-spike, it does not exist --> if above results in a m-spike or abnormally enhanced protein, will need to send off immunofixation serum/urine --> in the case of a m-spike or abnormally enhanced protein, will obtain a bone marrow biopsy # Elevated tumor markers as cea is elevated --> may consider gi evaluation in this setting --> ca 19.9 is 1, ca 15.3 is 12.3 --> at some point may need CT c/a/p okay as outpatient # Acute metabolic encephalopathy, possibly from UTI, dehydration or recurrent CVA --> neuro and psych prn eval --> MRI brain reviewed, lp 09/05 --> abx prn # History of recent CVA, CT done in ED shows subacute to chronic right thalamic stroke --> supportive care --> per neuro --> is on abx for what appears to be uti # Dysphagia is sp peg --> continue peg feeds # ZENON with cr from normal to 3 --> renal was consulted The timing of this note does not necessarily reflect the time of the patient was seen. Greatly appreciate consultation! Subjective Constitutional: Denies: no symptoms, chills, diaphoresis, fever, malaise, weakness, other HEENT: Denies: no symptoms, eye pain, blurred vision, tearing, double vision, ear pain, ear discharge, nose pain, nose congestion, throat pain, throat swelling, mouth pain, mouth swelling, other Cardiovascular: Denies: no symptoms, chest pain, edema, irregular heart rate, lightheadedness, palpitations, syncope, other Respiratory: Denies: no symptoms, cough, orthopnea, shortness of breath, SOB with excertion, SOB at rest, sputum, stridor, wheezing, other Gastrointestinal/Abdominal: Denies: no symptoms, abdomen distended, abdominal pain, black stools, tarry stools, blood in stool, constipated, diarrhea, difficulty swallowing, nausea, poor appetite, poor fluid intake, rectal bleeding , vomiting, other Genitourinary: Denies: no symptoms, burning, discharge, frequency, flank pain, hematuria, incontinence, pain, urgency, other Neurologic/Psychiatric: Denies: no symptoms, anxiety, depressed, emotional problems, headache, numbness, paresthesia, pre-existing deficit, seizure, tingling, tremors, weakness, other Endocrine: Denies: no symptoms, excessive sweating, flushing, intolerance to cold, intolerance to heat, increased hunger, increased thirst, increased urine, unexplained weight gain, unexplained weight loss, other Allergies: Coded Allergies: No Known Allergies (Unverified , 08/30/18) Subjective 09/01: close followup with psych, remains agitated, some hematuria with burleson noted 09/03: with restraints, hgb remains low, no bleeding reported, in semi-fowlers position 09/04: has been refusing ng tube placement, concern remains for silent aspiration, seen by speech 09/05: urethreal bleeding noted after burleson was pulled, lp pending 09/06: no events to report, no f/c. mental status improved 09/07: no fevers or chills, anemia panel reviewed, cr is higher this am 09/08: no events, potentially to get peg placed, cr does remain elevated, renal consulted 09/10: s/p gtube placement, no events otherwise, cbc has been reviewed, hematuria is better 09/11: no events noted overnight, on peg tube feeds, agitated 09/12: gtube is in place, no fevers or chills, no bleeding, cr better Objective Last 24 Hour Vital Signs Date Time Temp Pulse Resp B/P (MAP) Pulse Ox O2 Delivery O2 Flow Rate FiO2 09/12/18 11:19 Nasal Cannula 2.0 28 09/12/18 11:19 98 Nasal Cannula 2.0 28 09/12/18 09:00 Nasal Cannula 2.0 09/12/18 09:00 59 09/12/18 08:00 97.4 61 20 146/86 (106) 100 09/12/18 04:00 63 09/12/18 04:00 97.2 66 20 127/77 (94) 95 20 09/12/18 00:00 72 09/12/18 00:00 98.0 72 20 123/80 (94) 100 20 09/11/18 21:00 Nasal Cannula 2.0 09/11/18 20:00 98.0 70 20 116/73 (87) 100 20 09/11/18 20:00 66 09/11/18 19:00 100 Nasal Cannula 2.0 28 09/11/18 19:00 Nasal Cannula 2.0 28 09/11/18 16:00 98.1 73 20 118/72 (87) 95 09/11/18 16:00 61 Intake and Output 09/11/18 09/12/18 19:00 07:00 Intake Total 232 ml Output Total 1000 ml Balance -1000 ml 232 ml Tube Feeding 232 ml Output Urine Total 1000 ml # Voids 3 # Bowel Movements 3 Laboratory Tests 09/12/18 06:00: Sodium Level 156H, Potassium Level 3.8, Chloride Level 117H, Carbon Dioxide Level 33H, Anion Gap 6, Blood Urea Nitrogen 25H, Creatinine 1.3, Estimat Glomerular Filtration Rate 56.3, Glucose Level 128H, Calcium Level 9.0 09/12/18 06:50: White Blood Count 9.7, Red Blood Count 2.90L, Hemoglobin 9.1L, Hematocrit 27.1L , Mean Corpuscular Volume 93, Mean Corpuscular Hemoglobin 31.3H, Mean Corpuscular Hemoglobin Concent 33.5, Red Cell Distribution Width 12.9, Platelet Count 255, Mean Platelet Volume 7.1, Neutrophils (%) (Auto) 81.2H, Lymphocytes ( %) (Auto) 8.7L, Monocytes (%) (Auto) 5.7, Eosinophils (%) (Auto) 3.7H, Basophils (%) (Auto) 0.7 Height (Feet): 6 Height (Inches): 0.00 Weight (Pounds): 103 Objective General Appearance: alert, combative HEENT: normocephalic ++ ngt Neck: supple, normal inspection Respiratory/Chest: lungs clear, normal breath sounds Cardiovascular/Chest: normal rate, regular rhythm, no JVD Abdomen: non tender, soft ++ peg Extremities: normal inspection, no calf tenderness, + restraints Neurologic: other - Uncooperative : Nolan+ Aman Collier MD September 12, 2018 13:00
--- NOTE | 2018-09-12 14:41 | NUR ---
DISCHARGE PLANNING PATIENT WAS REFERRED TO [facility] ~ SPOKE WITH OTONIEL AT [facility] ~ NO [facility] AVAILABLE PATIENT WAS REFERRED TO [facility] ~ SPOKE WITH SE[facility] ~ THEY WILL ACCEPT PATIENT UPON DISCHARGE DR CAGE HAS BEEN UPDATED AWAIT DISCHARGE ORDER [address] [address] T: [phone]
--- NOTE | 2018-09-12 15:10 | NUR ---
the following rehabs are the ones family will like pt to be DC to : [facility] in family service caseworker is aware. [facility] and [facility] [phone] [facility] [phone] [facility] [phone] [facility] [phone] [facility] [phone] A copy of this list is inside pt's file.
[2018-09-12 16:00] VITALS: BP 119/55
--- NOTE | 2018-09-12 17:35 | General Progress Note ---
Assessment/Plan Status: stable Assessment/Plan: #Acute metabolic encephalopathy, more agitation today #History of recent CVA, CT done in ED shows subacute to chronic right thalamic stroke #Dysphagia, s/p PEG -supportive care -Fall,Aspiration,Seizure precautions -IM Haldol prn for agitation -Neurochecks -continue Lipitor -Off acyclovir -LP done, CSF HSV PCR negative -Urine culture no growth, ceftriaxone stopped -Neurology and Psychiatry following -DRYWALLER following -S/p PEG, continue tube feeds -trial off restraints in preparation for discharge #Acute blood loss anemia #Hematuria due to Francisco catheter induced urethral trauma, improved -H&H stable -resume -Francisco out -transfuse PRBC if Hb < 8 #ZENON, improved renal function #Hypernatremia due to lack of water intake #Hypokalemia -replace electrolytes prn -monitor BMP daily -avoid nephrotoxic agents -Nephrology following Full Code VTE PPx SCD Subjective Date patient seen: September 12, 2018 Time patient seen: 17:15 ROS Limited/Unobtainable: Yes Allergies: Coded Allergies: No Known Allergies (Unverified , 08/30/18) Subjective Medicine follow up for acute encephalopathy, agitation, ZENON, dysphagia. Underwent PEG placement this admission. Tolerating tube feeds. Remains in wrist restraints. Objective Last 24 Hour Vital Signs Date Time Temp Pulse Resp B/P (MAP) Pulse Ox O2 Delivery O2 Flow Rate FiO2 09/12/18 11:19 Nasal Cannula 2.0 28 09/12/18 11:19 98 Nasal Cannula 2.0 28 09/12/18 09:00 Nasal Cannula 2.0 09/12/18 09:00 59 09/12/18 08:00 97.4 61 20 146/86 (106) 100 09/12/18 04:00 63 09/12/18 04:00 97.2 66 20 127/77 (94) 95 20 09/12/18 00:00 72 09/12/18 00:00 98.0 72 20 123/80 (94) 100 20 09/11/18 21:00 Nasal Cannula 2.0 09/11/18 20:00 98.0 70 20 116/73 (87) 100 20 09/11/18 20:00 66 09/11/18 19:00 100 Nasal Cannula 2.0 28 09/11/18 19:00 Nasal Cannula 2.0 28 Intake and Output 09/11/18 09/12/18 19:00 07:00 Intake Total 232 ml Output Total 1000 ml Balance -1000 ml 232 ml Tube Feeding 232 ml Output Urine Total 1000 ml # Voids 3 # Bowel Movements 3 Laboratory Tests 09/12/18 06:00: Sodium Level 156H, Potassium Level 3.8, Chloride Level 117H, Carbon Dioxide Level 33H, Anion Gap 6, Blood Urea Nitrogen 25H, Creatinine 1.3, Estimat Glomerular Filtration Rate 56.3, Glucose Level 128H, Calcium Level 9.0 09/12/18 06:50: White Blood Count 9.7, Red Blood Count 2.90L, Hemoglobin 9.1L, Hematocrit 27.1L , Mean Corpuscular Volume 93, Mean Corpuscular Hemoglobin 31.3H, Mean Corpuscular Hemoglobin Concent 33.5, Red Cell Distribution Width 12.9, Platelet Count 255, Mean Platelet Volume 7.1, Neutrophils (%) (Auto) 81.2H, Lymphocytes ( %) (Auto) 8.7L, Monocytes (%) (Auto) 5.7, Eosinophils (%) (Auto) 3.7H, Basophils (%) (Auto) 0.7 Height (Feet): 6 Height (Inches): 0.00 Weight (Pounds): 103 General Appearance: alert, confused Neck: normal alignment, supple Cardiovascular: normal rate, regular rhythm Respiratory/Chest: lungs clear, normal breath sounds, no respiratory distress Abdomen: non tender, soft Objective Unable to examine due to agitation rBight Her MD September 12, 2018 17:35
--- NOTE | 2018-09-12 19:50 | NUR ---
NURSE NOTES: Received pt. and report from DEANNE Ibrahim. Observe pt. resting in bed with both eyes closed. IV site intact, asymptomatic, and patent; currently running d5 @ 100cc/hr. carriage feeder is in placed, call light within reach. Bed is in the lowest position, locked, and alarmed. No signs/symptoms acute distress noted at this time. Will continue plan of care. Addendum: 09/13/18 at 0346 by Pamela Sprague Mai, RN D5 @ 75cc/hr
[2018-09-12 20:00] VITALS: BP 143/77
--- NOTE | 2018-09-12 20:39 | NUR ---
HAND-OFF: Report given to Jil, pt is no longer on restrains, or pulling tubing.
--- NOTE | 2018-09-12 20:41 | NUR ---
Per doctor August. ok to take pt restrains off to see if he starts pulling of tubing. So far pt has been sleeping and no signs of agitation. Pt is not pulling any of he tubing off . Per Dr. August Pt will be ready for DC if pt continues to not get agitated and pull tubing.
--- NOTE | 2018-09-12 21:50 | Neurology Progress Note ---
Interim History Interim History ROS Limited/Unobtainable: Yes Complaints: AMS Events: Unchanged exam- Objective Physical Exam Last Vital Signs Date Time Temp Pulse Resp B/P (MAP) Pulse Ox O2 Delivery O2 Flow Rate FiO2 09/12/18 16:00 72 09/12/18 16:00 97.1 20 119/55 (76) 99 09/12/18 11:19 Nasal Cannula 2.0 28 Laboratory Tests Test 09/12/18 06:00 09/12/18 06:50 Sodium Level 156 MMOL/L (136-145) H Potassium Level 3.8 MMOL/L (3.5-5.1) Chloride Level 117 MMOL/L (98-107) H Carbon Dioxide Level 33 MMOL/L (21-32) H Anion Gap 6 mmol/L (5-15) Blood Urea Nitrogen 25 mg/dL (7-18) H Creatinine 1.3 MG/DL (0.55-1.30) Estimat Glomerular Filtration Rate 56.3 mL/min (>60) Glucose Level 128 MG/DL (74-106) H Calcium Level 9.0 MG/DL (8.5-10.1) White Blood Count 9.7 K/UL (4.8-10.8) Red Blood Count 2.90 M/UL (4.70-6.10) L Hemoglobin 9.1 G/DL (14.2-18.0) L Hematocrit 27.1 % (42.0-52.0) L Mean Corpuscular Volume 93 FL (80-99) Mean Corpuscular Hemoglobin 31.3 PG (27.0-31.0) H Mean Corpuscular Hemoglobin Concent 33.5 G/DL (32.0-36.0) Red Cell Distribution Width 12.9 % (11.6-14.8) Platelet Count 255 K/UL (150-450) Mean Platelet Volume 7.1 FL (6.5-10.1) Neutrophils (%) (Auto) 81.2 % (45.0-75.0) H Lymphocytes (%) (Auto) 8.7 % (20.0-45.0) L Monocytes (%) (Auto) 5.7 % (1.0-10.0) Eosinophils (%) (Auto) 3.7 % (0.0-3.0) H Basophils (%) (Auto) 0.7 % (0.0-2.0) Head: normocophalic Neck: no rigidity EENT: benign Neurologic Exam Mental Status: awake, other - Patient remains agitated upon waking. His primary language is Cantonese but as per his daughter he is not speaking any intelligible words at this time. Language: other - Only making sounds- no words - aphasia remains persistent- both receptive/ expressive Cranial Nerve II: fundus normal, no papilledema Cranial Nerves III, IV, : PERRLA, EOMI Cranial Nerve VII: no facial asymmetry Cranial Nerve XI: SCM symmetric Cranial Nerve XII: tongue midline Motor System: other - No apparent focal weakness on exam but unable to formally test as patient is not following commands. Objective Patient continues to remain non focal on exam. He is agitated when awoken, LUNA x 4 but not following commands. His primary language is Cantonese and as per his / brother's report - He is not saying any intelligible words- denies paraphrasic errors - patient is just making sounds. He intermittently tracks with his eyes. No observed / mag seizure activity noted. Impression/Recommendations Problems: (1) Altered mental state (2) Cognitive impairment (3) Acute encephalopathy Assessment & Plan: Unclear cause at this time. Febrile with leukocytosis today. EEG was abnormal but without mag epileptiform activity. LP RECOMMENDED - Meningitis ddx Consider starting ppx Acyclovir 500mg Q8 as HSV Encephalitis ppx Continue Q 4 hour Neuro obs Na 135-145 IV Hydration Consider NG tube feeding Trial Seroquel 25mg QD for agitation Empiric Abx and then as per ID Maintain normothermia at all times with Tylenol or cooling blanket. Try to maintain sleep hygiene for patient with dark quiet room at night. SBP<140 (4) Hypernatremia Assessment & Plan: Please start free water as per PEG (5) Severe malnutrition (6) Encounter for PEG (percutaneous endoscopic gastrostomy) (7) Delirium due to another medical condition, acute, mixed level of activity Status: stable Recommendations LP unremarkable HSV negative Iv Abs as per PMD Continue Q4 hour neuro obs Continue Enteral feeding Maintain normoglycemia with ISS REPEAT EEG Continue to interact with patient, frequently reorienting him Attempt OOB in chair. PT/OT evals Maintain normothermia Psych consult recommended for additional assessment of delirium . Discuss increasing Seroquel Jennifer Gama.P. September 12, 2018 21:50
[2018-09-12] MEDS: Miralax 17gm pkt ORAL SCH (21:52)
[2018-09-12] MEDS: Atorvastatin 80mg tab NG SCH (21:52)
--- NOTE | 2018-09-12 22:00 | Electroencephalogram ---
DATE OF PROCEDURE: 09/11/2018 REQUESTING PHYSICIAN: Andry Mancini M.D. READING PHYSICIAN: Delfin Norman M.D. PROCEDURE PERFORMED: Electroencephalogram. HISTORY: This EEG was performed on a 58-year-old gentleman with a history of an encephalopathy and questionable seizures. The purpose of this EEG was to evaluate the patient for ongoing ictal or interictal phenomena and to determine the degree and type of cerebral dysfunction. TECHNICAL NOTE: This EEG was performed on a [employer] acquisition unit with electrodes placed on the scalp according to the International 10-20 system. Pzxnv-[id number] and itzbz-hz-qzj montages were used. The EEG was technically satisfactory and was performed in the awake, drowsy, and sleep states. OBSERVATIONS: In the best awake state, which was exceedingly brief, the background activity consisted of 8.5-9 Hz alpha activity with a moderate amount of intermixed theta frequencies. Drowsiness was characterized by slowing of the background in the theta and delta range. Stage II sleep was characterized by further slowing of the background in the delta and theta range, the presence of vertex waves, and slow 10-12 Hz sleep spindles. No focal abnormalities or epileptiform discharges were seen. IMPRESSION: This is an abnormal EEG characterized by: 1. Slowing of the background with an unusually large amount of intermixed theta activity seen in the awake state, which was quite brief. 2. The presence of slow 10-12 Hz sleep spindles seen during sleep. COMMENT: This study is consistent with an encephalopathy of a rzbq-ls-haosdnua degree. Clinical correlation is recommended. Delfin Norman M.D., M.S.P.H. DR: SHERYL JOB#: [id number] ANTHONY
--- NOTE | 2018-09-12 22:00 | Electroencephalogram ---
DATE OF PROCEDURE: 09/07/2018 REQUESTING PHYSICIAN: Andry Mancini M.D. READING PHYSICIAN: Delfin Norman M.D. PROCEDURE PERFORMED: Electroencephalogram. HISTORY: This EEG was performed on a 58-year-old gentleman who was hospitalized for an alteration in his mental state. The purpose of this EEG was to evaluate the patient for the degree and type of cerebral dysfunction and to exclude ongoing ictal or interictal phenomena. TECHNICAL NOTE: This EEG was performed on a [employer] Acquisition Unit with electrodes placed on the scalp according to the International 10-20 system. Ifioi-wb-xbqhv and emnpg-ge-omh montages were used. The EEG was of technically mediocre quality as no attempts were made to stimulate the patient throughout the tracing. OBSERVATIONS: In the reportedly sleep state, the background activity consisted of delta and theta frequencies with vertex waves and slow 10-12 Hz sleep spindles. No attempts were made to stimulate the patient to determine if there was any reactivity. No definite focal abnormalities or epileptiform discharges were seen. IMPRESSION: Possibly abnormal EEG only performed in the sleep state with slow sleep spindles. COMMENT: This study is consistent with an encephalopathy. The degree of encephalopathy cannot be ascertained because of the poor quality of the EEG. Clinical correlation is recommended. Delfin Norman M.D., M.S.P.H. DR: SHERYL JOB#: [id number] [facility]
--- NOTE | 2018-09-12 22:33 | NUR ---
NURSE NOTES: Pt. woke up and became agitated and began pulling on G-tube and IV. Contact Dr. Graham to reactivate restraints. Received orders. Will note and carry out.
--- NOTE | 2018-09-12 23:32 | NUR ---
NURSE NOTES: Pt. continues to be agitated and is pulling against restraints. Pulses and sensations are present bilaterally on both wrists. Moved pt. closer to nursing station. Will continue to monitor pt.
--- NOTE | 2018-09-12 23:50 | NUR ---
NURSE NOTES: Pt. continues to be agitated and pulling against restraints. Contacted Dr. Graham and received orders. Will note and carry out.
[2018-09-13] VITALS: BP 108/69
[2018-09-13] MEDS ORDERED: Haloperidol 5mg/ml Inj IM ONE
[2018-09-13] MEDS ORDERED: DiphenhydrAMINE 50mg/ml Inj IM ONE
[2018-09-13] MEDS ORDERED: LORazepam Inj 2mg/ml 1ml IM ONE
--- NOTE | 2018-09-13 01:49 | NUR ---
NURSE NOTES: Pt. is resting in bed with both eyes closed. VS are stable. Will continue to monitor pt.
[2018-09-13 04:00] VITALS: BP 112/69
[2018-09-13] MEDS: Valproate Sodium INJ 250 MG in D5W 55 ML IVPB SCH ×3 (05:21→22:00)
[2018-09-13] MEDS: Oxybutynin 5mg tab NG SCH ×3 (05:21→21:24)
--- NOTE | 2018-09-13 06:53 | NUR ---
DISCHARGE PLANNING PIPELINE MAINTENANCE SUPERVISOR WAS ABLE TO SECURE A BED AT [facility] HOWEVER, FAMILY IS REQUESTING PLACEMENT AT ONE OF THE FOLLOWING FACILITIES: [facility] and [facility] [phone] [phone] [facility] [phone] [facility] [phone] [facility] [phone] A copy of this list is inside pt's file.
[2018-09-13 07:24] LABS: BASOPHILS % (AUTO) 0.9 % (0.0-2.0); EOSINOPHILS % (AUTO) 4.2 % (0.0-3.0); HEMATOCRIT 26.5 % (42.0-52.0); HEMOGLOBIN 8.8 G/DL (14.2-18.0); LYMPHOCYTES % (AUTO) 15.1 % (20.0-45.0); MEAN CORPUSCULAR VOLUME 94 FL (80-99); MONOCYTES % (AUTO) 6.8 % (1.0-10.0); NEUTROPHILS % (AUTO) 73.1 % (45.0-75.0); PLATELET COUNT 259 K/UL (150-450); RED BLOOD COUNT 2.82 M/UL (4.70-6.10)
[2018-09-13 07:34] LABS: ANION GAP 6 mmol/L (5-15); BLOOD UREA NITROGEN 26 mg/dL (7-18); CALCIUM 8.8 MG/DL (8.5-10.1); CARBON DIOXIDE 33 MMOL/L (21-32); CHLORIDE 113 MMOL/L (98-107); CREATININE 1.4 MG/DL (0.55-1.30); POTASSIUM 4.4 MMOL/L (3.5-5.1); SODIUM 152 MMOL/L (136-145)
--- NOTE | 2018-09-13 07:42 | NUR ---
HAND-OFF: Report given to DEANNE Ledesma.
--- NOTE | 2018-09-13 07:45 | NUR ---
NURSE NOTES: Received report from Nikki/RN, Patient is awake, G-tube running Nepro 1.8 @30cc per hour. IV at left side 22 gauge running D5 @75cc/hr. Bed in low position call light within reach. Will continue plan of care.
[2018-09-13 08:00] VITALS: BP 134/81
[2018-09-13] MEDS: Lactulose 10gm/15ml UDC ORAL SCH ×3 (08:54→18:13)
[2018-09-13] MEDS: Docusate 100mg cap ORAL SCH ×2 (08:55→18:14)
[2018-09-13] MEDS: Aspirin Baby 81mg NG SCH (08:55)
--- NOTE | 2018-09-13 10:15 | Progress Note ---
DATE: 09/12/2018 PSYCHIATRIST PROGRESS NOTE SUBJECTIVE: The patient is doing better today. Mood is agitated however, still needs medication for agitation. He is confused. Presents with waxing and waning consciousness. Memory is impaired. Unable to answer any questions. MENTAL STATUS EXAMINATION: The patient is alert, confused, disoriented. Mood is anxious. Affect is constricted, congruent with mood. Thought process is disorganized and tangential. Thought content, no suicidal or homicidal ideation. Memory, concentration, and attention is impaired. Insight and judgment is impaired. ASSESSMENT: Acute metabolic encephalopathy. PLAN: 1. We will continue the Seroquel. 2. Continue the olanzapine on 2.5 mg every 4 hours p.r.n. 3. Continue the patient on olanzapine 2.5 mg b.i.d. 4. Continue needed. 5. The patient lacks capacity to make decisions. 6. We will continue to follow and readjust the medications. Damian Graham M.D. DR: DEYSI JOB#: [id number] CC:
--- NOTE | 2018-09-13 10:32 | GI Progress Note ---
Assessment/Plan Problems: (1) Encounter for PEG (percutaneous endoscopic gastrostomy) ICD Codes: Z43.1 - Encounter for attention to gastrostomy SNOMED: 987528325, 776588845 (2) Severe malnutrition ICD Codes: E43 - Unspecified severe protein-calorie malnutrition SNOMED: 55716186 (3) Altered mental state ICD Codes: R41.82 - Altered mental status, unspecified SNOMED: 844791843 Qualifiers: Qualified Codes: R41.82 - Altered mental status, unspecified (4) Stroke ICD Codes: I63.9 - Cerebral infarction, unspecified SNOMED: 543014217 (5) Dehydration ICD Codes: E86.0 - Dehydration SNOMED: 39797514 Status: stable Status Narrative Discussed with Dr. Olivarez. Assessment/Plan s/p GT placement GTF monitor for residuals GT flush/GT site care daily and as needed bowel regimen ppi reglan prn for GI motility follow labs DC planning The patient was seen and examined at bedside and all new and available data was reviewed in the patients chart. I agree with the above findings, impression and plan. (Patient seen earlier today. Signature stamp does not reflect patient encounter time.). - Luis Alberto Olivarez MD Subjective Subjective Limited, patient nonverbal at baseline Objective Last 24 Hour Vital Signs Date Time Temp Pulse Resp B/P (MAP) Pulse Ox O2 Delivery O2 Flow Rate FiO2 09/13/18 09:00 Nasal Cannula 2.0 09/13/18 08:00 98.1 97 20 134/81 (98) 94 09/13/18 04:00 97.7 60 21 112/69 (83) 99 09/13/18 04:00 62 09/13/18 00:00 98.1 77 20 108/69 (82) 97 09/13/18 00:00 98 09/12/18 21:00 Nasal Cannula 2.0 09/12/18 20:00 Nasal Cannula 2.0 28 09/12/18 20:00 65 09/12/18 20:00 98.2 72 18 143/77 (99) 99 09/12/18 20:00 98 Nasal Cannula 2.0 28 09/12/18 16:00 72 09/12/18 16:00 97.1 75 20 119/55 (76) 99 09/12/18 12:00 67 09/12/18 12:00 97.5 66 20 110/69 (83) 100 09/12/18 11:19 Nasal Cannula 2.0 28 09/12/18 11:19 98 Nasal Cannula 2.0 28 Intake and Output 09/12/18 09/13/18 18:59 06:59 Intake Total 900 ml Output Total 1600 ml 920 ml Balance -1600 ml -20 ml IV Total 900 ml Output Urine Total 1600 ml 920 ml Laboratory Tests Test 09/13/18 06:07 White Blood Count 9.0 K/UL (4.8-10.8) Red Blood Count 2.82 M/UL (4.70-6.10) L Hemoglobin 8.8 G/DL (14.2-18.0) L Hematocrit 26.5 % (42.0-52.0) L Mean Corpuscular Volume 94 FL (80-99) Mean Corpuscular Hemoglobin 31.2 PG (27.0-31.0) H Mean Corpuscular Hemoglobin Concent 33.2 G/DL (32.0-36.0) Red Cell Distribution Width 13.0 % (11.6-14.8) Platelet Count 259 K/UL (150-450) Mean Platelet Volume 6.8 FL (6.5-10.1) Neutrophils (%) (Auto) 73.1 % (45.0-75.0) Lymphocytes (%) (Auto) 15.1 % (20.0-45.0) L Monocytes (%) (Auto) 6.8 % (1.0-10.0) Eosinophils (%) (Auto) 4.2 % (0.0-3.0) H Basophils (%) (Auto) 0.9 % (0.0-2.0) Sodium Level 152 MMOL/L (136-145) H Potassium Level 4.4 MMOL/L (3.5-5.1) Chloride Level 113 MMOL/L (98-107) H Carbon Dioxide Level 33 MMOL/L (21-32) H Anion Gap 6 mmol/L (5-15) Blood Urea Nitrogen 26 mg/dL (7-18) H Creatinine 1.4 MG/DL (0.55-1.30) H Estimat Glomerular Filtration Rate 51.7 mL/min (>60) Glucose Level 136 MG/DL (74-106) H Calcium Level 8.8 MG/DL (8.5-10.1) Height (Feet): 6 Height (Inches): 0.00 Weight (Pounds): 111 General Appearance: no apparent distress Cardiovascular: normal rate Respiratory/Chest: normal breath sounds, no respiratory distress Abdominal Exam: normal bowel sounds, non tender, soft, GT site - c/d/i Extremities: non-tender Juanis Bullard NP September 13, 2018 10:32
--- NOTE | 2018-09-13 11:04 | NUR ---
DISCHARGE PLANNING Discharge order noted Patient has been referred to [facility] [phone] Await Acceptance and Room Number
--- NOTE | 2018-09-13 11:06 | NUR ---
DISCHARGE PLANNING Discharge order noted Patient has been referred to [facility] [phone] Await Acceptance and Room Number
[2018-09-13 12:00] VITALS: BP 102/75
--- NOTE | 2018-09-13 12:09 | NUR ---
CASE MANAGEMENT:REVIEW 09/13/18 SI: ACUTE ENCEPHALOPATHY S/P PEG PLACEMENT 98.1 97 102 20 134/81 94% ON 2L/NC H/H-8.8/26.5 NA+152 BUN+26 CR+1.4 IS: IVf@ 75/hr LACTULOSE PO TID PLAVIX NG QD ASA NG QD IV VALPROATE Q8HRS : TELEMETRY STATUS DCP: FROM [facility] PLAN: FAMILY DOES NOT WANT PATIENT TO RETURN TO [facility] THEY HAVE REQUESTED HE BE REFERRED TO: [facility] DIRECTOR OF STUDENT AID HAS FAXED TO ALL OF THE ABOVE
--- NOTE | 2018-09-13 12:51 | General Progress Note ---
Assessment/Plan Status: stable Assessment/Plan: Assessment/Plan: # Failure to thrive - decreased bmi and low protein, does have evidence of prior infarct, poor PS --> will also obtain q3d caloric counts --> cea is elevated and workup as per below, consider gi eval --> mirtazapine as appetite stimulant has been ordered --> Gi consult on a prn basis, appreciate recs # Hyperproteinemia with decreased albumin -- this is a dissociation that is abnormal --> upep and spep are negative for a m-spike, it does not exist --> thus likely inflammatory process # Elevated tumor markers as cea is elevated --> may consider gi evaluation in this setting --> ca 19.9 is 1, ca 15.3 is 12.3 --> at some point may need CT c/a/p okay as outpatient # Anemia due to chronic disease --> anemia panel reviewed, no schistocytes --> peripheral smear reviewed --> hgb goal is >7 # Acute metabolic encephalopathy, possibly from UTI, dehydration or recurrent CVA --> neuro and psych prn eval --> MRI brain reviewed, lp 09/05 --> abx prn # History of recent CVA, CT done in ED shows subacute to chronic right thalamic stroke --> supportive care --> per neuro --> is on abx for what appears to be uti # Dysphagia is sp peg --> continue peg feeds # ZENON with cr from normal to 3 --> renal was consulted The timing of this note does not necessarily reflect the time of the patient was seen. Greatly appreciate consultation! Subjective Constitutional: Denies: no symptoms, chills, diaphoresis, fever, malaise, weakness, other HEENT: Denies: no symptoms, eye pain, blurred vision, tearing, double vision, ear pain, ear discharge, nose pain, nose congestion, throat pain, throat swelling, mouth pain, mouth swelling, other Cardiovascular: Denies: no symptoms, chest pain, edema, irregular heart rate, lightheadedness, palpitations, syncope, other Respiratory: Denies: no symptoms, cough, orthopnea, shortness of breath, SOB with excertion, SOB at rest, sputum, stridor, wheezing, other Gastrointestinal/Abdominal: Denies: no symptoms, abdomen distended, abdominal pain, black stools, tarry stools, blood in stool, constipated, diarrhea, difficulty swallowing, nausea, poor appetite, poor fluid intake, rectal bleeding , vomiting, other Genitourinary: Denies: no symptoms, burning, discharge, frequency, flank pain, hematuria, incontinence, pain, urgency, other Neurologic/Psychiatric: Denies: no symptoms, anxiety, depressed, emotional problems, headache, numbness, paresthesia, pre-existing deficit, seizure, tingling, tremors, weakness, other Endocrine: Denies: no symptoms, excessive sweating, flushing, intolerance to cold, intolerance to heat, increased hunger, increased thirst, increased urine, unexplained weight gain, unexplained weight loss, other Hematologic/Lymphatic: Denies: no symptoms, anemia, easy bleeding, easy bruising, other Allergies: Coded Allergies: No Known Allergies (Unverified , 08/30/18) Subjective 09/01: close followup with psych, remains agitated, some hematuria with burleson noted 09/03: with restraints, hgb remains low, no bleeding reported, in semi-fowlers position 09/04: has been refusing ng tube placement, concern remains for silent aspiration, seen by speech 09/05: urethreal bleeding noted after burleson was pulled, lp pending 09/06: no events to report, no f/c. mental status improved 09/07: no fevers or chills, anemia panel reviewed, cr is higher this am 09/08: no events, potentially to get peg placed, cr does remain elevated, renal consulted 09/10: s/p gtube placement, no events otherwise, cbc has been reviewed, hematuria is better 09/11: no events noted overnight, on peg tube feeds, agitated 09/12: gtube is in place, no fevers or chills, no bleeding, cr better 09/13: no events, getting gt feeds, no bleeding reported, no night sweats Objective Last 24 Hour Vital Signs Date Time Temp Pulse Resp B/P (MAP) Pulse Ox O2 Delivery O2 Flow Rate FiO2 09/13/18 09:00 Nasal Cannula 2.0 09/13/18 08:00 102 09/13/18 08:00 98.1 97 20 134/81 (98) 94 09/13/18 04:00 97.7 60 21 112/69 (83) 99 09/13/18 04:00 62 09/13/18 00:00 98.1 77 20 108/69 (82) 97 09/13/18 00:00 98 09/12/18 21:00 Nasal Cannula 2.0 09/12/18 20:00 Nasal Cannula 2.0 28 09/12/18 20:00 65 09/12/18 20:00 98.2 72 18 143/77 (99) 99 09/12/18 20:00 98 Nasal Cannula 2.0 28 09/12/18 16:00 72 09/12/18 16:00 97.1 75 20 119/55 (76) 99 Intake and Output 09/12/18 09/13/18 18:59 06:59 Intake Total 900 ml Output Total 1600 ml 920 ml Balance -1600 ml -20 ml IV Total 900 ml Output Urine Total 1600 ml 920 ml Laboratory Tests 09/13/18 06:07: White Blood Count 9.0, Red Blood Count 2.82L, Hemoglobin 8.8L, Hematocrit 26.5L , Mean Corpuscular Volume 94, Mean Corpuscular Hemoglobin 31.2H, Mean Corpuscular Hemoglobin Concent 33.2, Red Cell Distribution Width 13.0, Platelet Count 259, Mean Platelet Volume 6.8, Neutrophils (%) (Auto) 73.1, Lymphocytes (% ) (Auto) 15.1L, Monocytes (%) (Auto) 6.8, Eosinophils (%) (Auto) 4.2H, Basophils (%) (Auto) 0.9, Sodium Level 152H, Potassium Level 4.4, Chloride Level 113H, Carbon Dioxide Level 33H, Anion Gap 6, Blood Urea Nitrogen 26H, Creatinine 1.4H, Estimat Glomerular Filtration Rate 51.7, Glucose Level 136H, Calcium Level 8.8 Height (Feet): 6 Height (Inches): 0.00 Weight (Pounds): 111 Objective General Appearance: alert, combative HEENT: normocephalic ++ ngt Neck: supple, normal inspection Respiratory/Chest: lungs clear, normal breath sounds Cardiovascular/Chest: normal rate, regular rhythm, no JVD Abdomen: non tender, soft ++ peg Extremities: normal inspection, no calf tenderness, + restraints Neurologic: other - Uncooperative : Nolan+ Aman Collier MD September 13, 2018 12:51
--- NOTE | 2018-09-13 13:08 | General Progress Note ---
Assessment/Plan Status: stable Assessment/Plan: #Acute metabolic encephalopathy, agitation not controlled #History of recent CVA, CT done in ED shows subacute to chronic right thalamic stroke #Dysphagia, s/p PEG -supportive care -Fall,Aspiration,Seizure precautions -IM Haldol prn for agitation -Neurochecks -continue Lipitor -Off acyclovir -LP done, CSF HSV PCR negative -Urine culture no growth, ceftriaxone stopped -Neurology and Psychiatry following -DIVING BOARD ASSEMBLER following -S/p PEG, continue tube feeds -Spoke with Psychiatry to re-eval #Acute blood loss anemia #Hematuria due to Francisco catheter induced urethral trauma, improved -H&H stable -resume -Francisco out -transfuse PRBC if Hb < 8 #ZENON, improved renal function #Hypernatremia due to lack of water intake #Hypokalemia -replace electrolytes prn -continue to monitor BMP -avoid nephrotoxic agents -Nephrology following Full Code VTE PPx SCD Subjective Date patient seen: September 13, 2018 Time patient seen: 13:00 ROS Limited/Unobtainable: Yes Allergies: Coded Allergies: No Known Allergies (Unverified , 08/30/18) Subjective Medicine follow up for acute encephalopathy, agitation, ZENON, dysphagia. Underwent PEG placement this admission. Tolerating tube feeds. Persistently agitated, unable to remain off restraints. Objective Last 24 Hour Vital Signs Date Time Temp Pulse Resp B/P (MAP) Pulse Ox O2 Delivery O2 Flow Rate FiO2 09/13/18 12:00 97.7 96 18 102/75 (84) 96 09/13/18 09:00 Nasal Cannula 2.0 09/13/18 08:00 102 09/13/18 08:00 98.1 97 20 134/81 (98) 94 09/13/18 04:00 97.7 60 21 112/69 (83) 99 09/13/18 04:00 62 09/13/18 00:00 98.1 77 20 108/69 (82) 97 09/13/18 00:00 98 09/12/18 21:00 Nasal Cannula 2.0 09/12/18 20:00 Nasal Cannula 2.0 28 09/12/18 20:00 65 09/12/18 20:00 98.2 72 18 143/77 (99) 99 09/12/18 20:00 98 Nasal Cannula 2.0 28 09/12/18 16:00 72 09/12/18 16:00 97.1 75 20 119/55 (76) 99 Intake and Output 09/12/18 09/13/18 19:00 07:00 Intake Total 75 ml 825 ml Output Total 1600 ml 920 ml Balance -1525 ml -95 ml IV Total 75 ml 825 ml Output Urine Total 1600 ml 920 ml Laboratory Tests 09/13/18 06:07: White Blood Count 9.0, Red Blood Count 2.82L, Hemoglobin 8.8L, Hematocrit 26.5L , Mean Corpuscular Volume 94, Mean Corpuscular Hemoglobin 31.2H, Mean Corpuscular Hemoglobin Concent 33.2, Red Cell Distribution Width 13.0, Platelet Count 259, Mean Platelet Volume 6.8, Neutrophils (%) (Auto) 73.1, Lymphocytes (% ) (Auto) 15.1L, Monocytes (%) (Auto) 6.8, Eosinophils (%) (Auto) 4.2H, Basophils (%) (Auto) 0.9, Sodium Level 152H, Potassium Level 4.4, Chloride Level 113H, Carbon Dioxide Level 33H, Anion Gap 6, Blood Urea Nitrogen 26H, Creatinine 1.4H, Estimat Glomerular Filtration Rate 51.7, Glucose Level 136H, Calcium Level 8.8 Height (Feet): 6 Height (Inches): 0.00 Weight (Pounds): 111 General Appearance: alert, confused Neck: normal alignment, supple Cardiovascular: normal rate, regular rhythm Respiratory/Chest: lungs clear, normal breath sounds Abdomen: non tender, soft Objective Unable to examine due to agitation Bright Her MD September 13, 2018 13:08
--- NOTE | 2018-09-13 13:34 | NUR ---
SWALLOW/SPEECH THERAPY NOTE: SUBJECTIVE: ALERT BUT VERY RESTLESS AND MOVES DOWN IN HIS BED TRYING TO PULL AT IV LINES. WORKED WITH PRIMARY LEASE EXAMINER ON PO TRIALS TODAY. OBJECTIVE/ASSESSMENT: UNABLE TO COMPLETE MOD BARIUM SWALLOW STUDY NOW DUE TO SCHEDULE CONFLICTS WITH RADIOLOGY. PER PRIMARY AND CANTONESE-SPEAKING LEASE EXAMINER (QIANA ABAD), PATIENT'S WANTS PT TO HAVE SOME PO FOR ORAL GRATIFICATION AND QUALITY OF LIFE. PO TRIALS WITH 3 TSP AMOUNTS AT A TIME (WITH MED CUP AND TSP) NECTAR THICK LIQUID HAD MILD-MODERATE INCREASED IN OROPHARYNGEAL TRANSIT TIMES, REDUCED LARYNGEAL EXCURSION BUT NO ORAL RESIDUE NOR OVERT S/S OF ASPIRATION (VOICE CLEAR, CONSISTENTLY SAY "AHH"). PLAN: MOD BARIUM SWALLOW STUDY TOMORROW CONTINUE WITH ORAL CARE AND PEG FEEDINGS FOR NOW. D/W RN ( NOT PRESENT). Addendum: 09/13/18 at 1344 by MIRACLE PECK LEASE EXAMINER PER PRIMARY ST REGARDING COMMUNICATION: STARTING TO HAVE MORE VARIATION OF SOUNDS BUT STILL NOW COMMUNICATING REAL WORDS IN CANTONESE AT THIS TIME.
[2018-09-13 16:00] VITALS: BP 107/66
--- NOTE | 2018-09-13 19:27 | NUR ---
HAND-OFF: Report given to Farrah/DEANNE, Endorsed plan of care.
--- NOTE | 2018-09-13 19:38 | NUR ---
NURSE NOTES: patient received. patient in no acute distress at this time. patient complains of no pain at this time. patient non verbal. alert x0. condom cath intact. IV intact patent and asymptomatic. Gtube dry and intact. feeding running. patient restraints are secure. patient bed in lowest position and locked. call light within reach. will continue to monitor.
[2018-09-13 20:00] VITALS: BP 107/53
[2018-09-13] MEDS: Miralax 17gm pkt ORAL SCH (20:14)
[2018-09-13] MEDS: Atorvastatin 80mg tab NG SCH (20:15)
--- NOTE | 2018-09-13 23:15 | Progress Note ---
DATE: 09/13/2018 PSYCHIATRIC PROGRESS NOTE SUBJECTIVE: The patient appears to be agitated, yelling, and screaming. Not engaged during the evaluation. The patient is having cognitive impairment and is not engaged. The patient is not redirectable. is at bedside. MENTAL STATUS EXAMINATION: The patient is alert, confused, and disoriented. Mood is anxious and agitated. Affect is flat. Thought process, there is a paucity of thought content. Thought content, no suicidal or homicidal ideations. Cognition is impaired. ASSESSMENT: 1. Vascular dementia. 2. Agitation. 3. Acute metabolic encephalopathy. PLAN: 1. We will increase the Seroquel to 50 mg t.i.d. 2. We will continue to follow and readjust the medication. Damian Graham M.D. DR: RONEY JOB#: [id number] CC:
[2018-09-14] VITALS: BP 93/57
--- NOTE | 2018-09-14 03:28 | Neurology Progress Note ---
Interim History Interim History ROS Limited/Unobtainable: Yes Complaints: AMS Events: This vist was conducted on September 13, 2018 Interim History Seroquel increased to 50mg TID - exam unchanged Review of Systems All Systems: reviewed and negative except above Objective Physical Exam Last Vital Signs Date Time Temp Pulse Resp B/P (MAP) Pulse Ox O2 Delivery O2 Flow Rate FiO2 09/14/18 00:00 96 09/14/18 00:00 96.6 19 93/57 (69) 97 09/13/18 23:52 Nasal Cannula 2.0 09/12/18 20:00 28 Laboratory Tests Test 09/13/18 06:07 White Blood Count 9.0 K/UL (4.8-10.8) Red Blood Count 2.82 M/UL (4.70-6.10) L Hemoglobin 8.8 G/DL (14.2-18.0) L Hematocrit 26.5 % (42.0-52.0) L Mean Corpuscular Volume 94 FL (80-99) Mean Corpuscular Hemoglobin 31.2 PG (27.0-31.0) H Mean Corpuscular Hemoglobin Concent 33.2 G/DL (32.0-36.0) Red Cell Distribution Width 13.0 % (11.6-14.8) Platelet Count 259 K/UL (150-450) Mean Platelet Volume 6.8 FL (6.5-10.1) Neutrophils (%) (Auto) 73.1 % (45.0-75.0) Lymphocytes (%) (Auto) 15.1 % (20.0-45.0) L Monocytes (%) (Auto) 6.8 % (1.0-10.0) Eosinophils (%) (Auto) 4.2 % (0.0-3.0) H Basophils (%) (Auto) 0.9 % (0.0-2.0) Sodium Level 152 MMOL/L (136-145) H Potassium Level 4.4 MMOL/L (3.5-5.1) Chloride Level 113 MMOL/L (98-107) H Carbon Dioxide Level 33 MMOL/L (21-32) H Anion Gap 6 mmol/L (5-15) Blood Urea Nitrogen 26 mg/dL (7-18) H Creatinine 1.4 MG/DL (0.55-1.30) H Estimat Glomerular Filtration Rate 51.7 mL/min (>60) Glucose Level 136 MG/DL (74-106) H Calcium Level 8.8 MG/DL (8.5-10.1) Head: normocophalic Neck: no rigidity EENT: benign Neurologic Exam Mental Status: awake, other - Patient remains agitated upon waking. His primary language is Cantonese but as per his daughter he is not speaking any intelligible words at this time. Language: other - Only making sounds- no words - aphasia remains persistent- both receptive/ expressive Cranial Nerve II: fundus normal, no papilledema Cranial Nerves III, IV, : PERRLA, EOMI Cranial Nerve VII: no facial asymmetry Cranial Nerve XI: SCM symmetric Cranial Nerve XII: tongue midline Motor System: other - No apparent focal weakness on exam but unable to formally test as patient is not following commands. Objective Patient continues to remain non focal on exam. He is agitated when awoken, LUNA x 4 but not following commands. His primary language is Cantonese and as per his / brother's report - He is not saying any intelligible words- denies paraphrasic errors - patient is just making sounds. He intermittently tracks with his eyes. No observed / mag seizure activity noted. Impression/Recommendations Problems: (1) Altered mental state (2) Cognitive impairment (3) Acute encephalopathy Assessment & Plan: Unclear cause at this time. Febrile with leukocytosis today. EEG was abnormal but without mga epileptiform activity. LP RECOMMENDED - Meningitis ddx Consider starting ppx Acyclovir 500mg Q8 as HSV Encephalitis ppx Continue Q 4 hour Neuro obs Na 135-145 IV Hydration Consider NG tube feeding Trial Seroquel 25mg QD for agitation Empiric Abx and then as per ID Maintain normothermia at all times with Tylenol or cooling blanket. Try to maintain sleep hygiene for patient with dark quiet room at night. SBP<140 (4) Hypernatremia Assessment & Plan: Please start free water as per PEG (5) Severe malnutrition (6) Encounter for PEG (percutaneous endoscopic gastrostomy) (7) Delirium due to another medical condition, acute, mixed level of activity Status: stable, not improved, unchanged Recommendations LP unremarkable HSV negative Iv Abs as per PMD Continue Q4 hour neuro obs Continue Enteral feeding Maintain normoglycemia with ISS REPEAT EEG Continue to interact with patient, frequently reorienting him Attempt OOB in chair. PT/OT evals Maintain normothermia Psych consult recommended for additional assessment of delirium . Discuss increasing Jennifer Tabares N.P. September 14, 2018 03:28
--- NOTE | 2018-09-14 03:28 | Neurology Progress Note ---
Interim History Interim History ROS Limited/Unobtainable: Yes Complaints: AMS Events: This vist was conducted on September 14, 2018 Review of Systems All Systems: reviewed and negative except above Objective Physical Exam Last Vital Signs Date Time Temp Pulse Resp B/P (MAP) Pulse Ox O2 Delivery O2 Flow Rate FiO2 09/14/18 00:00 96 09/14/18 00:00 96.6 19 93/57 (69) 97 09/13/18 23:52 Nasal Cannula 2.0 09/12/18 20:00 28 Laboratory Tests Test 09/13/18 06:07 White Blood Count 9.0 K/UL (4.8-10.8) Red Blood Count 2.82 M/UL (4.70-6.10) L Hemoglobin 8.8 G/DL (14.2-18.0) L Hematocrit 26.5 % (42.0-52.0) L Mean Corpuscular Volume 94 FL (80-99) Mean Corpuscular Hemoglobin 31.2 PG (27.0-31.0) H Mean Corpuscular Hemoglobin Concent 33.2 G/DL (32.0-36.0) Red Cell Distribution Width 13.0 % (11.6-14.8) Platelet Count 259 K/UL (150-450) Mean Platelet Volume 6.8 FL (6.5-10.1) Neutrophils (%) (Auto) 73.1 % (45.0-75.0) Lymphocytes (%) (Auto) 15.1 % (20.0-45.0) L Monocytes (%) (Auto) 6.8 % (1.0-10.0) Eosinophils (%) (Auto) 4.2 % (0.0-3.0) H Basophils (%) (Auto) 0.9 % (0.0-2.0) Sodium Level 152 MMOL/L (136-145) H Potassium Level 4.4 MMOL/L (3.5-5.1) Chloride Level 113 MMOL/L (98-107) H Carbon Dioxide Level 33 MMOL/L (21-32) H Anion Gap 6 mmol/L (5-15) Blood Urea Nitrogen 26 mg/dL (7-18) H Creatinine 1.4 MG/DL (0.55-1.30) H Estimat Glomerular Filtration Rate 51.7 mL/min (>60) Glucose Level 136 MG/DL (74-106) H Calcium Level 8.8 MG/DL (8.5-10.1) Head: normocophalic Neck: no rigidity EENT: benign Neurologic Exam Mental Status: awake, other - Patient remains agitated upon waking. His primary language is Cantonese but as per his daughter he is not speaking any intelligible words at this time. Language: other - Only making sounds- no words - aphasia remains persistent- both receptive/ expressive Cranial Nerve II: fundus normal, no papilledema Cranial Nerves III, IV, : PERRLA, EOMI Cranial Nerve VII: no facial asymmetry Cranial Nerve XI: SCM symmetric Cranial Nerve XII: tongue midline Motor System: other - No apparent focal weakness on exam but unable to formally test as patient is not following commands. Objective Patient continues to remain non focal on exam. He is agitated when awoken, LUNA x 4 but not following commands. His primary language is Cantonese and as per his / brother's report - He is not saying any intelligible words- denies paraphrasic errors - patient is just making sounds. He intermittently tracks with his eyes. No observed / mag seizure activity noted. Impression/Recommendations Problems: (1) Altered mental state (2) Cognitive impairment (3) Acute encephalopathy Assessment & Plan: Unclear cause at this time. Febrile with leukocytosis today. EEG was abnormal but without mag epileptiform activity. LP RECOMMENDED - Meningitis ddx Consider starting ppx Acyclovir 500mg Q8 as HSV Encephalitis ppx Continue Q 4 hour Neuro obs Na 135-145 IV Hydration Consider NG tube feeding Trial Seroquel 25mg QD for agitation Empiric Abx and then as per ID Maintain normothermia at all times with Tylenol or cooling blanket. Try to maintain sleep hygiene for patient with dark quiet room at night. SBP<140 (4) Hypernatremia Assessment & Plan: Please start free water as per PEG (5) Severe malnutrition (6) Encounter for PEG (percutaneous endoscopic gastrostomy) (7) Delirium due to another medical condition, acute, mixed level of activity Status: stable, not improved, unchanged Recommendations LP unremarkable HSV negative Iv Abs as per PMD Continue Q4 hour neuro obs Continue Enteral feeding Maintain normoglycemia with ISS REPEAT EEG - found to have somewhat improved level of enceophalopathy, no epileptiform discharges Continue to interact with patient, frequently reorienting him Attempt OOB in chair. PT/OT evals Maintain normothermia Psych consult recommended for additional assessment of delirium . Discuss increasing Jennifer Tabares N.P. September 14, 2018 03:28
[2018-09-14 04:00] VITALS: BP 95/61
[2018-09-14] MEDS: Valproate Sodium INJ 250 MG in D5W 55 ML IVPB SCH ×3 (06:01→22:38)
[2018-09-14] MEDS: Oxybutynin 5mg tab NG SCH (06:01)
[2018-09-14 07:07] LABS: EOSINOPHILS % (AUTO) 3.1 % (0.0-3.0); HEMATOCRIT 23.3 % (42.0-52.0); LYMPHOCYTES % (AUTO) 10.2 % (20.0-45.0); MEAN CORPUSCULAR VOLUME 92 FL (80-99); MONOCYTES % (AUTO) 8.1 % (1.0-10.0); NEUTROPHILS % (AUTO) 77.6 % (45.0-75.0); PLATELET COUNT 265 K/UL (150-450); RED BLOOD COUNT 2.53 M/UL (4.70-6.10); RED CELL DISTRIBUTION WIDTH 12.7 % (11.6-14.8); WHITE BLOOD COUNT 11.8 K/UL (4.8-10.8)
[2018-09-14 07:09] LABS: ANION GAP 7 mmol/L (5-15); BLOOD UREA NITROGEN 26 mg/dL (7-18); CALCIUM 8.9 MG/DL (8.5-10.1); CARBON DIOXIDE 31 MMOL/L (21-32); CHLORIDE 107 MMOL/L (98-107); CREATININE 1.3 MG/DL (0.55-1.30); POTASSIUM 3.3 MMOL/L (3.5-5.1); SODIUM 145 MMOL/L (136-145)
--- NOTE | 2018-09-14 07:10 | NUR ---
NURSE NOTES: received patient report from esme michel. patient is on bed awake. agitated. on bilateral wrist restraint. with gtube. fall precaution. will follow plan of care.
--- NOTE | 2018-09-14 07:12 | NUR ---
HAND-OFF: Report given to marilu soto.
[2018-09-14 08:00] VITALS: BP 130/73
[2018-09-14] MEDS: Lactulose 10gm/15ml UDC ORAL SCH ×2 (08:17→12:07)
[2018-09-14] MEDS: Docusate 100mg cap ORAL SCH (08:17)
[2018-09-14] MEDS: Aspirin Baby 81mg NG SCH (08:17)
--- NOTE | 2018-09-14 09:13 | GI Progress Note ---
Assessment/Plan Problems: (1) Encounter for PEG (percutaneous endoscopic gastrostomy) ICD Codes: Z43.1 - Encounter for attention to gastrostomy SNOMED: 377986685, 162861624 (2) Severe malnutrition ICD Codes: E43 - Unspecified severe protein-calorie malnutrition SNOMED: 85803241 (3) Altered mental state ICD Codes: R41.82 - Altered mental status, unspecified SNOMED: 517923098 Qualifiers: Qualified Codes: R41.82 - Altered mental status, unspecified (4) Stroke ICD Codes: I63.9 - Cerebral infarction, unspecified SNOMED: 692643762 (5) Dehydration ICD Codes: E86.0 - Dehydration SNOMED: 69653654 Status: stable Status Narrative Discussed with Dr. Olivarez Assessment/Plan s/p GT placement GTF monitor for residuals GT flush/GT site care daily and as needed bowel regimen ppi reglan prn for GI motility follow labs DC planning The patient was seen and examined at bedside and all new and available data was reviewed in the patients chart. I agree with the above findings, impression and plan. (Patient seen earlier today. Signature stamp does not reflect patient encounter time.). - Luis Alberto Olivarez MD Subjective Subjective Limited, patient nonverbal at baseline Objective Last 24 Hour Vital Signs Date Time Temp Pulse Resp B/P (MAP) Pulse Ox O2 Delivery O2 Flow Rate FiO2 09/14/18 04:00 91 09/14/18 04:00 98.1 59 18 95/61 (72) 96 09/14/18 00:00 96 09/14/18 00:00 96.6 74 19 93/57 (69) 97 09/13/18 23:52 Nasal Cannula 2.0 09/13/18 21:00 Nasal Cannula 2.0 09/13/18 20:00 97.6 80 18 107/53 (71) 97 09/13/18 20:00 96 09/13/18 16:00 68 09/13/18 16:00 98.1 70 20 107/66 (80) 97 09/13/18 12:00 97.7 96 18 102/75 (84) 96 09/13/18 12:00 82 Intake and Output 09/13/18 09/14/18 19:00 07:00 Output Total 600 ml Balance -600 ml Output Urine Total 600 ml # Voids 3 # Bowel Movements 2 Laboratory Tests Test 09/14/18 05:35 White Blood Count 11.8 K/UL (4.8-10.8) H Red Blood Count 2.53 M/UL (4.70-6.10) L Hemoglobin 8.0 G/DL (14.2-18.0) L Hematocrit 23.3 % (42.0-52.0) L Mean Corpuscular Volume 92 FL (80-99) Mean Corpuscular Hemoglobin 31.7 PG (27.0-31.0) H Mean Corpuscular Hemoglobin Concent 34.5 G/DL (32.0-36.0) Red Cell Distribution Width 12.7 % (11.6-14.8) Platelet Count 265 K/UL (150-450) Mean Platelet Volume 7.2 FL (6.5-10.1) Neutrophils (%) (Auto) 77.6 % (45.0-75.0) H Lymphocytes (%) (Auto) 10.2 % (20.0-45.0) L Monocytes (%) (Auto) 8.1 % (1.0-10.0) Eosinophils (%) (Auto) 3.1 % (0.0-3.0) H Basophils (%) (Auto) 1.0 % (0.0-2.0) Sodium Level 145 MMOL/L (136-145) Potassium Level 3.3 MMOL/L (3.5-5.1) L Chloride Level 107 MMOL/L (98-107) Carbon Dioxide Level 31 MMOL/L (21-32) Anion Gap 7 mmol/L (5-15) Blood Urea Nitrogen 26 mg/dL (7-18) H Creatinine 1.3 MG/DL (0.55-1.30) Estimat Glomerular Filtration Rate 56.3 mL/min (>60) Glucose Level 113 MG/DL (74-106) H Calcium Level 8.9 MG/DL (8.5-10.1) Height (Feet): 6 Height (Inches): 0.00 Weight (Pounds): 111 General Appearance: no apparent distress, alert, other - Agitated Cardiovascular: normal rate Respiratory/Chest: normal breath sounds, no respiratory distress Abdominal Exam: normal bowel sounds, non tender, soft, GT site - Clean dry and intact Extremities: non-tender Bullard,Betsy-Andres WATER QUALITY TESTER September 14, 2018 09:13
--- NOTE | 2018-09-14 10:35 | General Progress Note ---
Assessment/Plan Status: stable Assessment/Plan: #Acute metabolic encephalopathy, agitation intermittently #History of recent CVA, CT done in ED shows subacute to chronic right thalamic stroke #Dysphagia, s/p PEG -supportive care -Fall,Aspiration,Seizure precautions -IM Haldol prn for agitation -Neurochecks -continue Lipitor -Off acyclovir -LP done, CSF HSV PCR negative -Urine culture no growth, ceftriaxone stopped -Neurology and Psychiatry following -MACHINE FORMER following -S/p PEG, continue tube feeds -Psychiatry following #Acute blood loss anemia #Hematuria due to Francisco catheter induced urethral trauma, improved -H&H stable -Francisco out -transfuse PRBC if Hb < 8 #ZENON, improved renal function #Hypernatremia due to lack of water intake #Hypokalemia -replace electrolytes prn -continue to monitor BMP -avoid nephrotoxic agents -Nephrology following Full Code VTE PPx SCD Subjective Date patient seen: September 14, 2018 Time patient seen: 10:00 ROS Limited/Unobtainable: Yes Allergies: Coded Allergies: No Known Allergies (Unverified , 08/30/18) Subjective Medicine follow up for acute encephalopathy, agitation, ZENON, dysphagia. Underwent PEG placement this admission. Tolerating tube feeds. Patient remains agitated intermittently. High risk for pulling of lines and tubes. Objective Last 24 Hour Vital Signs Date Time Temp Pulse Resp B/P (MAP) Pulse Ox O2 Delivery O2 Flow Rate FiO2 09/14/18 09:00 Nasal Cannula 2.0 09/14/18 08:00 78 09/14/18 08:00 97.5 79 18 130/73 (92) 96 09/14/18 04:00 91 09/14/18 04:00 98.1 59 18 95/61 (72) 96 09/14/18 00:00 96 09/14/18 00:00 96.6 74 19 93/57 (69) 97 09/13/18 23:52 Nasal Cannula 2.0 09/13/18 21:00 Nasal Cannula 2.0 09/13/18 20:00 97.6 80 18 107/53 (71) 97 09/13/18 20:00 96 09/13/18 16:00 68 09/13/18 16:00 98.1 70 20 107/66 (80) 97 09/13/18 12:00 97.7 96 18 102/75 (84) 96 09/13/18 12:00 82 Intake and Output 09/13/18 09/14/18 18:59 06:59 Output Total 600 ml Balance -600 ml Output Urine Total 600 ml # Voids 3 # Bowel Movements 2 Laboratory Tests 09/14/18 05:35: White Blood Count 11.8H, Red Blood Count 2.53L, Hemoglobin 8.0L, Hematocrit 23.3L, Mean Corpuscular Volume 92, Mean Corpuscular Hemoglobin 31.7H, Mean Corpuscular Hemoglobin Concent 34.5, Red Cell Distribution Width 12.7, Platelet Count 265, Mean Platelet Volume 7.2, Neutrophils (%) (Auto) 77.6H, Lymphocytes ( %) (Auto) 10.2L, Monocytes (%) (Auto) 8.1, Eosinophils (%) (Auto) 3.1H, Basophils (%) (Auto) 1.0, Sodium Level 145, Potassium Level 3.3L, Chloride Level 107, Carbon Dioxide Level 31, Anion Gap 7, Blood Urea Nitrogen 26H, Creatinine 1.3, Estimat Glomerular Filtration Rate 56.3, Glucose Level 113H, Calcium Level 8.9 Height (Feet): 6 Height (Inches): 0.00 Weight (Pounds): 111 General Appearance: no apparent distress Cardiovascular: normal rate Respiratory/Chest: lungs clear, normal breath sounds Abdomen: non tender, soft Objective Unable to examine due to agitation Bright Her MD September 14, 2018 10:35
--- NOTE | 2018-09-14 10:58 | General Progress Note ---
Assessment/Plan Status: stable Assessment/Plan: Assessment/Plan: # Failure to thrive - decreased bmi and low protein, does have evidence of prior infarct, poor PS --> will also obtain q3d caloric counts --> cea is elevated and workup as per below, consider gi eval --> mirtazapine as appetite stimulant has been ordered --> Gi consult on a prn basis, appreciate recs # Hyperproteinemia with decreased albumin -- this is a dissociation that is abnormal --> upep and spep are negative for a m-spike, it does not exist --> thus likely inflammatory process # Elevated tumor markers as cea is elevated --> may consider gi evaluation in this setting --> ca 19.9 is 1, ca 15.3 is 12.3 --> at some point may need CT c/a/p okay as outpatient # Anemia due to chronic disease --> anemia panel reviewed, no schistocytes --> peripheral smear reviewed --> hgb goal is >7 # Acute metabolic encephalopathy, possibly from UTI, dehydration or recurrent CVA --> neuro and psych prn eval --> MRI brain reviewed, lp 09/05 --> abx prn # History of recent CVA, CT done in ED shows subacute to chronic right thalamic stroke --> supportive care --> per neuro --> is on abx for what appears to be uti # Dysphagia is sp peg --> continue peg feeds # ZENON with cr from normal to 3 --> renal was consulted The timing of this note does not necessarily reflect the time of the patient was seen. Greatly appreciate consultation! Subjective Constitutional: Denies: no symptoms, chills, diaphoresis, fever, malaise, weakness, other HEENT: Denies: no symptoms, eye pain, blurred vision, tearing, double vision, ear pain, ear discharge, nose pain, nose congestion, throat pain, throat swelling, mouth pain, mouth swelling, other Cardiovascular: Denies: no symptoms, chest pain, edema, irregular heart rate, lightheadedness, palpitations, syncope, other Respiratory: Denies: no symptoms, cough, orthopnea, shortness of breath, SOB with excertion, SOB at rest, sputum, stridor, wheezing, other Gastrointestinal/Abdominal: Denies: no symptoms, abdomen distended, abdominal pain, black stools, tarry stools, blood in stool, constipated, diarrhea, difficulty swallowing, nausea, poor appetite, poor fluid intake, rectal bleeding , vomiting, other Genitourinary: Denies: no symptoms, burning, discharge, frequency, flank pain, hematuria, incontinence, pain, urgency, other Neurologic/Psychiatric: Denies: no symptoms, anxiety, depressed, emotional problems, headache, numbness, paresthesia, pre-existing deficit, seizure, tingling, tremors, weakness, other Endocrine: Denies: no symptoms, excessive sweating, flushing, intolerance to cold, intolerance to heat, increased hunger, increased thirst, increased urine, unexplained weight gain, unexplained weight loss, other Allergies: Coded Allergies: No Known Allergies (Unverified , 08/30/18) Subjective 09/01: close followup with psych, remains agitated, some hematuria with burleson noted 09/03: with restraints, hgb remains low, no bleeding reported, in semi-fowlers position 09/04: has been refusing ng tube placement, concern remains for silent aspiration, seen by speech 09/05: urethreal bleeding noted after burleson was pulled, lp pending 09/06: no events to report, no f/c. mental status improved 09/07: no fevers or chills, anemia panel reviewed, cr is higher this am 09/08: no events, potentially to get peg placed, cr does remain elevated, renal consulted 09/10: s/p gtube placement, no events otherwise, cbc has been reviewed, hematuria is better 09/11: no events noted overnight, on peg tube feeds, agitated 09/12: gtube is in place, no fevers or chills, no bleeding, cr better 09/13: no events, getting gt feeds, no bleeding reported, no night sweats 09/14: remains on restraints, cbc has been reviewed, hgb approx 9 Objective Last 24 Hour Vital Signs Date Time Temp Pulse Resp B/P (MAP) Pulse Ox O2 Delivery O2 Flow Rate FiO2 09/14/18 09:00 Nasal Cannula 2.0 09/14/18 08:00 78 09/14/18 08:00 97.5 79 18 130/73 (92) 96 09/14/18 04:00 91 09/14/18 04:00 98.1 59 18 95/61 (72) 96 09/14/18 00:00 96 09/14/18 00:00 96.6 74 19 93/57 (69) 97 09/13/18 23:52 Nasal Cannula 2.0 09/13/18 21:00 Nasal Cannula 2.0 09/13/18 20:00 97.6 80 18 107/53 (71) 97 09/13/18 20:00 96 09/13/18 16:00 68 09/13/18 16:00 98.1 70 20 107/66 (80) 97 09/13/18 12:00 97.7 96 18 102/75 (84) 96 09/13/18 12:00 82 Intake and Output 09/13/18 09/14/18 18:59 06:59 Output Total 600 ml Balance -600 ml Output Urine Total 600 ml # Voids 3 # Bowel Movements 2 Laboratory Tests 09/14/18 05:35: White Blood Count 11.8H, Red Blood Count 2.53L, Hemoglobin 8.0L, Hematocrit 23.3L, Mean Corpuscular Volume 92, Mean Corpuscular Hemoglobin 31.7H, Mean Corpuscular Hemoglobin Concent 34.5, Red Cell Distribution Width 12.7, Platelet Count 265, Mean Platelet Volume 7.2, Neutrophils (%) (Auto) 77.6H, Lymphocytes ( %) (Auto) 10.2L, Monocytes (%) (Auto) 8.1, Eosinophils (%) (Auto) 3.1H, Basophils (%) (Auto) 1.0, Sodium Level 145, Potassium Level 3.3L, Chloride Level 107, Carbon Dioxide Level 31, Anion Gap 7, Blood Urea Nitrogen 26H, Creatinine 1.3, Estimat Glomerular Filtration Rate 56.3, Glucose Level 113H, Calcium Level 8.9 Height (Feet): 6 Height (Inches): 0.00 Weight (Pounds): 111 Objective General Appearance: alert, combative HEENT: normocephalic ++ ngt Neck: supple, normal inspection Respiratory/Chest: lungs clear, normal breath sounds Cardiovascular/Chest: normal rate, regular rhythm, no JVD Abdomen: non tender, soft ++ peg Extremities: normal inspection, no calf tenderness, + restraints Neurologic: other - Uncooperative : Nolan+ Aman Collier MD September 14, 2018 10:58
--- NOTE | 2018-09-14 11:52 | NUR ---
RD ASSESSMENT & RECOMMENDATIONS SEE CARE ACTIVITY FOR COMPLETE ASSESSMENT DAILY ESTIMATED NEEDS: Needs based on cardiac, wasting, underweight 52kg 30-35 kcals/kg 2849-3798 total kcals 1-1.5 g protein/kg 52-78 g total protein 25-30 mL/kg 3531-5578 total fluid mLs NUTRITION DIAGNOSIS: * Increased kcal and protein needs r/t underweight status and wasting as evidenced by pt is est 74% of [place] Body Weight, w/ generalized mild to moderate wasting. * Swallowing difficulty R/T dysphagia, CVA as evidenced by now s/p PEG placement. CURRENT TF:NOW NEPRO @40 ENTERAL NUTRITION RECOMMENDATIONS: REC TF CHANGE -> Glucerna 1.2 @ 55ml/hr x 24 hrs to provide 1320ml, 1584kcal, 79g prot, 1063ml free water REC TF CHANGE: Glucerna 1.2 - Start @25ml/hr for 6 hrs. Advance as tolerated 10ml/hr q4-6 hrs to goal. - Flush per MD, HOB over 30 degrees. ADDITIONAL RECOMMENDATIONS: * Obtain calibrated bed scale wts, weekly weights * Monitor lytes daily w/ TF, replete as needed (K low 3.3) -> PT IS AT HIGH RISK FOR REFEEDING SYNDROME -> check phos and mag levels * Monitor renal fxn * Monitor BGs closely, need for carb controlled TF formula * Rec increased water flushes vs D5 IVF for BG control
[2018-09-14 12:00] VITALS: BP 131/57
--- NOTE | 2018-09-14 12:23 | Nephrology Progress Note ---
Assessment/Plan Problem List: (1) Severe malnutrition (2) Altered mental state (3) Stroke (4) UTI (urinary tract infection) (5) Acute encephalopathy (6) Cognitive impairment (7) Dehydration Plan #acute kidney injury- likely pre-renal in setting of sepsis and dehydration. R/ O ATN- improving with hydration #hypernatremia- improving with free water replacementr #Dehydration- improved - monitor off IVF - free water flushed were added 200cc q6hr - monitor sodium and cr closely - target MAP > 65 - monitor UOP - avoid nephrotoxins - strict I&Os - tubefeeds per GI - continue free water flushed 200cc q6hr - replete electrolytes prn Subjective ROS Limited/Unobtainable: Yes Interval Events/Complaints sodium normalizing cr downtreding to 1.3 today Objective Objective Last 24 Hour Vital Signs Date Time Temp Pulse Resp B/P (MAP) Pulse Ox O2 Delivery O2 Flow Rate FiO2 09/14/18 12:00 97.5 54 22 131/57 (81) 97 09/14/18 09:00 Nasal Cannula 2.0 09/14/18 08:00 78 09/14/18 08:00 97.5 79 18 130/73 (92) 96 09/14/18 04:00 91 09/14/18 04:00 98.1 59 18 95/61 (72) 96 09/14/18 00:00 96 09/14/18 00:00 96.6 74 19 93/57 (69) 97 09/13/18 23:52 Nasal Cannula 2.0 09/13/18 21:00 Nasal Cannula 2.0 09/13/18 20:00 97.6 80 18 107/53 (71) 97 09/13/18 20:00 96 09/13/18 16:00 68 09/13/18 16:00 98.1 70 20 107/66 (80) 97 Intake and Output 09/13/18 09/14/18 18:59 06:59 Output Total 600 ml Balance -600 ml Output Urine Total 600 ml # Voids 3 # Bowel Movements 2 Laboratory Tests 09/14/18 05:35: White Blood Count 11.8H, Red Blood Count 2.53L, Hemoglobin 8.0L, Hematocrit 23.3L, Mean Corpuscular Volume 92, Mean Corpuscular Hemoglobin 31.7H, Mean Corpuscular Hemoglobin Concent 34.5, Red Cell Distribution Width 12.7, Platelet Count 265, Mean Platelet Volume 7.2, Neutrophils (%) (Auto) 77.6H, Lymphocytes ( %) (Auto) 10.2L, Monocytes (%) (Auto) 8.1, Eosinophils (%) (Auto) 3.1H, Basophils (%) (Auto) 1.0, Sodium Level 145, Potassium Level 3.3L, Chloride Level 107, Carbon Dioxide Level 31, Anion Gap 7, Blood Urea Nitrogen 26H, Creatinine 1.3, Estimat Glomerular Filtration Rate 56.3, Glucose Level 113H, Calcium Level 8.9 Height (Feet): 6 Height (Inches): 0.00 Weight (Pounds): 111 Objective General Appearance: no apparent distress, alert Neck: normal alignment, supple Cardiovascular: normal rate, regular rhythm Respiratory/Chest: lungs clear, normal breath sounds, no respiratory distress Abdomen: non tender, soft, no mass Martinez Edward M.D. September 14, 2018 12:23
[2018-09-14] MEDS: Oxybutynin 5mg tab GT SCH ×2 (14:41→22:38)
--- NOTE | 2018-09-14 15:30 | NUR ---
NURSE NOTES: jose angel mcgraw Manager Education made aware of the Gt tube site redness and small of whitish discharge coming out from it. BRAD mcgraw ordered dressing change BID. will take note and carry out.
[2018-09-14 16:00] VITALS: BP 111/62
--- NOTE | 2018-09-14 16:08 | NUR ---
ST NOTE: MODIFIED BARIUM SWALLOW STUDY MODIFIED BARIUM SWALLOW STUDY WAS COMPLETED BY [employer] MANAGEMENT MANAGER. FULL REPORT WILL FOLLOW IN CARE ACTIVITY UNDER ST NOTE. PT ALERT, CONFUSED, PT'S PRESENTED. LIMITED PO TRIALS WERE GIVEN DUE TO PT WAS UNABLE TO SIT STILL. PO TRIALS: NECTAR THICK(TSPX2 SEQUENTIAL),HONEY THICK(TSP) AND H2O AT THE END OF THE STUDY. IMPRESSION: PT PRESENTS WITH SIGNIFICANT OROPHARYNGEAL DYSPHAGIA. ORAL PHASE: ANTERIOR SPILLAGE, DECREASED BOLUS HOLD AND INCREASED ORAL TRANSIT TIME(5 SECONDS), BOLUS HEADED IN PYRIFORM SINUSES DURING INITIATION OF PHARYNGEAL SWALLOW. DURING THE PHARYNGEAL PHASE: TRACE LARYNGEAL PENETRATION WITH NECTAR THICK LIQUIDS AT TSP LEVEL DURING SWALLOW, BOLUS ENTERED THE AIRWAY, ABOVE VOCAL FOLDS BUT EJECTED, DUE TO DELAYED SWALLOW, REDUCED HYO-LARYNGEAL ELEVATION/EXCURSION, REDUCED LARYNGEAL VESTIBULE CLOSURE. MODERATE TONGUE BASE AND VALLECULAR RESIDUE WAS NOTED POST SWALLOW WITH NECTAR AND HONEY THICK LIQUIDS SECONDARY TO REDUCED TONGUE BASE RETRACTION AND REDUCED EPIGLOTTIC MOVEMENT. RESIDUE WAS ALSO NOTED IN PYRIFORM SINUSES SECONDARY TO REDUCED LARYNGEAL ELEVATION AND ALSO FROM THE VALLECULAR RESIDUE. H2O THIN LIQUIDS AT THE END OF THE STUDY TO CLEAR ALL PHARYNGEAL RESIDUE(BARIUM). UNABLE TO USE ANY SWALLOW TECHNIQUES SECONDARY TO PT HAS POOR COGNITIVE ABILITY. PT HAS HIGH RISK FOR CHRONIC ASPIRATION. RECOMMENDATIONS: 1. CONTINUE LONG-TERM NONORAL FEEDING MEAN TO NUTRITION AND HYDRATION NEEDS. 2. CONSIDER PO TRIALS WITH NECTAR THICK LIQUIDS AT TEASPOON LEVEL(PT'S , WOULD LIKE PT TO EAT/DRINK BY MOUTH) 3. SKILLED ST SERVICE TO FOLLOW UP. D/W PT'S AND RNMARSHA.
[2018-09-14] MEDS: Docusate 100mg/10ml Liq GT SCH (17:00)
[2018-09-14] MEDS: Lactulose 10gm/15ml UDC GT SCH (17:00)
--- NOTE | 2018-09-14 18:18 | NUR ---
NURSE NOTES: left a message to dr martell regarding patients seroquel to change the time of administration. awaits callback and new order as of this time.
--- NOTE | 2018-09-14 19:06 | NUR ---
NURSE NOTES: per dr jasbir garrison to change administration time of seroquel to Q8HR. will take note and carry out.
--- NOTE | 2018-09-14 19:30 | NUR ---
HAND-OFF: Report given to florecita michel.
[2018-09-14 20:00] VITALS: BP 104/66
--- NOTE | 2018-09-14 20:03 | NUR ---
NURSE NOTES: recvd pt. Pt is awake and moaning, agitated and on bilat soft wrist restraints. Pt has G tube feeding Glucerna 1.2 @ 25 cc/hr will advance to goal of 55cc/hr as tolerated through the shift. Pt has condom cath and draining to gravity. Bed in lowest position, will continue with plan of care
[2018-09-14] MEDS: Atorvastatin 80mg tab GT SCH (20:42)
[2018-09-14] MEDS: Miralax 17gm pkt GT SCH (20:43)
[2018-09-14] MEDS ORDERED: Miralax 17gm pkt GT PRN (21:00)
--- NOTE | 2018-09-14 23:45 | Progress Note ---
DATE: 09/14/2018 SUBJECTIVE: The patient continues to be agitated, moaning, , not able to be redirected due to cognitive impairment. is at bedside. MENTAL STATUS EXAMINATION: The patient is alert, confused, disoriented. Has psychomotor agitation, yelling, and moaning. Mood is agitated. Affect is constricted, congruent with mood. Thought process is concrete. Thought content, no suicidal or homicidal ideation. ASSESSMENT: Acute metabolic encephalopathy, cognitive impairment. PLAN: 1. We will discontinue the Seroquel and start the patient on risperidone 1 mg p.o. b.i.d. 2. Continue the Remeron 7.5 mg at bedtime. 3. Continue to follow and readjust the medications. Damian Graham M.D. DR: DEYSI JOB#: [id number] CC:
[2018-09-15 04:00] VITALS: BP 111/72
[2018-09-15] MEDS: Valproate Sodium INJ 250 MG in D5W 55 ML IVPB SCH ×3 (06:22→21:40)
[2018-09-15] MEDS: Oxybutynin 5mg tab GT SCH ×3 (06:22→21:39)
[2018-09-15 06:38] LABS: BASOPHILS % (AUTO) 0.7 % (0.0-2.0); EOSINOPHILS % (AUTO) 2.7 % (0.0-3.0); HEMATOCRIT 24.7 % (42.0-52.0); HEMOGLOBIN 8.3 G/DL (14.2-18.0); LYMPHOCYTES % (AUTO) 12.6 % (20.0-45.0); MEAN CORPUSCULAR VOLUME 92 FL (80-99); MONOCYTES % (AUTO) 7.6 % (1.0-10.0); NEUTROPHILS % (AUTO) 76.4 % (45.0-75.0); PLATELET COUNT 305 K/UL (150-450); RED BLOOD COUNT 2.68 M/UL (4.70-6.10); RED CELL DISTRIBUTION WIDTH 12.6 % (11.6-14.8); WHITE BLOOD COUNT 13.3 K/UL (4.8-10.8)
[2018-09-15 06:51] LABS: ANION GAP 6 mmol/L (5-15); BLOOD UREA NITROGEN 26 mg/dL (7-18); CALCIUM 8.9 MG/DL (8.5-10.1); CARBON DIOXIDE 31 MMOL/L (21-32); CHLORIDE 109 MMOL/L (98-107); CREATININE 1.3 MG/DL (0.55-1.30); POTASSIUM 4.1 MMOL/L (3.5-5.1); SODIUM 146 MMOL/L (136-145)
--- NOTE | 2018-09-15 07:20 | NUR ---
NURSE NOTES: Pt is awake and moaning. Patient is agitated with bilateral soft wrist restraints. Readjust restraints. Pt has G tube feeding that was put on hold because being cleaned. Will restart feeding at Glucerna 1.2 @ 25 cc/hr will advance to goal of 55cc/hr as tolerated through the shift. Noted residue on g-tube site and dressing will be changed. Will put on condom cath Bed in lowest position, will continue with plan of care
[2018-09-15 08:00] VITALS: BP 120/68
[2018-09-15] MEDS: Lactulose 10gm/15ml UDC GT SCH ×3 (08:48→17:16)
[2018-09-15] MEDS: Docusate 100mg/10ml Liq GT SCH ×2 (08:48→17:16)
[2018-09-15] MEDS: Aspirin Baby 81mg GT SCH (08:48)
--- NOTE | 2018-09-15 09:13 | NUR ---
NURSE NOTES: Changed G-tube dressing. Noted pinkish/redness around site with dried drainage. Patent g-tube. Restarted Glucerna 1.2 @ 30 ml/hr. Rewrap abdominal binder. HOB > 30 degrees. Will continue to monitor.
--- NOTE | 2018-09-15 10:45 | GI Progress Note ---
Assessment/Plan Problems: (1) Encounter for PEG (percutaneous endoscopic gastrostomy) ICD Codes: Z43.1 - Encounter for attention to gastrostomy SNOMED: 950623710, 557113199 (2) Severe malnutrition ICD Codes: E43 - Unspecified severe protein-calorie malnutrition SNOMED: 17257600 (3) Altered mental state ICD Codes: R41.82 - Altered mental status, unspecified SNOMED: 862623432 Qualifiers: Qualified Codes: R41.82 - Altered mental status, unspecified (4) Stroke ICD Codes: I63.9 - Cerebral infarction, unspecified SNOMED: 833870505 (5) Dehydration ICD Codes: E86.0 - Dehydration SNOMED: 14563902 Status: stable Status Narrative Discussed with Dr. Olivarez. Assessment/Plan s/p GT placement GT site cellulitis >> bacitracin BID GTF, monitor for residuals GT flush/GT site care daily and as needed bowel regimen ppi reglan prn for GI motility follow labs dc planning The patient was seen and examined at bedside and all new and available data was reviewed in the patients chart. I agree with the above findings, impression and plan. (Patient seen earlier today. Signature stamp does not reflect patient encounter time.). - Luis Alberto Olivarez MD Subjective Subjective Limited, patient nonverbal at baseline Objective Last 24 Hour Vital Signs Date Time Temp Pulse Resp B/P (MAP) Pulse Ox O2 Delivery O2 Flow Rate FiO2 09/15/18 09:00 Nasal Cannula 2.0 09/15/18 08:00 98.4 82 23 120/68 (85) 91 09/15/18 04:00 97.0 77 20 111/72 (85) 95 09/15/18 04:00 86 09/15/18 00:00 80 09/14/18 20:00 98.0 72 20 104/66 (79) 97 09/14/18 20:00 59 09/14/18 20:00 Nasal Cannula 2.0 09/14/18 16:00 98.7 67 22 111/62 (78) 98 09/14/18 16:00 70 09/14/18 13:32 Room Air 21 09/14/18 13:32 95 Room Air 21 09/14/18 12:00 94 09/14/18 12:00 97.5 54 22 131/57 (81) 97 Intake and Output 09/14/18 09/15/18 19:00 07:00 Intake Total 1240.0 ml Balance 1240.0 ml Free Water 400 ml IV Total 490.0 ml Tube Feeding 350 ml # Voids 4 # Bowel Movements 2 2 Laboratory Tests Test 09/15/18 05:45 White Blood Count 13.3 K/UL (4.8-10.8) H Red Blood Count 2.68 M/UL (4.70-6.10) L Hemoglobin 8.3 G/DL (14.2-18.0) L Hematocrit 24.7 % (42.0-52.0) L Mean Corpuscular Volume 92 FL (80-99) Mean Corpuscular Hemoglobin 31.1 PG (27.0-31.0) H Mean Corpuscular Hemoglobin Concent 33.8 G/DL (32.0-36.0) Red Cell Distribution Width 12.6 % (11.6-14.8) Platelet Count 305 K/UL (150-450) Mean Platelet Volume 7.1 FL (6.5-10.1) Neutrophils (%) (Auto) 76.4 % (45.0-75.0) H Lymphocytes (%) (Auto) 12.6 % (20.0-45.0) L Monocytes (%) (Auto) 7.6 % (1.0-10.0) Eosinophils (%) (Auto) 2.7 % (0.0-3.0) Basophils (%) (Auto) 0.7 % (0.0-2.0) Sodium Level 146 MMOL/L (136-145) H Potassium Level 4.1 MMOL/L (3.5-5.1) Chloride Level 109 MMOL/L (98-107) H Carbon Dioxide Level 31 MMOL/L (21-32) Anion Gap 6 mmol/L (5-15) Blood Urea Nitrogen 26 mg/dL (7-18) H Creatinine 1.3 MG/DL (0.55-1.30) Estimat Glomerular Filtration Rate 56.3 mL/min (>60) Glucose Level 113 MG/DL (74-106) H Calcium Level 8.9 MG/DL (8.5-10.1) Height (Feet): 6 Height (Inches): 0.00 Weight (Pounds): 111 General Appearance: no apparent distress Cardiovascular: normal rate Respiratory/Chest: normal breath sounds, no respiratory distress Abdominal Exam: normal bowel sounds, non tender, soft, GT site - erythema Extremities: non-tender Juanis Bullard NP September 15, 2018 10:45
--- NOTE | 2018-09-15 10:46 | General Progress Note ---
Assessment/Plan Status: stable Assessment/Plan: #Acute metabolic encephalopathy, agitation intermittently #History of recent CVA, CT done in ED shows subacute to chronic right thalamic stroke #Dysphagia, s/p PEG -supportive care -Fall,Aspiration,Seizure precautions -IM Haldol prn for agitation -Neurochecks -continue Lipitor -Off acyclovir -LP done, CSF HSV PCR negative -Urine culture no growth, ceftriaxone stopped -Neurology and Psychiatry following -HOME APPRAISER following -S/p PEG, continue tube feeds -Psychiatry following #Acute blood loss anemia #Hematuria due to Francisco catheter induced urethral trauma, improved -H&H stable -Francisco out -transfuse PRBC if Hb < 8 #ZENON, improved renal function #Hypernatremia due to lack of water intake #Hypokalemia -replace electrolytes prn -continue to monitor BMP -avoid nephrotoxic agents -Nephrology following Full Code VTE PPx SCD Subjective Date patient seen: September 15, 2018 Time patient seen: 10:05 ROS Limited/Unobtainable: Yes Allergies: Coded Allergies: No Known Allergies (Unverified , 08/30/18) Subjective Medicine follow up for acute encephalopathy, agitation, ZENON, dysphagia. Underwent PEG placement this admission. Tolerating tube feeds. Persistently agitated, unable to come off restraints due to high risk for pulling of lines/ PEG Objective Last 24 Hour Vital Signs Date Time Temp Pulse Resp B/P (MAP) Pulse Ox O2 Delivery O2 Flow Rate FiO2 09/15/18 09:00 Nasal Cannula 2.0 09/15/18 08:00 98.4 82 23 120/68 (85) 91 09/15/18 04:00 97.0 77 20 111/72 (85) 95 09/15/18 04:00 86 09/15/18 00:00 80 09/14/18 20:00 98.0 72 20 104/66 (79) 97 09/14/18 20:00 59 09/14/18 20:00 Nasal Cannula 2.0 09/14/18 16:00 98.7 67 22 111/62 (78) 98 09/14/18 16:00 70 09/14/18 13:32 Room Air 21 09/14/18 13:32 95 Room Air 21 09/14/18 12:00 94 09/14/18 12:00 97.5 54 22 131/57 (81) 97 Intake and Output 09/14/18 09/15/18 19:00 07:00 Intake Total 1240.0 ml Balance 1240.0 ml Free Water 400 ml IV Total 490.0 ml Tube Feeding 350 ml # Voids 4 # Bowel Movements 2 2 Laboratory Tests 09/15/18 05:45: White Blood Count 13.3H, Red Blood Count 2.68L, Hemoglobin 8.3L, Hematocrit 24.7L, Mean Corpuscular Volume 92, Mean Corpuscular Hemoglobin 31.1H, Mean Corpuscular Hemoglobin Concent 33.8, Red Cell Distribution Width 12.6, Platelet Count 305, Mean Platelet Volume 7.1, Neutrophils (%) (Auto) 76.4H, Lymphocytes ( %) (Auto) 12.6L, Monocytes (%) (Auto) 7.6, Eosinophils (%) (Auto) 2.7, Basophils (%) (Auto) 0.7, Sodium Level 146H, Potassium Level 4.1, Chloride Level 109H, Carbon Dioxide Level 31, Anion Gap 6, Blood Urea Nitrogen 26H, Creatinine 1.3, Estimat Glomerular Filtration Rate 56.3, Glucose Level 113H, Calcium Level 8.9 Height (Feet): 6 Height (Inches): 0.00 Weight (Pounds): 111 General Appearance: alert, agitated Cardiovascular: normal rate Respiratory/Chest: lungs clear, normal breath sounds Abdomen: non tender, soft Objective Unable to examine due to agitation Bright Her MD September 15, 2018 10:46
[2018-09-15 12:00] VITALS: BP_SYST 116; BP_SYST 126; BP_DIAS 60; BP_DIAS 74
[2018-09-15] MEDS ORDERED: Polysporin Oint 30gm TOPIC SCH (12:00)
[2018-09-15] MEDS: Polysporin Oint 15gm TOPIC SCH ×2 (12:13→17:56)
--- NOTE | 2018-09-15 12:47 | NUR ---
CASE MANAGEMENT:REVIEW 09/15/18 SI: ACUTE ENCEPHALOPATHY S/P PEG PLACEMENT 98.4 82 23 120/68 91% ON RA WBC+13.3 H/H-8.3/24.7 BUN+26 IS: IV VALPROATE Q8 ASA GT QD PLAVIX GT QD SEROQUEL GT TID LIPITOR GT QHS LACTULOSE GT TID : TELEMETRY STATUS DCP: FROM [facility] PLAN: FAMILY DOES NOT WANT PATIENT TO RETURN TO [facility] THEY HAVE REQUESTED HE BE REFERRED TO: [facility] [employer] HAS FAXED TO ALL OF THE ABOVE
--- NOTE | 2018-09-15 12:51 | NUR ---
DISCHARGE PLANNING FAMILY DOESNOT WANT PATIENT TO RETURN TO [facility] FAMILY REQUESTED PATIENT BE REFERRED TO THE FOLLOWING [facility] CARET: [phone]:[phone] [facility] MANORT:[phone]: [phone] [facility] CARET: [phone]:[phone] [facility] CONVT: [phone]: [phone] [place] MANORT:[phone]:[phone] OF TODAY NONE OF THE ABOVE FACILITIES HAVE ACCEPTED [facility] IS WILLING TO ACCEPT THIS PATIENT T: [phone] F:[phone]
--- NOTE | 2018-09-15 13:51 | General Progress Note ---
Assessment/Plan Status: stable Assessment/Plan: Assessment/Plan: # Failure to thrive - decreased bmi and low protein, does have evidence of prior infarct, poor PS --> will also obtain q3d caloric counts --> cea is elevated and workup as per below, consider gi eval --> mirtazapine as appetite stimulant continue it --> Gi consult on a prn basis, appreciate recs # Hyperproteinemia with decreased albumin -- this is a dissociation that is abnormal --> upep and spep are negative for a m-spike, it does not exist --> thus likely inflammatory process # Elevated tumor markers as cea is elevated --> may consider gi evaluation in this setting --> ca 19.9 is 1, ca 15.3 is 12.3 --> at some point may need CT c/a/p okay as outpatient # Anemia due to chronic disease --> anemia panel reviewed, no schistocytes --> peripheral smear reviewed --> could also be related to underyling burleson trauma --> hgb goal is >7 # Acute metabolic encephalopathy, possibly from UTI, dehydration or recurrent CVA --> neuro and psych prn eval --> MRI brain reviewed, lp 09/05 --> abx prn # History of recent CVA, CT done in ED shows subacute to chronic right thalamic stroke --> supportive care --> per neuro --> is on abx for what appears to be uti # Dysphagia is sp peg --> continue peg feeds # ZENON with cr from normal to 3 --> renal was consulted The timing of this note does not necessarily reflect the time of the patient was seen. Greatly appreciate consultation! Subjective HEENT: Denies: no symptoms, eye pain, blurred vision, tearing, double vision, ear pain, ear discharge, nose pain, nose congestion, throat pain, throat swelling, mouth pain, mouth swelling, other Cardiovascular: Denies: no symptoms, chest pain, edema, irregular heart rate, lightheadedness, palpitations, syncope, other Genitourinary: Denies: no symptoms, burning, discharge, frequency, flank pain, hematuria, incontinence, pain, urgency, other Neurologic/Psychiatric: Denies: no symptoms, anxiety, depressed, emotional problems, headache, numbness, paresthesia, pre-existing deficit, seizure, tingling, tremors, weakness, other Endocrine: Denies: no symptoms, excessive sweating, flushing, intolerance to cold, intolerance to heat, increased hunger, increased thirst, increased urine, unexplained weight gain, unexplained weight loss, other Allergies: Coded Allergies: No Known Allergies (Unverified , 08/30/18) Subjective 09/01: close followup with psych, remains agitated, some hematuria with burleson noted 09/03: with restraints, hgb remains low, no bleeding reported, in semi-fowlers position 09/04: has been refusing ng tube placement, concern remains for silent aspiration, seen by speech 09/05: urethreal bleeding noted after burleson was pulled, lp pending 09/06: no events to report, no f/c. mental status improved 09/07: no fevers or chills, anemia panel reviewed, cr is higher this am 09/08: no events, potentially to get peg placed, cr does remain elevated, renal consulted 09/10: s/p gtube placement, no events otherwise, cbc has been reviewed, hematuria is better 09/11: no events noted overnight, on peg tube feeds, agitated 09/12: gtube is in place, no fevers or chills, no bleeding, cr better 09/13: no events, getting gt feeds, no bleeding reported, no night sweats 09/14: remains on restraints, cbc has been reviewed, hgb approx 9 09/15: no events to report, no bleeding, fevers, no night sweats, cbc reviewed, placement pending Objective Last 24 Hour Vital Signs Date Time Temp Pulse Resp B/P (MAP) Pulse Ox O2 Delivery O2 Flow Rate FiO2 09/15/18 12:07 82 09/15/18 12:00 97.7 100 22 126/74 (91) 90 09/15/18 09:25 Room Air 21 09/15/18 09:25 64 Room Air 21 09/15/18 09:00 Nasal Cannula 2.0 09/15/18 08:22 80 09/15/18 08:00 98.4 82 23 120/68 (85) 91 09/15/18 04:00 97.0 77 20 111/72 (85) 95 09/15/18 04:00 86 09/15/18 00:00 80 09/14/18 20:00 98.0 72 20 104/66 (79) 97 09/14/18 20:00 59 09/14/18 20:00 Nasal Cannula 2.0 09/14/18 16:00 98.7 67 22 111/62 (78) 98 09/14/18 16:00 70 Intake and Output 09/14/18 09/15/18 18:59 06:59 Intake Total 1165.0 ml 75 ml Balance 1165.0 ml 75 ml Free Water 350 ml 50 ml IV Total 490.0 ml Tube Feeding 325 ml 25 ml # Voids 4 # Bowel Movements 2 2 Laboratory Tests 09/15/18 05:45: White Blood Count 13.3H, Red Blood Count 2.68L, Hemoglobin 8.3L, Hematocrit 24.7L, Mean Corpuscular Volume 92, Mean Corpuscular Hemoglobin 31.1H, Mean Corpuscular Hemoglobin Concent 33.8, Red Cell Distribution Width 12.6, Platelet Count 305, Mean Platelet Volume 7.1, Neutrophils (%) (Auto) 76.4H, Lymphocytes ( %) (Auto) 12.6L, Monocytes (%) (Auto) 7.6, Eosinophils (%) (Auto) 2.7, Basophils (%) (Auto) 0.7, Sodium Level 146H, Potassium Level 4.1, Chloride Level 109H, Carbon Dioxide Level 31, Anion Gap 6, Blood Urea Nitrogen 26H, Creatinine 1.3, Estimat Glomerular Filtration Rate 56.3, Glucose Level 113H, Calcium Level 8.9 Height (Feet): 6 Height (Inches): 0.00 Weight (Pounds): 111 Objective General Appearance: alert, combative HEENT: normocephalic ++ ngt Neck: supple, normal inspection Respiratory/Chest: lungs clear, normal breath sounds Cardiovascular/Chest: normal rate, regular rhythm, no JVD Abdomen: non tender, soft ++ peg Extremities: normal inspection, no calf tenderness, + restraints Neurologic: other - Uncooperative : Nolan+ Aman Collier MD September 15, 2018 13:51
[2018-09-15] MEDS ORDERED: LORazepam 1mg tab ORAL SCH (14:00)
--- NOTE | 2018-09-15 15:47 | NUR ---
ST NOTE: SWALLOW STATUS: DISCUSSED PT'S CONDITIONS WITH MD( AND EFFIE) AND ALSO THE MODIFIED BARIUM SWALLOW STUDY RESULTS AND RECOMMENDATIONS. RECOMMENDED PT ON NPO PT IS HIGH RISK FOR ASPIRATION COMPOUNDED OF SEVERE COGNITIVE DEFICITS. PT SEEN AT BEDSIDE IN PM WITH PT'S PRESENTED, PT ASLEEP. DISCUSSED AND EDUCATED PT'S RE: MODIFIED BARIUM SWALLOW STUDY RESULTS AND RECOMMENDATIONS, RISK FOR ASPIRATION PNA. VERBALIZED THE GOOD UNDERSTANDING OF INFO GIVEN. WILL COMPLETE MODIFIED BARIUM SWALLOW STUDY REPORT. D/W DEANNE ARCOS.
[2018-09-15 16:00] VITALS: BP 109/66
[2018-09-15] MEDS: LORazepam 1mg tab GT SCH (17:56)
--- NOTE | 2018-09-15 18:00 | NUR ---
NURSE NOTES: Patient slept from 1pm to 6pm. No distress noted. Patient was able to awaken with touch stimulation. @ 6pm. Patient became restless and made multiple attempts to remove restraints. In addition, kicking off pillows, sheets, and anti-seizure precaution pads.
--- NOTE | 2018-09-15 19:16 | NUR ---
HAND-OFF: Report given to Zaira Lynn RN. Patient removed condom catheter. Patient is moaning in bed. is at bedside. Patient was changed @6:45pm. Glucerna 1.2 @40 ml/hr and previous residual was 20 ml. g tube dressing was changed at 6pm. Noted redness and slight white discharge.
--- NOTE | 2018-09-15 19:40 | NUR ---
NURSE NOTES: Received Pt is resting on the bed and awake and confused and agitated. Family; his stay at bedside. Pt still trying to out of bed without assist and combative and resisting of care. Trying to release restraint when during care still trying to touch G-tube, IV line and oxygen. Given verbal cueing but doesn't understood. on G-tube feeding with Glucerna 1.2@ 40cc/hr and tolerated well. Iv site intact and no sign of infiltration noted. Dressing is clean and dry on wounds area. On Tele monitor with SR. on O2 2L via nasal cannula and Sao2 99% noted. Placed fall and seizure precaution. Will continue to care plan.
[2018-09-15 20:00] VITALS: BP 113/92
[2018-09-15] MEDS: Atorvastatin 80mg tab GT SCH (20:58)
[2018-09-15] MEDS: Miralax 17gm pkt GT SCH (21:00)
--- NOTE | 2018-09-15 21:00 | Progress Note ---
DATE: 09/15/2018 SUBJECTIVE: The patient is presenting with anxiety, agitation. Medication was changed last night to risperidone. Late evening, I received a call that the patient was more agitated. The patient is confused. is at bedside. MENTAL STATUS EXAMINATION: The patient is , arousable. Mood is agitated. Affect is constricted. Congruent with mood. Thought process is concrete. Thought content, no suicidal or homicidal ideations. Cognition is impaired. ASSESSMENT: 1. CVA. 2. Psychotic disorder. 3. Encephalopathy PLAN: 1. We will continue Seroquel 100 mg p.o. t.i.d. 2. Start Ativan 1 mg p.o. t.i.d. 3. Continue the restraints. Damian Graham M.D. DR: Yeimi JOB#: [id number] CC:
[2018-09-16] VITALS: BP 105/58
--- NOTE | 2018-09-16 01:00 | Neurology Progress Note ---
Interim History Interim History ROS Limited/Unobtainable: Yes Complaints: AMS Events: This vist was conducted on September 16, 2018 Interim History No changes in MS - continues to be delirious, mixed level of activity. Objective Physical Exam Last Vital Signs Date Time Temp Pulse Resp B/P (MAP) Pulse Ox O2 Delivery O2 Flow Rate FiO2 09/16/18 00:00 98.9 76 20 105/58 (74) 99 09/15/18 21:00 Nasal Cannula 2.0 09/15/18 09:25 21 Laboratory Tests Test 09/15/18 05:45 09/15/18 16:00 White Blood Count 13.3 K/UL (4.8-10.8) H Red Blood Count 2.68 M/UL (4.70-6.10) L Hemoglobin 8.3 G/DL (14.2-18.0) L Hematocrit 24.7 % (42.0-52.0) L Mean Corpuscular Volume 92 FL (80-99) Mean Corpuscular Hemoglobin 31.1 PG (27.0-31.0) H Mean Corpuscular Hemoglobin Concent 33.8 G/DL (32.0-36.0) Red Cell Distribution Width 12.6 % (11.6-14.8) Platelet Count 305 K/UL (150-450) Mean Platelet Volume 7.1 FL (6.5-10.1) Neutrophils (%) (Auto) 76.4 % (45.0-75.0) H Lymphocytes (%) (Auto) 12.6 % (20.0-45.0) L Monocytes (%) (Auto) 7.6 % (1.0-10.0) Eosinophils (%) (Auto) 2.7 % (0.0-3.0) Basophils (%) (Auto) 0.7 % (0.0-2.0) Sodium Level 146 MMOL/L (136-145) H Potassium Level 4.1 MMOL/L (3.5-5.1) Chloride Level 109 MMOL/L (98-107) H Carbon Dioxide Level 31 MMOL/L (21-32) Anion Gap 6 mmol/L (5-15) Blood Urea Nitrogen 26 mg/dL (7-18) H Creatinine 1.3 MG/DL (0.55-1.30) Estimat Glomerular Filtration Rate 56.3 mL/min (>60) Glucose Level 113 MG/DL (74-106) H Calcium Level 8.9 MG/DL (8.5-10.1) Stool Occult Blood Pending Head: normocophalic Neck: no rigidity EENT: benign Neurologic Exam Mental Status: awake, other - Patient remains agitated upon waking. His primary language is Cantonese but as per his daughter he is not speaking any intelligible words at this time. Language: other - Only making sounds- no words - aphasia remains persistent- both receptive/ expressive Cranial Nerve II: fundus normal, no papilledema Cranial Nerves III, IV, : PERRLA, EOMI Cranial Nerve VII: no facial asymmetry Cranial Nerve XI: SCM symmetric Cranial Nerve XII: tongue midline Motor System: other - No apparent focal weakness on exam but unable to formally test as patient is not following commands. Objective Patient continues to remain non focal on exam. He is agitated when awoken, LUNA x 4 but not following commands. His primary language is Cantonese and as per his / brother's report - He is not saying any intelligible words- denies paraphrasic errors - patient is just making sounds. He intermittently tracks with his eyes. No observed / mag seizure activity noted. Impression/Recommendations Problems: (1) Altered mental state (2) Cognitive impairment (3) Acute encephalopathy Assessment & Plan: Unclear cause at this time. Febrile with leukocytosis today. EEG was abnormal but without mag epileptiform activity. LP RECOMMENDED - Meningitis ddx Consider starting ppx Acyclovir 500mg Q8 as HSV Encephalitis ppx Continue Q 4 hour Neuro obs Na 135-145 IV Hydration Consider NG tube feeding Trial Seroquel 25mg QD for agitation Empiric Abx and then as per ID Maintain normothermia at all times with Tylenol or cooling blanket. Try to maintain sleep hygiene for patient with dark quiet room at night. SBP<140 (4) Hypernatremia Assessment & Plan: Please start free water as per PEG (5) Severe malnutrition (6) Encounter for PEG (percutaneous endoscopic gastrostomy) (7) Delirium due to another medical condition, acute, mixed level of activity Status: stable Recommendations Continue Q4 hour neuro obs Continue Enteral feeding Maintain normoglycemia with ISS Continue to interact with patient, frequently reorienting him Attempt OOB in chair. PT attempts to continue Maintain normothermia Psych consult recommended for additional assessment of delirium . Continue 100mg QD Seroquel - or alternate agent? No improvement in mixed state delirium HgB> 8 - appears to be falling Abx as needed Jennifer Gama N.P. September 16, 2018 01:00
[2018-09-16] MEDS: LORazepam 1mg tab GT SCH ×4 (01:42→18:12)
[2018-09-16 04:00] VITALS: BP 113/62
[2018-09-16] MEDS: Oxybutynin 5mg tab GT SCH ×3 (05:39→21:38)
[2018-09-16] MEDS: Valproate Sodium INJ 250 MG in D5W 55 ML IVPB SCH ×3 (05:39→21:41)
[2018-09-16 06:07] LABS: HEMATOCRIT 23.5 % (42.0-52.0); HEMOGLOBIN 7.9 G/DL (14.2-18.0); MEAN CORPUSCULAR VOLUME 93 FL (80-99); PLATELET COUNT 316 K/UL (150-450); RED BLOOD COUNT 2.54 M/UL (4.70-6.10); RED CELL DISTRIBUTION WIDTH 13.5 % (11.6-14.8)
[2018-09-16 06:24] LABS: PHOSPHORUS 3.9 MG/DL (2.5-4.9)
--- NOTE | 2018-09-16 07:00 | NUR ---
NURSE NOTES: Noted his H&H level is 7.9/23.5. notified to Dr. Collier and new order received.
--- NOTE | 2018-09-16 07:30 | NUR ---
NURSE NOTES: Received report from Ron ALICEA. Pt in bed asleep but arousable to tactile stimuli. No c/o pain. No signs of distress noted. Bed in lowest position and locked. Bilateral wrist soft restraint intact and able to put two fingers. IV in LFA 18G intact and asymptomatic w/ NS KTO. On 2LPM via NC. Sinus rhythm with BBB reported during film processing shift supervisor on cardiac/vascular sonographer. Glucerna 1.2 @55ml/hr running and abdomen flat and non-distended. Stage [address] 1 to sacral reported and will continue the Tx. Awaiting for for consent of blood transfusion due to Hgb 7.9 today. Will continue to plan of care.
--- NOTE | 2018-09-16 07:30 | NUR ---
HAND-OFF: Report given to Pt is resting on the bed and agitated and confused. Endorsed incoming nursed regarding PRBC 1U blood transfusion.
[2018-09-16 08:00] VITALS: BP 95/57
[2018-09-16] MEDS: Aspirin Baby 81mg GT SCH (08:31)
[2018-09-16] MEDS: Docusate 100mg/10ml Liq GT SCH ×2 (08:31→18:12)
[2018-09-16] MEDS: Lactulose 10gm/15ml UDC GT SCH ×3 (08:31→18:12)
[2018-09-16] MEDS: Polysporin Oint 15gm TOPIC SCH ×2 (08:34→18:12)
--- NOTE | 2018-09-16 11:00 | General Progress Note ---
Assessment/Plan Status: stable Assessment/Plan: #Acute metabolic encephalopathy, agitation intermittently #History of recent CVA, CT done in ED shows subacute to chronic right thalamic stroke #Dysphagia, s/p PEG -supportive care -Fall,Aspiration,Seizure precautions -IM Haldol prn for agitation -Neurochecks -continue Lipitor -Off acyclovir -LP done, CSF HSV PCR negative -Urine culture no growth, ceftriaxone stopped -Neurology and Psychiatry following -CERTIFIED NURSES AIDE following -S/p PEG, continue tube feeds -Psychiatry following #Acute blood loss anemia #Hematuria due to Francisco catheter induced urethral trauma, improved -H&H stable -Francisco out -transfuse PRBC if Hb < 8 #ZENON, improved renal function #Hypernatremia due to lack of water intake #Hypokalemia -replace electrolytes prn -continue to monitor BMP -avoid nephrotoxic agents -Nephrology following Full Code VTE PPx SCD Subjective Date patient seen: September 16, 2018 Time patient seen: 07:00 ROS Limited/Unobtainable: Yes Allergies: Coded Allergies: No Known Allergies (Unverified , 08/30/18) Subjective Medicine follow up for acute encephalopathy, agitation, ZENON, dysphagia. Underwent PEG placement this admission. Tolerating tube feeds. Patient agitated overnight Objective Last 24 Hour Vital Signs Date Time Temp Pulse Resp B/P (MAP) Pulse Ox O2 Delivery O2 Flow Rate FiO2 09/16/18 09:00 Nasal Cannula 2.0 09/16/18 08:00 98.5 65 18 95/57 (70) 99 09/16/18 08:00 66 09/16/18 04:00 69 09/16/18 04:00 99.0 71 18 113/62 (79) 99 09/16/18 00:00 73 09/16/18 00:00 98.9 76 20 105/58 (74) 99 09/15/18 21:00 Nasal Cannula 2.0 09/15/18 20:00 83 09/15/18 20:00 97.8 85 20 113/92 (99) 99 09/15/18 16:00 98.7 62 20 109/66 (80) 100 09/15/18 15:20 61 09/15/18 12:07 82 09/15/18 12:00 97.7 100 22 126/74 (91) 90 Intake and Output 09/15/18 09/16/18 19:00 07:00 Intake Total 40 ml 670.0 ml Output Total 150 ml Balance -110 ml 670.0 ml IV Total 115.0 ml Tube Feeding 40 ml 555 ml Output Urine Total 150 ml # Voids 1 # Bowel Movements 3 1 Laboratory Tests 09/15/18 16:00: Stool Occult Blood [Pending] 09/16/18 04:55: White Blood Count 10.0, Red Blood Count 2.54L, Hemoglobin 7.9L, Hematocrit 23.5L , Mean Corpuscular Volume 93, Mean Corpuscular Hemoglobin 31.3H, Mean Corpuscular Hemoglobin Concent 33.7, Red Cell Distribution Width 13.5, Platelet Count 316, Mean Platelet Volume 6.7, Neutrophils (%) (Auto) , Lymphocytes (%) ( Auto) , Monocytes (%) (Auto) , Eosinophils (%) (Auto) , Basophils (%) (Auto) , Differential Total Cells Counted 100, Neutrophils % (Manual) 59, Lymphocytes % ( Manual) 30, Monocytes % (Manual) 5, Eosinophils % (Manual) 5H, Basophils % ( Manual) 0, Band Neutrophils 1, Platelet Estimate Adequate, Platelet Morphology Normal, Red Blood Cell Morphology Normal, Phosphorus Level 3.9, Magnesium Level 2.3, Anti-Nuclear Antibody Screen [Pending] Height (Feet): 6 Height (Inches): 0.00 Weight (Pounds): 111 General Appearance: alert, agitated Cardiovascular: normal rate, regular rhythm Respiratory/Chest: lungs clear, normal breath sounds Abdomen: non tender, soft Objective Unable to examine due to agitation Bright Her MD September 16, 2018 11:00
[2018-09-16 12:00] VITALS: BP 97/55
[2018-09-16 16:00] VITALS: BP 98/57
--- NOTE | 2018-09-16 19:20 | NUR ---
NURSE NOTES: received pt from DEANNE Stahl pt in bed awake, pt nonverbal. family member at bedside, no change in condition during the day. restraints in place, circulation, motor and sensation intact. bed locked and lowest position, call light within reach, will round pt hourly for safety. and meet pt's needs.
--- NOTE | 2018-09-16 19:30 | NUR ---
HAND-OFF: Report given to Sosa ALICEA. Pt remains stable..
--- NOTE | 2018-09-16 19:50 | NUR ---
NURSE NOTES: pt very agitated, restraints in place CMS intact, bed side rails padded, gtube feeding infusing, pt tolerating well feeding. no Gtube feeding residual
[2018-09-16] MEDS ORDERED: NS 275ml ONE (19:56)
[2018-09-16 20:00] VITALS: BP 111/68
[2018-09-16] MEDS: Miralax 17gm pkt GT SCH (21:00)
[2018-09-16] MEDS: Acetaminophen 650mg/20.3ml NG PRN (21:38)
[2018-09-16] MEDS: Atorvastatin 80mg tab GT SCH (21:38)
[2018-09-16] MEDS ORDERED: LORazepam Inj 2mg/ml 1ml IM SCH (22:00)
[2018-09-16] MEDS ORDERED: DiphenhydrAMINE 50mg/ml Inj IVP SCH (22:00)
--- NOTE | 2018-09-16 22:08 | NUR ---
NURSE NOTES: pt very agitated and kicking, got in reach with Dr martell and gave me orders for 25mg benadryl and 1mg ativan IM once.
--- NOTE | 2018-09-16 23:30 | NUR ---
NURSE NOTES: pt sleeping and relaxed after Ativan and Benadryl administration. VS within normal limits according with pt's baseline VS. restraints in place, circulation, motor, and sensation intact. Gtuve feeding infusing, no Gtube feeding residuals. bed locked and side rails padded to prevent any injury to pt. will continue to monitor for pt's safety.
--- NOTE | 2018-09-16 23:41 | Psych Consult Progress Note ---
Psychiatry Progress Note Psychiatry Progress Note Medications Current Medications Medications (Trade) Dose Ordered Sig/Jaxon Route PRN Reason Start Time Stop Time Status Last Admin Dose Admin Acetaminophen (Tylenol) 650 mg Q4H PRN NG Mild Pain/Temp > 100.5 09/06/18 20:00 10/06/18 19:59 09/16/18 21:38 Aspirin (ASA) 81 mg DAILY GT 09/15/18 09:00 10/07/18 08:59 09/16/18 08:31 Atorvastatin Calcium (Lipitor) 80 mg BEDTIME GT 09/14/18 21:00 09/30/18 20:59 09/16/18 21:38 Bacitracin/ Polymyxin B Sulfate (Polysporin Oint) 1 applic BID TOPIC 09/15/18 12:30 10/15/18 12:29 09/16/18 18:12 Clopidogrel Bisulfate (Plavix) 75 mg DAILY GT 09/15/18 09:00 10/01/18 09:59 09/16/18 08:31 Docusate Sodium (Colace) 100 mg TWICE A DAY GT 09/14/18 18:00 10/14/18 17:59 09/16/18 18:12 Lactulose (Cephulac) 10 gm THREE TIMES A DAY GT 09/14/18 18:00 10/10/18 17:59 09/16/18 18:12 Lorazepam (Ativan) 1 mg Q8H GT 09/15/18 18:00 09/22/18 17:59 09/16/18 18:12 Mirtazapine (Remeron) 7.5 mg BEDTIME GT 09/14/18 21:00 10/03/18 20:59 09/16/18 21:39 Oxybutynin Chloride (Ditropan) 5 mg Q8HR GT 09/14/18 14:00 10/05/18 13:59 09/16/18 21:38 Polyethylene Glycol (Miralax) 17 gm BEDTIME GT 09/14/18 21:00 10/10/18 20:59 09/14/18 20:43 Polyethylene Glycol (Miralax) 17 gm HSPRN PRN GT Constipation 09/14/18 21:00 10/06/18 20:59 Quetiapine Fumarate (SEROquel) 100 mg Q8HR GT 09/15/18 22:00 10/14/18 22:14 09/16/18 21:38 Valproate Sodium 250 mg/Dextrose 57.5 ml @ 57.5 mls/hr Q8HR IVPB 09/02/18 22:00 10/02/18 21:59 09/16/18 21:41 Neurological/Psychiatric: Reports: anxiety, depressed, emotional problems Allergies: Coded Allergies: No Known Allergies (Unverified , 08/30/18) Objective Data Height (Feet): 6 Height (Inches): 0.00 Weight (Pounds): 111 General Appearance: alert, confused, agitated, thin Appearance: disheveled Behavior Mannerisms: poor eye contact Mental Status Exam - Affect: labile Mental Status Exam - Mood: agitated Speech: dysarthric Mental Status Exam - Thought P: tangential, confusion Mental Status Exam - Suicidal: not present Assessment/Plan Problem List: (1) Acute encephalopathy ICD Codes: G93.40 - Encephalopathy, unspecified SNOMED: 78134304, [id number] (2) Cognitive impairment ICD Codes: R41.89 - Other symptoms and signs involving cognitive functions and awareness SNOMED: 962451255 Status: unchanged Assessment/Plan: cont restraints depakote seroquel standing seroquel prn Damian Kim MD September 16, 2018 23:40
[2018-09-17] VITALS: BP 106/62
--- NOTE | 2018-09-17 02:57 | NUR ---
NURSE NOTE pt sleeping no acute distress noted, restraints in place, CMS intact. gtube feeding infusing, pt tolerating well feeding. no Gtube feeding residual.
[2018-09-17] MEDS: LORazepam 1mg tab GT SCH ×3 (03:18→17:27)
[2018-09-17 04:00] VITALS: BP 133/71
--- NOTE | 2018-09-17 04:00 | NUR ---
NURSE NOTES: pt sleeping, no acute distress noted, bed locked and lowest position, call light within reach. side rail padded. will continue to monitor for change in condition
--- NOTE | 2018-09-17 05:00 | NUR ---
NURSE NOTES: pt tolerating well Gtube feeding, no residual obtained during my shift.
[2018-09-17] MEDS: Valproate Sodium INJ 250 MG in D5W 55 ML IVPB SCH ×3 (05:03→22:02)
[2018-09-17] MEDS: Acetaminophen 650mg/20.3ml NG PRN (05:04)
[2018-09-17] MEDS: Oxybutynin 5mg tab GT SCH ×3 (05:04→21:09)
--- NOTE | 2018-09-17 06:43 | NUR ---
NURSE NOTES: pt remains stable, episodes of agitation during my shift,no change of condition during my shift. all needs met during my shift. bed locked and lowest position, call light within reach, side rail x2. side rail padded. will endorse care to incoming nurse.
--- NOTE | 2018-09-17 07:42 | NUR ---
HAND-OFF: Report given to Franki ALICEA.
--- NOTE | 2018-09-17 07:48 | NUR ---
NURSE NOTES: pt currently asleep in bed, no acute signs and symptoms of distress, bilateral soft wrist restraints intact, neurovascular status stable, bilateral radial pulses palpable and equal, skin warm to touch. bed in lowest position locked with bed alarm on, call light within reach, seizure precautions implemented, side rails padded suction at bedside, gtube feed tolerated, no gastric residual, HOB elevated, will continue to monitor.
[2018-09-17 08:00] VITALS: BP 111/62
--- NOTE | 2018-09-17 08:23 | NUR ---
RD ASSESSMENT & RECOMMENDATIONS SEE CARE ACTIVITY FOR COMPLETE ASSESSMENT DAILY ESTIMATED NEEDS: Needs based on cardiac, wasting, underweight 52kg 30-35 kcals/kg 0355-2843 total kcals 1-1.5 g protein/kg 52-78 g total protein 25-30 mL/kg 4667-5494 total fluid mLs NUTRITION DIAGNOSIS: * Increased kcal and protein needs r/t underweight status and wasting as evidenced by pt is est 74% of Williams Body Weight, w/ generalized mild to moderate wasting. * Swallowing difficulty R/T dysphagia, CVA as evidenced by now s/p PEG placement. CURRENT TF:Glucerna 1.2 @55 ENTERAL NUTRITION RECOMMENDATIONS: Glucerna 1.2 @ 55ml/hr x 24 hrs to provide 1320ml, 1584kcal, 79g prot, 1063ml free water - Maintain Glucerna 1.2 @goal as tolerated. - Flush per MD, HOB over 30 degrees. ADDITIONAL RECOMMENDATIONS: * Obtain calibrated bed scale wts, weekly weights * Monitor lytes daily w/ TF, replete as needed Last K, phos, mg all wnl/ * F/UP W/ R ELBOW WOUND * Monitor renal fxn * Monitor BGs closely, need for carb controlled TF formula * Rec increased water flushes vs D5 IVF for BG control
[2018-09-17] MEDS: Docusate 100mg/10ml Liq GT SCH ×2 (09:00→17:26)
[2018-09-17] MEDS: Lactulose 10gm/15ml UDC GT SCH ×3 (09:00→17:27)
[2018-09-17] MEDS: Polysporin Oint 15gm TOPIC SCH ×2 (09:00→17:27)
[2018-09-17] MEDS: Aspirin Baby 81mg GT SCH (09:00)
--- NOTE | 2018-09-17 10:42 | NUR ---
CASE MANAGEMENT:REVIEW 09/17/18 SI: ACUTE METABOLIC ENCEPHALOPATHY S/P PEG PLACEMENT T 98.1 HR 69 RR 20 B/P 111/62 SATS 97% ON RA NO LABS TODAY IS: IV VALPROATE Q8 ASA GT QD PLAVIX GT QD SEROQUEL GT TID LIPITOR GT QHS LACTULOSE GT TID : TELEMETRY STATUS DCP: FROM [facility] PLAN: DC PLANNING
--- NOTE | 2018-09-17 11:15 | NUR ---
NURSE NOTES: Per Dr. Concepcion, pt is cleared from tele. Transfer to Med/Surg. Will carry out orders accordingly. Endorsed to Remy VARMA and Rahat Watson Sup.
[2018-09-17 12:00] VITALS: BP 100/68
--- NOTE | 2018-09-17 12:06 | General Progress Note ---
Assessment/Plan Status: stable Assessment/Plan: #Acute metabolic encephalopathy, cognitive imapirment in the setting of stroke, agitation intermittently #History of recent CVA, CT done in ED shows subacute to chronic right thalamic stroke #Dysphagia, s/p PEG -supportive care -Fall,Aspiration,Seizure precautions -IM Haldol prn for agitation -Neurochecks -continue Lipitor -Off acyclovir -LP done, CSF HSV PCR negative -Urine culture no growth, ceftriaxone stopped -Neurology and Psychiatry following -SHALE PLANER OPERATOR following -S/p PEG, continue tube feeds -Psychiatry following #Acute blood loss anemia #Hematuria due to Francisco catheter induced urethral trauma, improved -H&H stable -Francisco out -transfuse PRBC if Hb < 8 #ZENON, improved renal function #Hypernatremia due to lack of water intake #Hypokalemia -replace electrolytes prn -continue to monitor BMP -avoid nephrotoxic agents -Nephrology following Full Code VTE PPx SCD Subjective Date patient seen: September 17, 2018 Time patient seen: 11:30 ROS Limited/Unobtainable: Yes Allergies: Coded Allergies: No Known Allergies (Unverified , 08/30/18) Subjective Medicine follow up for acute encephalopathy, agitation, ZENON, dysphagia. Underwent PEG placement this admission. Tolerating tube feeds. Remains agitated and on restraints. Discussed his lack of progress with and brother Hugh by telephone. Objective Last 24 Hour Vital Signs Date Time Temp Pulse Resp B/P (MAP) Pulse Ox O2 Delivery O2 Flow Rate FiO2 09/17/18 09:00 Room Air 09/17/18 08:00 98.1 69 20 111/62 (78) 97 09/17/18 08:00 69 09/17/18 04:00 97.0 86 20 133/71 (91) 95 09/17/18 04:00 78 09/17/18 00:00 79 09/17/18 00:00 98.0 93 20 106/62 (77) 96 09/16/18 21:00 Nasal Cannula 2.0 09/16/18 20:03 Room Air 21 09/16/18 20:03 99 Room Air 21 09/16/18 20:00 98.5 72 18 111/68 (82) 99 09/16/18 20:00 95 09/16/18 16:00 98.7 71 17 98/57 (71) 99 09/16/18 16:00 67 Intake and Output 09/16/18 09/17/18 19:00 07:00 Intake Total 1412.5 ml 970.0 ml Balance 1412.5 ml 970.0 ml Free Water 750 ml 250 ml IV Total 57.5 ml 115.0 ml Tube Feeding 605 ml 605 ml # Voids 3 4 # Bowel Movements 1 4 Height (Feet): 6 Height (Inches): 0.00 Weight (Pounds): 111 General Appearance: alert, agitated Neck: supple Cardiovascular: normal rate, regular rhythm Respiratory/Chest: lungs clear, normal breath sounds Abdomen: non tender, soft Extremities: non-tender Neurologic: alert Objective Unable to examine due to agitation Bright Her MD September 17, 2018 12:06
[2018-09-17 15:10] VITALS: BP 109/58
--- NOTE | 2018-09-17 15:10 | NUR ---
TRANSFER TO FLOOR: Patient transferred to [facility], per Dr Concepcion. Report given to DEANNE Wynn. Belongings and medications given to DEANNE Wynn. Family at bedside.
--- NOTE | 2018-09-17 15:46 | NUR ---
NURSE NOTES: I received patient from Tele around 151; received report from Franki Guzman RN; Patient non-verbal, on room air, no sign of distress and shortness of breath; Side rails padded for seizure percussion; IV Left for-arm fluid running; Glucernal 1.2 running at 50cc, no residual; Pictures taken for Right-elbow and Sacral; and also wound care provided; bilateral soft wrist restrain in place; at the bed side; bed at lowest position, head of the bed elevated, breaks engaged. Vitals taken upon arrival to the floor. will keep monitoring.
--- NOTE | 2018-09-17 19:19 | NUR ---
HAND-OFF: Report given to DEANNE Mora.
--- NOTE | 2018-09-17 19:50 | NUR ---
NURSE NOTES: Received patient awake,very confused,on bilateral soft wrist restraints,tolerating his g-tube feeding well. Day shift nurse cleansed,and changed wound dressing.
[2018-09-17 20:00] VITALS: BP 131/58
[2018-09-17] MEDS ORDERED: Miralax 17gm pkt GT PRN (21:00)
--- NOTE | 2018-09-17 21:04 | Neurology Progress Note ---
Interim History Interim History ROS Limited/Unobtainable: Yes Complaints: AMS Events: This vist was conducted on September 17, 2018 Review of Systems All Systems: reviewed and negative except above Objective Physical Exam Last Vital Signs Date Time Temp Pulse Resp B/P (MAP) Pulse Ox O2 Delivery O2 Flow Rate FiO2 09/17/18 20:27 Room Air 09/17/18 20:00 99.1 86 20 131/58 (82) 99 09/17/18 19:33 21 09/16/18 21:00 2.0 Head: normocophalic Neck: no rigidity EENT: benign Neurologic Exam Mental Status: awake, other - Patient remains agitated upon waking. His primary language is Cantonese but as per his daughter he is not speaking any intelligible words at this time. Language: other - Only making sounds- no words - aphasia remains persistent- both receptive/ expressive Cranial Nerve II: fundus normal, no papilledema Cranial Nerves III, IV, : PERRLA, EOMI Cranial Nerve VII: no facial asymmetry Cranial Nerve XI: SCM symmetric Cranial Nerve XII: tongue midline Motor System: other - No apparent focal weakness on exam but unable to formally test as patient is not following commands. Objective Patient continues to remain non focal on exam. He is agitated when awoken, LUNA x 4 but not following commands. His primary language is Cantonese and as per his / brother's report - He is not saying any intelligible words- denies paraphrasic errors - patient is just making sounds. He intermittently tracks with his eyes. No observed / mag seizure activity noted. Impression/Recommendations Problems: (1) Altered mental state (2) Cognitive impairment (3) Acute encephalopathy Assessment & Plan: EEG was abnormal but without mag epileptiform activity. Continue Q 4 hour Neuro obs Na 135-145 Empiric Abx and then as per ID Maintain normothermia at all times with Tylenol or cooling blanket. Try to maintain sleep hygiene for patient with dark quiet room at night. SBP<140 Continue 100mg TID seroquel and consider increasing Quetiapine? (4) Hypernatremia Assessment & Plan: Please start free water as per PEG (5) Severe malnutrition (6) Encounter for PEG (percutaneous endoscopic gastrostomy) (7) Delirium due to another medical condition, acute, mixed level of activity Status: stable Recommendations Continue Q4 hour neuro obs Continue Enteral feeding - Continue water flushes - patient is becoming hypernatremic again. Maintain normoglycemia with ISS Continue to interact with patient, frequently reorienting him Attempt OOB in chair. PT attempts to continue Maintain normothermia Psych consult recommended for additional assessment of delirium . Continue 100mg QD Seroquel - or alternate agent? No improvement in mixed state delirium HgB> 8 - appears to be falling Abx as needed Jennifer Gama N.P. September 17, 2018 21:04
[2018-09-17] MEDS: Atorvastatin 80mg tab GT SCH (21:07)
[2018-09-17] MEDS: Miralax 17gm pkt GT SCH (21:08)
--- NOTE | 2018-09-17 21:39 | General Progress Note ---
Assessment/Plan Status: stable Assessment/Plan: Assessment/Plan: # Failure to thrive - decreased bmi and low protein, does have evidence of prior infarct, poor PS --> will also obtain q3d caloric counts --> cea is elevated and workup as per below, consider gi eval --> mirtazapine as appetite stimulant continue it --> Gi consult on a prn basis, appreciate recs # Hyperproteinemia with decreased albumin -- this is a dissociation that is abnormal --> upep and spep are negative for a m-spike, it does not exist --> thus likely inflammatory process # Elevated tumor markers as cea is elevated --> may consider gi evaluation in this setting --> ca 19.9 is 1, ca 15.3 is 12.3 --> at some point may need CT c/a/p okay as outpatient # Anemia due to chronic disease --> anemia panel reviewed, no schistocytes --> peripheral smear reviewed --> could also be related to underyling burleson trauma --> hgb goal is >7 # Acute metabolic encephalopathy, possibly from UTI, dehydration or recurrent CVA --> neuro and psych prn eval --> MRI brain reviewed, lp 09/05 --> abx prn # History of recent CVA, CT done in ED shows subacute to chronic right thalamic stroke --> supportive care --> per neuro --> is on abx for what appears to be uti # Dysphagia is sp peg --> continue peg feeds # ZENON with cr from normal to 3 --> renal was consulted The timing of this note does not necessarily reflect the time of the patient was seen. Greatly appreciate consultation! Subjective Constitutional: Denies: no symptoms, chills, diaphoresis, fever, malaise, weakness, other HEENT: Denies: no symptoms, eye pain, blurred vision, tearing, double vision, ear pain, ear discharge, nose pain, nose congestion, throat pain, throat swelling, mouth pain, mouth swelling, other Cardiovascular: Denies: no symptoms, chest pain, edema, irregular heart rate, lightheadedness, palpitations, syncope, other Respiratory: Denies: no symptoms, cough, orthopnea, shortness of breath, SOB with excertion, SOB at rest, sputum, stridor, wheezing, other Gastrointestinal/Abdominal: Denies: no symptoms, abdomen distended, abdominal pain, black stools, tarry stools, blood in stool, constipated, diarrhea, difficulty swallowing, nausea, poor appetite, poor fluid intake, rectal bleeding , vomiting, other Neurologic/Psychiatric: Denies: no symptoms, anxiety, depressed, emotional problems, headache, numbness, paresthesia, pre-existing deficit, seizure, tingling, tremors, weakness, other Endocrine: Denies: no symptoms, excessive sweating, flushing, intolerance to cold, intolerance to heat, increased hunger, increased thirst, increased urine, unexplained weight gain, unexplained weight loss, other Hematologic/Lymphatic: Denies: no symptoms, anemia, easy bleeding, easy bruising, other Allergies: Coded Allergies: No Known Allergies (Unverified , 08/30/18) Subjective 09/01: close followup with psych, remains agitated, some hematuria with burleson noted 09/03: with restraints, hgb remains low, no bleeding reported, in semi-fowlers position 09/04: has been refusing ng tube placement, concern remains for silent aspiration, seen by speech 09/05: urethreal bleeding noted after burleson was pulled, lp pending 09/06: no events to report, no f/c. mental status improved 09/07: no fevers or chills, anemia panel reviewed, cr is higher this am 09/08: no events, potentially to get peg placed, cr does remain elevated, renal consulted 09/10: s/p gtube placement, no events otherwise, cbc has been reviewed, hematuria is better 09/11: no events noted overnight, on peg tube feeds, agitated 09/12: gtube is in place, no fevers or chills, no bleeding, cr better 09/13: no events, getting gt feeds, no bleeding reported, no night sweats 09/14: remains on restraints, cbc has been reviewed, hgb approx 9 09/15: no events to report, no bleeding, fevers, no night sweats, cbc reviewed, placement pending 09/17: remains confused, on restraints, no f/c noted Objective Last 24 Hour Vital Signs Date Time Temp Pulse Resp B/P (MAP) Pulse Ox O2 Delivery O2 Flow Rate FiO2 09/17/18 20:27 Room Air 09/17/18 20:00 99.1 86 20 131/58 (82) 99 5/12/19 19:33 Room Air 21 09/17/18 19:33 98 Room Air 21 09/17/18 15:10 98.8 67 17 109/58 (75) 97 09/17/18 12:00 98.8 65 20 100/68 (79) 94 09/17/18 12:00 74 09/17/18 09:00 Room Air 09/17/18 08:00 98.1 69 20 111/62 (78) 97 09/17/18 08:00 69 09/17/18 04:00 97.0 86 20 133/71 (91) 95 09/17/18 04:00 78 09/17/18 00:00 79 09/17/18 00:00 98.0 93 20 106/62 (77) 96 Intake and Output 09/16/18 09/17/18 18:59 06:59 Intake Total 1162.5 ml 1275.0 ml Balance 1162.5 ml 1275.0 ml Free Water 500 ml 500 ml IV Total 57.5 ml 115.0 ml Tube Feeding 605 ml 660 ml # Voids 3 4 # Bowel Movements 1 4 Height (Feet): 6 Height (Inches): 0.00 Weight (Pounds): 111 Objective General Appearance: alert, combative HEENT: normocephalic ++ ngt Neck: supple, normal inspection Respiratory/Chest: lungs clear, normal breath sounds Cardiovascular/Chest: normal rate, regular rhythm, no JVD Abdomen: non tender, soft ++ peg Extremities: normal inspection, no calf tenderness, + restraints Neurologic: other - Uncooperative : Nolan+ Aman Collier MD September 17, 2018 21:39
[2018-09-18] VITALS: BP 115/82
[2018-09-18] MEDS: LORazepam 1mg tab GT SCH ×2 (01:19→09:08)
[2018-09-18 04:00] VITALS: BP 139/84
[2018-09-18] MEDS: Oxybutynin 5mg tab GT SCH ×3 (05:08→21:09)
[2018-09-18] MEDS: Valproate Sodium INJ 250 MG in D5W 55 ML IVPB SCH ×3 (05:08→21:44)
[2018-09-18 08:00] VITALS: BP 135/88
--- NOTE | 2018-09-18 08:00 | NUR ---
NURSE NOTES: pt in bed with no sob nor in any form of distress noted. Breathing regular and unlabored. denies pain at this time. still noted with agitation. on (B)soft wrist restraint with good circulation. skin is intact. bed in lowest position. tolerating well on GT. will continue to monitor
[2018-09-18] MEDS: Polysporin Oint 15gm TOPIC SCH ×2 (09:08→17:09)
[2018-09-18] MEDS: Docusate 100mg/10ml Liq GT SCH ×2 (09:08→17:09)
[2018-09-18] MEDS: Aspirin Baby 81mg GT SCH (09:09)
[2018-09-18] MEDS: Lactulose 10gm/15ml UDC GT SCH (09:09)
--- NOTE | 2018-09-18 10:18 | General Progress Note ---
Assessment/Plan Status: stable Assessment/Plan: #Acute metabolic encephalopathy, cognitive imapirment in the setting of stroke, agitation intermittently #History of recent CVA, CT done in ED shows subacute to chronic right thalamic stroke #Dysphagia, s/p PEG -supportive care -Fall,Aspiration,Seizure precautions -IM Haldol prn for agitation -Neurochecks -continue Lipitor -Off acyclovir -LP done, CSF HSV PCR negative -Urine culture no growth, ceftriaxone stopped -Neurology and Psychiatry following -PRODUCTION PLANNER following -S/p PEG, continue tube feeds -Psychiatry following #Acute blood loss anemia #Hematuria due to Francisco catheter induced urethral trauma, improved -H&H stable -Francisco out -CBC in AM #ZENON, improved renal function #Hypernatremia due to lack of water intake #Hypokalemia -replace electrolytes prn -BMP in AM -avoid nephrotoxic agents -Nephrology following Full Code VTE PPx SCD Subjective Date patient seen: September 18, 2018 Time patient seen: 10:12 ROS Limited/Unobtainable: Yes Allergies: Coded Allergies: No Known Allergies (Unverified , 08/30/18) Subjective Medicine follow up for acute encephalopathy, agitation, ZENON, dysphagia. Underwent PEG placement this admission. Tolerating tube feeds. Remains agitated and on restraints. Objective Last 24 Hour Vital Signs Date Time Temp Pulse Resp B/P (MAP) Pulse Ox O2 Delivery O2 Flow Rate FiO2 09/18/18 09:00 Room Air 09/18/18 08:00 98.0 79 19 135/88 (104) 95 09/18/18 04:00 98.2 69 19 139/84 (102) 99 09/18/18 00:00 97.7 69 19 115/82 (93) 98 09/17/18 20:27 Room Air 09/17/18 20:00 99.1 86 20 131/58 (82) 99 09/17/18 19:33 Room Air 21 09/17/18 19:33 98 Room Air 21 09/17/18 15:10 98.8 67 17 109/58 (75) 97 09/17/18 12:00 98.8 65 20 100/68 (79) 94 09/17/18 12:00 74 Intake and Output 09/17/18 09/18/18 19:00 07:00 Intake Total 860 ml 1180.0 ml Balance 860 ml 1180.0 ml Free Water 200 ml 460 ml IV Total 115.0 ml Tube Feeding 660 ml 605 ml # Voids 3 4 # Bowel Movements 4 1 Height (Feet): 6 Height (Inches): 0.00 Weight (Pounds): 111 General Appearance: alert, agitated Neck: normal alignment, supple Cardiovascular: normal rate, regular rhythm Respiratory/Chest: lungs clear, normal breath sounds Abdomen: non tender, soft Objective Unable to examine due to agitation Bright Her MD September 18, 2018 10:18
--- NOTE | 2018-09-18 10:30 | GI Progress Note ---
Assessment/Plan Problems: (1) Encounter for PEG (percutaneous endoscopic gastrostomy) ICD Codes: Z43.1 - Encounter for attention to gastrostomy SNOMED: 081433397, 881667069 (2) Severe malnutrition ICD Codes: E43 - Unspecified severe protein-calorie malnutrition SNOMED: 36347419 (3) Altered mental state ICD Codes: R41.82 - Altered mental status, unspecified SNOMED: 686358238 Qualifiers: Qualified Codes: R41.82 - Altered mental status, unspecified (4) Stroke ICD Codes: I63.9 - Cerebral infarction, unspecified SNOMED: 366866453 (5) Dehydration ICD Codes: E86.0 - Dehydration SNOMED: 59272196 Status: stable, unchanged Status Narrative Discussed with Dr. Olivarez. Assessment/Plan s/p GT placement GT site cellulitis >> bacitracin BID GTF, monitor for residuals GT flush/GT site care daily and as needed bowel regimen ppi reglan prn for GI motility follow labs dc planning The patient was seen and examined at bedside and all new and available data was reviewed in the patients chart. I agree with the above findings, impression and plan. (Patient seen earlier today. Signature stamp does not reflect patient encounter time.). - Luis Alberto Olivarez MD Subjective Subjective Limited, patient nonverbal at baseline Objective Last 24 Hour Vital Signs Date Time Temp Pulse Resp B/P (MAP) Pulse Ox O2 Delivery O2 Flow Rate FiO2 09/18/18 09:00 Room Air 09/18/18 08:00 98.0 79 19 135/88 (104) 95 09/18/18 04:00 98.2 69 19 139/84 (102) 99 09/18/18 00:00 97.7 69 19 115/82 (93) 98 09/17/18 20:27 Room Air 09/17/18 20:00 99.1 86 20 131/58 (82) 99 09/17/18 19:33 Room Air 21 09/17/18 19:33 98 Room Air 21 09/17/18 15:10 98.8 67 17 109/58 (75) 97 09/17/18 12:00 98.8 65 20 100/68 (79) 94 09/17/18 12:00 74 Intake and Output 09/17/18 09/18/18 19:00 07:00 Intake Total 860 ml 1180.0 ml Balance 860 ml 1180.0 ml Free Water 200 ml 460 ml IV Total 115.0 ml Tube Feeding 660 ml 605 ml # Voids 3 4 # Bowel Movements 4 1 Height (Feet): 6 Height (Inches): 0.00 Weight (Pounds): 111 General Appearance: WD/WN, no apparent distress, alert Cardiovascular: normal rate Respiratory/Chest: normal breath sounds, no respiratory distress Abdominal Exam: normal bowel sounds, non tender, soft, GT site - Erythema with min amounts of exudate Extremities: normal range of motion, non-tender Juanis Bullard NP September 18, 2018 10:30
[2018-09-18 12:00] VITALS: BP 130/86
--- NOTE | 2018-09-18 12:09 | NUR ---
ST NOTE: ST WEEKLY AND SWALLOW/SPEECH/LANGUAGE/COGNITION STATUS: ST WEEKLY: PT DID NOT MEET PO INTAKE GOALS. NURSING STAFF MET ASPIRATION PRECAUTIONS GOALS. CONTINUE SKILLED ST SERVICE. CURRENT STATUS: SWALLOW/SPEECH/LANGUAGE/COGNITION STATUS: PT SEEN AT BEDSIDE IN LATE AM WITH PT'S PRESENTED. PT AWAKE, DID NOT FOLLOW DIRECTIONS, ABLE TO TURN HEAD TO THE SOUNDS INCONSISTENTLY. NO EYE TRACKING WAS NOTED. PT STILL PRODUCED SOME NASAL SOUNDS CONSISTENTLY. DISCUSSED WITH PT'S A PERIOD OF TIME RE:PT'S CONDITIONS. PT IS AT HIGH RISK FOR CHRONIC ASPIRATION IF PO IS GIVEN, NOT ONLY PT HAS OROPHARYNGEAL DYSPHAGIA, AND ALSO COMPOUNDED OF PT IS SEVERELY COGNITIVELY IMPAIRED. PT'S AWARE OF PT'S CONDITIONS AND RISK FOR ASPIRATION. PER PT'S , STILL WANTS PT TO EAT/DRINK BY MOUTH DUE TO PT PROBABLY WOULD PULL OUT THE G-TUBE IN THE FUTURE. REVIEWED MODIFIED BARIUM SWALLOW STUDY IMAGES AND COMPLETED THE REPORT, PLEASE SEE FULL REPORT IN ST NOTE UNDER CARE ACTIVITY. DISCUSSED WITH PT'S , RN, BERTHA COBIAN AND IN-CHARGE NURSE. WILL DISCUSS WITH RE: PT'S WISHES AND PLAN OF CARE.
--- NOTE | 2018-09-18 13:44 | General Progress Note ---
Assessment/Plan Status: stable, unchanged Assessment/Plan: Assessment/Plan: # Failure to thrive - decreased bmi and low protein, does have evidence of prior infarct, poor PS --> will also obtain q3d caloric counts --> cea is elevated and workup as per below, consider gi eval --> mirtazapine as appetite stimulant continue it --> Gi consult on a prn basis, appreciate recs # Hyperproteinemia with decreased albumin -- this is a dissociation that is abnormal --> upep and spep are negative for a m-spike, it does not exist --> thus likely inflammatory process # Elevated tumor markers as cea is elevated --> may consider gi evaluation in this setting --> ca 19.9 is 1, ca 15.3 is 12.3 --> at some point may need CT c/a/p okay as outpatient # Anemia due to chronic disease --> anemia panel reviewed, no schistocytes --> peripheral smear reviewed --> could also be related to underyling burleson trauma --> hgb goal is >7 # Acute metabolic encephalopathy, possibly from UTI, dehydration or recurrent CVA --> neuro and psych prn eval --> MRI brain reviewed, lp 09/05 --> abx prn # History of recent CVA, CT done in ED shows subacute to chronic right thalamic stroke --> supportive care --> per neuro --> is on abx for what appears to be uti # Dysphagia is sp peg --> continue peg feeds --> gtube flushes routinely # ZENON with cr from normal to 3 --> renal was consulted The timing of this note does not necessarily reflect the time of the patient was seen. Greatly appreciate consultation! Subjective Constitutional: Denies: no symptoms, chills, diaphoresis, fever, malaise, weakness, other HEENT: Denies: no symptoms, eye pain, blurred vision, tearing, double vision, ear pain, ear discharge, nose pain, nose congestion, throat pain, throat swelling, mouth pain, mouth swelling, other Cardiovascular: Denies: no symptoms, chest pain, edema, irregular heart rate, lightheadedness, palpitations, syncope, other Respiratory: Denies: no symptoms, cough, orthopnea, shortness of breath, SOB with excertion, SOB at rest, sputum, stridor, wheezing, other Gastrointestinal/Abdominal: Denies: no symptoms, abdomen distended, abdominal pain, black stools, tarry stools, blood in stool, constipated, diarrhea, difficulty swallowing, nausea, poor appetite, poor fluid intake, rectal bleeding , vomiting, other Genitourinary: Denies: no symptoms, burning, discharge, frequency, flank pain, hematuria, incontinence, pain, urgency, other Hematologic/Lymphatic: Denies: no symptoms, anemia, easy bleeding, easy bruising, other Allergies: Coded Allergies: No Known Allergies (Unverified , 08/30/18) Subjective 09/01: close followup with psych, remains agitated, some hematuria with burleson noted 09/03: with restraints, hgb remains low, no bleeding reported, in semi-fowlers position 09/04: has been refusing ng tube placement, concern remains for silent aspiration, seen by speech 09/05: urethreal bleeding noted after burleson was pulled, lp pending 09/06: no events to report, no f/c. mental status improved 09/07: no fevers or chills, anemia panel reviewed, cr is higher this am 09/08: no events, potentially to get peg placed, cr does remain elevated, renal consulted 09/10: s/p gtube placement, no events otherwise, cbc has been reviewed, hematuria is better 09/11: no events noted overnight, on peg tube feeds, agitated 09/12: gtube is in place, no fevers or chills, no bleeding, cr better 09/13: no events, getting gt feeds, no bleeding reported, no night sweats 09/14: remains on restraints, cbc has been reviewed, hgb approx 9 09/15: no events to report, no bleeding, fevers, no night sweats, cbc reviewed, placement pending 09/17: remains confused, on restraints, no f/c noted 09/18: gtube flush as per gi, no events, sleeping comfortably Objective Last 24 Hour Vital Signs Date Time Temp Pulse Resp B/P (MAP) Pulse Ox O2 Delivery O2 Flow Rate FiO2 09/18/18 12:00 97.8 76 19 130/86 (101) 96 09/18/18 09:00 Room Air 09/18/18 08:00 98.0 79 19 135/88 (104) 95 09/18/18 04:00 98.2 69 19 139/84 (102) 99 09/18/18 00:00 97.7 69 19 115/82 (93) 98 09/17/18 20:27 Room Air 09/17/18 20:00 99.1 86 20 131/58 (82) 99 09/17/18 19:33 Room Air 21 09/17/18 19:33 98 Room Air 21 09/17/18 15:10 98.8 67 17 109/58 (75) 97 Intake and Output 09/17/18 09/18/18 19:00 07:00 Intake Total 860 ml 1235.0 ml Balance 860 ml 1235.0 ml Free Water 200 ml 460 ml IV Total 115.0 ml Tube Feeding 660 ml 660 ml # Voids 3 4 # Bowel Movements 4 1 Height (Feet): 6 Height (Inches): 0.00 Weight (Pounds): 111 Objective General Appearance: alert, combative HEENT: normocephalic ++ ngt Neck: supple, normal inspection Respiratory/Chest: lungs clear, normal breath sounds Cardiovascular/Chest: normal rate, regular rhythm, no JVD Abdomen: non tender, soft ++ peg Extremities: normal inspection, no calf tenderness, + restraints Neurologic: other - Uncooperative : Nolan+ Aman Collier MD September 18, 2018 13:44
--- NOTE | 2018-09-18 14:34 | NUR ---
DISCHARGE PLANNING FAMILY DOESNOT WANT PATIENT TO RETURN TO [facility] FAMILY REQUESTED PATIENT BE REFERRED TO THE FOLLOWING [facility] CARET: [phone]:[phone] [facility] MANORT:[phone]: [phone] [facility] CARET: [phone]:[phone] [facility] CONVT: [phone]: [phone] [facility] MANORT:[phone]:[phone] NONE OF THE ABOVE FACILITIES HAVE ACCEPTED [facility] IS WILLING TO ACCEPT THIS PATIENT T: [phone] F:[phone]
[2018-09-18 15:58] VITALS: BP 121/80
--- NOTE | 2018-09-18 18:32 | Diagnostic Imaging Report ---
Indication: Dysphasia Procedure and findings: Real-time fluoroscopic imaging performed in a lateral projection in conjunction with the speech pathologist evaluation. Variable consistencies of barium given per mouth. Findings: Significant abnormalities of both oral and pharyngeal phases of swallowing are demonstrated. Laryngeal penetration demonstrated with nectar and thin barium. No aspiration identified Total fluoroscopic time: 239 seconds. Abnormal video swallow. Please refer to speech pathology evaluation for more information.
--- NOTE | 2018-09-18 19:06 | Neurology Progress Note ---
Interim History Interim History ROS Limited/Unobtainable: Yes Complaints: AMS Events: This vist was conducted on September 18, 2018 Interim History No bloods drawn over the weekend Review of Systems All Systems: reviewed and negative except above Objective Physical Exam Last Vital Signs Date Time Temp Pulse Resp B/P (MAP) Pulse Ox O2 Delivery O2 Flow Rate FiO2 09/18/18 15:58 98.8 72 19 121/80 (94) 99 09/18/18 09:00 Room Air 09/17/18 19:33 21 09/16/18 21:00 2.0 Head: normocophalic Neck: no rigidity EENT: benign Neurologic Exam Mental Status: awake, other - Patient remains agitated upon waking. His primary language is Cantonese but as per his daughter he is not speaking any intelligible words at this time. Language: other - Only making sounds- no words - aphasia remains persistent- both receptive/ expressive Cranial Nerve II: fundus normal, no papilledema Cranial Nerves III, IV, : PERRLA, EOMI Cranial Nerve VII: no facial asymmetry Cranial Nerve XI: SCM symmetric Cranial Nerve XII: tongue midline Motor System: normal muscle tone, strength 5/5, other - No apparent focal weakness on exam but unable to formally test as patient is not following commands. Sensory: normal pinprick, normal light touch Objective Patient continues to remain non focal on exam. He is agitated when awoken, LUNA x 4 but not following commands. His primary language is Cantonese and as per his / brother's report - He is not saying any intelligible words- denies paraphrasic errors - patient is just making sounds. He intermittently tracks with his eyes. No observed / mag seizure activity noted. Impression/Recommendations Problems: (1) Altered mental state (2) Cognitive impairment (3) Acute encephalopathy Assessment & Plan: EEG was abnormal but without mag epileptiform activity. Continue Q 4 hour Neuro obs Na 135-145 Maintain normothermia at all times with Tylenol or cooling blanket. Try to maintain sleep hygiene for patient with dark quiet room at night. SBP<140 Continue 100mg TID seroquel and consider increasing Quetiapine? (4) Hypernatremia Assessment & Plan: Please continue free water as per PEG (5) Severe malnutrition (6) Encounter for PEG (percutaneous endoscopic gastrostomy) (7) Delirium due to another medical condition, acute, mixed level of activity Status: stable, not improved, unchanged Recommendations Continue Q4 hour neuro obs Continue Enteral feeding - Continue water flushes - Maintain normoglycemia with ISS Continue to interact with patient, frequently reorienting him Attempt OOB in chair. PT attempts to continue Maintain normothermia Psych consult recommended for additional assessment of delirium . Continue 100mg QD Seroquel - or alternate agent? No improvement in mixed state delirium Maintain HgB>8 treat causes of anemia LFTs repeat- trended up, check ammonia Consider other metabolic process such as Cancer for patient's present encephalopathy if not psychiatric mixed with prior aphasia. Checking AFP Abx as needed Jennifer Gama N.P. September 18, 2018 19:06
--- NOTE | 2018-09-18 19:18 | NUR ---
HAND-OFF: Report given to DEANNE Noyola.
[2018-09-18] MEDS: Atorvastatin 80mg tab GT SCH (19:57)
[2018-09-18] MEDS: Miralax 17gm pkt GT SCH (19:58)
[2018-09-18 20:00] VITALS: BP 143/80
--- NOTE | 2018-09-18 20:00 | NUR ---
NURSE NOTES: Patient received awake, restless and resistive to care. Patient is dry and clean. Repositioned for comfort but patient continues to squirm in bed. Bilateral soft wrist restraints are applied as ordered, pulses/sensation/mobility present. No swelling and skin breakdown noted. GTF running and tolerating well, no residual. Abdominal binder applied. HOB elevated >30 degrees. Siderails padded for seizure precautions. Will continue close monitoring. Continue POC.
[2018-09-18] MEDS: Acetaminophen 650mg/20.3ml NG PRN (20:09)
[2018-09-18 20:43] LABS: ALANINE AMINOTRANSFERASE 186 U/L (12-78); ALBUMIN 2.3 G/DL (3.4-5.0); ALBUMIN/GLOBULIN RATIO 0.6 (1.0-2.7); ALKALINE PHOSPHATASE 117 U/L (46-116); ANION GAP 8 mmol/L (5-15); ASPARTATE AMINO TRANSFERASE 52 U/L (15-37); BILIRUBIN,TOTAL 0.3 MG/DL (0.2-1.0); BLOOD UREA NITROGEN 27 mg/dL (7-18); CALCIUM 8.2 MG/DL (8.5-10.1); CARBON DIOXIDE 28 MMOL/L (21-32); CHLORIDE 108 MMOL/L (98-107); CREATININE 1.1 MG/DL (0.55-1.30); POTASSIUM 4.4 MMOL/L (3.5-5.1); SODIUM 143 MMOL/L (136-145)
[2018-09-19] VITALS: BP 99/64
--- NOTE | 2018-09-19 03:15 | Progress Note ---
DATE: 08/30/2018 HISTORY OF PRESENT ILLNESS: The patient continues to be agitated and is uncooperative with the examination. He has severe cognitive impairment including memory, concentration, and attention. This is a psychiatric progress note. The patient's at bedside. The family requested to discontinue the restraints. The nurse continues to report that the patient continues to be agitated. The family believes the patient is overmedicated and sedated. I spoke to the brother who speaks Moh[place] stated that the is requesting to decrease the sedative medications as well as discontinuing the restraints. I spoke to the patient's brother and explained to him that his brother's situation most likely did not improve and I will consider discontinuing the restraints; however, the patient may pull out the G-tube and his condition may deteriorate. I also mentioned that it would be the patient's family's responsibility if we discontinue the restraints. The brother became quite frustrated and agreed to follow our recommendations. MENTAL STATUS EXAMINATION: The patient is asleep, arousable, has waxing and waning consciousness, mood is agitated. Affect is flat. Thought process is disorganized and the patient is mumbling. Thought content, no suicidal or homicidal ideations. Cognition severely impaired. ASSESSMENT: Chronic encephalopathy, CVA. PLAN: 1. We will increase the Seroquel to 125 mg p.o. q.8 h., also discontinue the Ativan. 2. Continue the restraints. 3. Discussed with the primary. Damian Graham M.D. DR: Narinder JOB#: [id number] CC:
[2018-09-19 04:00] VITALS: BP 129/68
[2018-09-19] MEDS: Valproate Sodium INJ 250 MG in D5W 55 ML IVPB SCH ×3 (05:00→22:34)
[2018-09-19] MEDS: Oxybutynin 5mg tab GT SCH ×3 (05:00→21:05)
[2018-09-19 06:46] LABS: ANION GAP 6 mmol/L (5-15); BLOOD UREA NITROGEN 29 mg/dL (7-18); CARBON DIOXIDE 28 MMOL/L (21-32); CHLORIDE 108 MMOL/L (98-107); CREATININE 1.1 MG/DL (0.55-1.30); POTASSIUM 3.9 MMOL/L (3.5-5.1); SODIUM 142 MMOL/L (136-145)
[2018-09-19 06:48] LABS: BASOPHILS % (AUTO) 0.7 % (0.0-2.0); EOSINOPHILS % (AUTO) 3.6 % (0.0-3.0); HEMATOCRIT 27.8 % (42.0-52.0); HEMOGLOBIN 9.5 G/DL (14.2-18.0); LYMPHOCYTES % (AUTO) 12.5 % (20.0-45.0); MEAN CORPUSCULAR VOLUME 91 FL (80-99); MONOCYTES % (AUTO) 7.8 % (1.0-10.0); NEUTROPHILS % (AUTO) 75.3 % (45.0-75.0); PLATELET COUNT 305 K/UL (150-450); RED BLOOD COUNT 3.06 M/UL (4.70-6.10); RED CELL DISTRIBUTION WIDTH 14.4 % (11.6-14.8)
--- NOTE | 2018-09-19 07:10 | NUR ---
HAND-OFF: Report given to Suri ALICEA.
--- NOTE | 2018-09-19 07:14 | NUR ---
NURSE NOTES: pt in bed with no sob nor in any form of distress noted. Breathing regular and unlabored. denies any pain at this time. on (B)soft wrist restraint with good circulation. kept clean and comfort. Tolerating well on GT with no aspiration. HOB elevated for aspiration precaution. IV intact and patent. Bed in lowest position. Bed alarm on. Will continue to monitor
[2018-09-19 08:00] VITALS: BP 116/72
[2018-09-19] MEDS: Docusate 100mg/10ml Liq GT SCH ×2 (08:13→17:01)
[2018-09-19] MEDS: Aspirin Baby 81mg GT SCH (08:14)
[2018-09-19] MEDS: Polysporin Oint 15gm TOPIC SCH ×2 (08:14→17:01)
--- NOTE | 2018-09-19 09:41 | GI Progress Note ---
Assessment/Plan Problems: (1) Encounter for PEG (percutaneous endoscopic gastrostomy) ICD Codes: Z43.1 - Encounter for attention to gastrostomy SNOMED: 764971791, 369877353 (2) Severe malnutrition ICD Codes: E43 - Unspecified severe protein-calorie malnutrition SNOMED: 21144525 (3) Altered mental state ICD Codes: R41.82 - Altered mental status, unspecified SNOMED: 845977397 Qualifiers: Qualified Codes: R41.82 - Altered mental status, unspecified (4) Stroke ICD Codes: I63.9 - Cerebral infarction, unspecified SNOMED: 612434642 (5) Dehydration ICD Codes: E86.0 - Dehydration SNOMED: 00716993 Status: stable Status Narrative Discussed with Dr. Olivarez. Assessment/Plan s/p GT placement GT site cellulitis >> bacitracin BID GTF, monitor for residuals GT flush/GT site care daily and as needed bowel regimen ppi reglan prn for GI motility follow labs dc planning The patient was seen and examined at bedside and all new and available data was reviewed in the patients chart. I agree with the above findings, impression and plan. (Patient seen earlier today. Signature stamp does not reflect patient encounter time.). - Luis Alberto Olivarez MD Subjective Subjective Limited, patient nonverbal at baseline Objective Last 24 Hour Vital Signs Date Time Temp Pulse Resp B/P (MAP) Pulse Ox O2 Delivery O2 Flow Rate FiO2 09/19/18 08:37 Room Air 09/19/18 08:00 98.2 72 18 116/72 (87) 97 09/19/18 04:00 98.5 73 18 129/68 (88) 98 09/19/18 00:00 98.2 64 16 99/64 (76) 98 09/18/18 21:00 Room Air 09/18/18 20:00 98.0 85 19 143/80 (101) 93 09/18/18 15:58 98.8 72 19 121/80 (94) 99 09/18/18 12:00 97.8 76 19 130/86 (101) 96 Intake and Output 09/18/18 09/19/18 19:00 07:00 Intake Total 810 ml 1320.0 ml Balance 810 ml 1320.0 ml Free Water 150 ml 600 ml IV Total 115.0 ml Tube Feeding 660 ml 605 ml # Voids 4 # Bowel Movements 1 4 Laboratory Tests Test 09/18/18 19:40 09/19/18 06:03 Sodium Level 143 MMOL/L (136-145) 142 MMOL/L (136-145) Potassium Level 4.4 MMOL/L (3.5-5.1) 3.9 MMOL/L (3.5-5.1) Chloride Level 108 MMOL/L (98-107) H 108 MMOL/L (98-107) H Carbon Dioxide Level 28 MMOL/L (21-32) 28 MMOL/L (21-32) Anion Gap 8 mmol/L (5-15) 6 mmol/L (5-15) Blood Urea Nitrogen 27 mg/dL (7-18) H 29 mg/dL (7-18) H Creatinine 1.1 MG/DL (0.55-1.30) 1.1 MG/DL (0.55-1.30) Estimat Glomerular Filtration Rate > 60 mL/min (>60) > 60 mL/min (>60) Glucose Level 125 MG/DL (74-106) H 139 MG/DL (74-106) H Calcium Level 8.2 MG/DL (8.5-10.1) L 8.0 MG/DL (8.5-10.1) L Total Bilirubin 0.3 MG/DL (0.2-1.0) Aspartate Amino Transf (AST/SGOT) 52 U/L (15-37) H Alanine Aminotransferase (ALT/SGPT) 186 U/L (12-78) H Alkaline Phosphatase 117 U/L (46-116) H Total Protein 6.0 G/DL (6.4-8.2) L Albumin 2.3 G/DL (3.4-5.0) L Globulin 3.7 g/dL Albumin/Globulin Ratio 0.6 (1.0-2.7) L White Blood Count 10.0 K/UL (4.8-10.8) Red Blood Count 3.06 M/UL (4.70-6.10) L Hemoglobin 9.5 G/DL (14.2-18.0) L Hematocrit 27.8 % (42.0-52.0) L Mean Corpuscular Volume 91 FL (80-99) Mean Corpuscular Hemoglobin 30.9 PG (27.0-31.0) Mean Corpuscular Hemoglobin Concent 34.0 G/DL (32.0-36.0) Red Cell Distribution Width 14.4 % (11.6-14.8) Platelet Count 305 K/UL (150-450) Mean Platelet Volume 6.4 FL (6.5-10.1) L Neutrophils (%) (Auto) 75.3 % (45.0-75.0) H Lymphocytes (%) (Auto) 12.5 % (20.0-45.0) L Monocytes (%) (Auto) 7.8 % (1.0-10.0) Eosinophils (%) (Auto) 3.6 % (0.0-3.0) H Basophils (%) (Auto) 0.7 % (0.0-2.0) Height (Feet): 6 Height (Inches): 0.00 Weight (Pounds): 111 General Appearance: alert, confused, agitated Cardiovascular: normal rate Respiratory/Chest: normal breath sounds, no respiratory distress Abdominal Exam: normal bowel sounds, non tender, soft, GT site - erythema Extremities: non-tender Juanis Bullard NP September 19, 2018 09:41
--- NOTE | 2018-09-19 10:43 | NUR ---
NURSE NOTES: Order received from Dr. Concepcion to D/C the restraint. at bedside and watching the pt. pt Still with abdominal binder with GT in placed. Will continue to monitor
--- NOTE | 2018-09-19 10:54 | General Progress Note ---
Assessment/Plan Status: stable Assessment/Plan: Assessment/Plan: # Failure to thrive - decreased bmi and low protein, does have evidence of prior infarct, poor PS, has gtube --> will also obtain q3d caloric counts --> cea is elevated and workup as per below, consider gi eval --> mirtazapine as appetite stimulant continue it --> Gi consulted, with gtube # Hyperproteinemia with decreased albumin -- this is a dissociation that is abnormal --> upep and spep are negative for a m-spike, it does not exist --> thus likely inflammatory process # Elevated tumor markers as cea is elevated --> may consider gi evaluation in this setting --> ca 19.9 is 1, ca 15.3 is 12.3 --> at some point may need CT c/a/p okay as outpatient # Anemia due to chronic disease --> anemia panel reviewed, no schistocytes --> peripheral smear reviewed --> could also be related to underyling burleson trauma --> hgb goal is >7 # Acute metabolic encephalopathy, possibly from UTI, dehydration or recurrent CVA --> neuro and psych prn eval --> MRI brain reviewed, lp 09/05 --> abx prn # History of recent CVA, CT done in ED shows subacute to chronic right thalamic stroke --> supportive care --> per neuro --> is on abx for what appears to be uti # Dysphagia is sp peg --> continue peg feeds --> gtube flushes routinely # ZENON with cr from normal to 3 --> renal was consulted The timing of this note does not necessarily reflect the time of the patient was seen. Greatly appreciate consultation! Subjective Constitutional: Denies: no symptoms, chills, diaphoresis, fever, malaise, weakness, other Cardiovascular: Denies: no symptoms, chest pain, edema, irregular heart rate, lightheadedness, palpitations, syncope, other Respiratory: Denies: no symptoms, cough, orthopnea, shortness of breath, SOB with excertion, SOB at rest, sputum, stridor, wheezing, other Gastrointestinal/Abdominal: Denies: no symptoms, abdomen distended, abdominal pain, black stools, tarry stools, blood in stool, constipated, diarrhea, difficulty swallowing, nausea, poor appetite, poor fluid intake, rectal bleeding , vomiting, other Genitourinary: Denies: no symptoms, burning, discharge, frequency, flank pain, hematuria, incontinence, pain, urgency, other Neurologic/Psychiatric: Denies: no symptoms, anxiety, depressed, emotional problems, headache, numbness, paresthesia, pre-existing deficit, seizure, tingling, tremors, weakness, other Endocrine: Denies: no symptoms, excessive sweating, flushing, intolerance to cold, intolerance to heat, increased hunger, increased thirst, increased urine, unexplained weight gain, unexplained weight loss, other Hematologic/Lymphatic: Denies: no symptoms, anemia, easy bleeding, easy bruising, other Allergies: Coded Allergies: No Known Allergies (Unverified , 08/30/18) Subjective 09/01: close followup with psych, remains agitated, some hematuria with burleson noted 09/03: with restraints, hgb remains low, no bleeding reported, in semi-fowlers position 09/04: has been refusing ng tube placement, concern remains for silent aspiration, seen by speech 09/05: urethreal bleeding noted after burleson was pulled, lp pending 09/06: no events to report, no f/c. mental status improved 09/07: no fevers or chills, anemia panel reviewed, cr is higher this am 09/08: no events, potentially to get peg placed, cr does remain elevated, renal consulted 09/10: s/p gtube placement, no events otherwise, cbc has been reviewed, hematuria is better 09/11: no events noted overnight, on peg tube feeds, agitated 09/12: gtube is in place, no fevers or chills, no bleeding, cr better 09/13: no events, getting gt feeds, no bleeding reported, no night sweats 09/14: remains on restraints, cbc has been reviewed, hgb approx 9 09/15: no events to report, no bleeding, fevers, no night sweats, cbc reviewed, placement pending 09/17: remains confused, on restraints, no f/c noted 09/18: gtube flush as per gi, no events, sleeping comfortably 09/19: breathing regular and unlabored, no f/c, no ns Objective Last 24 Hour Vital Signs Date Time Temp Pulse Resp B/P (MAP) Pulse Ox O2 Delivery O2 Flow Rate FiO2 09/19/18 08:37 Room Air 09/19/18 08:00 98.2 72 18 116/72 (87) 97 09/19/18 04:00 98.5 73 18 129/68 (88) 98 09/19/18 00:00 98.2 64 16 99/64 (76) 98 09/18/18 21:00 Room Air 09/18/18 20:00 98.0 85 19 143/80 (101) 93 09/18/18 15:58 98.8 72 19 121/80 (94) 99 09/18/18 12:00 97.8 76 19 130/86 (101) 96 Intake and Output 09/18/18 09/19/18 19:00 07:00 Intake Total 810 ml 1375.0 ml Balance 810 ml 1375.0 ml Free Water 150 ml 600 ml IV Total 115.0 ml Tube Feeding 660 ml 660 ml # Voids 4 # Bowel Movements 1 4 Laboratory Tests 09/18/18 19:40: Sodium Level 143, Potassium Level 4.4, Chloride Level 108H, Carbon Dioxide Level 28, Anion Gap 8, Blood Urea Nitrogen 27H, Creatinine 1.1, Estimat Glomerular Filtration Rate > 60, Glucose Level 125H, Calcium Level 8.2L, Total Bilirubin 0.3, Aspartate Amino Transf (AST/SGOT) 52H, Alanine Aminotransferase ( ALT/SGPT) 186H, Alkaline Phosphatase 117H, Total Protein 6.0L, Albumin 2.3L, Globulin 3.7, Albumin/Globulin Ratio 0.6L 09/19/18 06:03: Sodium Level 142, Potassium Level 3.9, Chloride Level 108H, Carbon Dioxide Level 28, Anion Gap 6, Blood Urea Nitrogen 29H, Creatinine 1.1, Estimat Glomerular Filtration Rate > 60, Glucose Level 139H, Calcium Level 8.0L, White Blood Count 10.0, Red Blood Count 3.06L, Hemoglobin 9.5L, Hematocrit 27.8L, Mean Corpuscular Volume 91, Mean Corpuscular Hemoglobin 30.9, Mean Corpuscular Hemoglobin Concent 34.0, Red Cell Distribution Width 14.4, Platelet Count 305, Mean Platelet Volume 6.4L, Neutrophils (%) (Auto) 75.3H, Lymphocytes (%) (Auto) 12.5L, Monocytes (%) (Auto) 7.8, Eosinophils (%) (Auto) 3.6H, Basophils (%) ( Auto) 0.7 Height (Feet): 6 Height (Inches): 0.00 Weight (Pounds): 111 Objective General Appearance: alert, combative HEENT: normocephalic ++ ngt Neck: supple, normal inspection Respiratory/Chest: lungs clear, normal breath sounds Cardiovascular/Chest: normal rate, regular rhythm, no JVD Abdomen: non tender, soft ++ peg Extremities: normal inspection, no calf tenderness, + restraints Neurologic: other - Uncooperative : Nolan+ Aman Collier MD September 19, 2018 10:54
--- NOTE | 2018-09-19 11:11 | General Progress Note ---
Assessment/Plan Status: stable Assessment/Plan: #Acute metabolic encephalopathy, cognitive imapirment in the setting of stroke, agitation intermittently #History of recent CVA, CT done in ED shows subacute to chronic right thalamic stroke #Dysphagia, s/p PEG -supportive care -Fall,Aspiration,Seizure precautions -IM Haldol prn for agitation -Neurochecks -continue Lipitor -Off acyclovir -LP done, CSF HSV PCR negative -Urine culture no growth, ceftriaxone stopped -Neurology and Psychiatry following -[employer] following -S/p PEG, continue tube feeds -Psychiatry following -trial off restraints per family request -[employer] re-eval to see if we can do trial of PO #Acute blood loss anemia #Hematuria due to Francisco catheter induced urethral trauma, improved -H&H stable -Francisco out -monitor CBC #ZENON, improved renal function #Hypernatremia due to lack of water intake,resolved #Hypokalemia,resolved -replace electrolytes prn -monitor BMP -avoid nephrotoxic agents -Nephrology following Full Code VTE PPx SCD Subjective Date patient seen: September 19, 2018 Time patient seen: 10:30 ROS Limited/Unobtainable: No Allergies: Coded Allergies: No Known Allergies (Unverified , 08/30/18) Subjective Medicine follow up for acute encephalopathy, agitation, ZENON, dysphagia. Underwent PEG placement this admission. Remains agitated, spoke with brother Hugh who wants restraints off. is at bedside and will monitor so he doesn' t pull PEG. Objective Last 24 Hour Vital Signs Date Time Temp Pulse Resp B/P (MAP) Pulse Ox O2 Delivery O2 Flow Rate FiO2 09/19/18 08:37 Room Air 09/19/18 08:00 98.2 72 18 116/72 (87) 97 09/19/18 04:00 98.5 73 18 129/68 (88) 98 09/19/18 00:00 98.2 64 16 99/64 (76) 98 09/18/18 21:00 Room Air 09/18/18 20:00 98.0 85 19 143/80 (101) 93 09/18/18 15:58 98.8 72 19 121/80 (94) 99 09/18/18 12:00 97.8 76 19 130/86 (101) 96 Intake and Output 09/18/18 09/19/18 19:00 07:00 Intake Total 810 ml 1375.0 ml Balance 810 ml 1375.0 ml Free Water 150 ml 600 ml IV Total 115.0 ml Tube Feeding 660 ml 660 ml # Voids 4 # Bowel Movements 1 4 Laboratory Tests 09/18/18 19:40: Sodium Level 143, Potassium Level 4.4, Chloride Level 108H, Carbon Dioxide Level 28, Anion Gap 8, Blood Urea Nitrogen 27H, Creatinine 1.1, Estimat Glomerular Filtration Rate > 60, Glucose Level 125H, Calcium Level 8.2L, Total Bilirubin 0.3, Aspartate Amino Transf (AST/SGOT) 52H, Alanine Aminotransferase ( ALT/SGPT) 186H, Alkaline Phosphatase 117H, Total Protein 6.0L, Albumin 2.3L, Globulin 3.7, Albumin/Globulin Ratio 0.6L 09/19/18 06:03: Sodium Level 142, Potassium Level 3.9, Chloride Level 108H, Carbon Dioxide Level 28, Anion Gap 6, Blood Urea Nitrogen 29H, Creatinine 1.1, Estimat Glomerular Filtration Rate > 60, Glucose Level 139H, Calcium Level 8.0L, White Blood Count 10.0, Red Blood Count 3.06L, Hemoglobin 9.5L, Hematocrit 27.8L, Mean Corpuscular Volume 91, Mean Corpuscular Hemoglobin 30.9, Mean Corpuscular Hemoglobin Concent 34.0, Red Cell Distribution Width 14.4, Platelet Count 305, Mean Platelet Volume 6.4L, Neutrophils (%) (Auto) 75.3H, Lymphocytes (%) (Auto) 12.5L, Monocytes (%) (Auto) 7.8, Eosinophils (%) (Auto) 3.6H, Basophils (%) ( Auto) 0.7 Height (Feet): 6 Height (Inches): 0.00 Weight (Pounds): 111 General Appearance: alert, agitated Cardiovascular: normal rate, regular rhythm Respiratory/Chest: lungs clear, normal breath sounds, no respiratory distress Abdomen: non tender, soft Objective Unable to examine due to agitation Bright Her MD September 19, 2018 11:11
[2018-09-19 12:00] VITALS: BP 121/91
--- NOTE | 2018-09-19 12:20 | NUR ---
ST NOTE: SWALLOW STATUS: DISCUSSED WITH , DR. CAGE RE:PT'S CONDITIONS. INFORMED MD THAT PT'S WOULD LIKE TO PT TO EAT/DRINK BY MOUTH EVEN THOUGH PT IS AT HIGH ASPIRATION RISK. PT'S AWARE. PER , OKAY TO DO PO TRIALS WITH PT. WILL FOLLOW.
--- NOTE | 2018-09-19 14:56 | Neurology Progress Note ---
Interim History Interim History ROS Limited/Unobtainable: No Complaints: AMS Events: This vist was conducted on September 19, 2018 Interim History Trial off restraints requested by family (brother Hugh and ) Review of Systems All Systems: reviewed and negative except above Objective Physical Exam Last Vital Signs Date Time Temp Pulse Resp B/P (MAP) Pulse Ox O2 Delivery O2 Flow Rate FiO2 09/19/18 12:00 98.1 77 19 121/91 (101) 99 09/19/18 08:37 Room Air 09/17/18 19:33 21 09/16/18 21:00 2.0 Laboratory Tests Test 09/18/18 19:40 09/19/18 06:03 Sodium Level 143 MMOL/L (136-145) 142 MMOL/L (136-145) Potassium Level 4.4 MMOL/L (3.5-5.1) 3.9 MMOL/L (3.5-5.1) Chloride Level 108 MMOL/L (98-107) H 108 MMOL/L (98-107) H Carbon Dioxide Level 28 MMOL/L (21-32) 28 MMOL/L (21-32) Anion Gap 8 mmol/L (5-15) 6 mmol/L (5-15) Blood Urea Nitrogen 27 mg/dL (7-18) H 29 mg/dL (7-18) H Creatinine 1.1 MG/DL (0.55-1.30) 1.1 MG/DL (0.55-1.30) Estimat Glomerular Filtration Rate > 60 mL/min (>60) > 60 mL/min (>60) Glucose Level 125 MG/DL (74-106) H 139 MG/DL (74-106) H Calcium Level 8.2 MG/DL (8.5-10.1) L 8.0 MG/DL (8.5-10.1) L Total Bilirubin 0.3 MG/DL (0.2-1.0) Aspartate Amino Transf (AST/SGOT) 52 U/L (15-37) H Alanine Aminotransferase (ALT/SGPT) 186 U/L (12-78) H Alkaline Phosphatase 117 U/L (46-116) H Total Protein 6.0 G/DL (6.4-8.2) L Albumin 2.3 G/DL (3.4-5.0) L Globulin 3.7 g/dL Albumin/Globulin Ratio 0.6 (1.0-2.7) L White Blood Count 10.0 K/UL (4.8-10.8) Red Blood Count 3.06 M/UL (4.70-6.10) L Hemoglobin 9.5 G/DL (14.2-18.0) L Hematocrit 27.8 % (42.0-52.0) L Mean Corpuscular Volume 91 FL (80-99) Mean Corpuscular Hemoglobin 30.9 PG (27.0-31.0) Mean Corpuscular Hemoglobin Concent 34.0 G/DL (32.0-36.0) Red Cell Distribution Width 14.4 % (11.6-14.8) Platelet Count 305 K/UL (150-450) Mean Platelet Volume 6.4 FL (6.5-10.1) L Neutrophils (%) (Auto) 75.3 % (45.0-75.0) H Lymphocytes (%) (Auto) 12.5 % (20.0-45.0) L Monocytes (%) (Auto) 7.8 % (1.0-10.0) Eosinophils (%) (Auto) 3.6 % (0.0-3.0) H Basophils (%) (Auto) 0.7 % (0.0-2.0) Head: normocophalic Neck: no rigidity EENT: benign Neurologic Exam Mental Status: awake, other - Patient remains agitated upon waking. His primary language is Cantonese but as per his daughter he is not speaking any intelligible words at this time. Language: other - Only making sounds- no words - aphasia remains persistent- both receptive/ expressive Cranial Nerve II: fundus normal, no papilledema Cranial Nerves III, IV, : PERRLA, EOMI Cranial Nerve VII: no facial asymmetry Cranial Nerve XI: SCM symmetric Cranial Nerve XII: tongue midline Motor System: normal muscle tone, strength 5/5, other - No apparent focal weakness on exam but unable to formally test as patient is not following commands. Sensory: normal pinprick, normal light touch Objective Patient continues to remain non focal on exam. He is agitated when awoken, LUNA x 4 but not following commands. His primary language is Cantonese and as per his / brother's report - He is not saying any intelligible words- denies paraphrasic errors - patient is just making sounds. He intermittently tracks with his eyes. No observed / mag seizure activity noted. Impression/Recommendations Problems: (1) Altered mental state (2) Cognitive impairment (3) Acute encephalopathy Assessment & Plan: EEG was abnormal but without mag epileptiform activity. Continue Q 4 hour Neuro obs Na 135-145 Maintain normothermia at all times with Tylenol or cooling blanket. Try to maintain sleep hygiene for patient with dark quiet room at night. SBP<140 Continue 100mg TID seroquel and consider increasing Quetiapine? (4) Hypernatremia Assessment & Plan: Please continue free water as per PEG (5) Severe malnutrition (6) Encounter for PEG (percutaneous endoscopic gastrostomy) (7) Delirium due to another medical condition, acute, mixed level of activity Status: stable Recommendations Continue Q4 hour neuro obs Continue Enteral feeding - Continue water flushes - Maintain normoglycemia with ISS Continue to interact with patient, frequently reorienting him Attempt OOB in chair. PT attempts to continue Maintain normothermia Psych consult recommended for additional assessment of delirium . Continue 100mg QD Seroquel - or alternate agent? No improvement in mixed state delirium Maintain HgB>8 treat causes of anemia Repeat Ammonia in 2 days Consider other metabolic process such as Cancer for patient's present encephalopathy if not psychiatric mixed with prior aphasia. Checking AFP Abx as needed Jennifer Gama N.P. September 19, 2018 14:56
[2018-09-19 16:00] VITALS: BP 100/66
[2018-09-19 16:40] LABS: AMMONIA 37 umol/L (11-32)
[2018-09-19 16:44] LABS: ALANINE AMINOTRANSFERASE 150 U/L (12-78); ALBUMIN 2.1 G/DL (3.4-5.0); ALBUMIN/GLOBULIN RATIO 0.7 (1.0-2.7); ALKALINE PHOSPHATASE 98 U/L (46-116); ANION GAP 5 mmol/L (5-15); ASPARTATE AMINO TRANSFERASE 41 U/L (15-37); BILIRUBIN,TOTAL 0.2 MG/DL (0.2-1.0); BLOOD UREA NITROGEN 28 mg/dL (7-18); CALCIUM 7.9 MG/DL (8.5-10.1); CARBON DIOXIDE 30 MMOL/L (21-32); CHLORIDE 107 MMOL/L (98-107); CREATININE 1.1 MG/DL (0.55-1.30); POTASSIUM 4.1 MMOL/L (3.5-5.1); SODIUM 142 MMOL/L (136-145)
--- NOTE | 2018-09-19 19:14 | NUR ---
HAND-OFF: Report given to DEANNE Noyola.
--- NOTE | 2018-09-19 19:30 | NUR ---
NURSE NOTES: Received patient awake very restless, repetitively mumbling incoherent words. Squirming in bed, pulling away blankets and siderail pads, playing with IV line wrapped in kerlix, attempting to remove the kerlix. Patient keep sliding down from bed, repositioned and pulled up multiple times every 5 minutes. Difficult to comfort and reorient. Bed is locked in low position. GT at 55cc/hr,no residual. HOB elevated. abdominal binder on. Will continue to monitor.
[2018-09-19] MEDS: Atorvastatin 80mg tab GT SCH (20:05)
[2018-09-19 20:12] VITALS: BP 113/70
[2018-09-19] MEDS: Miralax 17gm pkt GT SCH (20:34)
--- NOTE | 2018-09-19 22:30 | NUR ---
NURSE NOTES: Patient continues to be agressive, resstless, pulling away blankets and IV. hitting nurses, squirming in bed, stripping siderail pads, throwing legs over the siderails. Patient was cleaned and repositioned multiple times but patient was difficult to comfort. Seroquel 150 was given as scheduled but ineffective this time, no change in restlessness. Dr. Graham was contacted and received 1x order for zypcharlene, Will carry out orders andmonitor.
[2018-09-19] MEDS: Acetaminophen 650mg/20.3ml NG PRN (23:30)
--- NOTE | 2018-09-19 23:30 | NUR ---
NURSE NOTES: Patient continues to squirm and still restless, agitated, kicking nurses. Patient was given full bath and repositioned with multiple pillows, ineffective. Given tylenol prn for pain/comfort. Contacted Dr. Graham for update and more orders. Awaiting response. Will monitor.
[2018-09-20] VITALS: BP 133/67
[2018-09-20] MEDS ORDERED: DiphenhydrAMINE 50mg/ml Inj IVP SCH ×2 (00:30)
--- NOTE | 2018-09-20 00:40 | NUR ---
NURSE NOTES: Dr. Graham ordered to give 25 mg of benadryl iv x1. if ineffective, may give another 25mg iv after 30 minutes. Total 50mg was given to patient without much improvement. Patient still restless in bed. Dr. Graham was made aware and ordered prn seroquel 50mg q4hrs.
--- NOTE | 2018-09-20 03:21 | Neurology Progress Note ---
Interim History Interim History ROS Limited/Unobtainable: No Complaints: AMS Events: This vist was conducted on September 20, 2018 Interim History Unchanged exam Review of Systems All Systems: reviewed and negative except above Objective Physical Exam Last Vital Signs Date Time Temp Pulse Resp B/P (MAP) Pulse Ox O2 Delivery O2 Flow Rate FiO2 09/20/18 00:00 97.5 81 18 133/67 (89) 100 09/19/18 21:00 Room Air 09/17/18 19:33 21 09/16/18 21:00 2.0 Laboratory Tests Test 09/19/18 06:03 09/19/18 06:30 09/19/18 15:50 White Blood Count 10.0 K/UL (4.8-10.8) Red Blood Count 3.06 M/UL (4.70-6.10) L Hemoglobin 9.5 G/DL (14.2-18.0) L Hematocrit 27.8 % (42.0-52.0) L Mean Corpuscular Volume 91 FL (80-99) Mean Corpuscular Hemoglobin 30.9 PG (27.0-31.0) Mean Corpuscular Hemoglobin Concent 34.0 G/DL (32.0-36.0) Red Cell Distribution Width 14.4 % (11.6-14.8) Platelet Count 305 K/UL (150-450) Mean Platelet Volume 6.4 FL (6.5-10.1) L Neutrophils (%) (Auto) 75.3 % (45.0-75.0) H Lymphocytes (%) (Auto) 12.5 % (20.0-45.0) L Monocytes (%) (Auto) 7.8 % (1.0-10.0) Eosinophils (%) (Auto) 3.6 % (0.0-3.0) H Basophils (%) (Auto) 0.7 % (0.0-2.0) Sodium Level 142 MMOL/L (136-145) 142 MMOL/L (136-145) Potassium Level 3.9 MMOL/L (3.5-5.1) 4.1 MMOL/L (3.5-5.1) Chloride Level 108 MMOL/L (98-107) H 107 MMOL/L (98-107) Carbon Dioxide Level 28 MMOL/L (21-32) 30 MMOL/L (21-32) Anion Gap 6 mmol/L (5-15) 5 mmol/L (5-15) Blood Urea Nitrogen 29 mg/dL (7-18) H 28 mg/dL (7-18) H Creatinine 1.1 MG/DL (0.55-1.30) 1.1 MG/DL (0.55-1.30) Estimat Glomerular Filtration Rate > 60 mL/min (>60) > 60 mL/min (>60) Glucose Level 139 MG/DL (74-106) H 133 MG/DL (74-106) H Calcium Level 8.0 MG/DL (8.5-10.1) L 7.9 MG/DL (8.5-10.1) L Alpha Fetoprotein Pending Total Bilirubin 0.2 MG/DL (0.2-1.0) Aspartate Amino Transf (AST/SGOT) 41 U/L (15-37) H Alanine Aminotransferase (ALT/SGPT) 150 U/L (12-78) H Alkaline Phosphatase 98 U/L (46-116) Ammonia 37 umol/L (11-32) H Total Protein 5.3 G/DL (6.4-8.2) L Albumin 2.1 G/DL (3.4-5.0) L Globulin 3.2 g/dL Albumin/Globulin Ratio 0.7 (1.0-2.7) L Head: normocophalic Neck: no rigidity EENT: benign Neurologic Exam Mental Status: awake, other - Patient remains agitated upon waking. His primary language is Cantonese but as per his daughter he is not speaking any intelligible words at this time. Language: other - Only making sounds- no words - aphasia remains persistent- both receptive/ expressive Cranial Nerve II: fundus normal, no papilledema Cranial Nerves III, IV, : PERRLA, EOMI Cranial Nerve VII: no facial asymmetry Cranial Nerve XI: SCM symmetric Cranial Nerve XII: tongue midline Motor System: normal muscle tone, strength 5/5, other - No apparent focal weakness on exam but unable to formally test as patient is not following commands. Sensory: normal pinprick, normal light touch Objective Patient continues to remain non focal on exam. He is agitated when awoken, LUNA x 4 but not following commands. His primary language is Cantonese and as per his / brother's report - He is not saying any intelligible words- denies paraphrasic errors - patient is just making sounds. He intermittently tracks with his eyes. No observed / mag seizure activity noted. Impression/Recommendations Problems: (1) Altered mental state (2) Cognitive impairment (3) Acute encephalopathy Assessment & Plan: EEG was abnormal but without mag epileptiform activity. Continue Q 4 hour Neuro obs Na 135-145 Maintain normothermia at all times with Tylenol or cooling blanket. Try to maintain sleep hygiene for patient with dark quiet room at night. SBP<140 Continue 100mg TID seroquel and consider increasing Quetiapine? (4) Hypernatremia Assessment & Plan: Please continue free water as per PEG (5) Severe malnutrition (6) Encounter for PEG (percutaneous endoscopic gastrostomy) (7) Delirium due to another medical condition, acute, mixed level of activity Status: unchanged Recommendations All studies normal Clear for discharge to SNF from a neurological perspective Jennifer Gama N.P. September 20, 2018 03:21
[2018-09-20 04:00] VITALS: BP 130/96
[2018-09-20] MEDS: Oxybutynin 5mg tab GT SCH ×2 (05:20→14:29)
[2018-09-20] MEDS: Valproate Sodium INJ 250 MG in D5W 55 ML IVPB SCH ×2 (05:20→14:30)
[2018-09-20 07:04] LABS: BASOPHILS % (AUTO) 0.6 % (0.0-2.0); EOSINOPHILS % (AUTO) 2.8 % (0.0-3.0); HEMATOCRIT 30.1 % (42.0-52.0); HEMOGLOBIN 10.3 G/DL (14.2-18.0); LYMPHOCYTES % (AUTO) 10.5 % (20.0-45.0); MEAN CORPUSCULAR VOLUME 91 FL (80-99); MONOCYTES % (AUTO) 6.3 % (1.0-10.0); NEUTROPHILS % (AUTO) 79.9 % (45.0-75.0); PLATELET COUNT 288 K/UL (150-450); RED CELL DISTRIBUTION WIDTH 13.9 % (11.6-14.8); WHITE BLOOD COUNT 12.5 K/UL (4.8-10.8)
[2018-09-20 07:22] LABS: ANION GAP 7 mmol/L (5-15); BLOOD UREA NITROGEN 28 mg/dL (7-18); CALCIUM 8.2 MG/DL (8.5-10.1); CARBON DIOXIDE 28 MMOL/L (21-32); CHLORIDE 106 MMOL/L (98-107); POTASSIUM 3.9 MMOL/L (3.5-5.1); SODIUM 141 MMOL/L (136-145)
--- NOTE | 2018-09-20 07:26 | NUR ---
HAND-OFF: Report given to Tianna ALICEA.
--- NOTE | 2018-09-20 07:49 | NUR ---
NURSE NOTES: Patient sleepy, on room air, no sign of distress and shortness of breath; IV Right hand and Left-Hand flushes well; Tube feeding Glucerna 1.2 running at 55cc, no residual; side rails padded; head of the bed elevated; bed at lowest position, breaks engaged; will keep monitoring.
[2018-09-20 08:00] VITALS: BP 124/85
[2018-09-20] MEDS: Polysporin Oint 15gm TOPIC SCH (09:00)
[2018-09-20] MEDS: Aspirin Baby 81mg GT SCH (09:02)
[2018-09-20] MEDS: Docusate 100mg/10ml Liq GT SCH (09:15)
--- NOTE | 2018-09-20 10:04 | GI Progress Note ---
Assessment/Plan Problems: (1) Encounter for PEG (percutaneous endoscopic gastrostomy) ICD Codes: Z43.1 - Encounter for attention to gastrostomy SNOMED: 878950643, 462140461 (2) Severe malnutrition ICD Codes: E43 - Unspecified severe protein-calorie malnutrition SNOMED: 58234526 (3) Altered mental state ICD Codes: R41.82 - Altered mental status, unspecified SNOMED: 677009700 Qualifiers: Qualified Codes: R41.82 - Altered mental status, unspecified (4) Stroke ICD Codes: I63.9 - Cerebral infarction, unspecified SNOMED: 175622929 (5) Dehydration ICD Codes: E86.0 - Dehydration SNOMED: 26579596 Status: unchanged Status Narrative Discussed with Dr. Olivarez. Assessment/Plan s/p GT placement GT site cellulitis >> bacitracin BID GTF, monitor for residuals GT flush/GT site care daily and as needed bowel regimen ppi reglan prn for GI motility follow labs fu ST for oral grat dc planning The patient was seen and examined at bedside and all new and available data was reviewed in the patients chart. I agree with the above findings, impression and plan. (Patient seen earlier today. Signature stamp does not reflect patient encounter time.). - Luis Alberto Olivarez MD Subjective Subjective Limited, patient nonverbal at baseline Objective Last 24 Hour Vital Signs Date Time Temp Pulse Resp B/P (MAP) Pulse Ox O2 Delivery O2 Flow Rate FiO2 09/20/18 09:00 Room Air 09/20/18 08:00 97.4 74 19 124/85 (98) 94 09/20/18 04:00 96.9 73 20 130/96 (107) 94 09/20/18 00:00 97.5 81 18 133/67 (89) 100 09/20/18 00:00 98.9 09/19/18 21:00 Room Air 09/19/18 20:12 98.9 70 19 113/70 (84) 100 09/19/18 16:00 98.4 63 19 100/66 (77) 99 09/19/18 12:00 98.1 77 19 121/91 (101) 99 Intake and Output 09/19/18 09/20/18 19:00 07:00 Intake Total 867.5 ml 1120.0 ml Balance 867.5 ml 1120.0 ml Free Water 150 ml 400 ml IV Total 57.5 ml 115.0 ml Tube Feeding 660 ml 605 ml # Voids 4 3 # Bowel Movements 2 3 Laboratory Tests Test 09/19/18 15:50 09/20/18 06:03 Sodium Level 142 MMOL/L (136-145) 141 MMOL/L (136-145) Potassium Level 4.1 MMOL/L (3.5-5.1) 3.9 MMOL/L (3.5-5.1) Chloride Level 107 MMOL/L (98-107) 106 MMOL/L (98-107) Carbon Dioxide Level 30 MMOL/L (21-32) 28 MMOL/L (21-32) Anion Gap 5 mmol/L (5-15) 7 mmol/L (5-15) Blood Urea Nitrogen 28 mg/dL (7-18) H 28 mg/dL (7-18) H Creatinine 1.1 MG/DL (0.55-1.30) 1.0 MG/DL (0.55-1.30) Estimat Glomerular Filtration Rate > 60 mL/min (>60) > 60 mL/min (>60) Glucose Level 133 MG/DL (74-106) H 107 MG/DL (74-106) H Calcium Level 7.9 MG/DL (8.5-10.1) L 8.2 MG/DL (8.5-10.1) L Total Bilirubin 0.2 MG/DL (0.2-1.0) Aspartate Amino Transf (AST/SGOT) 41 U/L (15-37) H Alanine Aminotransferase (ALT/SGPT) 150 U/L (12-78) H Alkaline Phosphatase 98 U/L (46-116) Ammonia 37 umol/L (11-32) H Total Protein 5.3 G/DL (6.4-8.2) L Albumin 2.1 G/DL (3.4-5.0) L Globulin 3.2 g/dL Albumin/Globulin Ratio 0.7 (1.0-2.7) L White Blood Count 12.5 K/UL (4.8-10.8) H Red Blood Count 3.30 M/UL (4.70-6.10) L Hemoglobin 10.3 G/DL (14.2-18.0) L Hematocrit 30.1 % (42.0-52.0) L Mean Corpuscular Volume 91 FL (80-99) Mean Corpuscular Hemoglobin 31.1 PG (27.0-31.0) H Mean Corpuscular Hemoglobin Concent 34.2 G/DL (32.0-36.0) Red Cell Distribution Width 13.9 % (11.6-14.8) Platelet Count 288 K/UL (150-450) Mean Platelet Volume 6.9 FL (6.5-10.1) Neutrophils (%) (Auto) 79.9 % (45.0-75.0) H Lymphocytes (%) (Auto) 10.5 % (20.0-45.0) L Monocytes (%) (Auto) 6.3 % (1.0-10.0) Eosinophils (%) (Auto) 2.8 % (0.0-3.0) Basophils (%) (Auto) 0.6 % (0.0-2.0) Height (Feet): 6 Height (Inches): 0.00 Weight (Pounds): 108 General Appearance: alert Cardiovascular: normal rate Respiratory/Chest: normal breath sounds, no respiratory distress Abdominal Exam: soft Juanis Bullard NP September 20, 2018 10:04
--- NOTE | 2018-09-20 12:00 | Progress Note ---
DATE: 09/20/2018 SUBJECTIVE: The patient continues to be agitated. 00:12 to discontinue today due to difficulty placement 00:19 his medication was increased, Seroquel 150 mg t.i.d. He has not responded to any other psychotropic medications including benzodiazepine for any psychotropic medications. MENTAL STATUS EXAMINATION: The patient is alert, confused, disoriented. Mood is agitated. Affect is flat. Thought process, there is a paucity of thought content. Cognition is impaired. ASSESSMENT: Agitation, severe cognitive impairment 01:02. PLAN: 1. We will continue Seroquel 150 mg t.i.d. 2. Continue the Depakote. 3. The patient lacks 01:14 make decision. is the decision maker 01:17 involved in the patient's 01:21. We will continue the current medication. Provide the patient with reality orientation. Continue to monitor the patient's symptoms. Damian Graham M.D. DR: Narinder JOB#: [id number] CC:
[2018-09-20] MEDS ORDERED: DiphenhydrAMINE 50mg/ml Inj IM SCH (12:15)
[2018-09-20] MEDS ORDERED: LORazepam Inj 2mg/ml 1ml IM SCH (12:15)
--- NOTE | 2018-09-20 12:19 | NUR ---
NURSE NOTES: Patient agitated and I received an order for Ativan 1mg IV with Benadryl 25 mg IM, however the patient's refused that we don't give this medications to patient. Patient is really agitated, trying to come out of bed and he already removed one of his IV access. With all this situations, doesn't want us to give Ativan. Charge nurse, Susan and Nursing supervisor die casting Mikhail is aware.
--- NOTE | 2018-09-20 13:30 | NUR ---
NURSE NOTES: Patient's trying to feed patient some aot meals, I explained to her that patient might aspirate. saying am giving him small. I told her, it is not safe that patient to eat while he is confused and patient didn't pass swallow evaluation.
--- NOTE | 2018-09-20 13:45 | General Progress Note ---
Assessment/Plan Status: unchanged Assessment/Plan: #Acute metabolic encephalopathy, cognitive imapirment in the setting of stroke, agitation intermittently #History of recent CVA, CT done in ED shows subacute to chronic right thalamic stroke #Dysphagia, s/p PEG -supportive care -Fall,Aspiration,Seizure precautions -IM Haldol prn for agitation -Neurochecks -continue Lipitor -Off acyclovir -LP done, CSF HSV PCR negative -Urine culture no growth, ceftriaxone stopped -Neurology and Psychiatry following -CAUSTIC PU[employer] OPERATOR following -S/p PEG, continue tube feeds -Psychiatry following -continue off restraints. #Acute blood loss anemia #Hematuria due to Francisco catheter induced urethral trauma, improved -H&H stable -Francisco out -monitor CBC #ZENON, improved renal function #Hypernatremia due to lack of water intake,resolved #Hypokalemia,resolved -replace electrolytes prn -monitor BMP -avoid nephrotoxic agents -Nephrology following Full Code VTE PPx SCD Subjective Date patient seen: September 20, 2018 Time patient seen: 13:30 ROS Limited/Unobtainable: Yes Allergies: Coded Allergies: No Known Allergies (Unverified , 08/30/18) Subjective Medicine follow up for acute encephalopathy, agitation, ZENON, dysphagia. Underwent PEG placement this admission. Remains intermittently agitated but able to be off restraints for > 24 hours. Spoke with brother about possible discharge to SNF Objective Last 24 Hour Vital Signs Date Time Temp Pulse Resp B/P (MAP) Pulse Ox O2 Delivery O2 Flow Rate FiO2 09/20/18 09:00 Room Air 09/20/18 08:00 97.4 74 19 124/85 (98) 94 09/20/18 04:00 96.9 73 20 130/96 (107) 94 09/20/18 00:00 97.5 81 18 133/67 (89) 100 09/20/18 00:00 98.9 09/19/18 21:00 Room Air 09/19/18 20:12 98.9 70 19 113/70 (84) 100 09/19/18 16:00 98.4 63 19 100/66 (77) 99 Intake and Output 09/19/18 09/20/18 19:00 07:00 Intake Total 867.5 ml 1120.0 ml Balance 867.5 ml 1120.0 ml Free Water 150 ml 400 ml IV Total 57.5 ml 115.0 ml Tube Feeding 660 ml 605 ml # Voids 4 3 # Bowel Movements 2 3 Laboratory Tests 09/19/18 15:50: Sodium Level 142, Potassium Level 4.1, Chloride Level 107, Carbon Dioxide Level 30, Anion Gap 5, Blood Urea Nitrogen 28H, Creatinine 1.1, Estimat Glomerular Filtration Rate > 60, Glucose Level 133H, Calcium Level 7.9L, Total Bilirubin 0.2, Aspartate Amino Transf (AST/SGOT) 41H, Alanine Aminotransferase (ALT/SGPT) 150H, Alkaline Phosphatase 98, Ammonia 37H, Total Protein 5.3L, Albumin 2.1L, Globulin 3.2, Albumin/Globulin Ratio 0.7L 09/20/18 06:03: Sodium Level 141, Potassium Level 3.9, Chloride Level 106, Carbon Dioxide Level 28, Anion Gap 7, Blood Urea Nitrogen 28H, Creatinine 1.0, Estimat Glomerular Filtration Rate > 60, Glucose Level 107H, Calcium Level 8.2L, White Blood Count 12.5H, Red Blood Count 3.30L, Hemoglobin 10.3L, Hematocrit 30.1L, Mean Corpuscular Volume 91, Mean Corpuscular Hemoglobin 31.1H, Mean Corpuscular Hemoglobin Concent 34.2, Red Cell Distribution Width 13.9, Platelet Count 288, Mean Platelet Volume 6.9, Neutrophils (%) (Auto) 79.9H, Lymphocytes (%) (Auto) 10.5L, Monocytes (%) (Auto) 6.3, Eosinophils (%) (Auto) 2.8, Basophils (%) (Auto ) 0.6 Height (Feet): 6 Height (Inches): 0.00 Weight (Pounds): 108 General Appearance: alert, confused Neck: normal alignment, supple Cardiovascular: normal rate, regular rhythm Respiratory/Chest: lungs clear, normal breath sounds, no respiratory distress Abdomen: non tender Objective Unable to examine due to agitation Bright Her MD September 20, 2018 13:45
--- NOTE | 2018-09-20 13:52 | NUR ---
ST NOTE: SWALLOW/SPEECH/LANGUAGE/COGNITION STATUS: PT SEEN AT BEDSIDE IN AM. ALERT, BUT CONFUSED. UNABLE TO FOLLOW DIRECTIONS. PT'S IS AT BEDSIDE. DISCUSSED WITH PT'S RE: PT'S CONDITIONS. PER THE CONSERVATION WITH MD, DR. CAGE RE: PO TRIALS. MD AGREED WITH PO TRIALS. DRY MOUTH WAS NOTED. COMPLETED ORAL CARE. GIVEN PO TRIALS: NECTAR THICK(TSP/CUP), MILDLY ANTERIOR SPILLAGE WAS NOTED, MILDLY INCREASED ORAL TRANSIT TIME (3 TO 4 SECONDS) UNTIL PT TRIGGERED SWALLOW RESPONSE, FAIR LARYNGEAL ELEVATION, NO OVERT S/S OF ASPIRATION. PER , PRIOR THE ADMISSION, PT WAS ABLE TO TOLERATE DIET(EATING A SANDWICHES), AND ABLE TO WALK(SOMETIMES NEEDED ASSISTANCE), FED HIMSELF, AND ABLE TO COMMUNICATE WITH SOME VERBS. CURRENTLY, PT HAS ONLY VOWEL SOUNDS, MORE VOWEL PRODUCTIONS, BUT NOT WORDS. FOR QUALITY OF LIFE, CONTINUE PO TRIALS(NECTAR THICK) WITH ST ONLY RE: ORAL GRATIFICATION. PER IN-CHARGE NURSE, PT WILL BE D/C TODAY. REFER PT TO OFFICE MAIL CLERK AT DISCHARGE FACILITY RE: PO TRIALS AND PO READINESS AND SPEECH/LANGUAGE/COGNITION EVAL AND TX(TRIAL). D/W PT'S AND THE STAFF.
--- NOTE | 2018-09-20 14:13 | NUR ---
CASE MANAGEMENT:REVIEW 09/20/18 SI: ACUTE METABOLIC ENCEPHALOPATHY S/P PEG PLACEMENT 97.4 74 19 124/85 94% on ra WBC+12.5 BUN+28 IS: IV VALPROATE Q8 ASA GT QD PLAVIX GT QD SEROQUEL GT TID LIPITOR GT QHS LACTULOSE GT TID : MED/SURG STATUS 4 EAST PLAN: DC PLANNING
--- NOTE | 2018-09-20 14:15 | NUR ---
DISCHARGE PLANNING REFERRED TO THE FOLLOWING: SPOKE WITH PATIENT'S BROTHER WHO HAS REQUESTED SNF IN THE [place] LUZ ELENA DON JODI DECLINED TO ACCEPT D/T AGITATION HERITAULISSES ENGEL DECLINED, NO BEDS AVAILABLE TASHA DODGEECLINED, NO MALE BEDS ALONSO WORKMAN DECLINED AFTER HE CAME OUT AND EVALUATED PATIENT [facility], DECLINED, NO SNF BEDS ONLY [facility],DECLINED, NO BEDS, EXPECTING A DISCHARGE
--- NOTE | 2018-09-20 15:40 | General Progress Note ---
Assessment/Plan Status: unchanged Assessment/Plan: Assessment/Plan: # Failure to thrive - decreased bmi and low protein, does have evidence of prior infarct, poor PS, has gtube --> will also obtain q3d caloric counts --> cea is elevated and workup as per below, consider gi eval --> mirtazapine as appetite stimulant continue it --> Gi consulted, with gtube # Hyperproteinemia with decreased albumin -- this is a dissociation that is abnormal --> upep and spep are negative for a m-spike, it does not exist --> thus likely inflammatory process # Elevated tumor markers as cea is elevated --> may consider gi evaluation in this setting --> ca 19.9 is 1, ca 15.3 is 12.3 --> at some point may need CT c/a/p okay as outpatient # Anemia due to chronic disease --> anemia panel reviewed, no schistocytes --> peripheral smear reviewed --> could also be related to underlying Burleson trauma --> hgb goal is >7 # Acute metabolic encephalopathy, possibly from UTI, dehydration or recurrent CVA --> neuro and psych prn eval --> MRI brain reviewed, lp 09/05 --> abx prn # History of recent CVA, CT done in ED shows subacute to chronic right thalamic stroke --> supportive care --> per neuro --> is on abx for what appears to be uti # Dysphagia is sp peg --> continue peg feeds --> gtube flushes routinely # ZENON with cr from normal to 3 --> renal was consulted The timing of this note does not necessarily reflect the time of the patient was seen. Greatly appreciate consultation! Subjective Constitutional: Denies: no symptoms, chills, diaphoresis, fever, malaise, weakness, other HEENT: Denies: no symptoms, eye pain, blurred vision, tearing, double vision, ear pain, ear discharge, nose pain, nose congestion, throat pain, throat swelling, mouth pain, mouth swelling, other Cardiovascular: Denies: no symptoms, chest pain, edema, irregular heart rate, lightheadedness, palpitations, syncope, other Gastrointestinal/Abdominal: Denies: no symptoms, abdomen distended, abdominal pain, black stools, tarry stools, blood in stool, constipated, diarrhea, difficulty swallowing, nausea, poor appetite, poor fluid intake, rectal bleeding , vomiting, other Genitourinary: Denies: no symptoms, burning, discharge, frequency, flank pain, hematuria, incontinence, pain, urgency, other Neurologic/Psychiatric: Denies: no symptoms, anxiety, depressed, emotional problems, headache, numbness, paresthesia, pre-existing deficit, seizure, tingling, tremors, weakness, other Endocrine: Denies: no symptoms, excessive sweating, flushing, intolerance to cold, intolerance to heat, increased hunger, increased thirst, increased urine, unexplained weight gain, unexplained weight loss, other Hematologic/Lymphatic: Denies: no symptoms, anemia, easy bleeding, easy bruising, other Allergies: Coded Allergies: No Known Allergies (Unverified , 08/30/18) Subjective 09/01: close followup with psych, remains agitated, some hematuria with burleson noted 09/03: with restraints, hgb remains low, no bleeding reported, in semi-fowlers position 09/04: has been refusing ng tube placement, concern remains for silent aspiration, seen by speech 09/05: urethreal bleeding noted after burleson was pulled, lp pending 09/06: no events to report, no f/c. mental status improved 09/07: no fevers or chills, anemia panel reviewed, cr is higher this am 09/08: no events, potentially to get peg placed, cr does remain elevated, renal consulted 09/10: s/p gtube placement, no events otherwise, cbc has been reviewed, hematuria is better 09/11: no events noted overnight, on peg tube feeds, agitated 09/12: gtube is in place, no fevers or chills, no bleeding, cr better 09/13: no events, getting gt feeds, no bleeding reported, no night sweats 09/14: remains on restraints, cbc has been reviewed, hgb approx 9 09/15: no events to report, no bleeding, fevers, no night sweats, cbc reviewed, placement pending 09/17: remains confused, on restraints, no f/c noted 09/18: gtube flush as per gi, no events, sleeping comfortably 09/19: breathing regular and unlabored, no f/c, no ns 09/20: no events, cbc has been reviewed, no bleeding reported Objective Last 24 Hour Vital Signs Date Time Temp Pulse Resp B/P (MAP) Pulse Ox O2 Delivery O2 Flow Rate FiO2 09/20/18 09:00 Room Air 09/20/18 08:00 97.4 74 19 124/85 (98) 94 09/20/18 04:00 96.9 73 20 130/96 (107) 94 09/20/18 00:00 97.5 81 18 133/67 (89) 100 09/20/18 00:00 98.9 09/19/18 21:00 Room Air 09/19/18 20:12 98.9 70 19 113/70 (84) 100 09/19/18 16:00 98.4 63 19 100/66 (77) 99 Intake and Output 09/19/18 09/20/18 19:00 07:00 Intake Total 867.5 ml 1120.0 ml Balance 867.5 ml 1120.0 ml Free Water 150 ml 400 ml IV Total 57.5 ml 115.0 ml Tube Feeding 660 ml 605 ml # Voids 4 3 # Bowel Movements 2 3 Laboratory Tests 09/19/18 15:50: Sodium Level 142, Potassium Level 4.1, Chloride Level 107, Carbon Dioxide Level 30, Anion Gap 5, Blood Urea Nitrogen 28H, Creatinine 1.1, Estimat Glomerular Filtration Rate > 60, Glucose Level 133H, Calcium Level 7.9L, Total Bilirubin 0.2, Aspartate Amino Transf (AST/SGOT) 41H, Alanine Aminotransferase (ALT/SGPT) 150H, Alkaline Phosphatase 98, Ammonia 37H, Total Protein 5.3L, Albumin 2.1L, Globulin 3.2, Albumin/Globulin Ratio 0.7L 09/20/18 06:03: Sodium Level 141, Potassium Level 3.9, Chloride Level 106, Carbon Dioxide Level 28, Anion Gap 7, Blood Urea Nitrogen 28H, Creatinine 1.0, Estimat Glomerular Filtration Rate > 60, Glucose Level 107H, Calcium Level 8.2L, White Blood Count 12.5H, Red Blood Count 3.30L, Hemoglobin 10.3L, Hematocrit 30.1L, Mean Corpuscular Volume 91, Mean Corpuscular Hemoglobin 31.1H, Mean Corpuscular Hemoglobin Concent 34.2, Red Cell Distribution Width 13.9, Platelet Count 288, Mean Platelet Volume 6.9, Neutrophils (%) (Auto) 79.9H, Lymphocytes (%) (Auto) 10.5L, Monocytes (%) (Auto) 6.3, Eosinophils (%) (Auto) 2.8, Basophils (%) (Auto ) 0.6 Height (Feet): 6 Height (Inches): 0.00 Weight (Pounds): 108 Objective General Appearance: alert, combative HEENT: normocephalic ++ ngt Neck: supple, normal inspection Respiratory/Chest: lungs clear, normal breath sounds Cardiovascular/Chest: normal rate, regular rhythm, no JVD Abdomen: non tender, soft ++ peg Extremities: normal inspection, no calf tenderness, + restraints Neurologic: other - Uncooperative : Nolan+ Aman Collier MD September 20, 2018 15:40
[2018-09-20 16:00] VITALS: BP 115/74
[2018-09-20] MEDS ORDERED: MIRTAZAPINE15 M3 GT (16:12)
[2018-09-20] MEDS ORDERED: SEROQUEL100 MG GT (16:12)
[2018-09-20] MEDS ORDERED: ASPIRIN81 MG GT (16:12)
--- NOTE | 2018-09-20 16:17 | NUR ---
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
--- NOTE | 2018-09-20 16:17 | Discharge Summary ---
Discharge Summary Hospital Course Date of Admission Aug 30, 2018 at 22:34 Date of Discharge 09/20 Admitting Diagnosis AMS, dehydration HPI Contreras Mensah is a 58 year old male who was admitted on Aug 30, 2018 at 22:34 for Altered Mental Status/ Dehydration Hospital Course #Acute metabolic encephalopathy, cognitive imapirment in the setting of stroke, agitation intermittently #History of recent CVA, CT done in ED shows subacute to chronic right thalamic stroke #Dysphagia, s/p PEG placement -supportive care -Fall,Aspiration,Seizure precautions -continue Lipitor + DAPT -LP done, CSF HSV PCR negative -Urine culture no growth, ceftriaxone stopped -Neurology and Psychiatry following -[employer] following -S/p PEG, continue tube feeds -Psychiatry consulted, started on Seroquel, will need to wean as outpatient #Acute blood loss anemia #Hematuria due to Francisco catheter induced urethral trauma,resolved -H&H stable -Francisco out -monitor CBC #ZENON, improved renal function #Hypernatremia due to lack of water intake,resolved #Hypokalemia,resolved -monitor BMP periodically -avoid nephrotoxic agents -Nephrology following Time spent preparing discharge was 35 minutes including time spent coordinating with family, nursing and case management Discharge Discharge Disposition Patient was discharged to SNF Discharge Diagnoses: (1) Cognitive impairment (2) Delirium due to another medical condition, acute, mixed level of activity (3) Encounter for PEG (percutaneous endoscopic gastrostomy) (4) Altered mental state (5) Severe malnutrition Bright Her MD September 20, 2018 16:17
--- NOTE | 2018-09-20 18:11 | NUR ---
NURSE NOTES: Patient discharged around 1744. IV access and name tag removed upon discharge. Dressing for G-tube feeding changed and Abdominal pad in place. Pictures taken for sacral, Right-Elbow and both heels, also wound care provided. Report given to Romario at [facility]. Patient is stable upon discharge. Belonging list singed by patient's and discharging nurse. Patient left the floor by brina accompanied by two [employer] personnel.
--- NOTE | 2018-09-20 23:45 | Progress Note ---
DATE: 09/20/2018 SUBJECTIVE: The patient continues to be agitated. Unable to be engaged during the evaluation due to severe cognitive impairment. was at bedside. The patient is altered. MENTAL STATUS EXAMINATION: The patient is lethargic or agitated. Mood is neutral. Affect is flat. Thought process, there is a paucity of thought content. Thought content, no suicidal or homicidal ideation. ASSESSMENT: Chronic encephalopathy, CVA, agitation. PLAN: We will continue current medication. Provide the patient with reality orientation. I spoke with the . Damian Graham M.D. DR: DEYSI JOB#: [id number] CC:
== END 2018-09-20 17:56 | DRG 70 ==
LOC: EDBD 20:07 → EMR 20:15 → 2E 22:34 → EDBEDREQ 22:48 → 2E 23:35 → 3E 08-31 04:24 → 2E 09-01 09:20 → 4E 09-17 15:02
PROC: 0DH63UZ Insertion of Feeding Device into Stomach, Percutaneous Approach (ICD-10-PCS; principal; 2018-09-08 11:03)
PROC: 0DJ08ZZ Inspection of Upper Intestinal Tract, Via Natural or Artificial Opening Endoscopic (ICD-10-PCS; principal; 2018-09-08 11:03)
DX: G93.41 Metabolic encephalopathy (principal); E43 Unspecified severe protein-calorie malnutrition; N39.0 Urinary tract infection, site not specified; D62 Acute posthemorrhagic anemia; E87.0 Hyperosmolality and hypernatremia; Z68.1 Body mass index [BMI] 19.9 or less, adult; S37.39XA Other injury of urethra, initial encounter; N17.9 Acute kidney failure, unspecified; R62.7 Adult failure to thrive; R13.10 Dysphagia, unspecified; I69.320 Aphasia following cerebral infarction; I95.9 Hypotension, unspecified; E86.0 Dehydration; E88.09 Other disorders of plasma-protein metabolism, not elsewhere classified; X58.XXXA Exposure to other specified factors, initial encounter; Y92.230 Patient room in hospital as the place of occurrence of the external cause; R31.9 Hematuria, unspecified; N47.2 Paraphimosis; G31.84 Mild cognitive impairment of uncertain or unknown etiology; E87.6 Hypokalemia
CPT/HCPCS: 36415; 70450; 70551; 71045; 74018; 74230; 80048; 80053; 81001; 81003; 82105; 82140; 82270; 82378; 82607; 82728; 82746; 82945; 83090; 83540; 83550; 83605; 83615; 83735; 84100; 84133; 84157; 84165; 84300; 84443; 84484; 85007; 85025; 85044; 85060; 85384; 85610; 85660; 85730; 86039; 86300; 86850; 86900; 86901; 86920; 87040; 87070; 87081; 87086; 87205; 87529; 89051; 92610; 93005; 94003; 94150; 94760; 95819; 96361; 96372; 96374; 99285; J2250; J8499